=== PATIENT | male | born 1950 | race Caucasian/White ===

== ENCOUNTER → 2018-03-04 01:19 | Outpatient (CLI) | payer MEDICARE, BC, SELFPAY ==
--- NOTE | 2018-03-04 12:58 | DI.REPORT_ITS ---
SYMPTOM/DIAGNOSIS: LT HIP PAIN, M25.552, CHRONIC, ? OA LEFT HIP AND PELVIS: There is mild narrowing of the superior joint space of the hips bilaterally. The hip joints are otherwise well maintained. The sacroiliac joints and symphysis pubis appear intact. The bones are normally mineralized and unremarkable. There are post surgical changes at the L 4-5 in the lumbar spine. Clips are seen inferior to the pelvis consistent with prior vasectomy. The soft tissues are unremarkable. IMPRESSION: Mild joint space narrowing of the hips bilaterally.
== END ==
PROVIDERS: PCP Nurse Practitioner Family; Visit Provider Nurse Practitioner Family
DX: M25.552 Pain in left hip (principal); G89.29 Other chronic pain
CPT/HCPCS: 73502

== ENCOUNTER 2018-03-26 13:16 | Outpatient (RCR) | payer MEDICARE, BC, SELFPAY ==
--- NOTE | 2018-03-26 15:00 | IE_ITS ---
Date: 03/26/18 Referring: Debbie Camp NP M.D. Diagnosis: (L) hip pain P.T. Diagnosis: Difficulty walking around, difficulty changing positions. 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 He is now fully retired and spends a lot of time working in his gardens and he tries to garden an organic garden with fruit trees raspberries and blueberries. He has a hx with being full of arthritis and states that he has significant arthritis in the spine and the knees as well which he is pretty much waiting to get a knee replacement at this point. His current complaint is more of (L) hip pain which has been going on for a year which is more recently painful in the past 4 months. It seems to occur in the back of the (L) hip right of the top of the (L) back pocket and he does not describe any numbness or tingling that run down the leg. The pain can run down the (L) side of his leg on the back end surface. He has no bowel or bladder issues that coincides with his new symptoms. No unexplained weight loss, he has actually gained some weight and the pain does not wake him up at night. It is worse in standing compared to sitting. Pain Ratin/10 currently and at worse 6/10 Prior Level of Function: Unrestricted Current Level of Function: Difficulty walking, difficulty with his gardening. Previous Treatment: Nothing yet for this issue. Social: Pt lives in [place]. Comorbidities: Hx of spinal fusion in 2013, hx arthritis, ureter disorder, hernia repair, ascending aortic aneurism repair, bicuspid valve repair. Medications: Zoloft, Astatin, low dose aspirin, vitamin D3. Quality of Life: __X__ Good Standardized Measures: LEFS score: __52% Disability Rating__ OBJECTIVE: Posture: In standing, pt demonstrates a significant forward head posture, mild anterior pelvic tilt and an increased thoracic kyphosis. Gait: Mildly antalgic with a slight reduction of stance time through the (L) LE. Palpation: He is tender to palpation through the posterior surface of the (L) greater trochanter. Also in the distribution of the piriformis and mildly tender over the quadratus lumborum. SFMA top tier assessment was performed with a dysfunctional non painful pattern through cervical spine motions, UE 1 and UE 2, multisegmental flexion, dysfunctional painful patterns with arms down deep squat, SLS, multisegmental extension and multisegmental rotation. ROM: Multisegmental flexion is full and pain free, multisegmental extension of the spine limited to 50% of available motion, hip flexion 120* (B), hip IR 30* through the (L) with mild pain upon end range and 30* (R). Hip ER 45* (B), hip abduction 45* (B). Knee ROM WNL (B), ankle ROM mildly limited through dorsiflexion on the (L) and end range dorsiflexion on the (R) but pain at end range on the (R). Plantar flexion WNL. Strength: Hip flexion 4+/5 (B) mild pain upon resistance on the (L) Quads 5/5 Hamstrings 5/5 Dorsiflexion 5/5 Plantarflexion 5/5 Glute Med 4-/5 (B) Neuro: Pt intact to light touch and sensation through upper and LE dermatomes, motor control appears intact through associated myotomes and pt demonstrates appropriate proprioception and kinesthetic awareness. Special Tests: Quadrant, SLR and SLUMP negative for any symptoms of radiation or radiculopathy. Modified phabers testing mildly positive on the (L) and negative (R). Michael testing negative (B), Obers testing negative (B). Treatment: Tx today included the initial evaluation and assessment of functional abilities as well as training in a formal exercise program. Pt demonstrated verbal acknowledgement and technique demonstration. Direct treatment time: 60 minutes Total treatment time: 60 minutes ASSESSMENT: Patient is a 73-year-old male with a hx of mild health conditions effecting function, referred for PT services with the diagnosis of (L) hip pain. Patient presents with clinical signs and symptoms consistent with mechanical derangement through the (L) hip , as demonstrated by the following impairment level findings: Multisegmental instability through the (L) hip girdle as demonstrated by weakness through glute med function, mildly antalgic gait pattern and postural deficits. Impairments are contributing to the following functional limitations: Difficulty with long distance walking, difficulty with standing for long periods of time. Patient is assessed as: __X__ Low [id number] ____ Moderate [id number] ____ High 73811 complexity, based on the following: History: Hx of aortic abdominal aneurism repair, bicuspid valve repair, arthritis, fusion in the spine. Examination: Weakness through the pelvic girdle, mildly antalgic gait pattern and tenderness to palpation through the greater trochanter on the (L) side. Minor postural deficits. Presentation: X Stable Decision-Making: X Low complexity 52 % Disability based on LEFS __X__ Patient requires skilled PT intervention to remediate the above functional limitations to return to: __X__ Premorbid level of function Prognosis: __X__ Good as evidence suggest improvement of functional abilities with compliance to a detailed HEP tailored to his dx and following through with PT intervention. G-Codes : Patient's primary functional limitation is in the category of: __X__ Mobility - walking and moving around : [id number] justified by his minor disability involving walking for longer distances and with standing. Projected goal: __X__ Mobility - walking and moving around: [id number] to return to premorbid level of function considering age related deficits. STG: __2__ weeks. 1. Pt will be (I) with HEP both verbally and with ideal technique demonstration. LTG: __6__ weeks. 1. Pt able to walk up to 1 mile within 25 minutes with normalized gait mechanics. PLAN: Patient to be seen 1 x per week, for 6 weeks, adjusting frequency of visits per patient symptoms and response to treatment. Treatment to include: X Manual therapy - [id number]: Utilized for enhancing muscle extensibility and improving joint arthrokinematics. X Ultrasound/ Estim available for pain modulation as necessary. X Therapeutic exercise - [id number] tactile cues, verbal education and advanced movement correctives for establishing muscle symmetry through the core and pelvic girdle, improving LE strength and stability. Pt will be monitored for compliance to HEP and pt status will be updated accordingly, plan may be modified as symptoms dictate. Thank you for this referral. Please do not hesitate to contact me with any questions or concerns regarding this patient's plan of care. Debbie Camp NP please sign below if you are in agreement with this patients plan of care,
== END 2018-03-29 23:59 | disposition home or self-care (01) ==
LOC: PT 13:16
PROVIDERS: PCP Nurse Practitioner Family; Referring Provider Nurse Practitioner Family; Visit Provider Nurse Practitioner Family
DX: M25.552 Pain in left hip (principal); M24.852 Other specific joint derangements of left hip, not elsewhere classified
CPT/HCPCS: 97161; G8978

== ENCOUNTER 2018-04-08 08:37 | Outpatient (CLI) | payer MEDICARE, BC, SELFPAY ==
[2018-04-08 10:32] LABS: Anion Gap 8.2 mmol/L (3-11); BUN 15 mg/dL (7-18); CO2 28.8 mmol/L (21.0-32.0); Calcium 9.1 mg/dL (8.5-10.1); Chloride 105 mmol/L (98-107); Cholesterol 195 mg/dL (50-200); Glucose 90 mg/dL (70-100); HDL Cholesterol 69 mg/dL (40-60); LDL CHOLESTEROL 114 mg/dL (<100); Potassium 4.7 mmol/L (3.5-5.1); Sodium 142 mmol/L (136-145); Triglyceride 46 mg/dL (30-150)
[2018-04-09 11:40] LABS: HIV-1/2 Ag & Ab Screen Negative (NEGAT)
== END 2018-04-08 08:57 ==
PROVIDERS: PCP Nurse Practitioner Family; Visit Provider Nurse Practitioner Family
DX: Z11.4 Encounter for screening for human immunodeficiency virus [HIV] (principal); E78.5 Hyperlipidemia, unspecified; Z11.3 Encounter for screening for infections with a predominantly sexual mode of transmission
CPT/HCPCS: 36415; 80048; 80061; 83721; 87389

== ENCOUNTER 2018-04-23 01:11 | Outpatient (CLI) | payer MEDICARE, BC, SELFPAY ==
--- NOTE | 2018-04-23 07:11 | DI.US_ITS ---
SYMPTOMS/DIAGNOSIS: SCREENING FOR AAA ABDOMINAL AORTIC ULTRASOUND: Sonographic evaluation of the abdominal aorta was performed. There is no evidence of an abdominal aortic aneurysm. Maximum diameter of the abdominal aorta is seen proximally and is 2.8 cm. IMPRESSION: No evidence of an abdominal aortic aneurysm.
== END 2018-04-23 01:31 ==
PROVIDERS: PCP Nurse Practitioner Family; Visit Provider Nurse Practitioner Family
DX: Z13.6 Encounter for screening for cardiovascular disorders (principal)
CPT/HCPCS: 76706

== ENCOUNTER 2019-02-03 10:02 | Outpatient (CLI) | payer MEDICARE, BC, SELFPAY ==
[2019-02-03 11:27] LABS: TSH (W/Ref FT4) 2.42 uIU/mL (0.358-3.74)
[2019-02-03 11:43] LABS: BUN 19 mg/dL (7-18); CREATININE 0.84 mg/dL (0.70-1.30); Calcium 8.8 mg/dL (8.5-10.1); Calculated LDL 90 mg/dL; Chloride 106 mmol/L (98-107); Cholesterol 158 mg/dL (50-200); Glucose 72 mg/dL (70-100); HDL Cholesterol 54 mg/dL (40-60); Potassium 4.6 mmol/L (3.5-5.1); Sodium 142 mmol/L (136-145); Triglyceride 74 mg/dL (30-150)
== END 2019-02-03 10:22 ==
PROVIDERS: PCP Nurse Practitioner Family; Visit Provider Nurse Practitioner Family
DX: E78.5 Hyperlipidemia, unspecified (principal); G25.2 Other specified forms of tremor; Z13.1 Encounter for screening for diabetes mellitus
CPT/HCPCS: 36415; 80048; 80061; 83721; 84443

== ENCOUNTER 2019-12-31 02:31 | Outpatient (CLI) | payer MEDICARE, BC, SELFPAY ==
[2019-12-31 10:12] LABS: Anion Gap 2.7 mmol/L (3-11); BUN 22 mg/dL (7-18); CO2 31.3 mmol/L (21.0-32.0); CREATININE 0.93 mg/dL (0.70-1.30); Calcium 9.1 mg/dL (8.5-10.1); Calculated LDL 100 mg/dL (<100); Chloride 108 mmol/L (98-107); Cholesterol 172 mg/dL (<200); Glucose 94 mg/dL (74-106); HDL Cholesterol 63 mg/dL (40-60); Potassium 4.4 mmol/L (3.5-5.1); Sodium 142 mmol/L (136-145); Triglyceride 49 mg/dL (<150)
== END 2019-12-31 02:51 ==
PROVIDERS: PCP Nurse Practitioner Family; Visit Provider Nurse Practitioner Family
DX: E78.5 Hyperlipidemia, unspecified (principal); Z13.1 Encounter for screening for diabetes mellitus
CPT/HCPCS: 36415; 80048; 80061

== ENCOUNTER 2020-11-02 15:27 | Emergency (ER) | payer MEDICARE, BC, SELFPAY ==
[2020-11-02 15:49] VITALS: BP 168/95; PULSE 50; RESP 18; TEMP 36.4; O2SAT 97
--- NOTE | 2020-11-02 16:00 | DI.RAD_ITS ---
EXAM: XR RIBS RT W PA LAT CHEST CLINICAL HISTORY: Fall, Right side rib pain TECHNIQUE: 2D digital imaging was performed. COMPARISON: CR LEFT RIBS TO INCLUDE CXR from 09/05/2012 FINDINGS: The heart size is within normal limits. Sternal wires in aortic prosthesis are again noted. There a re emphysematous changes. There is mild basilar scarring. No pneumothorax is identified. No effusi on is seen. No thoracic compression fractures are seen. There are fractures of the right posterolat eral 3rd through 8th ribs. IMPRESSION: Right 3rd through 8th rib fractures. No pneumothorax. No infiltrate or effusion.
--- NOTE | 2020-11-02 16:24 | W.ED.GENAD ---
Discharge Plan Disposition Patient Disposition: HOME Condition: Stable Discharge Details Clinical Impression: Multiple fractures of ribs of right side, Contusion of right lung Primary Care Provider: Debbie Camp ED Provider: Gia Childress Home Meds and New Rx's Prescriptions: New cyclobenzaprine 10 mg tablet 10 mg PO TID PRN (Reason: muscle spasm) Qty: 10 RF: 0 oxycodone 5 mg tablet 5 mg PO BID PRN (Reason: pain) 3 Days Qty: 7 RF: 0 No Action ibuprofen 400 mg tablet 400 mg PO QID PRNRF: 0 omeprazole 20 mg capsule,delayed release(DR/EC) 20 mg PO DAILY Qty: 90 RF: 3 Hold Instructions: Home Medication placed on hold at Doctor's office diclofenac sodium [Voltaren] 1 % gel 2 - 4 g topical QID PRN (Reason: pain) Qty: 100 RF: 3 lorazepam 1 mg tablet 1 - 2 mg PO DAILY PRN (Reason: anxiety) Qty: 4 RF: 0 metronidazole [Metrogel] 60 GM gel 1 film Topical DAILY Qty: 1 RF: 3 sertraline 50 MG tablet 75 mg PO DAILY RF: 0 aspirin [Adult Low Dose Aspirin] 81 mg tablet,delayed release (DR/EC) 81 mg PO DAILY RF: 0 cholecalciferol (vitamin D3) [Vitamin D3] 50 mcg (2,000 unit) capsule 4,000 unit PO DAILY RF: 0 amoxicillin 500 mg capsule 2,000 mg PO ONCE Qty: 4 RF: 1 fluorouracil [Efudex] 5 % cream 1 applic topical DAILY RF: 0 triple cream topical RF: 0 simvastatin 20 mg tablet 20 mg PO QHS Qty: 90 RF: 3 losartan 50 mg tablet 50 mg PO DAILY RF: 0 gabapentin 300 mg capsule 300 mg PO HS Qty: 90 RF: 3 Discharge Instructions Instructions: Rib Fracture (ED), Pulmonary Contusion (ED) Additional Instructions: Cough and deep breathing is much as possible, move around as much as possible. Take pain medications as directed. Do not drive or operate heavy machinery while taking the medications. Follow up with primary care provider in 3-5 days. Return to ED sooner if any worsening shortness of breath, worsening pain not relieved by medications, feeling worse at any time, or concerns. Increase oral fluids. Referrals: Debbie Camp NP [Primary Care Provider] - Medical Decision Making Imaging protocol: XR Right ribs. Views: 2 views. COMPARISON: No relevant prior studies available. FINDINGS: Bones/joints: Contour abnormality in the right posterior 4th rib may represent acute fracture. There may be nondisplaced right 5th and 6th rib fractures. Contour abnormality in in the right 7th rib consistent with acute fracture. Soft tissues: Normal. IMPRESSION: Contour abnormality in the right posterior 4th rib may represent acute fracture. There may be nondisplaced right 5th and 6th rib fractures. Contour abnormality in in the right 7th rib consistent with acute fracture. TECHNIQUE: Imaging protocol: XR of the chest Views: 2 views. COMPARISON: No relevant prior studies available. FINDINGS: Lungs: Hyperexpanded lung apple consistent with COPD Pleural spaces: Unremarkable. No pleural effusion. No pneumothorax. Heart/Mediastinum: Cardiac valve replacement Bones/joints: Median sternotomy Right rib fractures as described above. IMPRESSION: Right rib fractures as described above. Thank you for allowing us to participate in the care of your patient. Dictated and Authenticated by: Jose Angel Kincaid MD CT ordered due to right upper quadrant abdominal pain. X-ray was counseled that patient had already had exam. 1814: CBC largely unremarkable, CMP is also within normal limits, patient reevaluation, he is complaining of pain order for Zofran and morphine place. I did discuss the x-ray results with him and pending CT results he verbalizes understanding at this time. vRad CT chest abdomen pelvis: FINDINGS: Liver: 17 mm oblong low-attenuation area in the anterior liver (series 4, image 58 ) 32 Hounsfield units.. 12 mm simple cyst in the dome of the liver . No follow-up imaging recommended . 10 mm cystic structure in the dome of the liver series 4 image 50 and 51. . No follow-up imaging recommended . Multiple small low-attenuation areas in the liver are too small to characterize Gallbladder and bile ducts: Cholecystectomy Pancreas: Normal. No ductal dilation. Spleen: 8 mm nodule in the lateral spleen 27 Hounsfield units. Adrenal glands: Normal. No mass. Kidneys and ureters: Subcentimeter low attenuation area in the right kidney is too small for characterization. 11 mm simple cyst left kidney Nonobstructing right renal calculus Stomach and bowel: Unremarkable. No obstruction. No mucosal thickening. Appendix: No evidence of appendicitis. Intraperitoneal space: Unremarkable. No free air. No significant fluid collection. Vasculature: Unremarkable. No abdominal aortic aneurysm. Lymph nodes: Unremarkable. No enlarged lymph nodes. Urinary bladder: Unremarkable as visualized. Reproductive: Unremarkable as visualized. Bones/joints: Internal fixation device at L4 and L5 Soft tissues: Unremarkable. 1904: Discussed CT results with patient he verbalized understanding. He is standing up alert and oriented and conversive. He is still complaining of some significant pain status post morphine and Zofran. I did discuss giving him a lidocaine patch and p.o. medications to go home with. Discussed return instructions. HPI General Mode of arrival: ambulatory. Date/Time Provider Initiated Documentation: 11/02/20 16:02. Limitations to Documentation: no limitations. Information obtained by: patient. HPI Narrative: 70-year-old male presents to the ER status post fall from approximately 9 foot height possibly 2 hours prior to arrival. Patient states that he was in the back of the bed of a truck on a ladder trimming a [place] when he leaned over and fell onto his right thigh. He denies any loss of consciousness. He reports feeling the wound to be knocked out of him when he fell. He was able to get himself up eventually. He is ambulatory upon arrival. States pain is worse when sitting. Increased pain with deep breathing and moving. He did take a gram of Tylenol prior to arrival. He denies any vomiting, headache, blurry vision no C-spine T-spine L-spine tenderness to palpation no crepitus no step-off. He denies any hip or leg pain from the fall. He does have a past medical history of spinal stenosis osteoarthritis of the knees, hyperlipidemia, aortic aneurysm, tumor, erectile disorder, anxiety disorder. He is alert and oriented x3 speaking in full sentences. He does have lung sounds auscultated bilateral lung apple. He also has some right upper quadrant abdominal pain with palpation. Related Data Home Medications Medication Instructions Recorded Confirmed metronidazole [Metrogel 1%] 1 film TOPICAL DAILY #1 tube 03/05/17 07/05/20 sertraline 75 mg PO DAILY tab-cap 05/30/17 07/05/20 ibuprofen 400 mg tablet 400 mg PO QID PRN 04/19/18 07/05/20 aspirin 81 mg tablet,delayed 81 mg PO DAILY 11/22/18 07/05/20 release lorazepam 1 mg tablet 1 - 2 mg PO DAILY PRN #4 tab-cap 06/09/19 07/05/20 omeprazole 20 mg capsule,delayed 20 mg PO DAILY #90 tab-cap 01/05/20 07/05/20 release cholecalciferol (vitamin D3) 50 4,000 unit PO DAILY cap 02/13/20 07/05/20 mcg (2,000 unit) capsule diclofenac sodium 1 % topical gel 2 - 4 g TOPICAL QID PRN #100 g 07/05/20 07/05/20 amoxicillin 500 mg capsule 2,000 mg PO ONCE #4 cap 07/07/20 fluorouracil 5 % topical cream 1 applic TOPICAL DAILY g 08/05/20 triple cream TOPICAL 08/05/20 simvastatin 20 mg tablet 20 mg PO QHS #90 tab-cap 08/13/20 losartan 50 mg tablet 50 mg PO DAILY 09/10/20 gabapentin 300 mg capsule 300 mg PO HS #90 tab-cap 10/15/20 cyclobenzaprine 10 mg PO TID PRN #10 tab 11/02/20 oxycodone 5 mg PO BID PRN 3 Days #7 tab 11/02/20 Previous Rx's Medication Instructions Recorded lorazepam 1 mg tablet 1 - 2 mg PO DAILY PRN #4 tab-cap 06/09/19 omeprazole 20 mg capsule,delayed 20 mg PO DAILY #90 tab-cap 01/05/20 release diclofenac sodium 1 % topical gel 2 - 4 g TOPICAL QID PRN #100 g 07/05/20 amoxicillin 500 mg capsule 2,000 mg PO ONCE #4 cap 07/07/20 simvastatin 20 mg tablet 20 mg PO QHS #90 tab-cap 08/13/20 gabapentin 300 mg capsule 300 mg PO HS #90 tab-cap 10/15/20 cyclobenzaprine 10 mg PO TID PRN #10 tab 11/02/20 oxycodone 5 mg PO BID PRN 3 Days #7 tab 11/02/20 Allergies Allergy/AdvReac Type Severity Reaction Status Date / Time ibuprofen AdvReac Mild GI upset Verified 01/05/20 08:09 General Stated Complaint: Chest/Rib GRISEL: 3 Review of Systems Narrative: Constitutional: Negative for weight loss, alert and oriented, well groomed, normal body habitus, appears comfortable. HEENT: Denies elevated fever headaches, blurry vision, nasal discharge, sore throat, trouble swallowing. Chest: Your right-sided chest wall pain. Denies palpitations, irregular rhythm, hypertension. Respiratory: Denies Shortness of breath, cough, hemoptysis. Reports pain with deep breathing. GI: Denies abdominal pain, nausea, vomiting, diarrhea, constipation. : Denies dysuria, hematuria, flank pain, rectal bleeding. Neuro: Denies dizziness, blurry vision, weakness, syncope, headache or facial numbness. Hematologic: Denies easy bruising, intolerance to heat or cold, hair loss. [facility] Medical History (Updated 11/02/20 @ 19:14 by Gia Childress) Actinic keratosis (03/20/12) Anxiety disorder, unspecified (01/31/17) Aortic aneurysm of unspecified site, without rupture (12/12/19) S/p tube grafting in 2009 Aortic stenosis (02/04/20) S/p TAVR 02/04/20 Aortic valve disorder (11/06/12) 11/2009 bioprosthetic AVR/Ascending Aorta replacement [facility] [place] Followed by Dr Ríos CT surgery. [facility] [place] rec Abx prophylaxis 01/14/20 [facility] [place] Cardiac Cath, 02/04/20-TAVR [facility] [place] Arthropathy of cervical spine (11/28/11) Cervical arthropathy RFx2 BPH (benign prostatic hyperplasia) S/p TURP BPH w/o urinary obs/LUTS (11/28/11) S/P TURP Chronic pain (05/15/14) Spinal stenosis; cervical arthropathy Essential tremor Gastroesophageal reflux disease (12/22/15) EGD 2010 [facility] [place] Generalized osteoarthritis (04/30/13) Hearing loss Hyperlipidemia (11/28/11) 03/2018 labs: 10-year ASCVD risk = ~14.2% (already on moderate intensity statin) Insomnia, unspecified (11/06/12) Nondependent alcohol abuse, 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/28/11) Primary osteoarthritis of right knee (10/26/17) [facility] 05/19/19 [facility] [place] Kenalog injection Rosacea (11/28/11) 08/05/20 [facility] Sensorineural hearing loss, bilateral (11/06/12) hearing aide Spinal stenosis (11/28/11) [facility] L4-5 laminectomy 11/2013 Dr Rascon [facility] pain clinic: median nerve branch block 2015 Temporomandibular joint disorders, unspecified (11/28/11) Ventral hernia (11/28/11) Surgical History (Updated 09/13/20 @ 11:02 by Debbie Camp NP) Cholecystectomy EGD (07/19/11) lumbar/sacral medial branch blocks (02/24/15) Dr Caputo Replacement of aortic valve (~11/2009) Bioprosthetic AVR & ascending aorta replacement at [facility] [place] S/P TAVR (transcatheter aortic valve replacement) (02/04/20) Valve in valve TAVR with 26mm ultra; [facility] SI joint injection (04/23/17) L side, Dr. Caputo Transurethral prostatectomy For BPH Family History Mother Diabetes Heart disease Father Heart disease Multiple sclerosis Sister Diabetes Social History Smoking/Tobacco Use Status: Former Tobacco Use Quit Date: 07/30/09 Smoking risk assessment performed?: Yes Alcohol Intake: former Drug use: Never Substance use type: does not use Adopted: No Caregiver/Support person: No Foster care: No Household members: spouse Number of Children: 2 Communication Needs: None Education Level: college current occupation: retired Current gender identity: male What type of physical activity do you participate in: walking Duration: 60-90 minutes/day Frequency: daily Seatbelt use: always Helmet use: Yes Drive intox or ride w/intox cmv driver: No Water heater temp set <120 deg: Yes Working smoke detector in home: Yes Fire extinguisher in home: Yes Carbon monox detector in home: Yes Firearms in home: Yes Firearms unloaded and locked: Yes Do you feel safe at home: Yes Do you feel safe in your relationship?: Yes Exam Narrative Exam Narrative: Constitutional: Alert and oriented x3. Appears stated age. Normal body habitus. Head: Normocephalic, no trauma. Eyes: Pupils PERRLA, Red reflex noted, EOM's intact. Eyelids symmetrical without lesions, discharge, or swelling. ENT: Bilateral TM's WNL, External ear normal to inspection, no mastoid TTP, swelling, or erythema, Nasal turbinates WNL, no nasal discharge. Normal dentition, Posterior pharynx WNL, no exudate. Chest: RRR, Normal S1, S2, distal pulses intact. Resp: Lungs clear to auscultation bilaterally, no wheezes, rales, or rhonchi. Chest wall: Tenderness noted to the right lateral chest wall with palpation. No step-off or crepitus noted. No anterior posterior chest wall tenderness to palpation. Musculoskeletal: Normal gait, 5/5 strength to all four extremities. No midline C-spine, T-spine, L-spine tenderness with palpation. No crepitus no step-off. Skin: No suspicious rashes or lesions. Capillary refill less than 2 sec. Neurologic: Cranial nerves II-XII intact. Alert and oriented x 3. DTR's intact. Hematologic/Lymphatic: No ecchymosis, no lymphadenopathy. Course Vital Signs Vital signs: Vital Signs Temperature 36.4 C L 11/02/20 15:49 Pulse 50 L 11/02/20 15:49 Respiratory Rate 18 11/02/20 15:49 Blood Pressure 168/95 H 11/02/20 15:49 Pulse Oximetry 97 11/02/20 15:49 Temperature 36.4 C L 11/02/20 15:49 Temperature Source Skin 11/02/20 15:49 Pulse 50 L 11/02/20 15:49 Respiratory Rate 18 11/02/20 15:49 Respiratory Effort Non-Labored 11/02/20 16:08 Respiratory Depth Normal 11/02/20 16:08 Respiratory Pattern Normal 11/02/20 16:08 Blood Pressure 168/95 H 11/02/20 15:49 Blood Pressure Position Sitting 11/02/20 15:49 Pulse Oximetry 97 11/02/20 15:49 Oxygen Delivery Method Room Air 11/02/20 15:49 Oxygen Flow Rate 0 11/02/20 15:49 Pain Level 3 11/02/20 16:08 Comment 11/02/20 15:49
--- NOTE | 2020-11-02 16:27 | DI.CT_ITS ---
EXAM: CT CHEST/ABD/PEL W CLINICAL HISTORY: Fall from 9 feet, Right side chest pain, RUQ pain. TECHNIQUE: Imaging Protocol: Axial computed tomography images with coronal and sagittal reformatted images were created and reviewed CONTRAST MATERIAL: Intravenous: Omnipaque 350 Contrast volume:100 ml Oral: no COMPARISON: US US AAA screening from 04/23/2018 CR,XR XR RIBS RT W PA LAT CHEST from 11/02/2020 CR,XR XR RIBS RT W PA LAT CHEST from 11/02/2020 FINDINGS: CHEST: Tracheobronchial tree: Patent where visualized. Mediastinum and Brandie: No dominant adenopathy or fluid collection. Pulmonary parenchyma: No consolidation or dominant measurable mass. Mild bibasilar atelectasis. Sma ll focal area of airspace density in the right upper lobe could represent a contusion. Pleura: No effusion or pneumothorax. Lymph nodes: Within normal limits. Aorta: Thoracic portion non-dilated. Heart: Mildly enlarged. No pericardial effusion. Aortic valve prosthesis. Ascending aorta measures 4 cm in diameter. No dissection. Bones: Nondisplaced fractures of the right 3rd through 8th ribs. ABDOMEN: Liver: Normal density. Several small cysts. Gallbladder and biliary tract: No status post cholecystectomy. No biliary dilatation. Pancreas: Normal density, no abnormal calcifications or inflammatory process. Spleen: Normal. Kidneys: Normal size, contour and axis. No obstructive uropathy. No masses seen. Small bilateral c ysts. Tiny nonobstructing stone mid right kidney. Adrenal glands: No masses seen. Aorta: Abdominal portion non-dilated. Lymph nodes: Within normal limits. PELVIS: Bladder: Symmetric distention, no gross wall thickening. Bowel: No obstruction or bowel wall thickening. Peritoneal cavity: No ascites, collection or mesenteric inflammatory response. Bones: Postsurgical changes with fusion hardware in place at L4-5. Degenerative disc changes. No mj mbar spine or pelvic fracture. Reproductive organs: Within normal limits. IMPRESSION: Right 3rd through 8th rib fractures. Question small area of atelectasis versus contusion in the righ t upper lobe. No acute abnormality is seen in the abdomen or pelvis. RADIATION DOSE DELIVERED: 1,376.65mGy.cm Total DLP DATA REPOSITORY: All CT scans at this facility are submitted to the National Radiology Data Registry (NRDR) Dose Index Registry (DIR) with the [employer] (ACR). RADIATION OPTIMIZATION: All CT scans at this facility use at least one of these dose optimization te chniques: automated exposure control; mA and/or kV adjustment per patient size (includes targeted exa ms where dose is matched to clinical indication); or iterative reconstruction.
--- NOTE | 2020-11-02 16:56 | DI.VRAD_ITS ---
PROCEDURE INFORMATION: Exam: XR Right Ribs Exam date and time: 11/02/2020 4:34 PM Age: 70 years old Clinical indication: Other: Fall, right side rib pain TECHNIQUE: Imaging protocol: XR Right ribs. Views: 2 views. COMPARISON: No relevant prior studies available. FINDINGS: Bones/joints: Contour abnormality in the right posterior 4th rib may represent acute fracture. There may be nondisplaced right 5th and 6th rib fractures. Contour abnormality in in the right 7th rib consistent with acute fracture. Soft tissues: Normal. IMPRESSION: Contour abnormality in the right posterior 4th rib may represent acute fracture. There may be nondisplaced right 5th and 6th rib fractures. Contour abnormality in in the right 7th rib consistent with acute fracture. PROCEDURE INFORMATION: Exam: XR Chest Exam date and time: 11/02/2020 4:34 PM Age: 70 years old Clinical indication: Other: Fall, right side rib pain TECHNIQUE: Imaging protocol: XR of the chest Views: 2 views. COMPARISON: No relevant prior studies available. FINDINGS: Lungs: Hyperexpanded lung apple consistent with COPD Pleural spaces: Unremarkable. No pleural effusion. No pneumothorax. Heart/Mediastinum: Cardiac valve replacement Bones/joints: Median sternotomy Right rib fractures as described above. IMPRESSION: Right rib fractures as described above. Dictated and Authenticated by: Jose Angel Kincaid MD. Ordering:ROXANA Nielsen MD
[2020-11-02 17:02] LABS: Abs Immature Grans 0.07 10^3/uL (0.0-0.06); Absolute Basophil Count 0.03 10^3/uL (0.0-0.2); Absolute Eosinophil Count 0.15 10^3/uL (0.0-0.7); Absolute Lymphocyte Count 0.89 10^3/uL (1.2-3.4); Absolute Monocyte Count 0.63 10^3/uL (0.1-0.8); Absolute Neutrophil Count 4.23 10^3/uL (1.2-6.7); Basophils % 0.5; Eosinophils % 2.5; HGB 16.1 g/dL (13.5-17.5); Immature Grans % 1.2; Lymphocytes % 14.8; MCH 31.6 pg (27.0-33.0); MCHC 32.9 % (32.0-36.0); MCV 96.1 fL (80-95); MPV 10.1 fL (8.0-11.0); Monocytes % 10.5; Neutrophils % 70.5; Nucleated RBC 0 %; Platelet Count 157 10^3/uL (130-400); RDW 12.8 % (11.8-14.1); RDW-SD 46.2 fL
[2020-11-02 17:16] LABS: ALT 38 U/L (16-63); AST 32 U/L (15-37); Albumin 4.4 g/dL (3.4-5.0); Alkaline Phosphatase 90 U/L (46-116); Anion Gap 7.1 mmol/L (3-11); BUN 20 mg/dL (7-18); Bilirubin, Total 0.7 mg/dL (0.2-1.0); CO2 29.9 mmol/L (21.0-32.0); CREATININE 0.9 mg/dL (0.70-1.30); Calcium 9.3 mg/dL (8.5-10.1); Chloride 103 mmol/L (98-107); Glucose 93 mg/dL (74-106); Potassium 4.2 mmol/L (3.5-5.1); Sodium 140 mmol/L (136-145); Total Protein 7.9 g/dL (6.4-8.2)
[2020-11-02] MEDS: Omnipaque 350 MG/ML 100 ML BTL IJ (17:56)
[2020-11-02] MEDS: Normal Saline - Diluent 50 ML VIAL IV (17:56)
[2020-11-02] MEDS: Ondansetron 4 MG/2 ML VIAL IVP (18:22)
--- NOTE | 2020-11-02 18:48 | DI.VRAD_ITS ---
PROCEDURE INFORMATION: Exam: CT Chest With Contrast; Diagnostic Exam date and time: 11/02/2020 5:53 PM Age: 70 years old Clinical indication: Injury or trauma; Fall; Sprain or strain TECHNIQUE: Imaging protocol: Diagnostic computed tomography of the chest with contrast. 3D rendering (Not supervised by radiologist): MIP and/or 3D reconstructed images were created by the technologist. Contrast material: OMNIPAQUE 350; Contrast volume: 100 ml; Contrast route: IV; COMPARISON: CR XR RIBS RT W PA LAT CHEST 11/02/2020 4:23 PM FINDINGS: Lungs: Mild opacities in the lower lobes may represent atelectasis or contusion . Pleural spaces: Unremarkable. No pneumothorax. No pleural effusion. Heart: Status post aortic valve replacement Aorta: Unruptured aneurysm of the ascending aorta 4 cm. Lymph nodes: Unremarkable. No enlarged lymph nodes. Bones/joints: Median sternotomy Contour abnormality right anterior 4th rib contour abnormality in the right lateral 8th rib. Findings may represent minimal fracture. Contour abnormalities in the right posterior 5th , 6th, 7th, 8th, 9th, 10th ribs consistent with mild fractures.. Soft tissues: Unremarkable. IMPRESSION: 1. Contour abnormality right anterior 4th rib contour abnormality in the right lateral 8th rib. Findings may represent minimal fracture. Contour abnormalities in the right posterior 5th , 6th, 7th, 8th, 9th, 10th ribs consistent with mild fractures.. 2. Unruptured aneurysm of the ascending aorta 4 cm. 3. Mild opacities in the lower lobes may represent atelectasis or contusion . PROCEDURE INFORMATION: Exam: CT Abdomen And Pelvis With Contrast Exam date and time: 11/02/2020 5:53 PM Age: 70 years old Clinical indication: Injury or trauma; Fall; Sprain or strain TECHNIQUE: Imaging protocol: Computed tomography of the abdomen and pelvis with contrast. 3D rendering (Not supervised by radiologist): MIP and/or 3D reconstructed images were created by the technologist. Contrast material: OMNIPAQUE 350; Contrast volume: 100 ml; Contrast route: IV; COMPARISON: CR XR RIBS RT W PA LAT CHEST 11/02/2020 4:23 PM FINDINGS: Liver: 17 mm oblong low-attenuation area in the anterior liver (series 4, image 58 ) 32 Hounsfield units.. 12 mm simple cyst in the dome of the liver . No follow-up imaging recommended . 10 mm cystic structure in the dome of the liver series 4 image 50 and 51. . No follow-up imaging recommended . Multiple small low-attenuation areas in the liver are too small to characterize Gallbladder and bile ducts: Cholecystectomy Pancreas: Normal. No ductal dilation. Spleen: 8 mm nodule in the lateral spleen 27 Hounsfield units. Adrenal glands: Normal. No mass. Kidneys and ureters: Subcentimeter low attenuation area in the right kidney is too small for characterization. 11 mm simple cyst left kidney Nonobstructing right renal calculus Stomach and bowel: Unremarkable. No obstruction. No mucosal thickening. Appendix: No evidence of appendicitis. Intraperitoneal space: Unremarkable. No free air. No significant fluid collection. Vasculature: Unremarkable. No abdominal aortic aneurysm. Lymph nodes: Unremarkable. No enlarged lymph nodes. Urinary bladder: Unremarkable as visualized. Reproductive: Unremarkable as visualized. Bones/joints: Internal fixation device at L4 and L5 Soft tissues: Unremarkable. IMPRESSION: No acute process Dictated and Authenticated by: Jose Angel Kincaid MD. Ordering:ROXANA Nielsen MD
[2020-11-02 18:58] VITALS: BP 109/67; PULSE 42; RESP 16; TEMP 36.6; O2SAT 96
[2020-11-02] MEDS: Cyclobenzaprine 10 MG TAB, 3 TABS/BTL PO (19:30)
[2020-11-02] MEDS: Cyclobenzaprine 10 MG TAB PO (19:30)
[2020-11-02] MEDS: Lidocaine 5% Patch 1 PATCH TP (19:31)
[2020-11-02] MEDS: oxyCODONE 5 MG TAB PO (19:31)
[2020-11-02 19:32] VITALS: BP 134/79; PULSE 72; RESP 18; TEMP 36.8; O2SAT 98
--- NOTE | 2020-11-02 19:44 | NUR.NOTE ---
Nursing Note: Pt was provided with an IS and was able to provided proper use.
== END 2020-11-02 19:39 | disposition home or self-care (01) ==
PROVIDERS: Emergency Provider Registered Nurse Emergency; PCP Nurse Practitioner Family
DX: S22.41XA Multiple fractures of ribs, right side, initial encounter for closed fracture (principal); S27.321A Contusion of lung, unilateral, initial encounter; W11.XXXA Fall on and from ladder, initial encounter; Y93.H2 Activity, gardening and landscaping
CPT/HCPCS: 36415; 74177; 80053; 96374; 96375; 99285; 71046; 71100; 71260; 85025; 99284; J2405; J3490

== ENCOUNTER 2021-01-10 02:39 | Outpatient (CLI) | payer MEDICARE, BC, SELFPAY ==
[2021-01-10 08:09] LABS: HCT 50.2 % (40.0-50.0); HGB 16.2 g/dL (13.5-17.5); MCHC 32.3 % (32.0-36.0); MCV 96.2 fL (80-95); MPV 9.7 fL (8.0-11.0); Platelet Count 157 10^3/uL (130-400); RBC 5.22 10^6/uL (4.36-5.78); RDW 12.3 % (11.8-14.1); WBC 5.15 10^3/uL (4.4-10.8)
[2021-01-10 09:40] LABS: ALT 27 U/L (16-63); AST 22 U/L (15-37); Alkaline Phosphatase 138 U/L (46-116); Anion Gap 7.1 mmol/L (3-11); BUN 24 mg/dL (7-18); Bilirubin, Total 0.5 mg/dL (0.2-1.0); CO2 30.9 mmol/L (21.0-32.0); CREATININE 0.9 mg/dL (0.70-1.30); Calcium 9.5 mg/dL (8.5-10.1); Calculated LDL 117 mg/dL (<100); Chloride 105 mmol/L (98-107); Cholesterol 191 mg/dL (<200); Glucose 105 mg/dL (74-106); HDL Cholesterol 57 mg/dL (40-60); Potassium 5.2 mmol/L (3.5-5.1); Sodium 143 mmol/L (136-145); Total Protein 7.2 g/dL (6.4-8.2); Triglyceride 89 mg/dL (<150)
== END 2021-01-10 02:40 | disposition home or self-care (01) ==
LOC: LBO 02:44
PROVIDERS: PCP Nurse Practitioner Family; Visit Provider Nurse Practitioner Family
DX: E78.5 Hyperlipidemia, unspecified (principal); Z79.899 Other long term (current) drug therapy; Z51.81 Encounter for therapeutic drug level monitoring
CPT/HCPCS: 36415; 80053; 80061; 85027

== ENCOUNTER 2021-01-20 12:28 | Outpatient (REF) | payer MEDICARE, BC, SELFPAY ==
[2021-01-20 14:00] LABS: Potassium 4.4 mmol/L (3.5-5.1)
== END 2021-01-20 12:29 | disposition home or self-care (01) ==
LOC: LBN 12:28
PROVIDERS: PCP Nurse Practitioner Family; Referring Provider Nurse Practitioner Family; Visit Provider Nurse Practitioner Family
DX: E87.5 Hyperkalemia (principal)
CPT/HCPCS: 84132

== ENCOUNTER 2021-06-06 09:30 | Outpatient (REF) | payer MEDICARE, BC, SELFPAY ==
[2021-06-08 15:48] LABS: Helicobacter pylori Ag, Feces Negative (Negative)
== END 2021-06-06 09:31 | disposition home or self-care (01) ==
LOC: LBN 09:30
PROVIDERS: PCP Nurse Practitioner Family; Visit Provider Nurse Practitioner Family
DX: K21.9 Gastro-esophageal reflux disease without esophagitis (principal)
CPT/HCPCS: 87338

== ENCOUNTER → 2021-10-13 10:41 | Outpatient (BNVA) | payer MEDICARE, BC, SELFPAY | PROVIDERS: PCP Nurse Practitioner Family; Referring Provider Nurse Practitioner Family; Visit Provider Student in an Organized Health Care Education/Training Program | DX: M17.11 Unilateral primary osteoarthritis, right knee (principal) | CPT/HCPCS: 99214 ==

== ENCOUNTER → 2021-11-10 10:26 | Outpatient (BNVA) | payer MEDICARE, BC, SELFPAY | PROVIDERS: PCP Nurse Practitioner Family; Referring Provider Nurse Practitioner Family | DX: M17.11 Unilateral primary osteoarthritis, right knee (principal) ==

== ENCOUNTER 2021-11-14 02:34 | Outpatient (CLI) | payer MEDICARE, BC, SELFPAY ==
[2021-11-14 09:48] LABS: HCT 50.2 % (40.0-50.0); MCH 31.9 pg (27.0-33.0); MCHC 31.9 % (32.0-36.0); MPV 10.1 fL (8.0-11.0); Platelet Count 147 10^3/uL (130-400); RBC 5.02 10^6/uL (4.36-5.78); RDW 12.5 % (11.8-14.1); RDW-SD 46.4 fL; WBC 5.33 10^3/uL (4.4-10.8)
[2021-11-14 10:41] LABS: Anion Gap 5.1 mmol/L (3-11); BUN 25 mg/dL (7-18); CO2 30.9 mmol/L (21.0-32.0); Calcium 9.3 mg/dL (8.5-10.1); Chloride 105 mmol/L (98-107); Glucose 87 mg/dL (74-106); Potassium 4.2 mmol/L (3.5-5.1); Sodium 141 mmol/L (136-145)
[2021-11-14 11:52] LABS: Source Nasal/Nares
[2021-11-14 14:13] LABS: COVID-19 PCR Negative (Negative)
== END 2021-11-14 02:35 | disposition home or self-care (01) ==
LOC: LBO 02:35
PROVIDERS: PCP Nurse Practitioner Family; Visit Provider Student in an Organized Health Care Education/Training Program
DX: M25.561 Pain in right knee (principal); M17.11 Unilateral primary osteoarthritis, right knee; Z20.822 Contact with and (suspected) exposure to COVID-19; Z01.818 Encounter for other preprocedural examination; Z01.812 Encounter for preprocedural laboratory examination
CPT/HCPCS: 36415; 80048; 85027; 87635; U0005

== ENCOUNTER 2021-11-14 02:41 | Outpatient (CLI) | payer MEDICARE, BC, SELFPAY | END 2021-11-14 02:42 | disposition home or self-care (01) | LOC: LBO 02:42 | PROVIDERS: PCP Nurse Practitioner Family; Visit Provider Student in an Organized Health Care Education/Training Program ==

== ENCOUNTER 2021-11-16 08:50 | Day surgery (SDC) | payer MEDICARE, BC, SELFPAY ==
[2021-11-16] VITALS (10 sets, daily range): BP systolic 105–145; BP diastolic 69–103; PULSE 52–67; RESP 13–21; TEMP 36.1–36.6; O2SAT 94–97; BMI 25.9
--- NOTE | 2021-11-16 07:32 | PDOC.DSDIS_ITS ---
Discharge Plan Disposition Patient Disposition: HOME Condition: Good Discharge Details Reason For Visit: Right TKA Attending Provider: Isaac Farrell Primary Care Provider: Debbie Camp Home Meds and New Rx's Prescriptions: New celecoxib [Celebrex] 200 mg capsule 200 mg PO BID Qty: 60 0RF aspirin 81 mg tablet,delayed release (DR/EC) 81 mg PO BID Qty: 60 0RF gabapentin 300 mg capsule 300 mg PO QHS Qty: 14 0RF acetaminophen 500 mg capsule 1,000 mg PO Q8H PRN PRNQty: 90 0RF oxycodone 5 mg tablet 5 mg PO Q4H PRNQty: 18 0RF Continued diclofenac sodium [Voltaren] 1 % gel 2 - 4 g topical QID PRN (Reason: pain) Qty: 100 3RF Rx Instructions: 2G for upper extremity joints; 4G for lower extremity joints acetaminophen 500 mg capsule 1,000 mg PO TID PRN0RF pantoprazole 40 mg tablet,delayed release (DR/EC) 40 mg PO DAILY Qty: 90 1RF Rx Instructions: Take 40 mg daily once daily in the morning at least 20-30 minutes before first meal of the day lorazepam 1 mg tablet 1 - 2 mg PO DAILY PRN (Reason: anxiety) Qty: 4 0RF Rx Instructions: Take 1-2 tabs about 1 hour before takeoff losartan 50 mg tablet 50 mg PO DAILY Qty: 90 3RF aspirin [Adult Low Dose Aspirin] 81 mg tablet,delayed release (DR/EC) 81 mg PO DAILY 0RF cholecalciferol (vitamin D3) [Vitamin D3] 50 mcg (2,000 unit) capsule 4,000 unit PO DAILY 0RF amoxicillin 500 mg capsule 2,000 mg PO ONCE Qty: 4 1RF Rx Instructions: prior to dental procedure triple cream topical 0RF Rx Instructions: 08/05/2019 Cream is a mixture of Ivermectin 1%, Metrodiazole 1%, Azelaic acid 15% prescribed by Derm. Apply to entire face daily for 4 weeks and then start Efudex. sertraline 50 mg tablet 50 mg PO DAILY Qty: 90 3RF gabapentin 300 mg capsule 300 mg PO TID Qty: 270 3RF simvastatin 20 mg tablet 20 mg PO QHS Qty: 90 3RF Discharge Instructions Additional Instructions: Total Knee Discharge Instructions Activity: The most important activity is to walk. You should try to take short walks a few times a day. It is important that when resting you work on keeping the knee straight. Avoid putting a pillow behind the knee as this will encourage flexion. Work on range of motion exercises as provided by Physical Therapy. If you have the [employer] bike coming, this will be your primary tool for exercise after the knee replacement. You should use it and follow the directions for the knee. Utilize the other exercises sparingly based on your symptoms. - Start outpatient physical therapy within 2 weeks. - You should wear the ALLYN hose on both legs for 2 weeks. You may remove these at night. You may also use any compression sock in place of the ALLYN hose. - Utilize [employer] to review exercises, see videos on exercises and obtain basic information pertaining to your surgery and your recovery. Dressing: Remove the Darion wrap by 2 days after your surgery and put on the ALLYN stocking given to you from the hospital. Keep the surgical dressing (underneath the DARION wrap) in place for at least one week. After the first week it may be removed and replaced with light gauze and tape or nothing. The wound and dressing may get wet after 3 days but avoid soaking the dressing or otherwise it will need to be changed. Many people prefer covering the dressing with cling wrap (saran wrap) to minimize it from getting soaked. If it gets wet, just pat dry. If it starts to peel off then it will need to be changed. Medications: - You should take Tylenol and anti-inflammatory Celebrex as your primary pain control medications. If the Celebrex is too expensive or not covered, please call the office for another alternative (Advil/Ibuprofen or Naproxen/Aleve) - You have been prescribed a stronger pain medication Oxycodone for breakthrough pain, take as needed as prescribed. - You may continue with your previously prescribed stomach acid reduction agent Pantoprozole to help reduce stomach acid and reflux. - You may continue with your previously prescribed Gabapentin to take at night for restlessness and nerve pain. - You will be taking Aspirin 81mg twice a day for DVT prevention unless instructed otherwise. - If you have constipation you should take Colace or Miralax (both [id number]). It takes most people 3-4 days to have a bowel movement. Follow-up: 2 weeks If you have any acute concerns or questions, please do not hesitate to contact the office at [phone]. You may contact Dr. Farrell with any questions after hours through the hospital at [phone] or on his cell phone at [phone]. Referrals: Isaac Farrell MD [ [facility] STAFF PHYSICIAN] - Equipment/Supplies: Walker Activity:: Activity as Tolerated Remove Dressings/Wound Care:: Do Not Remove Shower/Bathe:: 72 hours Discharge Orders Discharge Orders: Discharge Order (Routine); Ordered 11/16/21 Ordered By: Beverly Estrada DS: Diagnosis Discharge Diagnosis (1) Primary osteoarthritis of right knee: Status: Chronic
--- NOTE | 2021-11-16 09:19 | W.ANESPRE ---
General Info Date of Service Date Performed: 11/16/21 Height: 6 ft 3 in Weight: 93.894 kg Body Mass Index (BMI): 25.9 Surgical Procedure: Operation Date: 11/16/21 11:25 Proposed Procedure Side Surgeon p Knee Total Arthroplasty Cementless CR Right Isaac Farrell MD Meds Allergies and Home Medications Allergies Allergy/AdvReac Type Severity Reaction Status Date / Time ibuprofen AdvReac Mild GI upset Verified 11/16/21 09:31 Home Medication Medication Instructions Recorded aspirin 81 mg tablet,delayed 81 mg PO DAILY 11/22/18 release (Adult Low Dose Aspirin) lorazepam 1 mg tablet 1 - 2 mg PO DAILY PRN #4 tab-cap 06/09/19 cholecalciferol (vitamin D3) 50 4,000 unit PO DAILY cap 02/13/20 mcg (2,000 unit) capsule (Vitamin D3) diclofenac sodium 1 % topical gel 2 - 4 g TOPICAL QID PRN #100 g 07/05/20 (Voltaren) amoxicillin 500 mg capsule 2,000 mg PO ONCE #4 cap 07/07/20 triple cream TOPICAL 08/05/20 sertraline 50 mg tablet 50 mg PO DAILY #90 tab-cap 02/16/21 acetaminophen 500 mg capsule 1,000 mg PO TID PRN cap 06/03/21 pantoprazole 40 mg tablet,delayed 40 mg PO DAILY #90 tab-cap 06/03/21 release gabapentin 300 mg capsule 300 mg PO TID #270 tab-cap 07/01/21 losartan 50 mg tablet 50 mg PO DAILY #90 tab 07/28/21 simvastatin 20 mg tablet 20 mg PO QHS #90 tab-cap 08/05/21 acetaminophen 500 mg capsule 1,000 mg PO Q8H PRN PRN #90 cap 11/16/21 aspirin 81 mg tablet,delayed 81 mg PO BID #60 tab 11/16/21 release celecoxib 200 mg capsule (Celebrex) 200 mg PO BID #60 cap 11/16/21 gabapentin 300 mg capsule 300 mg PO QHS #14 cap 11/16/21 oxycodone 5 mg tablet 5 mg PO Q4H PRN #18 tab 11/16/21 Current Visit Medications: Current Medications Generic Name Dose Route Start Last Admin Trade Name Freq PRN Reason Stop Dose Admin Acetaminophen 1,000 mg 11/16/21 06:00 Acetaminophen 500 Mg Tab PO PREOP JUAN J Acetaminophen 1,000 mg 11/16/21 14:00 Acetaminophen 500 Mg Tab PO TID [facility] Aspirin 81 mg 11/16/21 20:00 Aspirin E.C. 81 Mg Tabec PO BID [facility] Celecoxib 400 mg 11/16/21 06:00 Celecoxib 200 Mg Cap PO PREOP JUAN J Celecoxib 200 mg 11/16/21 20:00 Celecoxib 200 Mg Cap PO BID [facility] Bupivacaine HCl 25 ml/ 0 ml 11/16/21 11:00 Ketorolac Tromethamine 15 mg/ IJ 11/21/21 10:59 Sodium Chloride 24.5 ml DIRECTED [facility] Docusate Sodium 100 mg 11/16/21 07:31 Docusate Sodium 100 Mg Cap PO BID PRN PRN Constipation Gabapentin 300 mg 11/16/21 06:00 Gabapentin 300 Mg Cap PO PREOP [facility] Gabapentin 300 mg 11/16/21 22:00 Gabapentin 300 Mg Cap PO HS [facility] Hydromorphone HCl 0.5 mg 11/16/21 07:31 Hydromorphone 2 Mg/Ml Vial IVP Q2H PRN PRN Tranexamic Acid 1,000 mg/ 60 mls @ 360 mls/hr 11/16/21 06:00 Sodium Chloride IVPB PREOP [facility] Tranexamic Acid 1,000 mg/ 60 mls @ 360 mls/hr 11/16/21 06:00 Sodium Chloride IVPB DIRECTED [facility] Ringer's Solution 1,000 mls @ 80 mls/hr 11/16/21 06:00 IV 12/15/21 23:59 INFUSION [facility] Cefazolin Sodium/Dextrose 2 gm in 50 mls @ 100 mls/hr 11/16/21 06:00 Ancef Duplex IVPB 12/15/21 23:59 PREOP [facility] Cefazolin Sodium/Dextrose 1 gm in 50 mls @ 100 mls/hr 11/16/21 17:00 Ancef Duplex IVPB 11/17/21 09:29 Q8H [facility] IV Miscellaneous Supplies 1 each 11/16/21 06:00 Iv Access IV 12/15/21 23:59 DIRECTED [facility] Ondansetron HCl 4 mg 11/16/21 07:31 Ondansetron 4 Mg/2 Ml Vial IVP Q6H PRN PRN Nausea Oxycodone HCl 0 mg 11/16/21 07:31 Oxycodone 5 Mg Tab PO Q3H PRN PRN Pain Pantoprazole Sodium 40 mg 11/17/21 07:30 Pantoprazole 40 Mg Tabcr PO DAILY@0730 JUAN J Sodium Chloride 0 ml 11/16/21 06:00 Normal Saline Flush 10 Ml Syr IV 12/15/21 23:59 PRN PRN Sodium Chloride 0 ml 11/16/21 06:00 Normal Saline 10 Ml Vial IJ 12/15/21 23:59 DIRECTED PRN Sterile Water 0 ml 11/16/21 06:00 Water,Injection,Sterile 10 Ml Vial IJ 12/15/21 23:59 DIRECTED PRN PFSH Active Problems Active Problems: Problem Status Onset Code Chronic pain of right ankle M25.571, G89.29 Essential hypertension I10 Aortic aneurysm of unspecified site, without rupture 12/12/19 I71.9 Essential tremor G25.0 Chronic left hip pain M25.552, G89.29 Ventral hernia 11/28/11 K43.9 Temporomandibular joint disorders, unspecified 11/28/11 M26.609 Spinal stenosis 11/28/11 M48.00 Sensorineural hearing loss, bilateral 11/06/12 H90.3 Rosacea 11/28/11 L71.9 Primary osteoarthritis of right knee 10/26/17 M17.11 Insomnia, unspecified 11/06/12 G47.00 Hyperlipidemia 11/28/11 E78.5 Generalized osteoarthritis 04/30/13 M15.9 Gastroesophageal reflux disease 12/22/15 K21.9 Chronic pain 05/15/14 G89.29 BPH w/o urinary obs/LUTS 11/28/11 N40.0 Arthropathy of cervical spine 11/28/11 M46.92 Aortic valve disorder 11/06/12 I35.9 Anxiety disorder, unspecified 01/31/17 F41.9 Actinic keratosis 03/20/12 L57.0 Medical History Medical History Aortic stenosis (02/04/20) S/p TAVR 02/04/20 09/02/21 F/U Dr Albright Hearing loss Multiple fractures of ribs of right side Nondependent alcohol abuse, 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 Caputo Transurethral prostatectomy For BPH Tobacco Smoking/Tobacco Use Status: Former Tobacco Use Alcohol Alcohol Intake: former Substance Use Substance use: Never Substance use type: does not use Vital Signs and Lab Results Lab Results Blood Type / Crossmatch: No Data to Display Complete Blood Count: White Blood Count 5.33 10^3/uL (4.4-10.8) 11/14/21 09:40 11/14/21 Red Blood Count 5.02 10^6/uL (4.36-5.78) 11/14/21 09:40 11/14/21 Hemoglobin 16.0 g/dL (13.5-17.5) 11/14/21 09:40 11/14/21 Hematocrit 50.2 % (40.0-50.0) H 11/14/21 09:40 11/14/21 Platelet Count 147 10^3/uL (130-400) 11/14/21 09:40 11/14/21 Complete Metabolic Panel: Sodium Level 141 mmol/L (136-145) 11/14/21 09:40 11/14/21 Potassium Level 4.2 mmol/L (3.5-5.1) 11/14/21 09:40 11/14/21 Chloride Level 105 mmol/L (98-107) 11/14/21 09:40 11/14/21 Carbon Dioxide Level 30.9 mmol/L (21.0-32.0) 11/14/21 09:40 11/14/21 Blood Urea Nitrogen 25 mg/dL (7-18) H 11/14/21 09:40 11/14/21 Creatinine 1.0 mg/dL (0.70-1.30) 11/14/21 09:40 11/14/21 Estimated GFR/1.73 m2 >= 60.00 (mL/min/1.73m2) 11/14/21 09:40 11/14/21 Calcium Level 9.3 mg/dL (8.5-10.1) 11/14/21 09:40 11/14/21 Glucose Level 87 mg/dL (74-106) 11/14/21 09:40 11/14/21 Liver Function Panel: No Data to Display Coagulation Panel: No Data to Display Cardiac Panel: No Data to Display Arterial Blood Gas: No Data to Display Venous Blood Gas: No Data to Display Pancreas Panel: No Data to Display Thyroid Panel: No Data to Display Infectious Disease: Coronavirus (COVID-19)(PCR) Negative (Negative) 11/14/21 10:00 11/14/21 Coronavirus 2019 Source Nasal/Nares 11/14/21 10:00 11/14/21 Blood Cultures: No Data to Display Toxicology Panel: No Data to Display Imaging and Studies Imaging and Studies Study information below may be from another EMR and interpreted by another provider. Please see original notes in EMR for more complete details. EKG Summary: 09/02/20: sinus mello, nonspecific ST-T wave abnormality. Echocardiogram Summary: 09/02/2021: LVEF 60%. PAS 42 mmhg, RAP 15 mmhg. trans-valvular mean gradient across bioprosthetic AV 27 mmhg, peak 44 mmhg, MICHOACANO 1.1 cm2. mild MR, mild to mod [place]. 09/09/2020: LVEF 52%, mild septal hypertrophy of LV. left atrium severe dilation. well seated bioprosthetic AV with mean gradient 25 mmhg, peak gradient 41 mmhg, valve area 1 cm2 by continuity and 1.5 cm2 by planimetry. PAS 45 mmhg. mild MR, mild TR. Anesthesia Assessment and Plan Anesthesia History Personal History: No History of Anesthesia Complications Family History: No Family History of Anesthesia Complications Exercise Tolerance Exercise Tolerance: Metabolic Equivalents>4 Pertinent Negatives Pertinent Negatives: No Symptoms of GERD (Well controlled with medication ), No Major Cardiovascular Symptoms or Complaints (See PMH/SMH) and No Major Pulmonary Symptoms or Complaints Cardiac & Pulmonary Exam Cardiac Exam: Normal S1/S2 Heart Sounds Pulmonary Exam: Clear Bilateral Breath Sounds Implantable Cardiac Device Does patient have a Pacemaker or an ICD?: No Airway Exam Known Difficult Airway: No Mallampati Class: 1 Mouth Opening: Normal (> 3cm) Thyromental Distance: Greater than 3 cm Neck Range of Motion: Full ROM Neck Circumference: Normal Teeth Condition: Normal Dentition Airway Comments: High angle narrow palate ASA Classification ASA Score: ASA 3 Emergency Case?: No NPO Status NPO Status: NPO Clears >2 hours, Solids >8 hours Anesthesia Plan Resuscitation Status: Full Code Anesthesia Technique: General Anesthesia Airway Planned: LMA Pain Management: Surgeon and patient request nerve block Monitors Used: Standard Monitors Preoperative Comments:: 71 yo male for Right TKA. Sig PMHx: Aortic stenosis (TAVR over previous AV replacement with current mean gradient 27 mmhg and MICHOACANO 1.1cm2), tube graft repair of aortic aneurysm, spinal stenosis, lumbar spine surgery, former smoker, Previous Anes: video grade 2, easy mask.
[2021-11-16] MEDS: Acetaminophen 500 MG TAB 1000 MG PO (09:47)
[2021-11-16] MEDS: Celecoxib 200 MG CAP 400 MG PO (09:48)
[2021-11-16] MEDS: Lactated Ringers 1,000 ML 80 ML IV (09:56)
--- NOTE | 2021-11-16 10:00 | W.ANESPOSTOP ---
Postoperative Evaluation Date, Time and Location Date Performed: 11/16/21 Time Performed: 10:00 Patient Location: Day Surgery Unit Vital Signs Most Recent Imported Vital Signs: Most Recent Vital Signs Temp Pulse Resp BP Pulse Ox 36.4 C L 53 L 16 128/83 97 11/16/21 09:12 11/16/21 09:12 11/16/21 09:12 11/16/21 09:12 11/16/21 09:12 Pain Score Most Recent Pain Score: Most Recent Pain Score Pain Level 0 11/16/21 09:12 Assessment Mental Status: Awake (Alert & Oriented to Patient Baseline) Airway and Respiratory Function: Patent airway with normal (patient baseline) respiratory exam Cardiovascular Function: Hemodynamically Stable Hydration Status: Adequately Hydrated Nausea & Vomiting: No Nausea or Vomiting Pain: Pain is tolerable per patient Peripheral Nerve Block: Regional nerve block not resolved at time of post operative discharge
--- NOTE | 2021-11-16 10:05 | ANES.PREOP_ITS ---
General Info Height: 6 ft 3 in Weight: 93.894 kg Body Mass Index (BMI): 25.9 Surgical Procedure: Operation Date: 11/16/21 11:25 Proposed Procedure Side Surgeon p Knee Total Arthroplasty Cementless CR Right Isaac Farrell MD Meds Allergies and Home Medications Allergies Allergy/AdvReac Type Severity Reaction Status Date / Time ibuprofen AdvReac Mild GI upset Verified 11/16/21 09:31 Home Medication Medication Instructions Recorded aspirin 81 mg tablet,delayed 81 mg PO DAILY 11/22/18 release (Adult Low Dose Aspirin) lorazepam 1 mg tablet 1 - 2 mg PO DAILY PRN #4 tab-cap 06/09/19 cholecalciferol (vitamin D3) 50 4,000 unit PO DAILY cap 02/13/20 mcg (2,000 unit) capsule (Vitamin D3) diclofenac sodium 1 % topical gel 2 - 4 g TOPICAL QID PRN #100 g 07/05/20 (Voltaren) amoxicillin 500 mg capsule 2,000 mg PO ONCE #4 cap 07/07/20 triple cream TOPICAL 08/05/20 sertraline 50 mg tablet 50 mg PO DAILY #90 tab-cap 02/16/21 acetaminophen 500 mg capsule 1,000 mg PO TID PRN cap 06/03/21 pantoprazole 40 mg tablet,delayed 40 mg PO DAILY #90 tab-cap 06/03/21 release gabapentin 300 mg capsule 300 mg PO TID #270 tab-cap 07/01/21 losartan 50 mg tablet 50 mg PO DAILY #90 tab 07/28/21 simvastatin 20 mg tablet 20 mg PO QHS #90 tab-cap 08/05/21 acetaminophen 500 mg capsule 1,000 mg PO Q8H PRN PRN #90 cap 11/16/21 aspirin 81 mg tablet,delayed 81 mg PO BID #60 tab 11/16/21 release celecoxib 200 mg capsule (Celebrex) 200 mg PO BID #60 cap 11/16/21 gabapentin 300 mg capsule 300 mg PO QHS #14 cap 11/16/21 oxycodone 5 mg tablet 5 mg PO Q4H PRN #18 tab 11/16/21 Current Visit Medications: Current Medications Generic Name Dose Route Start Last Admin Trade Name Freq PRN Reason Stop Dose Admin Acetaminophen 1,000 mg 11/16/21 06:00 11/16/21 09:47 Acetaminophen 500 Mg Tab PO 1,000 mg PREOP JUAN J Administration Acetaminophen 1,000 mg 11/16/21 14:00 Acetaminophen 500 Mg Tab PO TID JUAN J Aspirin 81 mg 11/16/21 20:00 Aspirin E.C. 81 Mg Tabec PO BID JUAN J Celecoxib 400 mg 11/16/21 06:00 11/16/21 09:48 Celecoxib 200 Mg Cap PO 400 mg PREOP JUAN J Administration Celecoxib 200 mg 11/16/21 20:00 Celecoxib 200 Mg Cap PO BID JUAN J Bupivacaine HCl 25 ml/ 0 ml 11/16/21 11:00 Ketorolac Tromethamine 15 mg/ IJ 11/21/21 10:59 Sodium Chloride 24.5 ml DIRECTED [facility] Docusate Sodium 100 mg 11/16/21 07:31 Docusate Sodium 100 Mg Cap PO BID PRN PRN Constipation Gabapentin 300 mg 11/16/21 06:00 Gabapentin 300 Mg Cap PO PREOP JUAN J Gabapentin 300 mg 11/16/21 22:00 Gabapentin 300 Mg Cap PO HS [facility] Hydromorphone HCl 0.5 mg 11/16/21 07:31 Hydromorphone 2 Mg/Ml Vial IVP Q2H PRN PRN Tranexamic Acid 1,000 mg/ 60 mls @ 360 mls/hr 11/16/21 06:00 Sodium Chloride IVPB PREOP JUAN J Tranexamic Acid 1,000 mg/ 60 mls @ 360 mls/hr 11/16/21 06:00 Sodium Chloride IVPB DIRECTED [facility] Ringer's Solution 1,000 mls @ 80 mls/hr 11/16/21 06:00 11/16/21 09:56 IV 12/15/21 23:59 80 mls/hr INFUSION JUAN J Administration Cefazolin Sodium/Dextrose 2 gm in 50 mls @ 100 mls/hr 11/16/21 06:00 Ancef Duplex IVPB 12/15/21 23:59 PREOP JUAN J Cefazolin Sodium/Dextrose 1 gm in 50 mls @ 100 mls/hr 11/16/21 17:00 Ancef Duplex IVPB 11/17/21 09:29 Q8H [facility] IV Miscellaneous Supplies 1 each 11/16/21 06:00 Iv Access IV 12/15/21 23:59 DIRECTED [facility] Ondansetron HCl 4 mg 11/16/21 07:31 Ondansetron 4 Mg/2 Ml Vial IVP Q6H PRN PRN Nausea Oxycodone HCl 0 mg 11/16/21 07:31 Oxycodone 5 Mg Tab PO Q3H PRN PRN Pain Pantoprazole Sodium 40 mg 11/17/21 07:30 Pantoprazole 40 Mg Tabcr PO DAILY@0730 JUAN J Sodium Chloride 0 ml 11/16/21 06:00 Normal Saline Flush 10 Ml Syr IV 12/15/21 23:59 PRN PRN Sodium Chloride 0 ml 11/16/21 06:00 Normal Saline 10 Ml Vial IJ 12/15/21 23:59 DIRECTED PRN Sterile Water 0 ml 11/16/21 06:00 Water,Injection,Sterile 10 Ml Vial IJ 12/15/21 23:59 DIRECTED PRN PFSH Active Problems Active Problems: Problem Status Onset Code Chronic pain of right ankle M25.571, G89.29 Essential hypertension I10 Aortic aneurysm of unspecified site, without rupture 12/12/19 I71.9 Essential tremor G25.0 Chronic left hip pain M25.552, G89.29 Ventral hernia 11/28/11 K43.9 Temporomandibular joint disorders, unspecified 11/28/11 M26.609 Spinal stenosis 11/28/11 M48.00 Sensorineural hearing loss, bilateral 11/06/12 H90.3 Rosacea 11/28/11 L71.9 Primary osteoarthritis of right knee 10/26/17 M17.11 Insomnia, unspecified 11/06/12 G47.00 Hyperlipidemia 11/28/11 E78.5 Generalized osteoarthritis 04/30/13 M15.9 Gastroesophageal reflux disease 12/22/15 K21.9 Chronic pain 05/15/14 G89.29 BPH w/o urinary obs/LUTS 11/28/11 N40.0 Arthropathy of cervical spine 11/28/11 M46.92 Aortic valve disorder 11/06/12 I35.9 Anxiety disorder, unspecified 01/31/17 F41.9 Actinic keratosis 03/20/12 L57.0 Medical History Medical History Aortic stenosis (02/04/20) S/p TAVR 02/04/20 09/02/21 F/U Dr Albright Hearing loss Multiple fractures of ribs of right side Nondependent alcohol abuse, 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 Caputo Transurethral prostatectomy For BPH Tobacco Smoking/Tobacco Use Status: Former Tobacco Use Alcohol Alcohol Intake: former Substance Use Substance use: Never Substance use type: does not use Vital Signs and Lab Results Vital Signs Most Recent Vital Signs in EMR: Most Recent Vital Signs Temp Pulse Resp BP Pulse Ox 36.4 C L 53 L 16 128/83 97 11/16/21 09:12 11/16/21 09:12 11/16/21 09:12 11/16/21 09:12 11/16/21 09:12 Lab Results Blood Type / Crossmatch: No Data to Display Complete Blood Count: White Blood Count 5.33 10^3/uL (4.4-10.8) 11/14/21 09:40 11/14/21 Red Blood Count 5.02 10^6/uL (4.36-5.78) 11/14/21 09:40 11/14/21 Hemoglobin 16.0 g/dL (13.5-17.5) 11/14/21 09:40 11/14/21 Hematocrit 50.2 % (40.0-50.0) H 11/14/21 09:40 11/14/21 Platelet Count 147 10^3/uL (130-400) 11/14/21 09:40 11/14/21 Complete Metabolic Panel: Sodium Level 141 mmol/L (136-145) 11/14/21 09:40 11/14/21 Potassium Level 4.2 mmol/L (3.5-5.1) 11/14/21 09:40 11/14/21 Chloride Level 105 mmol/L (98-107) 11/14/21 09:40 11/14/21 Carbon Dioxide Level 30.9 mmol/L (21.0-32.0) 11/14/21 09:40 11/14/21 Blood Urea Nitrogen 25 mg/dL (7-18) H 11/14/21 09:40 11/14/21 Creatinine 1.0 mg/dL (0.70-1.30) 11/14/21 09:40 11/14/21 Estimated GFR/1.73 m2 >= 60.00 (mL/min/1.73m2) 11/14/21 09:40 11/14/21 Calcium Level 9.3 mg/dL (8.5-10.1) 11/14/21 09:40 11/14/21 Glucose Level 87 mg/dL (74-106) 11/14/21 09:40 11/14/21 Liver Function Panel: No Data to Display Coagulation Panel: No Data to Display Cardiac Panel: No Data to Display Arterial Blood Gas: No Data to Display Venous Blood Gas: No Data to Display Pancreas Panel: No Data to Display Thyroid Panel: No Data to Display Infectious Disease: Coronavirus (COVID-19)(PCR) Negative (Negative) 11/14/21 10:00 11/14/21 Coronavirus 2019 Source Nasal/Nares 11/14/21 10:00 11/14/21 Blood Cultures: No Data to Display Toxicology Panel: No Data to Display Imaging and Studies Imaging and Studies Study information below may be from another EMR and interpreted by another provider. Please see original notes in EMR for more complete details. EKG Summary: 09/02/20: sinus mello, nonspecific ST-T wave abnormality. Echocardiogram Summary: 09/02/2021: LVEF 60%. PAS 42 mmhg, RAP 15 mmhg. trans- valvular mean gradient across bioprosthetic AV 27 mmhg, peak 44 mmhg, MICHOACANO 1.1 cm2. mild MR, mild to mod PA. 09/09/2020: LVEF 52%, mild septal hypertrophy of LV. left atrium severe dilation. well seated bioprosthetic AV with mean gradient 25 mmhg, peak gradient 41 mmhg, valve area 1 cm2 by continuity and 1.5 cm2 by planimetry. PAS 45 mmhg. mild MR, mild TR. Anesthesia Assessment and Plan Anesthesia History Personal History: No History of Anesthesia Complications Family History: No Family History of Anesthesia Complications Exercise Tolerance Exercise Tolerance: Metabolic Equivalents>4 Pertinent Negatives Pertinent Negatives: No Major Cardiovascular Symptoms or Complaints Implantable Cardiac Device Does patient have a Pacemaker or an ICD?: No
[2021-11-16] MEDS: ceFAZolin 2 GM/50 ML BAG IVPB (10:52)
[2021-11-16] MEDS: methylPREDNISolone ACETATE 80 MG/ML VIAL (11:04)
--- NOTE | 2021-11-16 11:09 | W.ANESNERVE ---
Nerve Block Single Injection Procedure Date and Time Date Performed: 11/16/21 Procedure Start: 10:35 Location Where Procedure Performed Procedure Location: Operating Room Procedure Stop: 10:40 Reason Performed: Postoperative Analgesia Requesting Provider: Isaac Farrell Timeout Performed Timeout Performed: Yes Monitoring Used ECG, Blood Pressure and SpO2 Sterility Sterility: Hand Hygiene, Surgical Cap, Surgical Mask, Sterile Gloves, Eye Protection and Chlorhexidine Sedation Given During Procedure Sedation Given (Indicate Dose Given): No Sedation given Patient Mental Status Patient Mental Status: Awake Nerve Block 1st Nerve Block: Laterality: Right Block Type: Adductor Canal Needle / Catheter Used: 100mm SonoPlex II Local Anesthetic Bolus (Indicate Dose Given): Lidocaine used for local infiltration of skin, Injected in 3-5ml increments after negative blood aspiration and Bupivacaine 0.25% Dose:: 15 cc Additives (Indicate Dose Given): None Ultrasound: Sterile probe cover and gel used Ultrasound Image Saved?: No Nerve Stimulator: Not Used Paresthesia: None Procedure Tolerated: No Complications and Patient tolerated well Procedure Outcome: Successful Performed By: Car Clemente
[2021-11-16] MEDS: HYDROmorphone 2 MG/ML VIAL IVP ×2 (13:01→13:25)
[2021-11-16] MEDS: Normal Saline 10 ML VIAL IJ (13:03)
[2021-11-16] MEDS: oxyCODONE 5 MG TAB PO (14:39)
--- NOTE | 2021-11-16 14:48 | W.ANESPOSTOP ---
Postoperative Evaluation Date, Time and Location Date Performed: 11/16/21 Time Performed: 14:48 Patient Location: Day Surgery Unit Vital Signs Most Recent Imported Vital Signs: Most Recent Vital Signs Temp Pulse Resp BP Pulse Ox 36.1 C L 55 L 16 105/75 94 11/16/21 14:15 11/16/21 14:15 11/16/21 14:15 11/16/21 14:15 11/16/21 14:15 Most Recent Vital Signs Temp Pulse Resp BP Pulse Ox 36.4 C L 53 L 16 128/83 97 11/16/21 09:12 11/16/21 09:12 11/16/21 09:12 11/16/21 09:12 11/16/21 09:12 Pain Score Most Recent Pain Score: Most Recent Pain Score Pain Level 3 11/16/21 14:15 Assessment Mental Status: Awake (Alert & Oriented to Patient Baseline) Airway and Respiratory Function: Patent airway with normal (patient baseline) respiratory exam Cardiovascular Function: Hemodynamically Stable Hydration Status: Adequately Hydrated Nausea & Vomiting: No Nausea or Vomiting Pain: Pt. Denies Any Pain Peripheral Nerve Block: Patient did not receive a nerve block
--- NOTE | 2021-11-16 15:05 | IN_ITS ---
Date of service: 11/16/21 Time of Service: 15:05 PT Notes Visit Reasons: Right TKA Physical Therapy Day Surgery Initial Evaluation Date: 11/16/2021 Referring Doctor: SHIVA Palacios PT Orders: PT CONSULT: S/P Ortho surgery Precautions: WBAT on right LE with AD. Patient Profile/Admitting Diagnosis: Car is a 71-year-old male with primary osteoarthritis of the right knee status post total knee arthroplasty on postoperative day 0. PMHX: Medical History? Aortic stenosis (02/04/20) S/p TAVR 02/04/20 09/02/21 F/U Dr Albright Hearing loss Multiple fractures of ribs of right side Nondependent alcohol abuse, 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/28/11) Surgical History? Cholecystectomy EGD (07/19/11) lumbar/sacral medial branch blocks (02/24/15) Dr CaputoReplacement of aortic valve (~11/2009) Bioprosthetic AVR & ascending [place] [facility] [place]P TAVR (transcatheter aortic valve replacement) (02/04/20) [facility] L side, Dr. Caputo Transurethral prostatectomy For BPH Social History/Home Situation: Lives with in a ranch style home. Independent with all aspects of ADLs prior to surgery. Equipment Owned/DME: [employer], [employer] Subjective: Agreeable to PT consult. Denies headache, chest pain, and dizziness throughout session. Reports no pain and the right knee at rest and with movement. Objective: General Observation: Supine in bed. Darion wraps to right LE. Cryocuff to right knee. TEDS to L leg. present in room duirnf assessment. Mental Status: Alert and oriented x4 Pain: 0/10 in the right knee ROM: Right Lower Extremity: Hip flexion WFL. Hip abduction WFL. Knee flexion 0 to 100 degrees. Knee extension 100 degrees to 0 degrees. Ankle dorsiflexion WFL. Ankle plantarflexion WFL. Left Lower Extremity: Hip flexion WFL. Hip abduction WFL. Knee flexion WFL. Ankle dorsiflexion WFL. Ankle plantarflexion WFL. Strength: Right Lower Extremity: Hip flexors 5/5. Hip abductors 5/5. Knee flexors 4/5. Knee extensors 4/5. Ankle dorsiflexors 5/5. Ankle plantarflexors 5/5. Left Lower Extremity:Hip flexors 5/5. Hip abductors 5/5. Knee flexors 5/5. Knee extensors 5/5. Ankle dorsiflexors 5/5. Ankle plantarflexors 5/5. Sensation: Intact as to pain and light pressure in bilateral lower extremities. Bed Mobility/Transfers: Supine to sit standby assist Sit to stand contact-guard assist Stand to sit standby assist Bed to chair standby assist Gait: Completed level surface ambulation of 150 feet using front wheeled walker with step through gait pattern requiring standby assist with report of no pain, dizziness, chest pain, and headache throughout activity. Also trialled patient with use of 4-wheeled walker for 20 feet per patient did not demonstrate safe gait pattern as walker handles were too low for his height. Patient was also trained with use of bilateral axillary crutches for 20 feet using three-point gait pattern. THERA EX: Patient performed SLR x 10, L AQ x5 seated hip flexion x5 and ankle DF/PF x 5 with good response. Balance: Static Sitting: Normal Dynamic Sitting: Normal Static Standing: Fair Dynamic Standing: Fair Special Tests: Mobility Limitations Standardized Measure [facility] AM-PAC 6 clicks Basic Mobility Inpatient Short Form: Raw Score: 23 CMS Score: 11% deficit Informed Consent/Education: Patient instructed in purpose of PT consult. Education and training on initial set of exercises that can be done at home have been completed with patient and . Reference to the use of [employer] virgil was made in order to maximize complaince and ensure accuracy of postoperative exercises. Assessment: Car requires the use of a front wheeled walker for all mobility ADL pe rformance to maximize independence and reduce fall risk. Patient has full knee extension and good quad activation on the right that allowed for safe gait pattern. Patient presents with clinical signs and symptoms consistent with current/admitting diagnoses that have resulted to mobility limitations, gait instability, generalized weakness, and impairment of motor control as demonstrated by the following impairment level findings: 1. Decreased strength to right knee major muscle groups 2. Impaired standing balance 3. Limitation of joint range of motion in left knee flexion Impairments are contributing to the following functional limitations: 1. Inability to safely ambulate without assistive device 2. Increase completion time for mobility ADL performance 3. Increased fall risk Patient is assessed as a 49223 moderate 71complexity based on the following: History: -year-old male ith impairment level findings, functional limitations, and past medical history as indicated above Examination: Demonstrable impairment in strength, balance, and mobility level with underlying impairments and functional limitations as documented above Presentation: Evolving Decision Makin moderate complexity Goals: N/A. PT evaluation and 1-2 treatment sessions only for functional mobility training using recommended AD and for HEP instruction. Plan of Care/Treatment Plan: N/A. PT evaluation and 1-2 treatment session only for functional mobility training using recommended AD and for HEP instruction. DISCHARGE RECOMMENDATIONS: [] Home with no services [] [] Home with services [specify] [X] Home with outpatient PT. Home when medically cleared by orthopedic surgeon. Will highly benefit from outpatient PT services to facilitate return t o independent community ambulation and recreational activity participation without an assistive device. [] SNF for continued rehabilitation [] [] [facility] [] [] SNF versus LTC based on ability to participate and progress [] TREATMENT CODE/TIME: 42816 x 20 minutes, [id number] x 33 minutes beginning at 15:05 PM. Thank you for the opportunity to participate in the care of this patient. Leonor Roberts PT, DPT, CLT [facility] [place], [place]
--- NOTE | 2021-11-16 16:18 | W.PM.OP ---
Date of service: 11/16/21 Time of Service: 12:20 Operative Note Operative Note DATE OF PROCEDURE: 11/16/21 PRE-OP DIAGNOSIS: Right Knee Osteoarthritis and Right Ankle Arthritis POST-OP DIAGNOSIS: same PROCEDURE: Right Total Knee Replacement and Right Intra-articular Ankle Injection SURGEON: Isaac Farrell RN PATIENT SERVICES: Beverly Estrada ANESTHESIA TYPE: General LMA/ETT Refer to Anesthesia Record ESTIMATED BLOOD LOSS: 450 PATHOLOGY: none sent TOURNIQUET TIME: 0 COMPLICATIONS: None Patient was transported to: PACU Patient's condition: stable Implants: 1. Depuy Attune Cementless Cruciate Retaining Femoral Component, Size 9 2. Depuy Attune Cementless Rotating Platform Tibial Component, Size 8 3. Depuy Attune 9x6mm CR/RP Poly 4. Depuy Attune Patellar Component, Size 41 Indications: I have seen Car in clinic for symptoms of knee arthritis, confirmed with radiographic findings. Car has exhausted nonoperative methods and was having significant limitations in daily function and desired better function and less pain. I discussed the technical details of a knee replacement. I explained the risks of the procedure to include, but not limited to, bleeding, infection, pain, stiffness, fracture, damage to nerves and vessels, damage to muscles and tendons, loosening, need for repeat procedure, blood clot and cardiopulmonary demise. Despite these risks, he elected to proceed. Findings: There was significant signs of arthritis throughout the knee involving all 3 compartments. There was significant vascularity about the knee. While there was some ooze of the knee there is also large vessels in places where they usually are not or they are much smaller. This did cause more blood loss than expected requiring some extra time to obtain adequate hemostasis. Procedure Description: Car was greeted in the preoperative holding area where the correct side was identified and marked. The consent was reviewed with the patient and signed. The history and physical was updated. All questions were answered. Preoperative medications were administered: Acetaminophen 1000mg, Celebrex 400mg, and Gabapentin 300mg. An adductor canal block was then administered by the anesthesia team in the PACU. Car was taken back to the operating room. A general anesthestic was then administered. The patient was placed into the supine position on the operating room table. A nonsterile tourniquet was placed high onto the leg but only used for cementing. Posts were placed for positioning during the procedure. All bony prominences were well padded. Prophylactic antibiotics in the form of cefazolin were administered. 1g of Tranxemic Acid was given intravenously within 30 minutes of incision. Prior to beginning case for the knee, I performed the right ankle injection. The anteromedial starting spot was identified with the foot in a plantarflexed position. The soft spot was identified and then cleaned with alcohol. The ankle joint was and easily entered with joint fluid withdrawn and the needle and then approximately 3 cc of 0.25% bupivacaine along with 80 mg of Depo-Medrol injected without difficulty. The right leg was then prepped with Chloraprep and draped in a standard fashion with impervious stockinette. A second prep with Chloraprep was performed prior to application of Iodine impregnated skin protection. A timeout to confirm correct identity, side and site, procedure, allergies, anesthesia, and medical concerns was performed. With the knee in some flexion, a midline incision was made overlying the knee. Full thickness skin flaps were raised once the extensor mechanism was encountered. These were raised medially and laterally. Any bleeding was controlled with electrocautery. Once the extensor mechanism was fully exposed, a medial parapatellar arthrotomy was performed in a flexed position. All bleeding from the arthrotomy and the geniculate arteries was coagulated. A medial subperiosteal peel was performed with electrocautery to the midcoronal plane. The fat pad was removed while keeping the patellar tendon protected. The anterior distal femur synovium was removed for later visualization. The ACL and PCL were resected and the anterior horn of the lateral meniscus was transected. The knee was then flexed with the patella everted. Large osteophytes from the tibia were removed. Large osteophytes from the femur were removed. Using a step drill, and based on preoperative templating, the femoral canal was entered. This was done with a step drill without any difficulty. The intramedullary distal femoral cut guide was inserted, set to a 5 degree valgus cut and 9 mm cut thickness. The distal femoral cut guide was then held in position and pinned. With the soft tissues protected, the distal cut was performed. This was passed over a few times to ensure a planar cut. I then turned attention to the tibia. The extramedullary guide was placed onto the leg. The distal aspect was slid medial to adjust for position of center of ankle and stay in line with shaft of the tibia. Approximately 3-5 degrees of posterior slope was kept in the proximal cutting guide. The center of the guide was aligned with the PCL. The stylus was used to assess cut thickness. The lateral side, most involved side, was set for a 4mm cut. This was then held in position and pinned into place with 2 additional pins and a cross pin for stability. The medial and lateral collateral ligaments were protected and the cut was performed. With this completed, it was assessed and noted to be of appropriate dimensions. The guide was removed. A spacer block was inserted and the knee was brought into extension. The 6mm spacer block provided full extension, without hyperextension and with stability of both the medial and lateral collateral ligaments was assessed. The pins from the femur and the tibia were then removed. The distal femur was then sized. The anterior stylus was placed onto the lateral ridge of the anterior femur. This indicated a size 9 femur. The external rotation of the guide was adjusted to 3 degrees to match the epicondylar axis, perpendicular to [place]?s line. The 4-in-1 cutting guide was the placed. The posterior medial femur cut was evaluated and appeared of good thickness. The spacer block was inserted underneath the cutting guide and stability was confirmed in 90 degrees of flexion. An clayton wing was used to confirm appropriate position of the anterior cut to avoid notching. This cutting guide was ensured to be flush on the cut surface and then pinned into place with headed pins. While protecting the soft tissues, quad tendon, and collateral ligaments, the anterior and posterior cuts were performed with a saw. The central two pins were removed and the posterior and anterior chamfers were cut next. The notch-cutting guide was placed. This was pinned to lateralize the femoral component as much as possible while keeping it flush on the cut surface. This was then pinned into position. A reciprocating saw was used to make the notch cut. A rasp smoothed the cut surfaces. The medial and lateral menisci were removed. A trial femoral component was then inserted, impacted down to the cut surfaces, and the lug holes were drilled. A provisional trial tibial component was placed and the knee was brought through range of motion. There was noted to be excellent extension and flexion. There was no significant instability. The patella was tracking without thumbs. A size 6mm polyethylene component provided the best range of motion and stability with less than 2mm gapping with medial and lateral stress and full extension without significant hyperextension. The tibial cut surface was fully exposed. The tibia was then sized as a 8. The tibia had been previously marked during trialing to correspond to the center of the tibial component to help with rotation. The trial was aligned to this rosmery, approximately rotated to the medial 1/3rd of the tibial tubercle. The trial was pinned into place. The tibia was prepared with a reamer and a keel punch and lug holes. The knee was then brought into extension and the patella was measured as 32mm. Using the patellar clamp and cut guide, this was resected to a flat surface with at least 13mm of thickness remaining. The size 41 patella fit the best. This was oriented and then clamped into position. The lugs were drilled. The trial components were removed. The final components were opened on the back table. The periosteal and capsular tissues, especially posteriorly, around the knee were then systematically injected with a periarticular cocktail consisting of 50cc 0.25% Marcaine, 30mg Ketorolac, 20cc of Exparal and 50cc of injectable saline. The knee was thoroughly irrigated with a pulse lavage and dried. Irrisept was also used to irrigate the tissues. On the back table, with the implants opened, the cement was mixed. One batch of high viscosity cement was prepared with vacuum assistance. After the cement was ready a small amount was placed on the cut surface of the patella and the patellar button was clamped into position and held. While the cement was hardening, the cementless knee components were placed. Starting with the tibial component, the tibia was subluxed anteriorly and the lug holes of the component were lined up. The tibia was then impacted with an impactor and mallet until the tibial component was in contact with the tibia. The final polyethylene component was inserted. Then, the femoral component was inserted. The lug holes were aligned and the component was impacted into position. The knee was irrigated with Surgiphor betadine solution. This was allowed to sit in the knee for 3 minutes. It was then thoroughly irrigated with saline. After the cement had finally cured, approximately 15min, the clamp was removed from the patella and the knee was taken through range of motion. The patella was tracking with a no-thumbs technique. The capsule was then reapproximated with a No. 1 Vicryl at multiple locations. The capsule was finally closed with a No. 2 Stratafix, barbed suture. The second dosing of 1g TXA was started. Deep tissues were then reapproximated with 0 Vicryl and 2-0 Vicryl. The skin was closed with a running 3-0 Monocryl in a subcuticular fashion. This was reinforced with skin glue. A Mepilex silver dressing was applied along with a [id number] DESMOND wrap. A CryoCuff was applied. Car was transferred to the hospital bed without difficulty an suffering no apparent complication. Car has a good prognosis. Physical therapy will start today and without restrictions, weight-bearing as tolerated. Aspirin 81mg BID will be used for DVT prophylaxis.
== END 2021-11-16 16:45 | disposition home or self-care (01) ==
LOC: SUR 08:50
PROVIDERS: PCP Nurse Practitioner Family; Visit Provider Student in an Organized Health Care Education/Training Program
PROC: (CPT 27447; principal; 2021-11-16 11:15)
PROC: (CPT 20605; 2021-11-16 11:15)
DX: M17.11 Unilateral primary osteoarthritis, right knee (principal); M19.071 Primary osteoarthritis, right ankle and foot; I10 Essential (primary) hypertension; E78.5 Hyperlipidemia, unspecified
CPT/HCPCS: 20605; 27447; C1776; 76942; 97162; 97530; J0690; J1040; J1100; J1885; J2001; J2250; J2370; J2405

== ENCOUNTER 2021-12-01 12:13 | Outpatient (CLI) | payer MEDICARE, BC, SELFPAY ==
--- NOTE | 2021-12-01 11:15 | DI.RAD_ITS ---
Exam(s) XR STANDING ALIGNMENT XR KNEE RT 1V EXAM: XR STANDING ALIGNMENT CLINICAL HISTORY: 1ST POST OP R TKA TECHNIQUE: COMPARISON: CR Standing alignment from 07/13/2015 CR XR KNEE RT 1V from 12/01/2021 FINDINGS: Standing alignment views of the lower extremities were obtained in AP projection along with a lateral view of the right knee. There is a total knee joint replacement position on the right. The compone nts appear well seated. There are mild degenerative changes of both hips. There are mild degenerative changes of the joints of the left knee and both ankles. IMPRESSION: RADIATION DOSE DELIVERED: Total DLP
== END 2021-12-01 12:14 | disposition home or self-care (01) ==
LOC: DIORS 12:13
PROVIDERS: PCP Nurse Practitioner Family; Referring Provider Nurse Practitioner Family; Visit Provider Student in an Organized Health Care Education/Training Program
DX: Z96.651 Presence of right artificial knee joint (principal)
CPT/HCPCS: 73560; 77073

== ENCOUNTER → 2022-01-05 10:30 | Outpatient (BNVA) | payer MEDICARE, BC, SELFPAY | PROVIDERS: PCP Nurse Practitioner Family; Referring Provider Nurse Practitioner Family; Visit Provider Student in an Organized Health Care Education/Training Program | DX: Z47.1 Aftercare following joint replacement surgery (principal); Z96.651 Presence of right artificial knee joint ==

== ENCOUNTER → 2022-02-16 09:53 | Outpatient (BNVA) | payer MEDICARE, BC, SELFPAY | PROVIDERS: PCP Nurse Practitioner Family; Referring Provider Nurse Practitioner Family; Visit Provider Student in an Organized Health Care Education/Training Program | DX: Z47.1 Aftercare following joint replacement surgery (principal); Z96.651 Presence of right artificial knee joint; M19.071 Primary osteoarthritis, right ankle and foot ==

== ENCOUNTER 2022-03-30 10:57 | Outpatient (CLI) | payer MEDICARE, BC, SELFPAY ==
--- NOTE | 2022-03-30 09:15 | DI.RAD_ITS ---
Exam(s) XR KNEE RT 2V AP,LAT EXAM: XR KNEE RT 2V AP,LAT CLINICAL HISTORY: pain. TECHNIQUE: 2D digital imaging was performed. COMPARISON: CR XR KNEE RT 1V from 12/01/2021 FINDINGS: Two views: Stable position alignment of the components of the prosthesis. No fracture or loosening evident. IMPRESSION: DATA REPOSITORY: RADIATION DOSE DELIVERED:
== END 2022-03-30 10:58 | disposition home or self-care (01) ==
LOC: DIORS 10:58
PROVIDERS: PCP Nurse Practitioner Family; Referring Provider Nurse Practitioner Family; Visit Provider Physician Assistant Surgical
DX: Z96.651 Presence of right artificial knee joint (principal); M25.561 Pain in right knee
CPT/HCPCS: 99214; 73560

== ENCOUNTER 2022-04-05 04:16 | Outpatient (CLI) | payer MEDICARE, BC, SELFPAY ==
[2022-04-05 11:00] LABS: ESR 5 mm/hr (0-20)
[2022-04-05 11:01] LABS: Abs Immature Grans 0.01 10^3/uL (0.0-0.06); Absolute Basophil Count 0.04 10^3/uL (0.0-0.2); Absolute Eosinophil Count 0.15 10^3/uL (0.0-0.7); Absolute Lymphocyte Count 1.45 10^3/uL (1.2-3.4); Absolute Monocyte Count 0.55 10^3/uL (0.1-0.8); Absolute Neutrophil Count 2.81 10^3/uL (1.2-6.7); Basophils % 0.8; HCT 45.5 % (40.0-50.0); HGB 14.7 g/dL (13.5-17.5); Immature Grans % 0.2; Lymphocytes % 28.9; MCH 29.9 pg (27.0-33.0); MCHC 32.3 % (32.0-36.0); MCV 93 fL (80-95); MPV 10.3 fL (8.0-11.0); Neutrophils % 56.1; Platelet Count 165 10^3/uL (130-400); RBC 4.91 10^6/uL (4.36-5.78); RDW 14.4 % (11.8-14.1); RDW-SD 49.2 fL; WBC 5.01 10^3/uL (4.4-10.8)
[2022-04-05 11:42] LABS: C-Reactive Protein < 0.05 mg/dL (0.0-0.3)
[2022-04-05 11:48] LABS: ALT 22 U/L (16-63); AST 19 U/L (15-37); Alkaline Phosphatase 82 U/L (46-116); Anion Gap 5.6 mmol/L (3-11); BUN 22 mg/dL (7-18); Bilirubin, Total 0.8 mg/dL (0.2-1.0); CO2 31.4 mmol/L (21.0-32.0); CREATININE 0.9 mg/dL (0.70-1.30); Calcium 9.1 mg/dL (8.5-10.1); Calculated LDL 91 mg/dL (<100); Chloride 103 mmol/L (98-107); Cholesterol 166 mg/dL (<200); Estimated GFR 91.31 (mL/min/1.73m2); Glucose 88 mg/dL (74-106); HDL Cholesterol 65 mg/dL (40-60); Potassium 4.2 mmol/L (3.5-5.1); Sodium 140 mmol/L (136-145); Total Protein 7.6 g/dL (6.4-8.2); Triglyceride 54 mg/dL (<150)
== END 2022-04-05 04:17 | disposition home or self-care (01) ==
LOC: LBO 04:16
PROVIDERS: Physician Assistant Surgical; PCP Nurse Practitioner Family; Visit Provider Student in an Organized Health Care Education/Training Program
DX: I10 Essential (primary) hypertension (principal); E78.5 Hyperlipidemia, unspecified; Z79.899 Other long term (current) drug therapy; Z96.651 Presence of right artificial knee joint; M25.561 Pain in right knee
CPT/HCPCS: 36415; 80053; 80061; 85652; 85025; 86140

== ENCOUNTER → 2022-05-25 09:03 | Outpatient (BNVA) | payer MEDICARE, BC, SELFPAY | PROVIDERS: PCP Nurse Practitioner Family; Referring Provider Nurse Practitioner Family; Visit Provider Student in an Organized Health Care Education/Training Program | DX: M19.071 Primary osteoarthritis, right ankle and foot (principal); Z96.651 Presence of right artificial knee joint; T84.84XA Pain due to internal orthopedic prosthetic devices, implants and grafts, initial encounter | CPT/HCPCS: 20605; J1030 ==

== ENCOUNTER → 2022-06-26 09:12 | Outpatient (BNVA) | payer MEDICARE, BC, SELFPAY | PROVIDERS: PCP Nurse Practitioner Family; Referring Provider Nurse Practitioner Family; Visit Provider Student in an Organized Health Care Education/Training Program | DX: T84.84XA Pain due to internal orthopedic prosthetic devices, implants and grafts, initial encounter (principal); Z96.651 Presence of right artificial knee joint; M19.071 Primary osteoarthritis, right ankle and foot | CPT/HCPCS: 99213 ==

== ENCOUNTER 2022-07-04 10:03 | Day surgery (SDC) | payer MEDICARE, BC, SELFPAY ==
[2022-07-04] VITALS (9 sets, daily range): BP systolic 117–153; BP diastolic 80–93; PULSE 42–56; RESP 10–18; TEMP 36.3–36.6; O2SAT 95–100; BMI 25.1
[2022-07-04] MEDS: Acetaminophen 500 MG TAB 1000 MG PO (10:54)
[2022-07-04] MEDS: Gabapentin 300 MG CAP PO (10:54)
[2022-07-04] MEDS: Celecoxib 200 MG CAP 400 MG PO (10:54)
--- NOTE | 2022-07-04 10:59 | W.ANESPRE ---
General Info Date of Service Date Performed: 07/04/22 Height: 6 ft 3 in Weight: 91.1 kg Body Mass Index (BMI): 25.1 Surgical Procedure: Operation Date: 07/04/22 12:10 Proposed Procedure Side Surgeon p Knee Arthroscopy Synovectomy, Popliteal Release Right Isaac Farrell MD Meds Allergies and Home Medications Allergies Allergy/AdvReac Type Severity Reaction Status Date / Time ibuprofen AdvReac Mild GI upset Verified 06/30/22 15:10 Home Medication Medication Instructions Recorded aspirin 81 mg tablet,delayed 81 mg PO DAILY 11/22/18 release (Adult Low Dose Aspirin) lorazepam 1 mg tablet 1 - 2 mg PO DAILY PRN anxiety #4 06/09/19 tab-caps cholecalciferol (vitamin D3) 50 4,000 unit PO DAILY 02/13/20 mcg (2,000 unit) capsule (Vitamin D3) diclofenac sodium 1 % topical gel 2 - 4 g topical QID PRN pain #100 07/05/20 (Voltaren) grams triple cream topical DAILY PRN 08/05/20 acetaminophen 500 mg capsule 1,000 mg PO TID PRN 06/03/21 losartan 50 mg tablet 50 mg PO DAILY #90 tabs 07/28/21 simvastatin 20 mg tablet 20 mg PO QHS #90 tab-caps 08/05/21 acetaminophen 500 mg capsule 1,000 mg PO Q8H PRN PRN #90 caps 11/16/21 pantoprazole 40 mg tablet,delayed 40 mg PO DAILY #90 tab-caps 12/07/21 release amoxicillin 500 mg capsule 2,000 mg PO ONCE #4 caps 01/16/22 sertraline 50 mg tablet See Rx Instructions .Route 05/18/22 .COMPLEX #90 tabs Current Visit Medications: Current Medications Generic Name Dose Route Start Last Admin Trade Name Freq PRN Reason Stop Dose Admin Acetaminophen 1,000 mg 07/04/22 06:00 Acetaminophen 500 Mg Tab PO 07/04/22 16:00 PREOP JUAN J Celecoxib 400 mg 07/04/22 06:00 Celecoxib 200 Mg Cap PO 07/04/22 16:00 PREOP JUAN J Gabapentin 300 mg 07/04/22 06:00 Gabapentin 300 Mg Cap PO 07/04/22 16:00 PREOP JUAN J Ringer's Solution 1,000 mls @ 80 mls/hr 07/04/22 06:00 IV 08/02/22 23:59 INFUSION JUAN J Cefazolin Sodium/Dextrose 2 gm in 50 mls @ 100 mls/hr 07/04/22 06:00 Ancef Duplex IVPB 07/04/22 16:00 PREOP JUAN J IV Miscellaneous Supplies 1 each 07/04/22 06:00 Iv Access IV 08/02/22 23:59 DIRECTED JUAN J Sodium Chloride 0 ml 07/04/22 06:00 Normal Saline Flush 10 Ml Syr IV 08/02/22 23:59 PRN PRN Sodium Chloride 0 ml 07/04/22 06:00 Normal Saline 10 Ml Vial IJ 08/02/22 23:59 DIRECTED PRN Sterile Water 0 ml 07/04/22 06:00 Water,Injection,Sterile 10 Ml Vial IJ 08/02/22 23:59 DIRECTED PRN PFSH Active Problems Active Problems: Problem Status Onset Code Painful total knee replacement, right T84.84XA, Z96.651 Arthritis of right ankle M19.071 Essential hypertension I10 Aortic aneurysm of unspecified site, without rupture 12/12/19 I71.9 Essential tremor G25.0 Chronic left hip pain M25.552, G89.29 Ventral hernia 11/28/11 K43.9 Temporomandibular joint disorders, unspecified 11/28/11 M26.609 Spinal stenosis 11/28/11 M48.00 Sensorineural hearing loss, bilateral 11/06/12 H90.3 Rosacea 11/28/11 L71.9 Insomnia, unspecified 11/06/12 G47.00 Hyperlipidemia 11/28/11 E78.5 Generalized osteoarthritis 04/30/13 M15.9 Gastroesophageal reflux disease 12/22/15 K21.9 Chronic pain 05/15/14 G89.29 BPH w/o urinary obs/LUTS 11/28/11 N40.0 Arthropathy of cervical spine 11/28/11 M46.92 Aortic valve disorder 11/06/12 I35.9 Anxiety disorder, unspecified 01/31/17 F41.9 Medical History Medical History Actinic keratosis (03/20/12) Aortic stenosis (02/04/20) S/p TAVR 02/04/20 09/02/21 F/U Dr Albright Multiple fractures of ribs of right side Nondependent alcohol abuse, 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 Caputo Transurethral prostatectomy For BPH Tobacco Smoking/Tobacco Use Status: Former Tobacco Use Alcohol Alcohol Intake: former Substance Use Substance use: Never Substance use type: does not use Vital Signs and Lab Results Vital Signs Most Recent Vital Signs in EMR: Most Recent Vital Signs Temp Pulse Resp BP Pulse Ox 36.4 C L 49 L 18 133/87 99 07/04/22 10:32 07/04/22 10:32 07/04/22 10:32 07/04/22 10:32 07/04/22 10:32 Lab Results Blood Type / Crossmatch: No Data to Display Complete Blood Count: No Data to Display Complete Metabolic Panel: No Data to Display Liver Function Panel: No Data to Display Coagulation Panel: No Data to Display Cardiac Panel: No Data to Display Arterial Blood Gas: No Data to Display Venous Blood Gas: No Data to Display Pancreas Panel: No Data to Display Thyroid Panel: No Data to Display Infectious Disease: No Data to Display Blood Cultures: No Data to Display Toxicology Panel: No Data to Display Imaging and Studies Imaging and Studies Study information below may be from another EMR and interpreted by another provider. Please see original notes in EMR for more complete details. EKG Summary: 09/02/20: sinus mello, nonspecific ST-T wave abnormality. Echocardiogram Summary: 09/02/2021: LVEF 60%. PAS 42 mmhg, RAP 15 mmhg. trans-valvular mean gradient across bioprosthetic AV 27 mmhg, peak 44 mmhg, MICHOACANO 1.1 cm2. mild MR, mild to mod [place]. 09/09/2020: LVEF 52%, mild septal hypertrophy of LV. left atrium severe dilation. well seated bioprosthetic AV with mean gradient 25 mmhg, peak gradient 41 mmhg, valve area 1 cm2 by continuity and 1.5 cm2 by planimetry. PAS 45 mmhg. mild MR, mild TR. Anesthesia Assessment and Plan Anesthesia History Personal History: No History of Anesthesia Complications Family History: No Family History of Anesthesia Complications Exercise Tolerance Exercise Tolerance: Metabolic Equivalents>4 Cardiac & Pulmonary Exam Cardiac Exam: Normal S1/S2 Heart Sounds Pulmonary Exam: Clear Bilateral Breath Sounds Implantable Cardiac Device Does patient have a Pacemaker or an ICD?: No Airway Exam Known Difficult Airway: No Mallampati Class: 1 Mouth Opening: Normal (> 3cm) Thyromental Distance: Greater than 3 cm Neck Range of Motion: Full ROM Neck Circumference: Normal Teeth Condition: Normal Dentition Airway Comments: High angle narrow palate ASA Classification ASA Score: ASA 3 Emergency Case?: No NPO Status NPO Status: NPO Clears >2 hours, Solids >8 hours Anesthesia Plan Resuscitation Status: Full Code Anesthesia Technique: General Anesthesia Airway Planned: LMA Monitors Used: Standard Monitors Preoperative Comments:: 71 yo male for right knee scope. Sig PMHx: Aortic stenosis (TAVR over previous AV replacement with current mean gradient 27 mmhg and MICHOACANO 1.1cm2), tube graft repair of aortic aneurysm, spinal stenosis, lumbar spine surgery, former smoker, HTN, anxiety, GERD (related to food). Previous Anes: - Video grade 2, easy mask. - Igel 5.
[2022-07-04] MEDS: Lactated Ringers 1,000 ML 80 ML IV (11:21)
[2022-07-04] MEDS: ceFAZolin 2 GM/50 ML BAG IVPB (12:24)
[2022-07-04] MEDS: methylPREDNISolone ACETATE 80 MG/ML VIAL (12:35)
--- NOTE | 2022-07-04 13:06 | W.PM.DSUDISC ---
Date of service: 07/04/22 Time of Service: 13:07 Discharge Plan Disposition Patient Disposition: HOME Condition: Good Discharge Details Reason For Visit: R knee arthroscopy Attending Provider: Isaac Farrell Primary Care Provider: Debbie Camp Home Meds and New Rx's Prescriptions: New acetaminophen 500 mg tablet 1,000 mg PO TID Qty: 90 0RF celecoxib 200 mg capsule 200 mg PO BID Qty: 60 0RF hydrocodone-acetaminophen 5-325 mg tablet 1 tab PO Q6H PRN (Reason: pain) Qty: 6 0RF Continued diclofenac sodium [Voltaren] 1 % gel 2 - 4 g topical QID PRN (Reason: pain) Qty: 100 3RF Rx Instructions: 2G for upper extremity joints; 4G for lower extremity joints lorazepam 1 mg tablet 1 - 2 mg PO DAILY PRN (Reason: anxiety) Qty: 4 0RF Rx Instructions: Take 1-2 tabs about 1 hour before takeoff losartan 50 mg tablet 50 mg PO DAILY Qty: 90 3RF aspirin [Adult Low Dose Aspirin] 81 mg tablet,delayed release (DR/EC) 81 mg PO DAILY cholecalciferol (vitamin D3) [Vitamin D3] 50 mcg (2,000 unit) capsule 4,000 unit PO DAILY triple cream topical DAILY PRN Label Comments: [place] Rx Instructions: 08/05/2019 Cream is a mixture of Ivermectin 1%, Metrodiazole 1%, Azelaic acid 15% prescribed by Derm. Apply to entire face daily for 4 weeks and then start Efudex. simvastatin 20 mg tablet 20 mg PO QHS Qty: 90 3RF pantoprazole 40 mg tablet,delayed release (DR/EC) 40 mg PO DAILY Qty: 90 3RF Rx Instructions: Take 40 mg daily once daily in the morning at least 30 minutes before first meal of the day amoxicillin 500 mg capsule 2,000 mg PO ONCE Qty: 4 1RF Rx Instructions: prior to dental procedure sertraline 50 mg tablet See Rx Instructions .ROUTE .COMPLEX Qty: 90 3RF Dose Instruction: TAKE 1 TABLET BY MOUTH DAILY Rx Instructions: TAKE 1 TABLET BY MOUTH DAILY Discontinued acetaminophen 500 mg capsule 1,000 mg PO TID PRN acetaminophen 500 mg capsule 1,000 mg PO Q8H PRN PRNQty: 90 0RF Discharge Instructions Stand Alone Forms: [place] Knee Arthroscopy Equipment/Supplies: Partial Weight Bearing Crutches Activity:: Activity as Tolerated Remove Dressings/Wound Care:: 72 hours Shower/Bathe:: 72 hours Diet:: As Tolerated
[2022-07-04] MEDS: EPINEPHrine 30 MG/30 ML VIAL (13:17)
[2022-07-04] MEDS: Bupivacaine 0.5% Pres-Free 30 ML VIAL (13:27)
[2022-07-04] MEDS: Ketorolac 15 MG/ML VIAL IVP (14:11)
--- NOTE | 2022-07-04 14:11 | W.ANESPOSTOP ---
Postoperative Evaluation Date, Time and Location Date Performed: 07/04/22 Time Performed: 14:11 Patient Location: Day Surgery Unit Vital Signs Most Recent Imported Vital Signs: Most Recent Vital Signs Temp Pulse Resp BP Pulse Ox 36.3 C L 49 L 13 149/88 H 99 07/04/22 14:02 07/04/22 14:02 07/04/22 14:02 07/04/22 14:02 07/04/22 14:02 Pain Score Most Recent Pain Score: Most Recent Pain Score Pain Level 0 07/04/22 14:02 Assessment Mental Status: Awake (Alert & Oriented to Patient Baseline) Airway and Respiratory Function: Patent airway with normal (patient baseline) respiratory exam Cardiovascular Function: Hemodynamically Stable Hydration Status: Adequately Hydrated Nausea & Vomiting: No Nausea or Vomiting Pain: Pain is tolerable per patient Peripheral Nerve Block: Patient did not receive a nerve block
[2022-07-04] MEDS: HYDROmorphone 2 MG/ML SYR IVP (14:14)
[2022-07-04] MEDS: Normal Saline 10 ML VIAL IJ (14:14)
[2022-07-04] MEDS: HYDROcodone 5/Acetaminophen 325 TAB PO (14:59)
--- NOTE | 2022-07-04 18:14 | ROE_ITS ---
Date of service: 07/04/22 Time of Service: 13:45 Operative Note Operative Note DATE OF PROCEDURE: 07/04/22 PRE-OP DIAGNOSIS: Pain and crepitus of right knee replacement POST-OP DIAGNOSIS: same PROCEDURE: Arthroscopic Synovectomy of 3 Compartments with release of the popliteus tendon SURGEON: Isaac Farrell ANESTHESIA TYPE: General LMA/ETT Refer to Anesthesia Record ESTIMATED BLOOD LOSS: 0 PATHOLOGY: none sent TOURNIQUET TIME: 0 COMPLICATIONS: None Patient was transported to: PACU Patient's condition: stable Indications: I have seen Car in clinic for symptoms of crepitus and pain of the knee following knee replacement surgery. Nonoperative measures were exhausted but disability due to lack of motion persisted. I discussed knee arthroscopy with synovectomy with the patient. I reviewed the risks of the procedure to include, but not limited to, bleeding, infection, pain, continued stiffness, recurrence, blood clot. Despite these risks, the patient elected to proceed. Findings: There is some typical scarring seen around the knee. There was some bands of tissue in the suprapatellar pouch and slightly medial. However, it was fairly expected. However, in the lateral gutter there was significant fraying and thickened tissue. The popliteus tendon was frayed and had no normal appearance to it. An aggressive synovectomy was performed of this area and the popliteus tendon was released. Procedure Description: Car was greeted in the preoperative holding area where the correct side was identified and marked. The consent was reviewed with the patient and signed. The history and physical was updated. All questions were answered. He was taken back to the operating room. The patient was placed into the supine position on the operating room table. All bony prominences were well padded. Prophylactic antibiotics in the form of Cefazolin were administered. The right leg was then prepped with Chloraprep and draped in a standard fashion with stockinette and extremity drape. A timeout to confirm correct identity, side and site, procedure, allergies, anesthesia, and medical concerns was performed. The leg was placed into a pneumatic leg millan, [id number]. A standard lateral portal was made at the lateral border of the patella tendon in line with the inferior pole of the patella, soft spot. The skin and deep tissue was incised sharply and the blunt trochar was inserted atraumatically. At this point had visualization of the femoral component. A superolateral portal was then established with spinal needle localization just superior and lateral to the patella. A knife was taken down through the skin and soft tissue to enter the knee joint. Starting in the superior compartment above the femoral component and anterior to the femur I released all scarring between the anterior femoral synovium and the overlying extensor mechanism. This was taken through all of any noticeable scar tissue until the superior patellar pouch was fully released and mobile. This resection was carried out mostly with electrocautery as well as shaver. Once this was released fully from lateral to medial superiorly I then continue working down the lateral gutter. There is also some synovitis se en around the patella and this was also debrided until the entire patellar button was visible. All scar tissue in the lateral gutter was released so there is normal space and movement between the capsular tissues and the edge of the femoral component and femur. This was taken down through the lateral gutter such that I was able to identify the polyethylene to its posterior corner. Here in the lateral gutter there is significant thickness of tissue was synovitis and frayed tendinous material. I was unable to appreciate a true popliteus tendon but there was frayed tendinous material in this region. An aggressive debridement was performed such that was able to visualize the posterior component of the femur as well as the posterior aspect of the tibia. Once again, all scar tissue in this area was resected so the polyethylene was easily visible and there is no interposed tissue in the back or the polyethylene was identified. I then continued to work anteriorly over to the medial side of the knee. Any remnant scar tissue from around the patella was then removed with a shaver and electrocautery. The arthroscope was brought back into the suprapatellar pouch and the leg was in full extension. The knee was thoroughly irrigated with the arthroscopic fluid on high flow and pressure. Inflow was stopped and excess fluid was removed. The leg was removed from the spider leg millan and the knee was tested to make sure there is no instability. The wounds were closed with 4-0 Nylon. 0.25% bupivacaine was injected around the portal sites and into the knee. The wounds were dressed with Xeroform, 4x4 gauze, ABD pad, Kerlix and an DESMOND wrap. A cryo- cuff was applied. The patient tolerated the procedure well and was returned to the Same Day Surgery area in a stable condition suffering no known complication..
== END 2022-07-04 16:11 | disposition home or self-care (01) ==
PROVIDERS: PCP Nurse Practitioner Family; Visit Provider Student in an Organized Health Care Education/Training Program
PROC: (CPT 29870; principal; 2022-07-04 12:00)
DX: T84.84XA Pain due to internal orthopedic prosthetic devices, implants and grafts, initial encounter (principal); M15.9 Polyosteoarthritis, unspecified; M65.861 Other synovitis and tenosynovitis, right lower leg; M23.8X1 Other internal derangements of right knee
CPT/HCPCS: 29876; J0690; J1040; J1100; J1170; J1885; J2405; J2704

== ENCOUNTER → 2022-07-17 09:02 | Outpatient (BNVA) | payer MEDICARE, BC, SELFPAY | PROVIDERS: PCP Nurse Practitioner Family; Referring Provider Nurse Practitioner Family; Visit Provider Student in an Organized Health Care Education/Training Program | DX: Z47.89 Encounter for other orthopedic aftercare (principal); Z96.651 Presence of right artificial knee joint; T84.84XA Pain due to internal orthopedic prosthetic devices, implants and grafts, initial encounter ==

== ENCOUNTER → 2022-08-17 08:13 | Outpatient (BNVA) | payer MEDICARE, BC, SELFPAY | PROVIDERS: PCP Nurse Practitioner Family; Referring Provider Nurse Practitioner Family; Visit Provider Student in an Organized Health Care Education/Training Program | DX: Z47.89 Encounter for other orthopedic aftercare (principal); T84.84XA Pain due to internal orthopedic prosthetic devices, implants and grafts, initial encounter; Z96.651 Presence of right artificial knee joint ==

== ENCOUNTER 2022-11-30 11:39 | Outpatient (CLI) | payer MEDICARE, BC, SELFPAY ==
--- NOTE | 2022-11-30 10:30 | DI.RAD_ITS ---
Exam(s) XR KNEE RT 2V AP,LAT EXAM: XR KNEE RT 2V AP,LAT CLINICAL HISTORY: ANNUAL F/U R TKA. TECHNIQUE: 2D digital imaging was performed. Two images were obtained. AP and lateral views were ob tained. COMPARISON: CR XR KNEE RT 2V AP,LAT from 03/30/2022 FINDINGS: BONES: There are stable post operative changes present. No fracture or dislocation. JOINTS: The orthopedic hardware is in good position. No evidence of hardware loosening. There is a small joint effusion. SOFT TISSUE: Stable dystrophic calcifications are seen around the patella. IMPRESSION: Stable postoperative changes. DATA REPOSITORY: RADIATION DOSE DELIVERED:
--- NOTE | 2022-11-30 11:00 | DI.RAD_ITS ---
Exam(s) XR ANKLE RT 2V EXAM: XR ANKLE RT 2V CLINICAL HISTORY: eval R ankle arthritis. TECHNIQUE: 2D digital imaging was performed of the right ankle. Two images were obtained. AP, late ral and oblique views were obtained. COMPARISON: CR XR STANDING ALIGNMENT from 12/01/2021 FINDINGS: BONES: No acute fracture is present. No bony destructive lesion is seen. JOINTS: The ankle mortise is normally aligned. There are mild degenerative changes present with spurr ing at the anterior ankle. There is also mild spurring at the talonavicular joint. SOFT TISSUE: Normal. IMPRESSION: Mild degenerative changes about the ankle and hindfoot. DATA REPOSITORY: RADIATION DOSE DELIVERED:
== END 2022-11-30 11:40 | disposition home or self-care (01) ==
LOC: DIORS 11:39
PROVIDERS: PCP Nurse Practitioner Family; Referring Provider Nurse Practitioner Family; Visit Provider Student in an Organized Health Care Education/Training Program
DX: T84.84XA Pain due to internal orthopedic prosthetic devices, implants and grafts, initial encounter (principal); Z96.651 Presence of right artificial knee joint; M19.071 Primary osteoarthritis, right ankle and foot
CPT/HCPCS: 20605; 73560; 73600; J1030

== ENCOUNTER → 2023-03-13 01:49 | Outpatient (CLI) | payer MEDICARE, BC, SELFPAY ==
--- NOTE | 2023-03-13 08:02 | DI.RAD_ITS ---
Exam(s) XR CERVICAL SPINE COMP 4-5V EXAM: XR CERVICAL SPINE COMP 4-5V CLINICAL HISTORY: ? comp fx,neck pain, m54.2. TECHNIQUE: 2D digital imaging was performed. COMPARISON: No exams were available for comparison FINDINGS: BONES: No compression fracture or visible destructive lesion. DISKS: Severe narrowing of the C 6 7 disc space with prominent endplate osteophytes projecting anteri viki. Moderate to severe narrowing of the C4-5 and C5-6 disc spaces. Facet degenerative changes are noted throughout. Severe neural foraminal narrowing bilaterally at C4-5. Severe neural foraminal n arrowing also seen on the left at C2-3 and C3-4. Moderate neural foraminal narrowing seen on the rig ht at 3 4 and C5-6. ALIGNMENT: Slight reversal of the normal cervical lordosis secondary to advanced degenerative changes . The odontoid and atlantoaxial articulations are normal. SOFT TISSUE: Normal. The lung apices are clear. IMPRESSION: Degenerative disc changes and facet degenerative changes causing bilateral neural foraminal narrowing . No evidence of compression fracture. DATA REPOSITORY: RADIATION DOSE DELIVERED:
== END ==
PROVIDERS: PCP Nurse Practitioner Family; Visit Provider Nurse Practitioner Family
DX: M99.61 Osseous and subluxation stenosis of intervertebral foramina of cervical region (principal)
CPT/HCPCS: 72050

== ENCOUNTER → 2023-03-26 11:13 | Outpatient (BNVA) | payer MEDICARE, BC, SELFPAY | PROVIDERS: PCP Nurse Practitioner Family; Referring Provider Nurse Practitioner Family; Visit Provider Student in an Organized Health Care Education/Training Program | DX: M19.071 Primary osteoarthritis, right ankle and foot (principal) | CPT/HCPCS: 20605; J1030 ==

== ENCOUNTER 2023-04-27 10:27 | Outpatient (CLI) | payer MEDICARE, BC, SELFPAY ==
[2023-04-27 07:15] LABS: Abs Immature Grans 0.03 10^3/uL (0.0-0.06); Absolute Basophil Count 0.02 10^3/uL (0.0-0.2); Absolute Eosinophil Count 0.15 10^3/uL (0.0-0.7); Absolute Lymphocyte Count 1.28 10^3/uL (1.2-3.4); Absolute Monocyte Count 0.63 10^3/uL (0.1-0.8); Absolute Neutrophil Count 3.64 10^3/uL (1.2-6.7); Basophils % 0.3; Eosinophils % 2.6; HCT 48.2 % (40.0-50.0); HGB 15.8 g/dL (13.5-17.5); Immature Grans % 0.5; Lymphocytes % 22.3; MCH 31.3 pg (27.0-33.0); MCHC 32.8 % (32.0-36.0); MCV 95 fL (80-95); MPV 9.9 fL (8.0-11.0); Neutrophils % 63.3; Platelet Count 179 10^3/uL (130-400); RBC 5.05 10^6/uL (4.36-5.78); RDW 12.7 % (11.8-14.1); RDW-SD 44.8 fL; WBC 5.75 10^3/uL (4.4-10.8)
[2023-04-27 07:51] LABS: ALT 18 U/L (16-63); AST 18 U/L (15-37); Albumin 3.9 g/dL (3.4-5.0); Alkaline Phosphatase 109 U/L (46-116); Anion Gap 5.4 mmol/L (3-11); BUN 25 mg/dL (7-18); Bilirubin, Total 0.5 mg/dL (0.2-1.0); CO2 30.6 mmol/L (21.0-32.0); Calcium 9.9 mg/dL (8.5-10.1); Calculated LDL 72 mg/dL (<100); Chloride 104 mmol/L (98-107); Cholesterol 131 mg/dL (<200); Estimated GFR 79.97 (mL/min/1.73m2); Glucose 113 mg/dL (74-106); HDL Cholesterol 52 mg/dL (40-60); Sodium 140 mmol/L (136-145); Total Protein 7.3 g/dL (6.4-8.2); Triglyceride 39 mg/dL (<150)
== END 2023-04-27 10:28 | disposition home or self-care (01) ==
LOC: LBO 10:27
PROVIDERS: PCP Nurse Practitioner Family; Visit Provider Nurse Practitioner Family
DX: I10 Essential (primary) hypertension (principal); E78.5 Hyperlipidemia, unspecified; R73.09 Other abnormal glucose; Z51.81 Encounter for therapeutic drug level monitoring
CPT/HCPCS: 36415; 80053; 80061; 85025

== ENCOUNTER 2023-12-19 10:16 | Emergency (ER) | payer MEDICARE, BC, SELFPAY ==
[2023-12-19 10:17] VITALS: BP 153/116; PULSE 62; RESP 16; TEMP 36.7; O2SAT 96
--- NOTE | 2023-12-19 10:44 | ED.GENADUL_ITS ---
Discharge Plan Disposition Patient Disposition: Home Discharge Details Clinical Impression: Acute pain of right foot Primary Care Provider: Devi Wilkes ED Provider: Giorgio Garner Home Meds and New Rx's Prescriptions: New hydrocodone-acetaminophen 5-325 mg tablet 1 tab PO Q8H PRN (Reason: pain) Qty: 14 0RF No Action amoxicillin 500 mg capsule 2,000 mg PO ONCE Qty: 4 1RF Rx Instructions: prior to dental procedure celecoxib [Celebrex] 100 mg capsule 100 mg PO BID PRN cyclobenzaprine 10 mg tablet 10 mg PO TID PRN (Reason: muscle spasm) Qty: 30 0RF tramadol 50 mg tablet 50 mg PO Q6H PRN (Reason: pain) Qty: 15 1RF Rx Instructions: Treatment agreement is for 15 pills per 28 day; DNF until 11/26/2023 lorazepam 1 mg tablet 1 - 2 mg PO DAILY PRN (Reason: anxiety) Qty: 4 0RF Rx Instructions: Take 1-2 tabs about 1 hour before takeoff aspirin [Adult Low Dose Aspirin] 81 mg tablet,delayed release (DR/EC) 81 mg PO DAILY cholecalciferol (vitamin D3) [Vitamin D3] 50 mcg (2,000 unit) capsule 4,000 unit PO DAILY triple cream topical DAILY PRN Patient Comments: Rosascea Rx Instructions: 08/05/2019 Cream is a mixture of Ivermectin 1%, Metrodiazole 1%, Azelaic acid 15% prescribed by Derm. Apply to entire face daily for 4 weeks and then start Efudex. sertraline 50 mg tablet See Rx Instructions .ROUTE .COMPLEX Qty: 90 3RF Dose Instruction: TAKE 1 TABLET BY MOUTH DAILY Rx Instructions: TAKE 1 TABLET BY MOUTH DAILY simvastatin 20 mg tablet 20 mg PO QHS Qty: 90 3RF pantoprazole 40 mg tablet,delayed release (DR/EC) See Rx Instructions .ROUTE .COMPLEX Qty: 90 3RF Dose Instruction: TAKE ONE TABLET BY MOUTH EVERY MORNING AT LEAST 30 MIN BEFORE FIRST MEAL OF THE DAY Rx Instructions: TAKE ONE TABLET BY MOUTH EVERY MORNING AT LEAST 30 MIN BEFORE FIRST MEAL OF THE DAY losartan 100 mg tablet 100 mg PO DAILY Qty: 90 3RF acetaminophen 500 mg tablet 1,000 mg PO TID Qty: 90 0RF tizanidine 2 mg tablet Patient Comments: TAKE ONE TABLET BY MOUTH EVERY 6 HOURS NEEDED Discharge Instructions Additional Instructions: Wear boot for comfort. Use crutches to ambulate. Weightbearing only as tolerated. Your x-ray today does not demonstrate an acute finding. Please follow-up with orthopedics as scheduled for reevaluation of your foot HPI General Date/Time Provider Initiated Documentation: 12/19/23 10:41 . Limitations to Documentation: no limitations . Information obtained by: patient . HPI Narrative: 73-year-old gentleman with past medical history including right knee replacement, chronic arthritis of the right ankle presents for evaluation of acute right foot pain. He reports that he has been having pain in his foot since August. He reports that the pain has been progressively worsening and has an appointment scheduled for [facility] in December for reevaluation of this foot. He reports that 2 days ago he stepped on something and rolled his foot. He felt a crunch. He has had severe pain with walking and inability to bear w eight since that time. He localizes the pain to the outside of the foot and the bottom of the foot. He states that he reviewed [employer] and feels like there is an issue with his cuboid bone. He denies any open wounds, redness, swelling or any signs of infection. He has been using crutches to help ambulate. He is not taking any pain medication for relief. Related Data Home Medications Medication Instructions Recorded Confirmed aspirin 81 mg tablet,delayed 81 mg PO DAILY 11/22/18 12/19/23 release (Adult Low Dose Aspirin) cholecalciferol (vitamin D3) 50 4,000 unit PO DAILY 02/13/20 12/19/23 mcg (2,000 unit) capsule (Vitamin D3) triple cream topical DAILY PRN 08/05/20 10/11/23 acetaminophen 500 mg tablet 1,000 mg (2 x 500 mg) PO TID #90 07/04/22 12/19/23 tabs amoxicillin 500 mg capsule 2,000 mg (4 x 500 mg) PO ONCE #4 04/27/23 12/19/23 caps celecoxib 100 mg capsule (Celebrex) 100 mg PO BID PRN 04/27/23 12/19/23 cyclobenzaprine 10 mg tablet 10 mg PO TID PRN muscle spasm #30 04/27/23 12/19/23 tab-caps sertraline 50 mg tablet See Rx Instructions .Route 05/17/23 12/19/23 .COMPLEX #90 tabs simvastatin 20 mg tablet 20 mg PO QHS #90 tab-caps 08/15/23 12/19/23 lorazepam 1 mg tablet 1 - 2 mg (1 - 2 x 1 mg) PO DAILY 10/11/23 12/19/23 PRN anxiety #4 tab-caps tramadol 50 mg tablet 50 mg PO Q6H PRN pain #15 tabs 10/11/23 12/19/23 pantoprazole 40 mg tablet,delayed See Rx Instructions .Route 11/26/23 12/19/23 release .COMPLEX #90 tabs losartan 100 mg tablet 100 mg PO DAILY #90 tabs 11/29/23 12/19/23 hydrocodone 5 mg-acetaminophen 325 1 tab PO Q8H PRN pain #14 tabs 12/19/23 mg tablet tizanidine 2 mg tablet mg 12/19/23 Previous Rx's Medication Instructions Recorded acetaminophen 500 mg tablet 1,000 mg (2 x 500 mg) PO TID #90 07/04/22 tabs amoxicillin 500 mg capsule 2,000 mg (4 x 500 mg) PO ONCE #4 04/27/23 caps cyclobenzaprine 10 mg tablet 10 mg PO TID PRN muscle spasm #30 04/27/23 tab-caps sertraline 50 mg tablet See Rx Instructions .Route 05/17/23 .COMPLEX #90 tabs simvastatin 20 mg tablet 20 mg PO QHS #90 tab-caps 08/15/23 lorazepam 1 mg tablet 1 - 2 mg (1 - 2 x 1 mg) PO DAILY 10/11/23 PRN anxiety #4 tab-caps tramadol 50 mg tablet 50 mg PO Q6H PRN pain #15 tabs 10/11/23 pantoprazole 40 mg tablet,delayed See Rx Instructions .Route 11/26/23 release .COMPLEX #90 tabs losartan 100 mg tablet 100 mg PO DAILY #90 tabs 11/29/23 hydrocodone 5 mg-acetaminophen 325 1 tab PO Q8H PRN pain #14 tabs 12/19/23 mg tablet Allergies Allergy/AdvReac Type Severity Reaction Status Date / Time No Known Allergies Allergy Unverified 12/19/23 10:25 General Stated Complaint: Orthopedic GRISEL: 4 Exam Narrative Exam Narrative: Review of Systems: All systems reviewed & are unremarkable except as noted in HPI and below Well-developed, no acute distress NCAT PERRL, normal conjunctiva RRR Unlabored respiratory effort Nondistended abdomen Right ankle without swelling, tenderness or deformity, there is tender less along the fifth metatarsal and along the base and the plantar fascia of the foot, there is no obvious swelling, bruising or deformity of the foot, neurovascularly intact with 2+ DP pulse No rashes or lesions. no focal neurologic deficits Appropriate mood and affect Course Vital Signs Vital signs: Vital Signs Temperature 36.7 C 12/19/23 10:17 Pulse 62 12/19/23 10:17 Respiratory Rate 16 12/19/23 10:17 Blood Pressure 153/116 H 12/19/23 10:17 Pulse Oximetry 96 12/19/23 10:17 Temperature 36.7 C 12/19/23 10:17 Temperature Source Temporal Artery Scan 12/19/23 10:17 Pulse 62 12/19/23 10:17 Respiratory Rate 16 12/19/23 10:17 Respiratory Effort Normal 12/19/23 10:23 Blood Pressure 153/116 H 12/19/23 10:17 Pulse Oximetry 96 12/19/23 10:17 Pain Level 8 12/19/23 10:17 Medical Decision Making Urgent evaluation of acute on chronic right foot pain. Patient reports that he is unable to bear weight on the right foot. There is minimal trauma history and the examination is fairly benign other than his pain with palpation. X-ray imaging was obtained to evaluate for acute bony etiology and this is unremarkable for any change. I did review his records at [facility] and his prior imaging of his foot and I do not see any significant changes. However given the severity of his pain, he was provided with a walking boot to use with the crutches, weightbearing as tolerated. A short course of narcotic pain medication is also been provided secondary to the severity of his pain. He has follow-up scheduled at [facility] and the x-ray imaging obtained here today has been sent to them for further review. Advised that the patient should reach out to them to discuss moving his appointment sooner or any additional advanced imaging recommendations they may have for this. Medical Records Medical records reviewed: Yes I reviewed the patient's medical records. Quality:SDOH Health Related Social Needs: No Data to Display PFSH All Active Problems Acute pain of right foot (Acute) IFG (impaired fasting glucose) (Acute) Seen on 03/2023 labs --> needs an A1c at [facility] Arthritis of right ankle (Acute) Most recent Depo-Medrol injection: 03/26/2023 Essential hypertension (Acute) Aortic aneurysm of unspecified site, without rupture (Chronic 12/12/19) S/p tube grafting in 2009 Essential tremor (Chronic) Chronic left hip pain (Chronic) Ventral hernia (Chronic 11/28/11) Temporomandibular joint disorders, unspecified (Chronic 11/28/11) Spinal stenosis (Chronic 11/28/11) [facility] L4-5 laminectomy 11/2013 Dr Rascon [facility] pain clinic: median nerve branch block 2014 Sensorineural hearing loss, bilateral (Chronic 11/06/12) hearing aide Rosacea (Chronic 11/28/11) 08/05/20 [facility] Derm Insomnia, unspecified (Chronic 11/06/12) Hyperlipidemia (Chronic 11/28/11) Generalized osteoarthritis (Chronic 04/30/13) Gastroesophageal reflux disease (Chronic 12/22/15) EGD 2010 [facility] Chronic pain (Chronic 05/15/14) Spinal stenosis; cervical arthropathy BPH w/o urinary obs/LUTS (Chronic 11/28/11) S/P TURP 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 Followed by Dr Ríos CT surgery. 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 Caputo EGD (07/19/11) Replacement of aortic valve (~11/2009) Bioprosthetic AVR & ascending aorta replacement at [facility] Family History Mother Diabetes Heart disease Father Heart disease Multiple sclerosis Sister Diabetes Social History Smoking/Tobacco Use Status: Former Tobacco Use Quit Date: 07/30/00 Smokeless tobacco user: snuff Smoking risk assessment performed?: Yes Alcohol Intake: former Drug use: Never Substance use type: does not use Adopted: No Caregiver/Support person: No Foster care: No Household members: spouse Number of Children: 2 Communication Needs: None Education Level: college current occupation: retired from [employer] Current gender identity: male What type of physical activity do you participate in: walking Duration: 60-90 minutes/day Frequency: daily Seatbelt use: always Helmet use: Yes Drive intox or ride w/intox haul truck driver: No Water heater temp set <120 deg: Yes Working smoke detector in home: Yes Fire extinguisher in home: Yes Carbon monox detector in home: Yes Firearms in home: Yes Firearms unloaded and locked: Yes Do you feel safe at home: Yes Do you feel safe in your relationship?: Yes
--- NOTE | 2023-12-19 11:10 | DI.RAD_ITS ---
Exam(s) XR FOOT RT COMPLETE EXAM: XR FOOT RT COMPLETE CLINICAL HISTORY: right foot pain. TECHNIQUE: 2D digital imaging was performed. COMPARISON: No exams were available for comparison FINDINGS: 3 views No evidence of fracture or diastasis of the Lisfranc joint. No osseous lesions. No erosions. Only mild degenerative changes.. IMPRESSION: No acute osseous findings in the right foot. DATA REPOSITORY: RADIATION DOSE DELIVERED:
== END 2023-12-19 11:38 | disposition home or self-care (01) ==
PROVIDERS: Emergency Provider Emergency Medicine; PCP Nurse Practitioner Adult Health
DX: M79.671 Pain in right foot (principal); M13.871 Other specified arthritis, right ankle and foot; Z95.2 Presence of prosthetic heart valve; Z79.82 Long term (current) use of aspirin; Z87.891 Personal history of nicotine dependence
CPT/HCPCS: 99283; 73630

== ENCOUNTER 2024-06-30 03:32 | Outpatient (CLI) | payer MEDICARE, BC, SELFPAY ==
[2024-06-30 07:25] LABS: Hemoglobin A1C 5.4 % (<5.7)
[2024-06-30 07:32] LABS: Anion Gap 5.2 mmol/L (3-11); BUN 31 mg/dL (7-18); CO2 30.8 mmol/L (21.0-32.0); Calcium 9.8 mg/dL (8.5-10.1); Calculated LDL 81 mg/dL (<100); Chloride 107 mmol/L (98-107); Cholesterol 160 mg/dL (<200); Estimated GFR 79.47 (mL/min/1.73m2); Glucose 99 mg/dL (74-106); HDL Cholesterol 65 mg/dL (40-60); Sodium 143 mmol/L (136-145); Triglyceride 73 mg/dL (<150)
[2024-06-30 17:50] LABS: PSA, Screening 25.2 ng/mL (<=6.5)
== END 2024-06-30 03:33 | disposition home or self-care (01) ==
LOC: LBO 03:33
PROVIDERS: PCP Nurse Practitioner Adult Health; Visit Provider Nurse Practitioner Adult Health
DX: R73.01 Impaired fasting glucose (principal); I10 Essential (primary) hypertension; E78.5 Hyperlipidemia, unspecified; Z12.5 Encounter for screening for malignant neoplasm of prostate; N40.0 Benign prostatic hyperplasia without lower urinary tract symptoms
CPT/HCPCS: 36415; 80048; 80061; 84153; 83036

== ENCOUNTER 2024-07-03 11:39 | Outpatient (REF) | payer MEDICARE, BC, SELFPAY ==
[2024-07-03 16:10] LABS: Bilirubin Negative (Negative); Blood Negative (Negative); Clarity Clear (Clear); Glucose Negative (Negative); Ketones Negative (Negative); Leukocyte Esterase Negative (Negative); Nitrite Negative (Negative); Urobilinogen 0.2 mg/dL (Up to 0.2); pH 5.5 (5-8)
== END 2024-07-03 11:40 | disposition home or self-care (01) ==
LOC: LBN 11:39
PROVIDERS: PCP Nurse Practitioner Adult Health; Visit Provider Nurse Practitioner Adult Health
DX: R97.20 Elevated prostate specific antigen [PSA] (principal)
CPT/HCPCS: 81003

== ENCOUNTER → 2024-07-14 14:42 | Outpatient (BNVA) | payer MEDICARE, BC, SELFPAY | PROVIDERS: PCP Nurse Practitioner Adult Health; Referring Provider Nurse Practitioner Adult Health; Visit Provider Urology | DX: N40.1 Benign prostatic hyperplasia with lower urinary tract symptoms (principal); R97.20 Elevated prostate specific antigen [PSA] | CPT/HCPCS: 99215 ==

== ENCOUNTER 2024-07-16 04:23 | Outpatient (CLI) | payer MEDICARE, BC, SELFPAY ==
[2024-07-16 22:18] LABS: PSA, Diagnostic 23.7 ng/mL (<=6.5)
== END 2024-07-16 04:24 | disposition home or self-care (01) ==
LOC: LBO 04:23
PROVIDERS: PCP Nurse Practitioner Adult Health; Visit Provider Urology
DX: R97.20 Elevated prostate specific antigen [PSA] (principal)
CPT/HCPCS: 36415; 84153

== ENCOUNTER → 2024-07-21 11:16 | Outpatient (BNVA) | payer MEDICARE, BC, SELFPAY | PROVIDERS: PCP Nurse Practitioner Adult Health; Referring Provider Nurse Practitioner Adult Health; Visit Provider Urology | DX: R97.20 Elevated prostate specific antigen [PSA] (principal) | CPT/HCPCS: 99442 ==

== ENCOUNTER → 2024-09-05 10:44 | Outpatient (BNVA) | payer MEDICARE, BC, SELFPAY | PROVIDERS: PCP Nurse Practitioner Adult Health; Referring Provider Nurse Practitioner Adult Health; Visit Provider Urology | DX: C61 Malignant neoplasm of prostate (principal); R97.20 Elevated prostate specific antigen [PSA] | CPT/HCPCS: 55700; 76872 ==

== ENCOUNTER 2024-09-05 11:04 | Outpatient (REF) | payer MEDICARE, BC, SELFPAY ==
--- NOTE | 2024-09-05 11:20 | PROST_PTH ---
PATIENT: Car Reid LOC: [facility] U#:[id number] AGE/SX: 73/M ROOM: RE09/05/[address]: David Royal MD : 1950 BED: DIS: 09/05/2024 SPEC #: [id number] RECD: 09/05/24 13:14 STATUS: MONA RE #: [id number] FIDEL: 09/05/24 11:[address]: David Royal DEPT: Surgical Specimen RECD BY: Carolyn Blackwell ENTERED: 09/05/24 13:15 SP TYPE: PROST OTHR DR: Devi Wilkes APRN Tissues: 1 - PROSTATE NEEDLE BIOPSY 2 - PROSTATE NEEDLE BIOPSY 3 - PROSTATE NEEDLE BIOPSY 4 - PROSTATE NEEDLE BIOPSY 5 - PROSTATE NEEDLE BIOPSY 6 - PROSTATE NEEDLE BIOPSY 7 - PROSTATE NEEDLE BIOPSY 8 - PROSTATE NEEDLE BIOPSY 9 - PROSTATE NEEDLE BIOPSY 10 - PROSTATE NEEDLE BIOPSY 11 - PROSTATE NEEDLE BIOPSY 12 - PROSTATE NEEDLE BIOPSY Procedures: GROSS AND MICRO LEVEL 4 Comments: [id number]
== END 2024-09-05 11:05 | disposition home or self-care (01) ==
LOC: LBN 11:04
PROVIDERS: PCP Nurse Practitioner Adult Health; Visit Provider Urology
DX: C61 Malignant neoplasm of prostate (principal)
CPT/HCPCS: 88305

== ENCOUNTER 2024-09-05 15:33 | Inpatient (IN) | payer MEDICARE, BC, SELFPAY ==
[2024-09-05] VITALS (52 sets, daily range): BP systolic 48–150; BP diastolic 30–107; PULSE 47–117; RESP 11–25; TEMP 36.5–37.3; O2SAT 92–100; BMI 23.7
--- NOTE | 2024-09-05 15:30 | DI.CT_ITS ---
Exam(s) CT ABDOMEN PELVIS CTA EXAM: CT ABDOMEN PELVIS CTA CLINICAL HISTORY: GI bleed. TECHNIQUE: Imaging Protocol: Axial CT angiography was performed with multi-slice acquisition and m ulti-planar and/or 3D reconstructions. CONTRAST MATERIAL: Intravenous: Omnipaque 350 Contrast volume:100mL Oral: No COMPARISON: CT CT CHEST/ABD/PEL W from 11/02/2020 FINDINGS: ABDOMEN AND PELVIS: Abdomen: Celiac axis/mesenteric arteries: No evidence of occlusion or significant stenosis. Renal Arteries: No evidence of occlusion or significant stenosis. Mild atherosclerotic calcification at the origin of the left renal artery. Aorta: No evidence of occlusion or significant stenosis. No aneurysm or dissection. Atherosclerotic calcification is present. Pelvis: Iliac Arteries: No evidence of occlusion or significant stenosis. Atherosclerotic calcification is p resent. Common Femoral Arteries: No evidence of occlusion or significant stenosis. Atherosclerotic calcifica tion is present. ABDOMEN: Lung bases: Unremarkable. Liver: Normal density. There are multiple cysts seen within the liver. Portal, Superior Mesenteric, and Splenic Veins: Unremarkable. Gallbladder and Biliary Tract: Status post cholecystectomy. No significant biliary ductal dilatation is present. Pancreas: Normal density, no abnormal calcifications or inflammatory process. Spleen: There is again seen a small round hypodensity in the spleen. It is stable. This may represe nt a cyst or small hemangioma. Adrenals: No masses seen. Kidneys: Normal size, contour and axis. No radiodense stones or obstructive uropathy. There are renal cysts. No follow-up is recommended. Bowel: The stomach is incompletely distended limiting evaluation. There is a large amount of stool i n the rectum. No bowel wall thickening is seen. There diverticula in the colon but no evidence of a cute diverticulitis. There is no evidence of bowel obstruction. There is fluid seen in small bowel loops which can be seen with a diarrheal illness or enteritis. No evidence of appendicitis. No find ings to suggest active gastrointestinal bleeding. Peritoneal Cavity: No ascites, collection or mesenteric inflammatory response. No free air. Lymph Nodes: Within normal limits. Bones: There are prominent a sclerotic foci seen in the lumbar spine and the left pelvis. Metastatic disease should be considered. Posterior spinal surgery at L4-L5. Multilevel degenerative changes a re present. Grade 1 spondylolisthesis of L4 on L5 is noted. Soft Tissues: Unremarkable. PELVIS: Bladder: Symmetric distention, no gross wall thickening. Reproductive Organs: There is a 1.7 cm nodular projection arising from the dome of the prostate gland into the base of the urinary bladder. Lymph Nodes: Within normal limits. Bones: Within normal limits. IMPRESSION: 1. No evidence of acute gastrointestinal bleeding on this examination. 2. Colonic diverticulosis without evidence of acute diverticulitis. 3. There is material seen in the distal colon including the rectosigmoid colon which likely reflect s tool. 4. Fluid-filled loops of small bowel which can be seen with a diarrheal illness or enteritis. 5. Sclerotic foci seen in the lumbar spine and left pelvis. Metastatic disease should be considered. Further evaluation may be obtained with a bone scan. 6. 1.7 cm nodular projection arising from the dome of the prostate gland. Follow-up as clinically ap propriate. 7. No evidence of abdominal aortic dissection or aneurysm. 8. Please see the above discussion for complete details. RADIATION DOSE DELIVERED: 1,407.47mGy.cm Total DLP DATA REPOSITORY: All CT scans at this facility are submitted to the National Radiology Data Registry (NRDR) Dose Index Registry (DIR) with the [employer] (ACR). RADIATION OPTIMIZATION: All CT scans at this facility use at least one of these dose optimization te chniques: automated exposure control; mA and/or kV adjustment per patient size (includes targeted exa ms where dose is matched to clinical indication); or iterative reconstruction.
[2024-09-05 15:46] LABS: Abs Immature Grans 0.02 10^3/uL (0.0-0.06); Absolute Basophil Count 0.04 10^3/uL (0.0-0.2); Absolute Eosinophil Count 0.08 10^3/uL (0.0-0.7); Absolute Monocyte Count 0.82 10^3/uL (0.1-0.8); Absolute Neutrophil Count 5.21 10^3/uL (1.2-6.7); Basophils % 0.5 %; HCT 43.4 % (40.0-50.0); HGB 14.1 g/dL (13.5-17.5); Immature Grans % 0.2 %; Lymphocytes % 24.5 %; MCH 31.1 pg (27.0-33.0); MCHC 32.5 % (32.0-36.0); MCV 96 fL (80-95); MPV 10.1 fL (8.0-11.0); Neutrophils % 63.8 %; Platelet Count 152 10^3/uL (130-400); RBC 4.54 10^6/uL (4.36-5.78); RDW 13.1 % (11.8-14.1); RDW-SD 46.1 fL; WBC 8.17 10^3/uL (4.4-10.8)
--- NOTE | 2024-09-05 15:46 | W.ED.GENAD ---
Discharge Plan Disposition Patient Disposition: Admit to [facility] Discharge Details Clinical Impression: Acute lower GI bleeding Admit Date/Time: 09/05/24 17:38 Admit Provider: Kameron Lopez Attending Provider: Kameron Lopez Primary Care Provider: Devi Wilkes ED Provider: Fernando Esparza Discharge Data Discharge Date/Time-TO BE ENTERED AT DEPARTURE: 09/05/24 18:34 HPI General Date/Time Provider Initiated Documentation: 09/05/24 15:35. HPI Narrative: MDM This is a pale transiently hypotensive not anticoagulated 73-year-old male with acute blood loss anemia postop day 0 status post transrectal prostate biopsy for which patient will receive 2 units of PRBCs. I was in touch with Dr. Monique for the general surgery group. She will take the patient emergently to the OR. Dr. Lopez from the hospitalist team graciously agreed to accept the patient. Patient received 80 mg of pantoprazole. His CT angiogram of his abdomen pelvis did not show any obvious IR targets and as result I do not feel he requires tertiary care transfer. He has had minimal urine output and received 1 L of IV fluids. He is to 18-gauge IVs. He has been mentating well. I updated the patient on the incidental finding on his CT scan for which the hospitalist team will help arrange outpatient follow-up: I advised Reid of the incidental finding. He is requesting assistance passing this incidental finding along to his primary care provider: Sclerotic foci seen in the lumbar spine and left pelvis. Metastatic disease should be considered. Further evaluation may be obtained with a bone scan. I updated the anesthesia team at bedside. I was in touch with Dr. Royal who will round on the patient tomorrow. Estimated blood loss in the emergency department 300 cc. No signs of aneurysmal bleed on CT scan. HPI This is 73-year-old male not anticoagulated he had transrectal prostate biopsy today. He went home and began having episodes of bright red blood per rectum. He did not pass out. He has felt lightheaded. He had some pudding after his procedure but has otherwise been n.p.o. since last night. He has a history of aortic valve disorder. He is not anticoagulated. Chart review indicates history of aortic aneurysm. Unable to obtain additional history secondary to the acuity of the patient's presentation. Exam General: Ill-appearing in no acute distress speaking in complete sentences. Head: Normocephalic, atraumatic. Eye: Extraocular eye movements intact. No conjunctival injection. No scleral icterus. Ear, nose, mouth, throat: Grossly normal inspection. Normal voice, handling secretions normally. Neck: Trachea midline. Cardiovascular: Well-perfused distal extremities. Regular rate and rhythm Respiratory: Nonlabored respiration. Gastrointestinal: Nondistended abdomen. Soft. Minimal suprapubic tenderness. Rectal: Bright red blood per rectum. No obvious internal or external hemorrhoids. No obvious fissures. Musculoskeletal: No edema. Moving all 4 extremities spontaneously. Skin: Normal for age and race, grossly normal temperature and turgor. No acute rash. Neurologic: Alert and appropriate, no apparent acute deficits. GCS 15. Psychiatric: Mood and manner are appropriate. Grooming and personal hygiene are appropriate. Related Data Home Medications ?Medication ?Instructions ?Recorded ?Confirmed aspirin 81 mg tablet,delayed 81 mg PO DAILY 11/22/18 09/05/24 release (Adult Low Dose Aspirin) cholecalciferol (vitamin D3) 50 4,000 unit PO DAILY 02/13/20 09/05/24 mcg (2,000 unit) capsule (Vitamin D3) acetaminophen 500 mg tablet 1,000 mg (2 x 500 mg) PO TID #90 07/04/22 09/05/24 tabs lorazepam 1 mg tablet 1 - 2 mg (1 - 2 x 1 mg) PO DAILY 10/11/23 09/05/24 PRN anxiety #4 tab-caps pantoprazole 40 mg tablet,delayed See Rx Instructions .Route 11/26/23 09/05/24 release .COMPLEX #90 tabs losartan 100 mg tablet 100 mg PO DAILY #90 tabs 11/29/23 09/05/24 sertraline 50 mg tablet See Rx Instructions .Route 05/22/24 09/05/24 .COMPLEX #90 tabs amoxicillin 500 mg capsule 2,000 mg (4 x 500 mg) PO ONCE #4 07/03/24 09/05/24 caps tramadol 50 mg tablet 50 mg PO Q6H PRN pain #15 tabs 07/03/24 09/05/24 amoxicillin 875 mg-potassium 1 tab PO BID #14 tabs 08/13/24 09/05/24 clavulanate 125 mg tablet prednisone 20 mg tablet 40 mg (2 x 20 mg) PO .daily in AM 08/13/24 09/05/24 #10 tabs simvastatin 20 mg tablet See Rx Instructions .Route 08/20/24 09/05/24 .COMPLEX #90 tabs Previous Rx's ?Medication ?Instructions ?Recorded acetaminophen 500 mg tablet 1,000 mg (2 x 500 mg) PO TID #90 07/04/22 tabs lorazepam 1 mg tablet 1 - 2 mg (1 - 2 x 1 mg) PO DAILY 10/11/23 PRN anxiety #4 tab-caps pantoprazole 40 mg tablet,delayed See Rx Instructions .Route 11/26/23 release .COMPLEX #90 tabs losartan 100 mg tablet 100 mg PO DAILY #90 tabs 11/29/23 sertraline 50 mg tablet See Rx Instructions .Route 05/22/24 .COMPLEX #90 tabs amoxicillin 500 mg capsule 2,000 mg (4 x 500 mg) PO ONCE #4 07/03/24 caps tramadol 50 mg tablet 50 mg PO Q6H PRN pain #15 tabs 07/03/24 amoxicillin 875 mg-potassium 1 tab PO BID #14 tabs 08/13/24 clavulanate 125 mg tablet prednisone 20 mg tablet 40 mg (2 x 20 mg) PO .daily in AM 08/13/24 #10 tabs simvastatin 20 mg tablet See Rx Instructions .Route 08/20/24 .COMPLEX #90 tabs Allergies Allergy/AdvReac Type Severity Reaction Status Date / Time No Known Allergies Allergy Verified 09/05/24 15:38 General Stated Complaint: GI Bleed GRISEL: 2 Course Vital Signs Vital signs: Vital Signs Pulse 82 09/05/24 15:34 Respiratory Rate 16 09/05/24 15:34 Blood Pressure 150/100 H 09/05/24 15:34 Pulse Oximetry 98 09/05/24 15:34 Pulse 82 09/05/24 15:34 Respiratory Rate 16 09/05/24 15:34 Blood Pressure 150/100 H 09/05/24 15:34 Blood Pressure Position Supine 09/05/24 15:34 Pulse Oximetry 98 09/05/24 15:34 Oxygen Delivery Method Room Air 09/05/24 15:34 Oxygen Flow Rate 0 09/05/24 15:34 Medical Decision Making Quality:SDOH Health Related Social Needs: No Data to Display Critical Care Time Critical Care Time Critical Care Time: Yes Total Critical Care Time: 60 Attestation: Acute lower GI bleed PFSH All Active Problems (Updated 09/05/24 @ 17:45 by Fernando Esparza MD) Acute lower GI bleeding (Acute) Radiculopathy, cervical region (Acute) 08/19/24 [facility] Elevated PSA, greater than or equal to 20 ng/ml (Acute ~06/2024) Nonunion of subtalar arthrodesis (Acute) [facility] Orthopaedics 04/15/24 IFG (impaired fasting glucose) (Acute) Seen on 03/2023 labs --> needs an A1c at NOV Arthritis of right ankle (Acute) Most recent Depo-Medrol injection: 03/26/2023 Essential hypertension (Acute) Aortic aneurysm of unspecified site, without rupture (Chronic 12/12/19) S/p tube grafting in 2009 Essential tremor (Chronic) Chronic left hip pain (Chronic) Ventral hernia (Chronic 11/28/11) Temporomandibular joint disorders, unspecified (Chronic 11/28/11) Spinal stenosis (Chronic 11/28/11) [facility] L4-5 laminectomy 11/2013 Dr Rascon [facility] pain clinic: median nerve branch block 2014 Sensorineural hearing loss, bilateral (Chronic 11/06/12) hearing aide Rosacea (Chronic 11/28/11) 08/05/20 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 Followed by Dr Ríos CT surgery. 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) Actinic keratosis (03/20/12) Surgical History History of ankle surgery (~03/17/24) [facility] Ortho 04/02/24 Arthroscopy w/ extensive debridement, subtalar joint fusion, Brostrom stabilization w/ internal brace augmentation, peroneus longus debridement, peroneus brevis tenolysis Hx of hernia repair (1999) Status post cholecystectomy (~1989) History of total right knee replacement (11/16/21) S/P TAVR (transcatheter aortic valve replacement) (02/04/20) Valve in valve TAVR with 26mm ultra; [facility] lumbar/sacral medial branch blocks (02/24/15) Dr Caputo Transurethral prostatectomy (~2000) For BPH SI joint injection (04/23/17) L side, Dr. Caputo EGD (07/19/11) Replacement of aortic valve (~11/2009) Bioprosthetic AVR & ascending aorta replacement at [facility] Family History Mother Diabetes Heart disease Father Heart disease Multiple sclerosis Sister Diabetes Social History Smoking/Tobacco Use Status: Former Tobacco Use Quit Date: 07/30/00 Smokeless tobacco user: snuff Smoking risk assessment performed?: Yes Alcohol Intake: former Drug use: Never Substance use type: does not use Adopted: No Caregiver/Support person: No Foster care: No Household members: spouse Housing: house Number of Children: 2 Communication Needs: None Education Level: college current occupation: retired Current gender identity: male What type of physical activity do you participate in: walking Duration: 60-90 minutes/day Frequency: daily Seatbelt use: always Helmet use: Yes Drive intox or ride w/intox bus driver/monitor: No Water heater temp set <120 deg: Yes Working smoke detector in home: Yes Fire extinguisher in home: Yes Carbon monox detector in home: Yes Firearms in home: Yes Firearms unloaded and locked: Yes Do you feel safe at home: Yes Do you feel safe in your relationship?: Yes
[2024-09-05 15:57] LABS: INR 1.2 (0.9-1.1); Prothrombin Time 11.6 sec (9.1-11.1)
[2024-09-05] MEDS: Omnipaque 350 MG/ML 100 ML BTL IJ (16:02)
[2024-09-05] MEDS: Normal Saline - Diluent 50 ML VIAL IJ (16:02)
[2024-09-05 16:05] LABS: ALT 19 U/L (16-63); AST 18 U/L (15-37); Albumin 3.8 g/dL (3.4-5.0); Alkaline Phosphatase 106 U/L (46-116); Anion Gap 4.3 mmol/L (3-11); BUN 24 mg/dL (7-18); Bilirubin, Total 0.98 mg/dL (0.2-1.0); CO2 32.7 mmol/L (21.0-32.0); Calcium 9.1 mg/dL (8.5-10.1); Chloride 107 mmol/L (98-107); Estimated GFR 79.47 (mL/min/1.73m2); Glucose 95 mg/dL (74-106); Potassium 3.6 mmol/L (3.5-5.1); Sodium 144 mmol/L (136-145); Total Protein 7.1 g/dL (6.4-8.2); Troponin I 16 ng/L (<or=76)
[2024-09-05] MEDS: Pantoprazole 40 MG VIAL (16:54)
[2024-09-05 17:27] LABS: HCT 37.5 % (40.0-50.0); HGB 12.2 g/dL (13.5-17.5)
[2024-09-05 17:32] LABS: Troponin I 14 ng/L (<or=76)
--- NOTE | 2024-09-05 17:48 | HPE_ITS ---
Date of service: 09/05/24 Time of Service: 17:48 Assessment and Plan Assessment and plan (1) Acute lower GI bleeding: Status: Acute Assessment and plan: - Patient presented with multiple episodes of bloody bowel movements which were also observed in the emergency department -Patient was also noted as having transient hypotension with blood pressures as low as 48/30 which improved status post 1 L bolus of normal saline and 2 units of packed red blood cells -Blood pressures improved now with systolics above 110 -Hemoglobin initially 14.1, be decreased to 12.2, will check H&H every 4 hours and give additional blood as needed for drop in hemoglobin or if additional episodes of hypotension are observed -Appreciate general surgery rapid involvement, will discuss with surgery once patient is postop -Will be n.p.o. until further recommendations from general surgery (2) S/P TAVR (transcatheter aortic valve replacement): Assessment and plan: - Valves replaced in 2019 (3) Essential hypertension: Status: Acute Assessment and plan: - Holding antihypertensive due to episode of transient hypotension (4) Essential tremor: Status: Chronic (5) Chronic pain: Status: Chronic Assessment and plan: - Continue home opiate regimen (6) Hyperlipidemia: Status: Chronic Assessment and plan: - Continue home statin (7) Elevated PSA, greater than or equal to 20 ng/ml: Status: Acute Assessment and plan: - Elevated PSA is what prompted transrectal biopsy earlier in the day -Urologist Dr. Royal is aware of the patient, appreciate his availability and will follow-up his recommendations when he is available to see the patient History of Present Illness History of Present Illness Chief Complaint: Bloody bowel movement Narrative: 73-year-old male with past medical history of bioprosthetic aortic valve placement and surgery on ascending aortic aneurysm in 2009, cardiac catheterization in December 2019, and TAVR at [facility] in January 2020, essential tremor, hyperlipidemia, hypertension, who presents with bloody bowel movements after having transrectal prostate biopsy earlier in the day. Patient states that procedure went well but shortly after getting home from his procedure he had multiple episodes of bright red blood per rectum. He did not have any episodes of dizziness or syncope but did complain of some mild lightheadedness. He also denies any nausea, vomiting, diarrhea or fevers. Of note he is not anticoagulated. In the emergency department patient was noted as appearing pale, and transiently hypotensive for which he was quickly given 2 units of packed red blood cells and had significant improvement of his blood pressures. However, he was hemoglobin was noted as being 14, but while in the emergency department he did have additional episodes of bright red blood per rectum. While in the emergency department he was given 80 mg IV Protonix, 1 L IV fluids, and had CT angio of his abdomen and pelvis that did not show any evidence of acute GI bleeding. Emergency room physician discussed case with urology, as well as general surgery who agreed to take the patient emergently to the OR. At which time emergency room physician paged hospitalist for admission for patient with an acute lower GI bleed, transient hypotension due to blood loss. PFSH All Active Problems (Updated 09/05/24 @ 17:45 by Fernando Esparza MD) Acute lower GI bleeding (Acute) Radiculopathy, cervical region (Acute) 08/19/24 [facility] Elevated PSA, greater than or equal to 20 ng/ml (Acute ~06/2024) Nonunion of subtalar arthrodesis (Acute) [facility] Orthopaedics 04/15/24 IFG (impaired fasting glucose) (Acute) Seen on 03/2023 labs --> needs an A1c at [facility] Arthritis of right ankle (Acute) Most recent Depo-Medrol injection: 03/26/2023 Essential hypertension (Acute) Aortic aneurysm of unspecified site, without rupture (Chronic 12/12/19) S/p tube grafting in 2009 Essential tremor (Chronic) Chronic left hip pain (Chronic) Ventral hernia (Chronic 11/28/11) Temporomandibular joint disorders, unspecified (Chronic 11/28/11) Spinal stenosis (Chronic 11/28/11) [facility] L4-5 laminectomy 11/2013 Dr Rascon [facility] pain clinic: median nerve branch block 2014 Sensorineural hearing loss, bilateral (Chronic 11/06/12) hearing aide Rosacea (Chronic 11/28/11) 08/05/20 [facility] D[facility] Insomnia, unspecified (Chronic 11/06/12) Hyperlipidemia (Chronic 11/28/11) Generalized osteoarthritis (Chronic 04/30/13) Gastroesophageal reflux disease (Chronic 12/22/15) EGD 2010 [facility] Chronic pain (Chronic 05/15/14) Spinal stenosis; cervical arthropathy BPH w/o urinary obs/LUTS (Chronic 11/28/11) S/P TURP 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 Followed by Dr Ríos CT surgery. [facility] rec Abx prophylaxis 01/14/20 [facility] Cardiac Cath, 02/04/20-TAVR [facility] Anxiety disorder, unspecified (Chronic 01/31/17) Long-term Sertraline (psychiatrist remotely) Medical History COVID (~06/2024) Anxiety with flying Intermittent Lorazepam RX Seborrheic keratoses Multiple fractures of ribs of right side Aortic stenosis (02/04/20) S/p TAVR 02/04/20 09/02/21 F/U Dr Albright Nondependent alcohol abuse, 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/28/11) Actinic keratosis (03/20/12) Surgical History History of ankle surgery (~03/17/24) [facility] Ortho 04/02/24 Arthroscopy w/ extensive debridement, subtalar joint fusion, Brostrom stabilization w/ internal brace augmentation, peroneus longus debridement, peroneus brevis tenolysis Hx of hernia repair (1999) Status post cholecystectomy (~1989) History of total right knee replacement (11/16/21) S/P TAVR (transcatheter aortic valve replacement) (02/04/20) Valve in valve TAVR with 26mm ultra; [facility] lumbar/sacral medial branch blocks (02/24/15) Dr Caputo Transurethral prostatectomy (~2000) For BPH SI joint injection (04/23/17) L lashon, Dr. Caputo EGD (07/19/11) Replacement of aortic valve (~11/2009) Bioprosthetic AVR & ascending aorta replacement at [facility] Family History Mother Diabetes Heart disease Father Heart disease Multiple sclerosis Sister Diabetes Social History (Reviewed 08/13/24 @ 19:34 by SUKI Lerma Smoking/Tobacco Use Status: Former Tobacco Use Quit Date: 07/30/00 Smokeless tobacco user: snuff Smoking risk assessment performed?: Yes Alcohol Intake: former Drug use: Never Substance use type: does not use Adopted: No Caregiver/Support person: No Foster care: No Household members: spouse Number of Children: 2 Communication Needs: None Education Level: college current occupation: retired Current gender identity: male What type of physical activity do you participate in: walking Duration: 60-90 minutes/day Frequency: daily Seatbelt use: always Helmet use: Yes Drive intox or ride w/intox cdl company driver: No Water heater temp set <120 deg: Yes Working smoke detector in home: Yes Fire extinguisher in home: Yes Carbon monox detector in home: Yes Firearms in home: Yes Firearms unloaded and locked: Yes Do you feel safe at home: Yes Do you feel safe in your relationship?: Yes Meds Allergies and Home Medications Allergies Allergy/AdvReac Type Severity Reaction Status Date / Time No Known Allergies Allergy Verified 09/05/24 15:38 Home Medications ?Medication ?Instructions ?Recorded ?Confirmed ?Type aspirin 81 mg tablet,delayed 81 mg PO DAILY 11/22/18 09/05/24 History release (Adult Low Dose Aspirin) cholecalciferol (vitamin D3) 50 4,000 unit PO DAILY 02/13/20 09/05/24 History mcg (2,000 unit) capsule (Vitamin D3) acetaminophen 500 mg tablet 1,000 mg (2 x 500 mg) PO TID #90 07/04/22 09/05/24 Rx tabs lorazepam 1 mg tablet 1 - 2 mg (1 - 2 x 1 mg) PO DAILY 10/11/23 09/05/24 Rx PRN anxiety #4 tab-caps pantoprazole 40 mg tablet,delayed See Rx Instructions .Route 11/26/23 09/05/24 Rx release .COMPLEX #90 tabs losartan 100 mg tablet 100 mg PO DAILY #90 tabs 11/29/23 09/05/24 Rx sertraline 50 mg tablet See Rx Instructions .Route 05/22/24 09/05/24 Rx .COMPLEX #90 tabs amoxicillin 500 mg capsule 2,000 mg (4 x 500 mg) PO ONCE #4 07/03/24 09/05/24 Rx caps tramadol 50 mg tablet 50 mg PO Q6H PRN pain #15 tabs 07/03/24 09/05/24 Rx amoxicillin 875 mg-potassium 1 tab PO BID #14 tabs 08/13/24 09/05/24 Rx clavulanate 125 mg tablet prednisone 20 mg tablet 40 mg (2 x 20 mg) PO .daily in AM 08/13/24 09/05/24 Rx #10 tabs simvastatin 20 mg tablet See Rx Instructions .Route 08/20/24 09/05/24 Rx .COMPLEX #90 tabs Results Labs 09/05/24 17:20 09/05/24 15:39 Labs: Laboratory Results - last 24 hr 09/05/24 09/05/24 09/05/24 15:39 17:07 17:20 WBC 8.17 RBC 4.54 Hgb 14.1 12.2 L Hct 43.4 37.5 L MCV 96 H MCH 31.1 MCHC 32.5 RDW 13.1 Plt Count 152 MPV 10.1 Immature Gran % 0.2 Neutrophils % 63.8 Lymphocytes % 24.5 Monocytes % 10.0 Eosinophils % 1.0 Basophils % 0.5 Nucleated RBC % 0.0 Absolute Neutrophils 5.21 Absolute Lymphocytes 2.00 Absolute Monocytes 0.82 H Absolute Eosinophils 0.08 Absolute Basophils 0.04 PT 11.6 H INR 1.2 H Sodium 144 Potassium 3.6 Chloride 107 Carbon Dioxide 32.7 H Anion Gap 4.3 BUN 24 H Creatinine 1.0 Est GFR (CKD-EPI 2020) 79.47 Glucose 95 Calcium 9.1 Total Bilirubin 0.98 AST 18 ALT 19 Alkaline Phosphatase 106 Troponin I 16 14 Total Protein 7.1 Albumin 3.8 ABO/Rh O Positive Antibody Screen NEGATIVE Crossmatch See Detail Last Vital Signs Temp 99.1 F 09/05/24 17:27 Pulse 77 09/05/24 17:27 Resp 15 09/05/24 17:27 BP 112/61 09/05/24 17:27 Pulse Ox 98 09/05/24 17:27 Time Spent Time spent with Patient: >75 minutes Time was spent: preparing to see the patient(eg.review tests), obtaining and/or reviewing separately otained hiistory, ordering medications,tests, procedures, referring, communicating with other health nonfarm animal caretaker, indepentently interpreting results, counseling the patient and care coordination
--- NOTE | 2024-09-05 18:10 | ANES.PREOP_ITS ---
General Info Date of Service Date Performed: 09/05/24 Height: 6 ft 2 in Weight: 83.915 kg Body Mass Index (BMI): 23.7 Meds Allergies and Home Medications Allergies Allergy/AdvReac Type Severity Reaction Status Date / Time No Known Allergies Allergy Verified 09/05/24 15:38 Home Medication ?Medication ?Instructions ?Recorded aspirin 81 mg tablet,delayed 81 mg PO DAILY 11/22/18 release (Adult Low Dose Aspirin) cholecalciferol (vitamin D3) 50 4,000 unit PO DAILY 02/13/20 mcg (2,000 unit) capsule (Vitamin D3) acetaminophen 500 mg tablet 1,000 mg (2 x 500 mg) PO TID #90 07/04/22 tabs lorazepam 1 mg tablet 1 - 2 mg (1 - 2 x 1 mg) PO DAILY 10/11/23 PRN anxiety #4 tab-caps pantoprazole 40 mg tablet,delayed See Rx Instructions .Route 11/26/23 release .COMPLEX #90 tabs losartan 100 mg tablet 100 mg PO DAILY #90 tabs 11/29/23 sertraline 50 mg tablet See Rx Instructions .Route 05/22/24 .COMPLEX #90 tabs amoxicillin 500 mg capsule 2,000 mg (4 x 500 mg) PO ONCE #4 07/03/24 caps tramadol 50 mg tablet 50 mg PO Q6H PRN pain #15 tabs 07/03/24 amoxicillin 875 mg-potassium 1 tab PO BID #14 tabs 08/13/24 clavulanate 125 mg tablet prednisone 20 mg tablet 40 mg (2 x 20 mg) PO .daily in AM 08/13/24 #10 tabs simvastatin 20 mg tablet See Rx Instructions .Route 08/20/24 .COMPLEX #90 tabs Current Visit Medications: Current Medications Generic Name Dose Route Start Last Admin Trade Name Freq PRN Reason Stop Dose Admin Iohexol 100 ml 09/05/24 16:15 09/05/24 16:02 Omnipaque 350 Mg/Ml 100 Ml Btl IJ 10/05/24 23:59 100 ml DIRECTED JUAN J Administration Sodium Chloride 50 ml 09/05/24 16:15 09/05/24 16:02 Normal Saline - Diluent 50 Ml Vial IJ 50 ml .FOR DI USE JUAN J Administration PFSH Active Problems Active Problems: Problem Status Onset Code Acute lower GI bleeding Acute K92.2 Radiculopathy, cervical region Acute M54.12 Elevated PSA, greater than or equal to 20 ng/ml Acute ~06/2024 R97.20 Nonunion of subtalar arthrodesis Acute M96.0 IFG (impaired fasting glucose) Acute R73.01 Painful total knee replacement, right Resolved T84.84XA, Z96.651 Arthritis of right ankle Acute M19.071 Essential hypertension Acute I10 Aortic aneurysm of unspecified site, without rupture Chronic 12/12/19 I71.9 Essential tremor Chronic G25.0 Chronic left hip pain Chronic M25.552, G89.29 Ventral hernia Chronic 11/28/11 K43.9 Temporomandibular joint disorders, unspecified Chronic 11/28/11 M26.609 Spinal stenosis Chronic 11/28/11 M48.00 Sensorineural hearing loss, bilateral Chronic 11/06/12 H90.3 Rosacea Chronic 11/28/11 L71.9 Insomnia, unspecified Chronic 11/06/12 G47.00 Hyperlipidemia Chronic 11/28/11 E78.5 Generalized osteoarthritis Chronic 04/30/13 M15.9 Gastroesophageal reflux disease Chronic 12/22/15 K21.9 Chronic pain Chronic 05/15/14 G89.29 BPH w/o urinary obs/LUTS Chronic 11/28/11 N40.0 Arthropathy of cervical spine Chronic 11/28/11 M46.92 Aortic valve disorder Chronic 11/06/12 I35.9 Anxiety disorder, unspecified Chronic 01/31/17 F41.9 Medical History Medical History COVID (~06/2024) Anxiety with flying Intermittent Lorazepam RX Seborrheic keratoses Multiple fractures of ribs of right side Aortic stenosis (02/04/20) S/p TAVR 02/04/20 09/02/21 F/U Dr Albright Nondependent alcohol abuse, 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/28/11) Actinic keratosis (03/20/12) Surgical History Surgical History History of ankle surgery (~03/17/24) [facility] Ortho 04/02/24 Arthroscopy w/ extensive debridement, subtalar joint fusion, Brostrom stabilization w/ internal brace augmentation, peroneus longus debridement, peroneus brevis tenolysis Hx of hernia repair (1999) Status post cholecystectomy (~1989) History of total right knee replacement (11/16/21) S/P TAVR (transcatheter aortic valve replacement) (02/04/20) Valve in valve TAVR with 26mm ultra; [facility] lumbar/sacral medial branch blocks (02/24/15) Dr Caputo Transurethral prostatectomy (~2000) For BPH SI joint injection (04/23/17) L side, Dr. Caputo EGD (07/19/11) Replacement of aortic valve (~11/2009) Bioprosthetic AVR & ascending aorta replacement at [facility] Tobacco Smoking/Tobacco Use Status: Former Tobacco Use Smokeless tobacco user: snuff Alcohol Alcohol Intake: former Substance Use Substance use: Never Substance use type: does not use Vital Signs and Lab Results Vital Signs Most Recent Vital Signs in EMR: Most Recent Vital Signs Temp Pulse Resp BP Pulse Ox 36.9 C 66 20 104/61 98 09/05/24 17:31 09/05/24 17:31 09/05/24 17:31 09/05/24 17:31 09/05/24 17:31 Lab Results 09/05/24 17:20 09/05/24 15:39 Blood Type / Crossmatch: 2 Antibody Screen NEGATIVE 09/05/24 Crossmatch See Detail 09/05/24 Complete Blood Count: 2 White Blood Count 8.17 10^3/uL (4.4-10.8) 09/05/24 15:39 Red Blood Count 4.54 10^6/uL (4.36-5.78) 09/05/24 15:39 Hemoglobin 12.2 g/dL (13.5-17.5) L 09/05/24 17:20 Hematocrit 37.5 % (40.0-50.0) L 09/05/24 17:20 Platelet Count 152 10^3/uL (130-400) 09/05/24 15:39 Complete Metabolic Panel: 2 Sodium 144 mmol/L (136-145) 09/05/24 15:39 Potassium 3.6 mmol/L (3.5-5.1) 09/05/24 15:39 Chloride 107 mmol/L (98-107) 09/05/24 15:39 Carbon Dioxide 32.7 mmol/L (21.0-32.0) H 09/05/24 15:39 BUN 24 mg/dL (7-18) H 09/05/24 15:39 Creatinine 1.0 mg/dL (0.70-1.30) 09/05/24 15:39 Est GFR (CKD-EPI 2020) 79.47 (mL/min/1.73m2) 09/05/24 15:39 Calcium 9.1 mg/dL (8.5-10.1) 09/05/24 15:39 Albumin 3.8 g/dL (3.4-5.0) 09/05/24 15:39 Glucose 95 mg/dL (74-106) 09/05/24 15:39 Liver Function Panel: 2 Alanine Aminotransferase (ALT/SGPT) 19 U/L (16-63) 09/05/24 15: 39 Aspartate Amino Transf (AST/SGOT) 18 U/L (15-37) 09/05/24 15:39 Coagulation Panel: 2 INR International Normalized Ratio 1.2 (0.9-1.1) H 09/05/24 15 :39 Prothrombin Time 11.6 sec (9.1-11.1) H 09/05/24 15:39 Cardiac Panel: 2 Troponin I 14 ng/L (<or=76) 09/05/24 Arterial Blood Gas: 2 No Data to Display Venous Blood Gas: 2 No Data to Display Pancreas Panel: 2 No Data to Display Thyroid Panel: 2 No Data to Display Infectious Disease: 2 No Data to Display Blood Cultures: 2 No Data to Display Toxicology Panel: 2 No Data to Display Imaging and Studies Imaging and Studies Study information below may be from another EMR and interpreted by another provider. Please see original notes in EMR for more complete details. EKG Summary: 09/02/20: sinus mello, nonspecific ST-T wave abnormality. Echocardiogram Summary: 09/02/2021: LVEF 60%. PAS 42 mmhg, RAP 15 mmhg. trans- valvular mean gradient across bioprosthetic AV 27 mmhg, peak 44 mmhg, MICHOACANO 1.1 cm2. mild MR, mild to mod SC. 09/09/2020: LVEF 52%, mild septal hypertrophy of LV. left atrium severe dilation. well seated bioprosthetic AV with mean gradient 25 mmhg, peak gradient 41 mmhg, valve area 1 cm2 by continuity and 1.5 cm2 by planimetry. PAS 45 mmhg. mild MR, mild TR. Anesthesia Assessment and Plan Anesthesia History Personal History: No History of Anesthesia Complications Family History: No Family History of Anesthesia Complications Exercise Tolerance Exercise Tolerance: Metabolic Equivalents>4 Pertinent Negatives Pertinent Negatives: No History of CVA/TIA Cardiac & Pulmonary Exam Cardiac Exam: Normal S1/S2 Heart Sounds Pulmonary Exam: Clear Bilateral Breath Sounds Implantable Cardiac Device Does patient have a Pacemaker or an ICD?: No Airway Exam Known Difficult Airway: No Mallampati Class: 1 Mouth Opening: Normal (> 3cm) Thyromental Distance: Greater than 3 cm Neck Range of Motion: Full ROM Neck Circumference: Normal Teeth Condition: Normal Dentition Airway Comments: High angle narrow palate ASA Classification ASA Score: ASA 3 Emergency Case?: Yes NPO Status NPO Status: NPO Clears >2 hours, Solids >8 hours Anesthesia Plan Resuscitation Status: Full Code Anesthesia Technique: General Anesthesia Airway Planned: Natural Airway Monitors Used: Standard Monitors Preoperative Comments:: 73 yo male for GI bleed s/p prostate biopsy (rectal this afternoon) - Ate at 1300: Patient is willing to attempt MAC with or without minimal sedation today. GETA as backup. Sig PMHx: Aortic stenosis (TAVR over previous AV replacement with current mean gradient 27 mmhg and MICHOACANO 1.1cm2), tube graft repair of aortic aneurysm, spinal stenosis, lumbar spine surgery, former smoker, HTN, anxiety, GERD (related to food). Previous Anes: - Video grade 2, easy mask. - Igel 5.
--- NOTE | 2024-09-05 18:18 | HPE_ITS ---
Date of service: 09/05/24 Time of Service: 18:28 Assessment and Plan Assessment and plan (1) Acute lower GI bleeding: Status: Acute Assessment and plan: 73-year-old male who is having acute rectal bleeding after transrectal prostate biopsy earlier today. Most likely has bleeding from biopsy site. We discussed this possibility, as well as the possibility of diverticular bleed. Patient reports he is due for colonoscopy in 2024. He thinks it has been 10 years since his last 1, which was normal. He does not recall a history of diverticular disease. We discussed the procedure in detail. We discussed the possibility of injection of epinephrine versus clipping of the bleeding vessel. He expressed understanding. His was with him. Anesthesia is in the room as well. We will go ahead and get him to the OR for flexible sigmoidoscopy as soon as possible. Thank you for the consultation. History of Present Illness History of Present Illness Chief Complaint: Rectal bleeding Narrative: Patient is a 73-year-old male who presents to the emergency room. He underwent transrectal prostate biopsy earlier today with urology. He reports he had been at home for about an hour when he had the urge to defecate. He started passing bright red blood and blood clots. After multiple episodes of hematochezia at home, he brought himself to the emergency room. He continued to have passage of bright red blood per rectum in the emergency room every 15 minutes or so. His hemoglobin was found to be normal. He then had an episode of syncope with some low blood pressures. Decision was made to transfuse. Hospitalist and general surgery were consulted. Review of Systems Narrative: Patient reports he typically has regular bowel movements. He was feeling his usual self throughout the day. He did do an enema this morning in preparation for the procedure. No reports of any difficulty urinating. [facility] All Active Problems (Updated 09/05/24 @ 17:45 by Fernando Esparza MD) Acute lower GI bleeding (Acute) Radiculopathy, cervical region (Acute) 08/19/24 Pain/Spine Ctr Elevated PSA, greater than or equal to 20 ng/ml (Acute ~06/2024) Nonunion of subtalar arthrodesis (Acute) [facility] Orthopaedics 04/15/24 IFG (impaired fasting glucose) (Acute) Seen on 03/2023 labs --> needs an A1c at [facility] Arthritis of right ankle (Acute) Most recent Depo-Medrol injection: 03/26/2023 Essential hypertension (Acute) Aortic aneurysm of unspecified site, without rupture (Chronic 12/12/19) S/p tube grafting in 2009 Essential tremor (Chronic) Chronic left hip pain (Chronic) Ventral hernia (Chronic 11/28/11) Temporomandibular joint disorders, unspecified (Chronic 11/28/11) Spinal stenosis (Chronic 11/28/11) [facility] L4-5 laminectomy 11/2013 Dr Rascon [facility] pain clinic: median nerve branch block 2014 Sensorineural hearing loss, bilateral (Chronic 11/06/12) hearing aide Rosacea (Chronic 11/28/11) 08/05/20 [facility] Derm Insomnia, unspecified (Chronic 11/06/12) Hyperlipidemia (Chronic 11/28/11) Generalized osteoarthritis (Chronic 04/30/13) Gastroesophageal reflux disease (Chronic 12/22/15) EGD 2010 [facility] Chronic pain (Chronic 05/15/14) Spinal stenosis; cervical arthropathy BPH w/o urinary obs/LUTS (Chronic 11/28/11) S/P TURP 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 Followed by Dr Ríos CT surgery. [facility] rec Abx prophylaxis 01/14/20 [facility] Cardiac Cath, 02/04/20-TAVR [facility] Anxiety disorder, unspecified (Chronic 01/31/17) Long-term Sertraline (psychiatrist remotely) Medical History COVID (~06/2024) Anxiety with flying Intermittent Lorazepam RX Seborrheic keratoses Multiple fractures of ribs of right side Aortic stenosis (02/04/20) S/p TAVR 02/04/20 09/02/21 F/U Dr Albright Nondependent alcohol abuse, 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/28/11) Actinic keratosis (03/20/12) Surgical History History of ankle surgery (~03/17/24) [facility] Ortho 04/02/24 Arthroscopy w/ extensive debridement, subtalar joint fusion, Brostrom stabilization w/ internal brace augmentation, peroneus longus debridement, peroneus brevis tenolysis Hx of hernia repair (1999) Status post cholecystectomy (~1989) History of total right knee replacement (11/16/21) S/P TAVR (transcatheter aortic valve replacement) (02/04/20) Valve in valve TAVR with 26mm ultra; [facility] lumbar/sacral medial branch blocks (02/24/15) Dr Caputo Transurethral prostatectomy (~2000) For BPH SI joint injection (04/23/17) L side, Dr. Caputo EGD (07/19/11) Replacement of aortic valve (~11/2009) Bioprosthetic AVR & ascending aorta replacement at [facility] Family History Mother Diabetes Heart disease Father Heart disease Multiple sclerosis Sister Diabetes Social History Smoking/Tobacco Use Status: Former Tobacco Use Quit Date: 07/30/00 Smokeless tobacco user: snuff Smoking risk assessment performed?: Yes Alcohol Intake: former Drug use: Never Substance use type: does not use Adopted: No Caregiver/Support person: No Foster care: No Household members: spouse Number of Children: 2 Communication Needs: None Education Level: college current occupation: retired Current gender identity: male What type of physical activity do you participate in: walking Duration: 60-90 minutes/day Frequency: daily Seatbelt use: always Helmet use: Yes Drive intox or ride w/intox four horse hitch driver: No Water heater temp set <120 deg: Yes Working smoke detector in home: Yes Fire extinguisher in home: Yes Carbon monox detector in home: Yes Firearms in home: Yes Firearms unloaded and locked: Yes Do you feel safe at home: Yes Do you feel safe in your relationship?: Yes Meds Allergies and Home Medications Allergies Allergy/AdvReac Type Severity Reaction Status Date / Time No Known Allergies Allergy Verified 09/05/24 15:38 Home Medications ?Medication ?Instructions ?Recorded ?Confirmed ?Type aspirin 81 mg tablet,delayed 81 mg PO DAILY 11/22/18 09/05/24 History release (Adult Low Dose Aspirin) cholecalciferol (vitamin D3) 50 4,000 unit PO DAILY 02/13/20 09/05/24 History mcg (2,000 unit) capsule (Vitamin D3) acetaminophen 500 mg tablet 1,000 mg (2 x 500 mg) PO TID #90 07/04/22 09/05/24 Rx tabs lorazepam 1 mg tablet 1 - 2 mg (1 - 2 x 1 mg) PO DAILY 10/11/23 09/05/24 Rx PRN anxiety #4 tab-caps pantoprazole 40 mg tablet,delayed See Rx Instructions .Route 11/26/23 09/05/24 Rx release .COMPLEX #90 tabs losartan 100 mg tablet 100 mg PO DAILY #90 tabs 11/29/23 09/05/24 Rx sertraline 50 mg tablet See Rx Instructions .Route 05/22/24 09/05/24 Rx .COMPLEX #90 tabs amoxicillin 500 mg capsule 2,000 mg (4 x 500 mg) PO ONCE #4 07/03/24 09/05/24 Rx caps tramadol 50 mg tablet 50 mg PO Q6H PRN pain #15 tabs 07/03/24 09/05/24 Rx amoxicillin 875 mg-potassium 1 tab PO BID #14 tabs 08/13/24 09/05/24 Rx clavulanate 125 mg tablet prednisone 20 mg tablet 40 mg (2 x 20 mg) PO .daily in AM 08/13/24 09/05/24 Rx #10 tabs simvastatin 20 mg tablet See Rx Instructions .Route 08/20/24 09/05/24 Rx .COMPLEX #90 tabs Exam Narrative Exam Narrative: Const General: cooperative and well groomed, a bit shaky and anxious Nutritional Appearance: average body habitus [facility] Head: normocephalic and atraumatic Ears: hearing grossly normal bilaterally Nose: external nose normal Mouth: moist mucous membranes Eyes General: appearance normal, both eyes and related structures Neck Neck: normal visual inspection, full ROM and supple Resp Effort & Inspection: normal respiratory effort and able to speak in complete sentences Cardio Rate: regular rate GI Inspection: normal to inspection Palpation: soft and nontender Neuro General: patient alert, patient oriented x3 and moves all extremities Psych Appearance: grossly normal Results Labs 09/05/24 17:20 09/05/24 15:39 Labs: Laboratory Results - last 24 hr 09/05/24 09/05/24 09/05/24 15:39 17:07 17:20 WBC 8.17 RBC 4.54 Hgb 14.1 12.2 L Hct 43.4 37.5 L MCV 96 H MCH 31.1 MCHC 32.5 RDW 13.1 Plt Count 152 MPV 10.1 Immature Gran % 0.2 Neutrophils % 63.8 Lymphocytes % 24.5 Monocytes % 10.0 Eosinophils % 1.0 Basophils % 0.5 Nucleated RBC % 0.0 Absolute Neutrophils 5.21 Absolute Lymphocytes 2.00 Absolute Monocytes 0.82 H Absolute Eosinophils 0.08 Absolute Basophils 0.04 PT 11.6 H INR 1.2 H Sodium 144 Potassium 3.6 Chloride 107 Carbon Dioxide 32.7 H Anion Gap 4.3 BUN 24 H Creatinine 1.0 Est GFR (CKD-EPI 2020) 79.47 Glucose 95 Calcium 9.1 Total Bilirubin 0.98 AST 18 ALT 19 Alkaline Phosphatase 106 Troponin I 16 14 Total Protein 7.1 Albumin 3.8 ABO/Rh O Positive Blood Type Recheck O Positive Antibody Screen NEGATIVE Crossmatch See Detail Last Vital Signs Temp 36.9 C 09/05/24 17:31 Pulse 66 09/05/24 17:31 Resp 20 09/05/24 17:31 BP 104/61 09/05/24 17:31 Pulse Ox 98 09/05/24 17:31 Time Spent Time spent with Patient: <40 minutes Time was spent: preparing to see the patient(eg.review tests) and counseling the patient
[2024-09-05] MEDS: Lactated Ringers 1,000 ML 30 ML IV (18:38)
--- NOTE | 2024-09-05 18:51 | NUR.NOTE ---
Pt arrived by ambulance for rectal bleeding. Clots with bright red blood. Pt had a biopsy of prostate today. Pt was stable. became hemodynamically unstable and required rapid transfusion with code blood. Pt went near unresponsive with b/p 43/30. Able to recover with 1800 cc NS and 2 units of blood. Pt is O+. Pt given 80 mg protonix per MD direction as well. Pt denies any significant abd pain. no emesis. Pt had approx 250 cc of blood from rectum since arrival. Pts present, all personal effects given to her. Pt wedding band, watch, hearing aids and glasses given to as well. MD updated on pt condition throughout care. Pt brought to OR, blood documentation including consent provided to OR nurse. Report given to OR team. Branden GÓMEZN, RN PNursing Note:
--- NOTE | 2024-09-05 19:27 | W.ANESPOSTOP ---
Postoperative Evaluation Date, Time and Location Date Performed: 09/05/24 Time Performed: 19:27 Patient Location: Day Surgery Unit Vital Signs Most Recent Imported Vital Signs: Most Recent Vital Signs Temp Pulse Resp BP Pulse Ox 36.9 C 65 19 112/90 96 09/05/24 17:31 09/05/24 18:26 09/05/24 18:26 09/05/24 18:26 09/05/24 18:26 Assessment Mental Status: Awake (Alert & Oriented to Patient Baseline) Airway and Respiratory Function: Patent airway with normal (patient baseline) respiratory exam Cardiovascular Function: Hemodynamically Stable Hydration Status: Adequately Hydrated Nausea & Vomiting: No Nausea or Vomiting Pain: Pt. Denies Any Pain Peripheral Nerve Block: Patient did not receive a nerve block
--- NOTE | 2024-09-05 19:50 | W.PM.OP ---
Operative Note Operative Note PRE-OP DIAGNOSIS: Rectal bleeding POST-OP DIAGNOSIS: same PROCEDURE: Flexible sigmoidoscopy to 80 cm from the anal verge. SURGEON: Britton JIMENEZ ANESTHESIA TYPE: MAC Refer to Anesthesia Record PATHOLOGY: none sent COMPLICATIONS: None Patient's condition: stable Procedure Description: After obtaining informed consent, patient was brought back to the operating room. He was turned on his left side and connected to the monitors. Timeout was performed. He was administered moderate sedation by the nurse rapid transit operator. I began by performing a digital rectal exam. This revealed some bloody stool. I inserted the colonoscope and advanced the length of the colon. He had some nomi blood mixed with stool. Is able to advance all the way up to about 80 cm from the anal verge. At this point the blood covered and lined mucosa finally cleared and I was able to see normal mucosa. I also saw some formed stool. I withdrew from this point. The mucosa was almost entirely caked with old blood and some small particles of stool. I irrigated to view the mucosa as I went and it appeared pink and viable. In the sigmoid colon he had some scattered diverticula. I did not see any large clots adherent to the wall in any place. I withdrew into the rectum. In the distal rectum I did appreciate a 3 mm round spot with clot adherent to it. I gently irrigated and the clot did not release. The clot was in the right anterior lateral area. I feel this is consistent with the transrectal biopsy site of the prostate that was performed earlier. There was no active bleeding noted anywhere. I decompressed the rectum and withdrew the scope entirely. Patient tolerated well. He was transported to the floor in stable condition. Disposition: Patient will be admitted to the hospitalist service for monitoring overnight. Date of Procedure: 09/05/24
[2024-09-05 20:57] LABS: HGB 12.2 g/dL (13.5-17.5)
[2024-09-05 23:40] LABS: HCT 39.4 % (40.0-50.0); HGB 12.9 g/dL (13.5-17.5)
[2024-09-06] VITALS (23 sets, daily range): BP systolic 87–128; BP diastolic 60–93; PULSE 48–162; RESP 11–20; TEMP 36.7–37.1; O2SAT 89–99
[2024-09-06] MEDS: Melatonin 3 MG TAB 9 MG PO (00:29)
[2024-09-06] MEDS: Normal Saline 1,000 ML 100 ML IV (00:30)
[2024-09-06 07:09] LABS: HCT 35.4 % (40.0-50.0); HGB 11.6 g/dL (13.5-17.5); MCH 30.6 pg (27.0-33.0); MCHC 32.8 % (32.0-36.0); MCV 93 fL (80-95); MPV 11.2 fL (8.0-11.0); Platelet Count 112 10^3/uL (130-400); RBC 3.79 10^6/uL (4.36-5.78); RDW 14.5 % (11.8-14.1); RDW-SD 49.7 fL; WBC 5.78 10^3/uL (4.4-10.8)
[2024-09-06 07:16] LABS: Anion Gap 4.9 mmol/L (3-11); BUN 23 mg/dL (7-18); CO2 28.1 mmol/L (21.0-32.0); CREATININE 0.8 mg/dL (0.70-1.30); Calcium 8.4 mg/dL (8.5-10.1); Chloride 112 mmol/L (98-107); Estimated GFR 93.45 (mL/min/1.73m2); Glucose 87 mg/dL (74-106); Potassium 3.8 mmol/L (3.5-5.1); Sodium 145 mmol/L (136-145)
--- NOTE | 2024-09-06 08:03 | PDOC.CMIN ---
Date of service: 09/06/24 Time of Service: 08:03 Care Management Initial Assmt Advance Directives Advance Directives: Do you have an Advance Directive: Y 09/05/24 17:59 AD On File at [facility]: Y 09/05/24 17:59 Date Asked 09/05/24 09/05/24 15:39 AD Date Reviewed 09/05/24 09/05/24 17:59 COLST On File at [facility] COLST Date Scanned Code Status Resuscitation Status Full Code Care Team Visit Care Team Role Provider Type Devi Wilkes NP Primary Care Provider NURSE PRACTITIONER Fernando Esparza MD Emergency Provider [facility] STAFF PHYSICIAN Kameron Lopez MD Admit Provider [facility] STAFF PHYSICIAN Attending Provider Social Determinants of Health Screening Social Determinants of Health last assessed: 09/06/24 Will the Patient Participate in the Screening?: Yes Do you worry about having a steady place to live?: no Problems where you live: no known problems In the past 12 months, have you had to go without electric, gas, oil or water in your home?: no Have you or anyone in your house had to go without enough food to eat?: no Has lack of transportation kept you from medical appointments or from doing things needed for daily living?: no Has anyone in your life made you feel unsafe or unsupported?: no How hard is it for you to pay for the very basics like food, housing, medical care, and heating? Would you say it is:: Not hard at all Do you want help finding or keeping work or a job?: I do not need or want help If for any reason you need help with day-to-day activities such as bathing, preparing meals, shopping, managing finances, etc., do you get the help you need?: I don?t need any help How often do you feel lonely or isolated from those around you?: Never Do you speak a language other than [place] at home?: No Does the patient want assistance with any of the above?: No PFSH All Active Problems (Updated 09/05/24 @ 17:45 by Fernando Esparza MD) Acute lower GI bleeding (Acute) Radiculopathy, cervical region (Acute) 08/19/24 [facility] Elevated PSA, greater than or equal to 20 ng/ml (Acute ~06/2024) Nonunion of subtalar arthrodesis (Acute) [facility] [place] Orthopaedics 04/15/24 IFG (impaired fasting glucose) (Acute) Seen on 03/2023 labs --> needs an A1c at [facility] Arthritis of right ankle (Acute) Most recent Depo-Medrol injection: 03/26/2023 Essential hypertension (Acute) Aortic aneurysm of unspecified site, without rupture (Chronic 12/12/19) S/p tube grafting in 2009 Essential tremor (Chronic) Chronic left hip pain (Chronic) Ventral hernia (Chronic 11/28/11) Temporomandibular joint disorders, unspecified (Chronic 11/28/11) Spinal stenosis (Chronic 11/28/11) [facility] L4-5 laminectomy 11/2013 Dr Rascon [facility] pain clinic: median nerve branch block 2014 Sensorineural hearing loss, bilateral (Chronic 11/06/12) hearing aide Rosacea (Chronic 11/28/11) 08/05/20 [facility] Derm Insomnia, unspecified (Chronic 11/06/12) Hyperlipidemia (Chronic 11/28/11) Generalized osteoarthritis (Chronic 04/30/13) Gastroesophageal reflux disease (Chronic 12/22/15) EGD 2010 [facility] Chronic pain (Chronic 05/15/14) Spinal stenosis; cervical arthropathy BPH w/o urinary obs/LUTS (Chronic 11/28/11) S/P TURP 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 Followed by Dr Ríos CT surgery. 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) Actinic keratosis (03/20/12) Surgical History History of ankle surgery (~03/17/24) [facility] [place] Ortho 04/02/24 Arthroscopy w/ extensive debridement, subtalar joint fusion, Brostrom stabilization w/ internal brace augmentation, peroneus longus debridement, peroneus brevis tenolysis Hx of hernia repair (1999) Status post cholecystectomy (~1989) History of total right knee replacement (11/16/21) S/P TAVR (transcatheter aortic valve replacement) (02/04/20) Valve in valve TAVR with 26mm ultra; [facility] [place] lumbar/sacral medial branch blocks (02/24/15) Dr Caputo Transurethral prostatectomy (~2000) For BPH SI joint injection (04/23/17) L side, Dr. Caputo EGD (07/19/11) Replacement of aortic valve (~11/2009) Bioprosthetic AVR & ascending aorta replacement at [facility] [place] Family History Mother Diabetes Heart disease Father Heart disease Multiple sclerosis Sister Diabetes Social History Smoking/Tobacco Use Status: Former Tobacco Use Quit Date: 07/30/00 Smokeless tobacco user: snuff Smoking risk assessment performed?: Yes Alcohol Intake: former Drug use: Never Substance use type: does not use Adopted: No Caregiver/Support person: No Foster care: No Household members: spouse Housing: house Number of Children: 2 Communication Needs: None Education Level: college current occupation: retired Current gender identity: male What type of physical activity do you participate in: walking Duration: 60-90 minutes/day Frequency: daily Seatbelt use: always Helmet use: Yes Drive intox or ride w/intox milk pickup driver: No Water heater temp set <120 deg: Yes Working smoke detector in home: Yes Fire extinguisher in home: Yes Carbon monox detector in home: Yes Firearms in home: Yes Firearms unloaded and locked: Yes Do you feel safe at home: Yes Do you feel safe in your relationship?: Yes
[2024-09-06] MEDS: Acetaminophen 500 MG TAB 1000 MG PO (08:32)
--- NOTE | 2024-09-06 09:50 | PGE_ITS ---
Date of Service Date of service: 09/06/24 Time of Service: 09:50 Assessment and Plan Assessment and plan (1) Acute lower GI bleeding: Status: Acute Assessment and plan: It is not unusual to have blood from the rectum following a prostate biopsy, but this amount of bleeding is quite unusual. It would be much more common to see bleeding in the periprosthetic area due to the presence of the prostatic pedicles. I have seen the periprosthetic hematomas previously, but I have never seen this degree of rectal bleeding. I certainly appreciate the excellent care from all of his other providers. There was a concern regarding a possible bony metastasis on his CT angiogram. I would not recommend working that up just yet. If his biopsies show prostate cancer, our staging preference would be a PSMA PET CT scan (not available at our facility but certainly can be arranged as an outpatient down at [facility] or [facility]) which will show if the bony lesion in question is related to a metastatic prostate cancer. Subjective Subjective Interval history since last seen: This is a 73-year-old gentleman who has an abnormal multiparameter prostate MRI and an elevated PSA. We performed ultrasound-guided biopsies of his prostate yesterday morning in the office. He was not anticoagulated and he had a standard prep which included a fleets enema and oral Levaquin. The procedure seemed uneventful, but the patient developed significant fecal urgency and blood from the rectum. He was going to return to the office for us to check him, but when he became lightheaded, he presented to the emergency department. His CT angiogram did not show any significant periprosthetic hematoma or active bleeding. His flexible colonoscopy showed blood product present all the way up to the 80 cm rosmery. There was an area in the rectum consistent with one of his biopsies (during the procedure, there were actually a total of 16 puncture sites of the rectal mucosa - 4 injection sites for local anesthetic and 12 biopsy sites) The patient tells me he now feels quite comfortable. He is not needed to have a bowel movement in over 6 hours. He does not feel lightheaded or dizzy at this point. Exam Narrative Exam Narrative: He appears comfortable His vital signs are documented elsewhere He is awake and alert Objective Last Vital Signs Temp 37.1 C 09/06/24 08:35 Pulse 54 L 09/06/24 08:31 Resp 19 09/06/24 08:31 BP 107/74 09/06/24 08:31 Pulse Ox 94 09/06/24 08:31 Laboratory Results - last 24 hr 09/05/24 09/05/24 09/05/24 15:39 17:07 17:20 WBC 8.17 RBC 4.54 Hgb 14.1 12.2 L Hct 43.4 37.5 L MCV 96 H MCH 31.1 MCHC 32.5 RDW 13.1 Plt Count 152 MPV 10.1 Immature Gran % 0.2 Neutrophils % 63.8 Lymphocytes % 24.5 Monocytes % 10.0 Eosinophils % 1.0 Basophils % 0.5 Nucleated RBC % 0.0 Absolute Neutrophils 5.21 Absolute Lymphocytes 2.00 Absolute Monocytes 0.82 H Absolute Eosinophils 0.08 Absolute Basophils 0.04 PT 11.6 H INR 1.2 H Sodium 144 Potassium 3.6 Chloride 107 Carbon Dioxide 32.7 H Anion Gap 4.3 BUN 24 H Creatinine 1.0 Est GFR (CKD-EPI 2020) 79.47 Glucose 95 Calcium 9.1 Total Bilirubin 0.98 AST 18 ALT 19 Alkaline Phosphatase 106 Troponin I 16 14 Total Protein 7.1 Albumin 3.8 ABO/Rh O Positive Blood Type Recheck O Positive Antibody Screen NEGATIVE Crossmatch See Detail 09/05/24 09/05/24 09/05/24 18:38 20:49 23:30 WBC RBC Hgb 12.2 L 12.9 L Hct 37.0 L 39.4 L MCV MCH MCHC RDW Plt Count MPV Immature Gran % Neutrophils % Lymphocytes % Monocytes % Eosinophils % Basophils % Nucleated RBC % Absolute Neutrophils Absolute Lymphocytes Absolute Monocytes Absolute Eosinophils Absolute Basophils PT INR Sodium Potassium Chloride Carbon Dioxide Anion Gap BUN Creatinine Est GFR (CKD-EPI 2020) Glucose Calcium Total Bilirubin AST ALT Alkaline Phosphatase Troponin I Cancelled Total Protein Albumin ABO/Rh Blood Type Recheck Antibody Screen Crossmatch 09/06/24 05:54 WBC 5.78 RBC 3.79 L Hgb 11.6 L Hct 35.4 L MCV 93 MCH 30.6 MCHC 32.8 RDW 14.5 H Plt Count 112 L MPV 11.2 H Immature Gran % Neutrophils % Lymphocytes % Monocytes % Eosinophils % Basophils % Nucleated RBC % Absolute Neutrophils Absolute Lymphocytes Absolute Monocytes Absolute Eosinophils Absolute Basophils PT INR Sodium 145 Potassium 3.8 Chloride 112 H Carbon Dioxide 28.1 Anion Gap 4.9 BUN 23 H Creatinine 0.8 Est GFR (CKD-EPI 2020) 93.45 Glucose 87 Calcium 8.4 L Total Bilirubin AST ALT Alkaline Phosphatase Troponin I Total Protein Albumin ABO/Rh Blood Type Recheck Antibody Screen Crossmatch Time Spent with Patient Time Spent with Patient: 25-34 minutes Time was spent: preparing to see the patient(eg.review tests) and counseling the patient
--- NOTE | 2024-09-06 11:14 | PDOC.CMDIS ---
Date of service: 09/06/24 Time of Service: 11:15 LACE Index Scoring Tool Questions: Length of Stay (in days): 1 Was the patient admitted via the E.D.?: Yes E.D. Visits: 1 Answers: Total Score: 5 Risk of Readmission: Low Risk Care Management Discharge Plan Reason for Hospitalization: Acute lower GI bleed Discharge Plan: Car is discharged home will a plan to follow up with his PCP; outpatient workup and close follow up is recommended. Car is asked to reach out to his PCP on Sunday to schedule his hospital follow up appointment. No new services are ordered prior to discharge. Car coordinated his own transportation. Patient/Family Education Needs: Review discharge instructions and plan to follow up in the community. Discuss ask me three. SDOH Health Related Social Needs: No Data to Display
--- NOTE | 2024-09-06 12:02 | DSE_ITS ---
Date of service: 09/06/24 Time of Service: 12:02 DS: Diagnosis Discharge Diagnosis (1) Acute lower GI bleeding: Status: Acute Discharge Plan Disposition Patient Disposition: Home Condition: Good Discharge Details Reason For Visit: Acute Lower GI Bleed Admit Date/Time: 09/05/24 17:38 Admit Provider: Fernando Azar Attending Provider: Fernando Azar Primary Care Provider: Devi Wilkes Hospital Course Hospital Course: 73 yo M with elevated PSA and prostate mass, h/o AAA and HTN, admited with lower GI bleed after having transrectal prostate biopsy 09/05. His hemoglobin dropped from 14.1 to 12.2, but given degree of hematochezia and hypotension as low as 48/30 at that time he was transfused 2 units RBC which stabilized the hemoglobin at 12.9 then 11.6 the following morning and 12.6 later in the same day before discharge after IV fluids were stopped. Rodo hematochezia resolved overnight and his diet was progressed. His blood pressure remained stable off IV fluids. slight gross hematuria was also note, but this was felt to be expected after prostate biopsy. Dr. Royal saw the patient and he will be following the patient to follow up on the biopsy results and treatment plan. Aspirin was resumed the following day after discharge due to known vascular disease. Sclerotic degeneration vs metastatic disease was noted in the lumbar spine on the CT. This was discussed with the patient. Dr. Royal recommended PSMA PET CT scan at [facility] if prostate biopsy c/w cancer. Home Meds and New Rx's Prescriptions: Continued tramadol 50 mg tablet 50 mg PO Q6H PRN (Reason: pain) Qty: 15 2RF Rx Instructions: Treatment agreement is for 15 pills per 28 days lorazepam 1 mg tablet 1 - 2 mg PO DAILY PRN (Reason: anxiety) Qty: 4 0RF Rx Instructions: Take 1-2 tabs about 1 hour before takeoff aspirin [Adult Low Dose Aspirin] 81 mg tablet,delayed release (DR/EC) 81 mg PO DAILY cholecalciferol (vitamin D3) [Vitamin D3] 50 mcg (2,000 unit) capsule 4,000 unit PO DAILY pantoprazole 40 mg tablet,delayed release (DR/EC) See Rx Instructions .ROUTE .COMPLEX Qty: 90 3RF Dose Instruction: TAKE ONE TABLET BY MOUTH EVERY MORNING AT LEAST 30 MIN BEFORE FIRST MEAL OF THE DAY Rx Instructions: TAKE ONE TABLET BY MOUTH EVERY MORNING AT LEAST 30 MIN BEFORE FIRST MEAL OF THE DAY losartan 100 mg tablet 100 mg PO DAILY Qty: 90 3RF sertraline 50 mg tablet See Rx Instructions .ROUTE .COMPLEX Qty: 90 3RF Dose Instruction: TAKE 1 TABLET BY MOUTH DAILY Rx Instructions: TAKE 1 TABLET BY MOUTH DAILY simvastatin 20 mg tablet See Rx Instructions .ROUTE .COMPLEX Qty: 90 3RF Dose Instruction: TAKE ONE TABLET BY MOUTH EVERY DAY AT BEDTIME Rx Instructions: TAKE ONE TABLET BY MOUTH EVERY DAY AT BEDTIME acetaminophen 500 mg tablet 1,000 mg PO TID Qty: 90 0RF Discontinued amoxicillin 500 mg capsule 2,000 mg PO ONCE Qty: 4 1RF Rx Instructions: prior to dental procedure prednisone 20 mg tablet 40 mg PO .daily in AM Qty: 10 0RF Rx Instructions: Sinusitis amoxicillin-pot clavulanate 875-125 mg tablet 1 tab PO BID Qty: 14 0RF Rx Instructions: Right maxillary sinusitis Discharge Instructions Instructions: Gastrointestinal Bleeding (DC) Additional Instructions: Return to the hospital if you have worsening bleeding again An abnormal area was noted in your lower spine. You may need another scan to make sure this is not spread of prostate cancer. Follow up with Dr. Royal as planned on the biopsy results and possible referral for the scan. You can resume your aspirin for your circulation the day after you get home. Stand Alone Forms: Nursing Discharge Form Referrals: Devi Wilkes [facility] [Primary Care Provider] - (Please call the office on Sunday to set up a hospital follow up within 7-10 days. ) Activity:: Activity as Tolerated Equipment/Supplies:: No Equipment Needed Diet:: As Tolerated Discharge Orders Discharge Orders: Discharge Order (Routine); Ordered 09/06/24 Ordered By: Fernando Azar DS: Summary Time Spent with Patient providing and/or coordinating discharge services: Greater than 30 minutes Status at Discharge Functional status at discharge: independent ambulation Overall status at discharge: patient is back to baseline Mental Status: mental status grossly normal Speech and Movement: speech and movement normal Mood: congruent mood Affect: normal affect Quality:SDOH Health Related Social Needs: No Data to Display Exam Narrative Exam Narrative: Well-developed, no acute distress RRR. 3/6 systolic murmur to neck and axilla Unlabored respiratory effort, CTAB Nondistended abdomen, soft, NT, no masses extremities warm, NT, no edema. Psych Mental Status: mental status grossly normal Speech and Movement: speech and movement normal Mood: congruent mood Affect: normal affect DS: Data Vitals/I&O Vitals and I&O: Vital Signs Temperature 36.8 C 09/06/24 10:39 Temperature Source Tympanic 09/06/24 10:39 Pulse 57 L 09/06/24 10:39 Pulse 75 09/06/24 10:30 Respiratory Rate 16 09/06/24 10:39 Respiratory Effort Normal 09/05/24 20:00 Respiratory Depth Normal 09/05/24 20:00 Respiratory Pattern Normal 09/05/24 20:00 Blood Pressure 118/90 09/06/24 10:39 Blood Pressure Mean 94 09/06/24 10:30 Blood Pressure Position Supine 09/05/24 15:34 Pulse Oximetry 99 09/06/24 10:39 Oxygen Delivery Method Room Air 09/06/24 10:39 Oxygen Flow Rate 0 09/06/24 10:39 Pain Level 6 09/06/24 08:32 Intake & Output 09/05/24 09/06/24 09/06/24 23:59 11:59 23:59 Intake Total 3345 / 3845 2250 / 2250 Output Total 250 / 250 450 / 450 Balance 3095 / 3595 1800 / 1800 Weight 83.915 kg Intake: IV 495 / 495 1525 / 1525 Oral 725 / 725 Blood Product 1050 / 1050 Rbc Leuko Reduced Unit 350 / 350 [id number] Other 1800 / 1800 Output: Urine 450 / 450 Stool 250 / 250 Other: Urine Color Dark Amairani Urine Appearance Clear Urine Odor Normal Stool Size Moderate Small Stool Characteristics Liquid Black Mucoid Bloody Bloody Emesis Description None # Bowel Movements 2 Data Completed and Pending Labs on day of discharge: Labs from last 24 hours 09/06/24 09/06/24 09/05/24 14:00 05:54 23:30 WBC 5.78 RBC 3.79 L Hgb Pending 11.6 L 12.9 L Hct Pending 35.4 L 39.4 L MCV 93 MCH 30.6 MCHC 32.8 RDW 14.5 H Plt Count 112 L MPV 11.2 H Immature Gran % Neutrophils % Lymphocytes % Monocytes % Eosinophils % Basophils % Nucleated RBC % Absolute Neutrophils Absolute Lymphocytes Absolute Monocytes Absolute Eosinophils Absolute Basophils PT INR Sodium 145 Potassium 3.8 Chloride 112 H Carbon Dioxide 28.1 Anion Gap 4.9 BUN 23 H Creatinine 0.8 Est GFR (CKD-EPI 2020) 93.45 Glucose 87 Calcium 8.4 L Total Bilirubin AST ALT Alkaline Phosphatase Troponin I Total Protein Albumin ABO/Rh Blood Type Recheck Antibody Screen Crossmatch 09/05/24 09/05/24 09/05/24 20:49 18:38 17:20 WBC RBC Hgb 12.2 L 12.2 L Hct 37.0 L 37.5 L MCV MCH MCHC RDW Plt Count MPV Immature Gran % Neutrophils % Lymphocytes % Monocytes % Eosinophils % Basophils % Nucleated RBC % Absolute Neutrophils Absolute Lymphocytes Absolute Monocytes Absolute Eosinophils Absolute Basophils PT INR Sodium Potassium Chloride Carbon Dioxide Anion Gap BUN Creatinine Est GFR (CKD-EPI 2020) Glucose Calcium Total Bilirubin AST ALT Alkaline Phosphatase Troponin I Cancelled Total Protein Albumin ABO/Rh Blood Type Recheck O Positive Antibody Screen Crossmatch 09/05/24 09/05/24 17:07 15:39 WBC 8.17 RBC 4.54 Hgb 14.1 Hct 43.4 MCV 96 H MCH 31.1 MCHC 32.5 RDW 13.1 Plt Count 152 MPV 10.1 Immature Gran % 0.2 Neutrophils % 63.8 Lymphocytes % 24.5 Monocytes % 10.0 Eosinophils % 1.0 Basophils % 0.5 Nucleated RBC % 0.0 Absolute Neutrophils 5.21 Absolute Lymphocytes 2.00 Absolute Monocytes 0.82 H Absolute Eosinophils 0.08 Absolute Basophils 0.04 PT 11.6 H INR 1.2 H Sodium 144 Potassium 3.6 Chloride 107 Carbon Dioxide 32.7 H Anion Gap 4.3 BUN 24 H Creatinine 1.0 Est GFR (CKD-EPI 2020) 79.47 Glucose 95 Calcium 9.1 Total Bilirubin 0.98 AST 18 ALT 19 Alkaline Phosphatase 106 Troponin I 14 16 Total Protein 7.1 Albumin 3.8 ABO/Rh O Positive Blood Type Recheck Antibody Screen NEGATIVE Crossmatch See Detail PFSH All Active Problems (Updated 09/05/24 @ 17:45 by Fernando Esparza MD) Acute lower GI bleeding (Acute) Radiculopathy, cervical region (Acute) 08/19/24 [facility] Elevated PSA, greater than or equal to 20 ng/ml (Acute ~06/2024) Nonunion of subtalar arthrodesis (Acute) [facility] [place]15[place]24 IFG (impaired fasting glucose) (Acute) Seen on 03/2023 labs --> needs an A1c at NOV Arthritis of right ankle (Acute) Most recent Depo-Medrol injection: 03/26/2023 Essential hypertension (Acute) Aortic aneurysm of unspecified site, without rupture (Chronic 12/12/19) S/p tube grafting in 2009 Essential tremor (Chronic) Chronic left hip pain (Chronic) Ventral hernia (Chronic 11/28/11) Temporomandibular joint disorders, unspecified (Chronic 11/28/11) Spinal stenosis (Chronic 11/28/11) [facility] [place] 11/2013 Dr Rascon [facility]: median nerve branch block 2014 Sensorineural hearing loss, bilateral (Chronic 11/06/12) hearing aide Rosacea (Chronic 11/28/11) 08/05/20 [facility] Insomnia, unspecified (Chronic 11/06/12) Hyperlipidemia (Chronic 11/28/11) Generalized osteoarthritis (Chronic 04/30/13) Gastroesophageal reflux disease (Chronic 12/22/15) EGD 2010 [facility] [place] pain (Chronic 05/15/14) Spinal stenosis; cervical arthropathy BPH w/o urinary obs/LUTS (Chronic 11/28/11) S/P TURP 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 Followed by Dr Ríos CT surgery. [facility] [place] Abx prophylaxis 01/14/20 [facility] [place], 02/04/20-TAVR [facility] Anxiety disorder, unspecified (Chronic 01/31/17) Long-term Sertraline (psychiatrist remotely) Medical History COVID (~06/2024) Anxiety with flying Intermittent Lorazepam RX Seborrheic keratoses Multiple fractures of ribs of right side Aortic stenosis (02/04/20) S/p TAVR 02/04/20 09/02/21 F/U Dr Albright Nondependent alcohol abuse, 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/28/11) Actinic keratosis (03/20/12) Surgical History History of ankle surgery (~03/17/24) [facility] 04/02/24 Arthroscopy w/ extensive debridement, subtalar joint fusion, Brostrom stabilization w/ internal brace augmentation, peroneus longus debridement, peroneus brevis tenolysis Hx of hernia repair (1999) Status post cholecystectomy (~1989) History of total right knee replacement (11/16/21) S/P TAVR (transcatheter aortic valve replacement) (02/04/20) Valve in valve TAVR with 26mm ultra; [facility] [place]/sacral medial branch blocks (02/24/15) Dr Caputo Transurethral prostatectomy (~2000) For BPH SI joint injection (04/23/17) L side, Dr. Caputo EGD (07/19/11) Replacement of aortic valve (~11/2009) Bioprosthetic AVR & ascending aorta [place] [facility] Family History Mother Diabetes Heart disease Father Heart disease Multiple sclerosis Sister Diabetes Social History Smoking/Tobacco Use Status: Former Tobacco Use Quit Date: 07/30/00 Smokeless tobacco user: snuff Smoking risk assessment performed?: Yes Alcohol Intake: former Drug use: Never Substance use type: does not use Adopted: No Caregiver/Support person: No Foster care: No Household members: spouse Housing: house Number of Children: 2 Communication Needs: None Education Level: college current occupation: retired Current gender identity: male What type of physical activity do you participate in: walking Duration: 60-90 minutes/day Frequency: daily Seatbelt use: always Helmet use: Yes Drive intox or ride w/intox truck driver salesperson: No Water heater temp set <120 deg: Yes Working smoke detector in home: Yes Fire extinguisher in home: Yes Carbon monox detector in home: Yes Firearms in home: Yes Firearms unloaded and locked: Yes Do you feel safe at home: Yes Do you feel safe in your relationship?: Yes Time Spent with Patient Time Spent with Patient: <45 minutes Time was spent: preparing to see the patient(eg.review tests), obtaining and/or reviewing separately otained hiistory, ordering medications,tests, procedures, referring, communicating with other health care transitions manager, indepentently interpreting results, counseling the patient and care coordination
[2024-09-06 14:17] LABS: HCT 39.5 % (40.0-50.0); HGB 12.6 g/dL (13.5-17.5)
== END 2024-09-06 16:35 | disposition home or self-care (01) | DRG 378 ==
LOC: ER 19:53 → ICU 19:56 → MS 09-06 10:38
PROVIDERS: Family Medicine; Surgery; Admitting Provider Family Medicine; Emergency Provider Emergency Medicine; PCP Nurse Practitioner Adult Health; Visit Provider Family Medicine
PROC: 0DJD8ZZ Inspection of Lower Intestinal Tract, Via Natural or Artificial Opening Endoscopic (ICD-10-PCS; CPT 45330; principal; 2024-09-05 18:15)
DX: K62.5 Hemorrhage of anus and rectum (principal); N13.8 Other obstructive and reflux uropathy; I10 Essential (primary) hypertension; Z95.2 Presence of prosthetic heart valve; G25.0 Essential tremor; G89.29 Other chronic pain; E78.5 Hyperlipidemia, unspecified; R97.20 Elevated prostate specific antigen [PSA]; M54.12 Radiculopathy, cervical region; R73.01 Impaired fasting glucose; H90.3 Sensorineural hearing loss, bilateral; M15.9 Polyosteoarthritis, unspecified; G47.00 Insomnia, unspecified; K21.9 Gastro-esophageal reflux disease without esophagitis; N40.1 Benign prostatic hyperplasia with lower urinary tract symptoms; F41.9 Anxiety disorder, unspecified; Z95.4 Presence of other heart-valve replacement; F10.11 Alcohol abuse, in remission; Z96.651 Presence of right artificial knee joint; I95.9 Hypotension, unspecified; R31.0 Gross hematuria
CPT/HCPCS: 45330; 00123; 36415; 36430; 55700; 76872; 80048; 80053; 85027; 86850; 86900; 86901; 86920; 96374; 99221; 99222; 99291; 74174; 84484; 85014; 85018; 85025; 85610; 99223; 99239; J2250; J2371; J2470; J3010; J3490; P9016

== ENCOUNTER → 2024-09-26 10:47 | Outpatient (BNVA) | payer MEDICARE, BC, SELFPAY | PROVIDERS: PCP Nurse Practitioner Adult Health; Referring Provider Nurse Practitioner Adult Health; Visit Provider Urology | DX: C61 Malignant neoplasm of prostate (principal) | CPT/HCPCS: 99215 ==

== ENCOUNTER 2024-12-04 01:57 | Outpatient (CLI) | payer MEDICARE, BC, SELFPAY ==
[2024-12-04 10:03] LABS: HCT 40.7 % (40.0-50.0); HGB 12.8 g/dL (13.5-17.5); Reticulocyte 0.4 % (0.5-2.4)
[2024-12-04 10:49] LABS: Ferritin 23 ng/mL (26-388)
[2024-12-04 11:01] LABS: Iron 35 ug/dL (65-175); Total Iron Binding Capacity 435 ug/dL (250-450); Transferrin Sat 8 % (20-55)
== END 2024-12-04 01:58 | disposition home or self-care (01) ==
LOC: LBO 01:57
PROVIDERS: PCP Nurse Practitioner Adult Health; Visit Provider Nurse Practitioner Adult Health
DX: D64.9 Anemia, unspecified (principal)
CPT/HCPCS: 36415; 82728; 83540; 83550; 85014; 85018; 85045

== ENCOUNTER 2025-01-18 21:09 | Emergency (ER) | payer MEDICARE, BC, SELFPAY ==
[2025-01-18] VITALS (20 sets, daily range): BP systolic 113–138; BP diastolic 72–96; PULSE 75–94; RESP 13–31; TEMP 35.8; O2SAT 78–97
--- NOTE | 2025-01-18 21:15 | RT.EKG_ITS ---
APPROVED REPORT Exam: Resting ECG Reason for Exam: Abd pain, N/V Patient Location: E HR:80 bpm ECG Measurements Heart Rate 80 AXIS TX [id number] P [id number] QRSd 103 QRS 14 QT 384 T 196 QTc 443 Conclusion Incomplete analysis due to missing data in precordial lead(s) Atrial fibrillation...? atrial activity Ventricular bigeminy...bigeminy string>4 w/ V complexes Repol abnrm suggests ischemia, diffuse leads...ST-T neg, ant/lat/inf
--- NOTE | 2025-01-18 21:34 | ED.GENADUL_ITS ---
Discharge Plan Disposition Patient Disposition: Admit to [facility] Condition: Stable Discharge Details Clinical Impression: Intractable back pain, Abdominal pain Primary Care Provider: Devi Wilkes ED Provider: Gia Childress Home Meds and New Rx's Prescriptions: No Action lorazepam 1 mg tablet 1 - 2 mg PO DAILY PRN (Reason: anxiety) Qty: 4 0RF Rx Instructions: Take 1-2 tabs about 1 hour before takeoff pantoprazole 40 mg tablet,delayed release (DR/EC) See Rx Instructions .ROUTE .COMPLEX Qty: 90 3RF Dose Instruction: TAKE ONE TABLET BY MOUTH EVERY MORNING AT LEAST 30 MIN BEFORE FIRST MEAL OF THE DAY Rx Instructions: TAKE ONE TABLET BY MOUTH EVERY MORNING AT LEAST 30 MIN BEFORE FIRST MEAL OF THE DAY amlodipine 5 mg tablet 5 mg PO DAILY Qty: 90 3RF Rx Instructions: For BP goal <140/90 tramadol 50 mg tablet 50 mg PO Q6H PRN (Reason: pain) Qty: 15 2RF Rx Instructions: Treatment agreement is for 15 pills per 28 days aspirin [Adult Low Dose Aspirin] 81 mg tablet,delayed release (DR/EC) 81 mg PO DAILY cholecalciferol (vitamin D3) [Vitamin D3] 50 mcg (2,000 unit) capsule 4,000 unit PO DAILY sertraline 50 mg tablet See Rx Instructions .ROUTE .COMPLEX Qty: 90 3RF Dose Instruction: TAKE 1 TABLET BY MOUTH DAILY Rx Instructions: TAKE 1 TABLET BY MOUTH DAILY simvastatin 20 mg tablet See Rx Instructions .ROUTE .COMPLEX Qty: 90 3RF Dose Instruction: TAKE ONE TABLET BY MOUTH EVERY DAY AT BEDTIME Rx Instructions: TAKE ONE TABLET BY MOUTH EVERY DAY AT BEDTIME losartan 100 mg tablet 100 mg PO DAILY Qty: 90 1RF Lupron Depot 7.5 mg syringe kit 7.5 mg IM Q4W ferrous sulfate 325 mg (65 mg iron) tablet 325 mg PO DAILY acetaminophen 500 mg tablet 1,000 mg PO TID Qty: 90 0RF HPI General Mode of arrival: wheelchair . Date/Time Provider Initiated Documentation: 01/18/25 21:23 . Limitations to Documentation: no limitations . Information obtained by: patient, family, RN notes reviewed and old records reviewed . HPI Narrative: 74-year-old male with a history of prostate cancer presents to the ER with a chief complaint lower back pain and nausea vomiting which began approximately an hour prior to arrival. He also endorses chills but no documented fever. He reports that he has been having some generalized stomach discomfort since Sunday. He did have a hormone injection on Sunday which he has had every 4 weeks this was his third injection for the prostate cancer. Had a PET scan on November 13 at [facility]. He denies any chest pain shortness of breath. He is complaining of lower back pain. His other past medical history includes aortic stenosis, anxiety tubular adenoma hernia repair cholecystectomy transurethral prostatectomy aortic valve replacement, anemia, diverticulosis, aortic aneurysm with graft repair in 2009, spinal stenosis. Related Data Home Medications ?Medication ?Instructions ?Recorded ?Confirmed aspirin 81 mg tablet,delayed 81 mg PO DAILY 11/22/18 0 01/18/25 release (Adult Low Dose Aspirin) cholecalciferol (vitamin D3) 50 4,000 unit PO DAILY 01/18/25 mcg (2,000 unit) capsule (Vitamin D3) acetaminophen 500 mg tablet 1,000 mg (2 x 500 mg) PO T ID #90 07/04/22 01/18/25 tabs sertraline 50 mg tablet See Rx Instructions .Route 1 01/18/25 .COMPLEX #90 tabs simvastatin 20 mg tablet See Rx Instructions .Route 0 08/20/24 01/18/25 .COMPLEX #90 tabs lorazepam 1 mg tablet 1 - 2 mg (1 - 2 x 1 mg) PO D AILY 09/18/24 01/18/25 PRN anxiety #4 tab-caps pantoprazole 40 mg tablet,delayed See Rx Instructions .Route 09/18/24 01/18/25 release .COMPLEX #90 tabs losartan 100 mg tablet 100 mg PO DAILY #90 tabs 01/18/25 leuprolide 7.5 mg intramuscular 7.5 mg IM Q4W 11/27/24 01/18/25 syringe kit (Lupron Depot) ferrous sulfate 325 mg (65 mg 325 mg PO DAILY 12/16/24 01/18/25 iron) tablet amlodipine 5 mg tablet 5 mg PO DAILY #90 tabs 12/1701/18/25 tramadol 50 mg tablet 50 mg PO Q6H PRN pain #15 ta bs 12/17/24 01/18/25 Previous Rx's ?Medication ?Instructions ?Recorded acetaminophen 500 mg tablet 1,000 mg (2 x 500 mg) PO T ID #90 07/04/22 tabs sertraline 50 mg tablet See Rx Instructions .Route 1 .COMPLEX #90 tabs simvastatin 20 mg tablet See Rx Instructions .Route 0 08/20/24 .COMPLEX #90 tabs lorazepam 1 mg tablet 1 - 2 mg (1 - 2 x 1 mg) PO D AILY 09/18/24 PRN anxiety #4 tab-caps pantoprazole 40 mg tablet,delayed See Rx Instructions .Route 09/18/24 release .COMPLEX #90 tabs losartan 100 mg tablet 100 mg PO DAILY #90 tabs amlodipine 5 mg tablet 5 mg PO DAILY #90 tabs 12/17 tramadol 50 mg tablet 50 mg PO Q6H PRN pain #15 ta bs 12/17/24 Allergies Allergy/AdvReac Type Severity Reaction Status Date / Time No Known Allergies Allergy Verified 01/18/25 21:19 General Stated Complaint: Abd Prob GRISEL: 3 Review of Systems All systems reviewed & are unremarkable except as noted in HPI and below Constitutional Constitutional: Reports as per HPI, Reports chills and Reports lethargy Gastrointestinal Gastrointestinal: Reports abdominal pain, Reports nausea and Reports vomiting Musculoskeletal Musculoskeletal: Reports back pain and Reports stiffness Exam Narrative Exam Narrative: Constitutional: Alert and oriented x3. Appears stated age. Thin body habitus. Appears pale. Appears chronically ill. Head: Normocephalic, no trauma. Eyes: Pupils PERRL, Red reflex noted, EOM's intact. Eyelids symmetrical without lesions, discharge, or swelling. ENT: Bilateral TM's WNL, External ear normal to inspection, no mastoid TTP, swelling, or erythema, Nasal turbinates WNL, no nasal discharge. Normal dentition, Posterior pharynx WNL, no exudate. Chest: RRR, Normal S1, S2, distal pulses intact. Vertical healed scar midsternal. Resp: Lungs clear to auscultation bilaterally, no wheezes, rales, or rhonchi. Abdomen: Soft, non-distended, no tenderness with palpation all 4 quadrants. Musculoskeletal:Unable to assess gait, Moves all 4 extremities without difficulty. Skin: No suspicious rashes or lesions. Capillary refill less than 2 sec. Neurologic: Cranial nerves II-XII intact. Alert and oriented x 3. Motor: No deficits noted. Sensory: Intact bilaterally all 4 extremities. Hematologic/Lymphatic: No ecchymosis, no lymphadenopathy. Course Vital Signs Vital signs: Vital Signs Temperature 35.8 C L 01/18/25 21:13 Pulse 80 01/18/25 21:13 Respiratory Rate 20 01/18/25 21:13 Blood Pressure 132/89 01/18/25 21:13 Pulse Oximetry 91 L 01/18/25 21:13 Temperature 35.8 C L 01/18/25 21:28 Temperature Source Oral 01/18/25 21:28 Pulse 80 01/18/25 21:28 Respiratory Rate 20 01/18/25 21:28 Blood Pressure 132/89 01/18/25 21:28 Pulse Oximetry 91 L 01/18/25 21:28 Oxygen Delivery Method Room Air 01/18/25 21: Oxygen Flow Rate 0 01/18/25 21: Pain Level 10 01/18/25 21:28 Lab/Test Results Lab/Test Results: 01/18/25 21:30 Blood Blood Culture - Pending 01/18/25 21:30 Blood Blood Culture - Pending Medical Decision Making 74-year-old male with a history of prostate cancer presents to the ER with a chief complaint lower back pain and nausea vomiting which began approximately an hour prior to arrival. He also endorses chills but no documented fever. He reports that he has been having some generalized stomach discomfort since Sunday. He did have a hormone injection on Sunday which he has had every 4 weeks this was his third injection for the prostate cancer. Had a PET scan on November 13 at [facility]. He denies any chest pain shortness of breath. He is complaining of lower back pain. His other past medical history includes aortic stenosis, anxiety tubular adenoma hernia repair cholecystectomy transurethral prostatectomy aortic valve replacement, anemia, diverticulosis, aortic aneurysm with graft repair in 2009, spinal stenosis. Extensive workup ordered including CBC CMP serial troponins, UA, blood cultures EKG and a lactate. Patient complaining of headache and lower back pain was given 2 mg of morphine and 4 of Zofran. Approached by the staff counselor and states that he is still in excruciating pain. 50 mics of fentanyl ordered. EKG was reviewed by Dr. Mccarthy and myself ER attending, no old EKG available for review, there is some significant ST depressions noted and PVCs. Will contact [facility] to obtain old EKG. Patient is not complaining of any chest pain at this time. Patient returned from CT and received an additional 50mcg Fentanyl, informed by staff counselor that patient de-satted to 77% on RA and had shallow breaths, placed on 4L NC and roused, He is breathing much better now and placed on 2L NC and is satting 96%. CTA shows no acute abnormality no dissection or aortic rupture. Please see official report. No vertebral compression or acute fracture in the L-spine. Repeat EKG ordered, awaiting serial troponin. 2336: Will consult with hospitalist for admission for intractable Lower back pain and to trend troponins . UA still pending. Hospitalist paged. 2337: Repeat 1 hour troponin 22. 0004: Spoke with Dr. Meraz regarding patient case and details, he agrees to come and evaluate patient in ED. This text was generated using [employer] dictation system, please disregard any oddities of phrase or misspellings. Medical Records Medical records reviewed: Yes I reviewed the patient's medical records. Imaging Data Radiologic Study: Imaging: CT Scan Radiologist's impression: FINDINGS: VASCULATURE: Pulmonary arteries: Normal. No pulmonary emboli. Aorta: Moderate atherosclerotic calcification throughout the aorta. No aneurysm or dissection. No periaortic fluid or other findings of aortic rupture. Celiac trunk and mesenteric arteries: No occlusion or significant stenosis. Renal arteries: No occlusion or significant stenosis. Right iliac arteries: No occlusion or significant stenosis. Left iliac arteries: No occlusion or significant stenosis. CHEST: Lungs: Unremarkable. No consolidation. No masses Pleural spaces: Unremarkable. No pneumothorax. No pleural effusion. Heart: Unremarkable. No cardiomegaly. No pericardial effusion. ABDOMEN AND PELVIS: Liver: Multiple scattered cysts throughout the liver appear stable. Liver is otherwise unremarkable. Gallbladder and biliary ducts: Gallbladder is surgically absent. No significant biliary ductal dilation. Pancreas: Unremarkable. No mass. No ductal dilation. Spleen: Unremarkable. No splenomegaly. Adrenal glands: Unremarkable. No mass. Kidneys and ureters: Unremarkable. No solid mass. No hydronephrosis. Stomach and bowel: Unremarkable. No obstruction. No mucosal thickening. Appendix: No evidence of appendicitis. Intraperitoneal space: Unremarkable. No free air. No significant fluid collection. Urinary bladder: Unremarkable. No mass. Reproductive: Brachytherapy pellets noted in the prostate gland. Lymph nodes: Unremarkable. No enlarged lymph nodes. Bones/joints: Moderate dextroscoliosis of the lumbar spine. Moderate to severe degenerative disc changes and facet arthropathy throughout the lower spine. Grade 1 anterolisthesis of L4. Orthopedic hardware produces posterior fusion of L4 and L5. No vertebral body compression or acute fracture. Soft tissues: Unremarkable. IMPRESSION: No acute abnormality. Specifically, no evidence of aortic rupture or dissection. Stable chronic findings as noted. Thank you for allowing us to participate in the care of your patient. Dictated and Authenticated by: Sergo Irizarry MD 01/18/2025 11:21 PM Eastern Time ([place] & [place]) Lab Data Lab results reviewed: Yes I reviewed the patient's lab results. Labs: 01/18/25 22:15 Blood Blood Culture - Pending 01/18/25 21:37 Blood Blood Culture - Pending Laboratory Tests Range/Units 01/18/25 01/18/25 21:37 23:00 WBC (4.4-10.8) 10^3/uL 10.24 RBC (4.36-5.78) 10^6/uL 4.88 Hgb (13.5-17.5) g/dL 13.9 Hct (40.0-50.0) % 42.7 MCV (80-95) fL 88 MCH (27.0-33.0) pg 28.5 MCHC (32.0-36.0) % 32.6 RDW (11.8-14.1) % 16.9 H Plt Count (130-400) 10^3/uL 154 MPV (8.0-11.0) fL 10.2 Immature Gran % % 0.3 Neutrophils % % 92.1 Lymphocytes % % 4.9 Monocytes % % 2.1 Eosinophils % % 0.2 Basophils % % 0.4 Nucleated RBC % (0.0-0.3) % 0.0 Absolute Neutrophils (1.2-6.7) 10^3/uL 9.43 H Absolute Lymphocytes (1.2-3.4) 10^3/uL 0.50 L Absolute Monocytes (0.1-0.8) 10^3/uL 0.22 Absolute Eosinophils (0.0-0.7) 10^3/uL 0.02 Absolute Basophils (0.0-0.2) 10^3/uL 0.04 VBG Lactate (<or=2.0) mmol/L 2.0 Sodium (136-145) mmol/L 141 Potassium (3.5-5.1) mmol/L 3.4 L Chloride (98-107) mmol/L 103 Carbon Dioxide (21.0-32.0) mmol/L 26.3 Anion Gap (3-11) mmol/L 11.7 H BUN (7-18) mg/dL 22 H Creatinine (0.70-1.30) mg/dL 0.9 Est GFR (CKD-EPI 2020) (mL/min/1.73m2) 89.62 Glucose (74-106) mg/dL 129 H Calcium (8.5-10.1) mg/dL 9.5 Magnesium (1.8-2.4) mg/dL 1.8 Total Bilirubin (0.2-1.0) mg/dL 0.9 AST (15-37) U/L 27 ALT (16-63) U/L 26 Alkaline Phosphatase (46-116) U/L 132 H Troponin I (<or=76) ng/L 19 22 Total Protein (6.4-8.2) g/dL 7.8 Albumin (3.4-5.0) g/dL 4.4 Lipase (<78) U/L 37 PFSH All Active Problems (Updated 01/19/25 @ 00:20 by Gia Childress NP) Abdominal pain (Acute) Intractable back pain (Acute) Anemia (Chronic ~08/2024) Iron def with low retic count Diverticulosis of sigmoid colon (Acute ~10/2024) Cervicalgia (Acute) [facility] note 10/28/24. Cervical spondylosis (Acute) [facility] C[facility] Pain and SPine note 10/28/24 Premature ventricular contraction (Acute ~10/17/24) [facility] Cardio 10/21/24 Prostate cancer (Chronic) 11/21/24 [facility] Rad/Onc Radiculopathy, cervical region (Acute) 08/19/24 Pain/Spine Ctr Nonunion of subtalar arthrodesis (Acute) [facility] Orthopaedics 04/15/24 IFG (impaired fasting glucose) (Acute) Seen on 03/2023 labs --> needs an A1c at NOV Arthritis of right ankle (Acute) Most recent Depo-Medrol injection: 03/26/2023 Essential hypertension (Acute) Aortic aneurysm of unspecified site, without rupture (Chronic 12/12/19) S/p tube grafting in 2009 Essential tremor (Chronic) Chronic left hip pain (Chronic) Ventral hernia (Chronic 11/28/11) Temporomandibular joint disorders, unspecified (Chronic 11/28/11) Spinal stenosis (Chronic 11/28/11) [facility] L4-5 laminectomy 11/2013 Dr Rascon [facility] pain clinic: median nerve branch block 2014 Sensorineural hearing loss, bilateral (Chronic 11/06/12) hearing aide Rosacea (Chronic 11/28/11) 08/05/20 [facility] Derm Insomnia, unspecified (Chronic 11/06/12) Hyperlipidemia (Chronic 11/28/11) Generalized osteoarthritis (Chronic 04/30/13) Gastroesophageal reflux disease (Chronic 12/22/15) EGD 2010 [facility] Chronic pain (Chronic 05/15/14) Spinal stenosis; cervical arthropathy BPH w/o urinary obs/LUTS (Chronic 11/28/11) S/P TURP 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 Followed by Dr Ríos CT surgery. 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) Actinic keratosis (03/20/12) Surgical History H/O colonoscopy (10/31/24) [facility] [place]-w/polypectomy tubular adenoma History of ankle surgery (~03/17/24) [facility] Ortho 04/02/24 Arthroscopy w/ extensive debridement, subtalar joint fusion, Brostrom stabilization w/ internal brace augmentation, peroneus longus debridement, peroneus brevis tenolysis Hx of hernia repair (1999) Status post cholecystectomy (~1989) History of total right knee replacement (11/16/21) lumbar/sacral medial branch blocks (02/24/15) Dr Caputo Transurethral prostatectomy (~2000) For BPH SI joint injection (04/23/17) L side, Dr. Caputo EGD (07/19/11) Replacement of aortic valve (~11/2009) Bioprosthetic AVR & ascending aorta replacement at [facility] Family History Mother Diabetes Heart disease Father Heart disease Multiple sclerosis Sister Diabetes Social History Smoking/Tobacco Use Status: Former Tobacco Use Quit Date: 07/30/00 Smokeless tobacco user: snuff Smoking risk assessment performed?: Yes Alcohol Intake: former Drug use: Never Substance use type: does not use Adopted: No Caregiver/Support person: No Foster care: No Household members: spouse Housing: house Number of Children: 2 Communication Needs: None Education Level: college current occupation: retired Current gender identity: male What type of physical activity do you participate in: walking Duration: 60-90 minutes/day Frequency: daily Seatbelt use: always Helmet use: Yes Drive intox or ride w/intox 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
[2025-01-18] MEDS: Ondansetron 4 MG/2 ML VIAL IVP (21:35)
[2025-01-18] MEDS: MORPHine 10 MG/ML VIAL 2 MG IVP (21:36)
--- NOTE | 2025-01-18 21:45 | DI.CT_ITS ---
Exam(s) CT THORAX ABD/PEL CTA EXAM: CT THORAX ABD/PEL CTA CLINICAL HISTORY: Back pain, vomiting, hx aneurysm repair. TECHNIQUE: Imaging Protocol: Axial CT angiography was performed with multi- slice acquisition and multi-planar and/or 3D reconstructions. Computer aided detection (CAD) was utilized. CONTRAST MATERIAL: Intravenous: Omnipaque 350 Contrast volume:100 ml Intravenous: Omnipaque 350 Contrast volume: 80 ml COMPARISON: CT CT ABDOMEN PELVIS CTA from 09/05/2024 FINDINGS: CHEST: Pulmonary Arteries: Mildly prominent. No evidence of filling defects to suggest pulmonary emboli. Tracheobronchial tree: No bronchiectasis or mucus plugging. Mediastinum and Brandie: No dominant adenopathy or fluid collection. Pulmonary parenchyma: Dependent changes. No consolidation or dominant measurable mass. Pleura: No effusion. No pneumothorax. Heart: The heart is mildly dilated. Mild coronary artery calcifications are seen. Aorta: TAVR. Prior ascending aortic aneurysm repair. Thoracic aorta non- dilated. Bones: Unremarkable for age. Tubes, Catheters, and Lines: None. Soft tissues: Unremarkable. ABDOMEN and PELVIS: Liver: Normal size. Normal density. Multiple small cysts. No suspicious measurable mass. Portal, Superior Mesenteric, and Splenic Veins: Unremarkable. Gallbladder and Biliary Tract: Cholecystectomy. No biliary dilatation. Pancreas: Normal density, no abnormal calcifications or inflammatory process. Spleen: Normal. Adrenals: No masses seen. Kidneys: Normal size, contour and axis. No radiodense stones. No obstructive uropathy. No masses seen. Vasculature: Abdominal aorta non-dilated. Mild atherosclerotic changes. Mild narrowing at origin of celiac axis. Bowel: No obstruction or bowel wall thickening. Appendix is unremarkable. Diverticulosis. No evidence of diverticulitis. Moderate to increased stool. Peritoneal Cavity: No ascites, collection or mesenteric inflammatory response. Lymph Nodes: Within normal limits. Soft Tissues: Unremarkable fluid in right inguinal canal. Bladder: Over distended. no gross wall thickening. Reproductive Organs: Metallic seeds in prostate. Bones: Postsurgical and degenerative changes in the spine. IMPRESSION: 1. No evidence of pulmonary embolism or aortic dissection. 2. No acute abdominal or pelvic process. The preliminary [facility] report was reviewed. RADIATION DOSE DELIVERED: 1,312.56mGy.cm Total DLP 1,312.56mGy.cm Total DLP DATA REPOSITORY: All CT scans at this facility are submitted to the National Radiology Data Registry (NRDR) Dose Index Registry (DIR) with the [employer] (A[employer]). RADIATION OPTIMIZATION: All CT scans at this facility use at least one of these dose optimization techniques: automated exposure control; mA and/or kV adjustment per patient size (includes targeted exams where dose is matched to clinical indication); or iterative reconstruction.
[2025-01-18 21:49] LABS: Abs Immature Grans 0.03 10^3/uL (0.0-0.06); Absolute Basophil Count 0.04 10^3/uL (0.0-0.2); Absolute Eosinophil Count 0.02 10^3/uL (0.0-0.7); Absolute Monocyte Count 0.22 10^3/uL (0.1-0.8); Absolute Neutrophil Count 9.43 10^3/uL (1.2-6.7); Basophils % 0.4 %; Eosinophils % 0.2 %; HCT 42.7 % (40.0-50.0); HGB 13.9 g/dL (13.5-17.5); Immature Grans % 0.3 %; Lymphocytes % 4.9 %; MCH 28.5 pg (27.0-33.0); MCHC 32.6 % (32.0-36.0); MCV 88 fL (80-95); MPV 10.2 fL (8.0-11.0); Monocytes % 2.1 %; Neutrophils % 92.1 %; Platelet Count 154 10^3/uL (130-400); RBC 4.88 10^6/uL (4.36-5.78); RDW 16.9 % (11.8-14.1); WBC 10.24 10^3/uL (4.4-10.8)
[2025-01-18] MEDS: fentaNYL 100 MCG/2 ML VIAL 50 MCG IVP ×2 (21:53→22:51)
[2025-01-18 22:08] LABS: ALT 26 U/L (16-63); AST 27 U/L (15-37); Albumin 4.4 g/dL (3.4-5.0); Alkaline Phosphatase 132 U/L (46-116); Anion Gap 11.7 mmol/L (3-11); BUN 22 mg/dL (7-18); Bilirubin, Total 0.9 mg/dL (0.2-1.0); CO2 26.3 mmol/L (21.0-32.0); CREATININE 0.9 mg/dL (0.70-1.30); Calcium 9.5 mg/dL (8.5-10.1); Chloride 103 mmol/L (98-107); Estimated GFR 89.62 (mL/min/1.73m2); Glucose 129 mg/dL (74-106); Lipase 37 U/L (<78); Magnesium 1.8 mg/dL (1.8-2.4); Potassium 3.4 mmol/L (3.5-5.1); Sodium 141 mmol/L (136-145); Total Protein 7.8 g/dL (6.4-8.2); Troponin I 19 ng/L (<or=76)
[2025-01-18] MEDS: Omnipaque 350 MG/ML 100 ML BTL IJ (22:27)
[2025-01-18] MEDS: Normal Saline Flush 10 ML SYR IVP (22:27)
[2025-01-18] MEDS: Normal Saline - Diluent 50 ML VIAL IJ (22:32)
[2025-01-18] MEDS: Lidocaine 5% Patch 1 PATCH TP (22:51)
--- NOTE | 2025-01-18 23:15 | RT.EKG_ITS ---
APPROVED REPORT Exam: Resting ECG Reason for Exam: Repeat Patient Location: E HR:89 bpm ECG Measurements Heart Rate 89 AXIS PA 199 P -5 QRSd 116 QRS -31 QT 376 T 126 QTc 459 Conclusion Sinus rhythm...normal P axis, V-rate 60- 99 LVH with secondary repolarization abnormality...multi-LVH criteria, abnrm ST-T Inferior/Lateral ST - T wave changes less pronounced compared to 01/18/25 at 21:31
--- NOTE | 2025-01-18 23:22 | DI.[facility]_ITS ---
PROCEDURE INFORMATION: Exam: CTA Chest With Contrast CTA Abdomen and Pelvis With Contrast Exam date and time: 01/18/2025 10:24 PM Age: 74 years old Clinical indication: Other: Back pain, vomiting, HX aneurysm repair TECHNIQUE: Imaging protocol: Computed tomographic angiography of the chest with contrast. Exam focused on the arteries. Computed tomographic angiography of the abdomen and pelvis with contrast. Exam focused on the arteries. 3D rendering (Not supervised by radiologist): MIP and/or 3D reconstructed images were created by the technologist. Contrast material: 350; Contrast volume: 80 ml; Contrast route: INTRAVENOUS (IV); COMPARISON: CT CHEST/ABD/PEL W 11/02/2020 5:05 PM FINDINGS: VASCULATURE: Pulmonary arteries: Normal. No pulmonary emboli. Aorta: Moderate atherosclerotic calcification throughout the aorta. No aneurysm or dissection. No periaortic fluid or other findings of aortic rupture. Celiac trunk and mesenteric arteries: No occlusion or significant stenosis. Renal arteries: No occlusion or significant stenosis. Right iliac arteries: No occlusion or significant stenosis. Left iliac arteries: No occlusion or significant stenosis. CHEST: Lungs: Unremarkable. No consolidation. No masses. Pleural spaces: Unremarkable. No pneumothorax. No pleural effusion. Heart: Unremarkable. No cardiomegaly. No pericardial effusion. ABDOMEN AND PELVIS: Liver: Multiple scattered cysts throughout the liver appear stable. Liver is otherwise unremarkable. Gallbladder and biliary ducts: Gallbladder is surgically absent. No significant biliary ductal dilation. Pancreas: Unremarkable. No mass. No ductal dilation. Spleen: Unremarkable. No splenomegaly. Adrenal glands: Unremarkable. No mass. Kidneys and ureters: Unremarkable. No solid mass. No hydronephrosis. Stomach and bowel: Unremarkable. No obstruction. No mucosal thickening. Appendix: No evidence of appendicitis. Intraperitoneal space: Unremarkable. No free air. No significant fluid collection. Urinary bladder: Unremarkable. No mass. Reproductive: Brachytherapy pellets noted in the prostate gland. Lymph nodes: Unremarkable. No enlarged lymph nodes. Bones/joints: Moderate dextroscoliosis of the lumbar spine. Moderate to severe degenerative disc changes and facet arthropathy throughout the lower spine. Grade 1 anterolisthesis of L4. Orthopedic hardware produces posterior fusion of L4 and L5. No vertebral body compression or acute fracture. Soft tissues: Unremarkable. IMPRESSION: No acute abnormality. Specifically, no evidence of aortic rupture or dissection. Stable chronic findings as noted. Dictated and Authenticated by: Sergo Irizarry MD. Orderin Fior Nielsen MD
[2025-01-18 23:36] LABS: Troponin I 22 ng/L (<or=76)
[2025-01-18 23:56] LABS: Bilirubin Negative (Negative); Blood Trace-intact (Negative); Clarity Clear (Clear); Glucose Negative (Negative); Ketones 15 mg/dL (Negative); Leukocyte Esterase Negative (Negative); Nitrite Negative (Negative); pH 8.5 (5-8)
[2025-01-19] VITALS (17 sets, daily range): BP systolic 94–110; BP diastolic 59–92; PULSE 51–100; RESP 15–25; O2SAT 92–96
[2025-01-19 00:05] LABS: Bacteria Rare HPF (Negative); C & S Indicated? No; Casts Negative LPF (Negative); Crystals Negative HPF (Negative); Epithelial Cells Negative HPF (Negative); Mucus Negative (Negative); RBC 0-2 HPF (0-2); WBC 0-2 HPF (0-5)
[2025-01-19] MEDS: Normal Saline 500 ML IV (00:19)
--- NOTE | 2025-01-19 00:23 | W.PM.HP.N ---
Date of service: 01/19/25 Time of Service: 00:23 [facility] All Active Problems (Updated 01/19/25 @ 00:20 by Gia Childress NP) Abdominal pain (Acute) Intractable back pain (Acute) Anemia (Chronic ~08/2024) Iron def with low retic count Diverticulosis of sigmoid colon (Acute ~10/2024) Cervicalgia (Acute) [facility] note 10/28/24. Cervical spondylosis (Acute) [facility] Ctr Pain and SPine note 10/28/24 Premature ventricular contraction (Acute ~10/17/24) [facility] Cardio 10/21/24 Prostate cancer (Chronic) 11/21/24 [facility] Rad/Onc Radiculopathy, cervical region (Acute) 08/19/24 Pain/Spine Ctr Nonunion of subtalar arthrodesis (Acute) [facility] Orthopaedics 04/15/24 IFG (impaired fasting glucose) (Acute) Seen on 03/2023 labs --> needs an A1c at NOV Arthritis of right ankle (Acute) Most recent Depo-Medrol injection: 03/26/2023 Essential hypertension (Acute) Aortic aneurysm of unspecified site, without rupture (Chronic 12/12/19) S/p tube grafting in 2009 Essential tremor (Chronic) Chronic left hip pain (Chronic) Ventral hernia (Chronic 11/28/11) Temporomandibular joint disorders, unspecified (Chronic 11/28/11) Spinal stenosis (Chronic 11/28/11) [facility] L4-5 laminectomy 11/2013 Dr Rascon [facility] pain clinic: median nerve branch block 2014 Sensorineural hearing loss, bilateral (Chronic 11/06/12) hearing aide Rosacea (Chronic 11/28/11) 08/05/20 [facility] Derm Insomnia, unspecified (Chronic 11/06/12) Hyperlipidemia (Chronic 11/28/11) Generalized osteoarthritis (Chronic 04/30/13) Gastroesophageal reflux disease (Chronic 12/22/15) EGD 2010 [facility] Chronic pain (Chronic 05/15/14) Spinal stenosis; cervical arthropathy BPH w/o urinary obs/LUTS (Chronic 11/28/11) S/P TURP 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 Followed by Dr Ríos CT surgery. 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) Actinic keratosis (03/20/12) Surgical History H/O colonoscopy (10/31/24[place] [facility] [place] tubular adenoma History of ankle surgery (~03/17/24) [facility] Ortho 04/02/24 Arthroscopy w/ extensive debridement, subtalar joint fusion, Brostrom stabilization w/ internal brace augmentation, peroneus longus debridement, peroneus brevis tenolysis Hx of hernia repair (1999) Status post cholecystectomy (~1989) History of total right knee replacement (11/16/21) lumbar/sacral medial branch blocks (02/24/15) Dr Caputo Transurethral prostatectomy (~2000) For BPH SI joint injection (04/23/17) L side, Dr. Caputo EGD (07/19/11) Replacement of aortic valve (~11/2009) Bioprosthetic AVR & ascending aorta replacement at [facility] Family History Mother Diabetes Heart disease Father Heart disease Multiple sclerosis Sister Diabetes Social History Smoking/Tobacco Use Status: Former Tobacco Use Quit Date: 07/30/00 Smokeless tobacco user: snuff Smoking risk assessment performed?: Yes Alcohol Intake: former Drug use: Never Substance use type: does not use Adopted: No Caregiver/Support person: No Foster care: No Household members: spouse Housing: house Number of Children: 2 Communication Needs: None Education Level: college current occupation: retired Current gender identity: male What type of physical activity do you participate in: walking Duration: 60-90 minutes/day Frequency: daily Seatbelt use: always Helmet use: Yes Drive intox or ride w/intox regional driver: No Water heater temp set <120 deg: Yes Working smoke detector in home: Yes Fire extinguisher in home: Yes Carbon monox detector in home: Yes Firearms in home: Yes Firearms unloaded and locked: Yes Do you feel safe at home: Yes Do you feel safe in your relationship?: Yes Meds Allergies and Home Medications Allergies Allergy/AdvReac Type Severity Reaction Status Date / Time No Known Allergies Allergy Verified 01/18/25 21:19 Home Medications ?Medication ?Instructions ?Recorded ?Confirmed ?Type aspirin 81 mg tablet,delayed 81 mg PO DAILY 11/22/18 01/18/25 History release (Adult Low Dose Aspirin) cholecalciferol (vitamin D3) 50 4,000 unit PO DAILY 02/13/20 01/18/25 History mcg (2,000 unit) capsule (Vitamin D3) acetaminophen 500 mg tablet 1,000 mg (2 x 500 mg) PO TID #90 07/04/22 01/18/25 Rx tabs sertraline 50 mg tablet See Rx Instructions .Route 05/22/24 01/18/25 Rx .COMPLEX #90 tabs simvastatin 20 mg tablet See Rx Instructions .Route 08/20/24 01/18/25 Rx .COMPLEX #90 tabs lorazepam 1 mg tablet 1 - 2 mg (1 - 2 x 1 mg) PO DAILY 09/18/24 01/18/25 Rx PRN anxiety #4 tab-caps pantoprazole 40 mg tablet,delayed See Rx Instructions .Route 09/18/24 01/18/25 Rx release .COMPLEX #90 tabs losartan 100 mg tablet 100 mg PO DAILY #90 tabs 11/17/24 01/18/25 Rx leuprolide 7.5 mg intramuscular 7.5 mg IM Q4W 11/27/24 01/18/25 History syringe kit (Lupron Depot) ferrous sulfate 325 mg (65 mg 325 mg PO DAILY 12/16/24 01/18/25 History iron) tablet amlodipine 5 mg tablet 5 mg PO DAILY #90 tabs 12/17/24 01/18/25 Rx tramadol 50 mg tablet 50 mg PO Q6H PRN pain #15 tabs 12/17/24 01/18/25 Rx Results Imaging Imaging Studies: Exam: CTA Chest With Contrast CTA Abdomen and Pelvis With Contrast Exam date and time: 01/18/2025 10:24 PM Age: 74 years old Clinical indication: Other: Back pain, vomiting, HX aneurysm repair COMPARISON: CT CHEST/ABD/PEL W 11/02/2020 5:05 PM FINDINGS: VASCULATURE: Pulmonary arteries: Normal. No pulmonary emboli. Aorta: Moderate atherosclerotic calcification throughout the aorta. No aneurysm or dissection. No periaortic fluid or other findings of aortic rupture. Celiac trunk and mesenteric arteries: No occlusion or significant stenosis. Renal arteries: No occlusion or significant stenosis. Right iliac arteries: No occlusion or significant stenosis. Left iliac arteries: No occlusion or significant stenosis. CHEST: Lungs: Unremarkable. No consolidation. No masses. Pleural spaces: Unremarkable. No pneumothorax. No pleural effusion. Heart: Unremarkable. No cardiomegaly. No pericardial effusion. ABDOMEN AND PELVIS: Liver: Multiple scattered cysts throughout the liver appear stable. Liver is otherwise unremarkable. Gallbladder and biliary ducts: Gallbladder is surgically absent. No significant biliary ductal dilation. Pancreas: Unremarkable. No mass. No ductal dilation. Spleen: Unremarkable. No splenomegaly. Adrenal glands: Unremarkable. No mass. Kidneys and ureters: Unremarkable. No solid mass. No hydronephrosis. Stomach and bowel: Unremarkable. No obstruction. No mucosal thickening. Appendix: No evidence of appendicitis. Intraperitoneal space: Unremarkable. No free air. No significant fluid collection. Urinary bladder: Unremarkable. No mass. Reproductive: Brachytherapy pellets noted in the prostate gland. Lymph nodes: Unremarkable. No enlarged lymph nodes. Bones/joints: Moderate dextroscoliosis of the lumbar spine. Moderate to severe degenerative disc changes and facet arthropathy throughout the lower spine. Grade 1 anterolisthesis of L4. Orthopedic hardware produces posterior fusion of L4 and L5. No vertebral body compression or acute fracture. Soft tissues: Unremarkable. IMPRESSION: No acute abnormality. Specifically, no evidence of aortic rupture or dissection. Stable chronic findings as noted. Labs 01/18/25 21:37 01/18/25 21:37 Labs: Laboratory Results - last 24 hr 01/18/25 01/18/25 01/18/25 21:37 23:00 23:51 WBC 10.24 RBC 4.88 Hgb 13.9 Hct 42.7 MCV 88 MCH 28.5 MCHC 32.6 RDW 16.9 H Plt Count 154 MPV 10.2 Immature Gran % 0.3 Neutrophils % 92.1 Lymphocytes % 4.9 Monocytes % 2.1 Eosinophils % 0.2 Basophils % 0.4 Nucleated RBC % 0.0 Absolute Neutrophils 9.43 H Absolute Lymphocytes 0.50 L Absolute Monocytes 0.22 Absolute Eosinophils 0.02 Absolute Basophils 0.04 VBG Lactate 2.0 Sodium 141 Potassium 3.4 L Chloride 103 Carbon Dioxide 26.3 Anion Gap 11.7 H BUN 22 H Creatinine 0.9 Est GFR (CKD-EPI 2020) 89.62 Glucose 129 H Calcium 9.5 Magnesium 1.8 Total Bilirubin 0.9 AST 27 ALT 26 Alkaline Phosphatase 132 H Troponin I 19 22 Total Protein 7.8 Albumin 4.4 Lipase 37 Urine Color Yellow Urine Clarity Clear Urine pH 8.5 H Ur Specific [place] 1.020 Urine Protein Negative Urine Ketones 15 H Urine Blood Trace-intact H Urine Nitrite Negative Urine Bilirubin Negative Urine Urobilinogen 1.0 H Ur Leukocyte Esterase Negative Urine RBC 0-2 Urine WBC 0-2 Ur Epithelial Cells Negative Urine Crystals Negative Urine Bacteria Rare Urine Casts Negative Urine Mucus Negative Ur Culture Indicated? No Urine Glucose Negative Last Vital Signs Temp 35.8 C L 01/18/25 21:28 Pulse 91 H 01/18/25 23:20 Resp 18 01/18/25 23:20 BP 138/96 H 01/18/25 23:16 Pulse Ox 97 01/18/25 23:20
[2025-01-19 01:14] LABS: Troponin I 31 ng/L (<or=76)
--- NOTE | 2025-01-19 01:26 | ED.PROG_ITS ---
Date of service: 01/19/25 Time of Service: 01:26 Medical Decision Making Patient had been signed out to me pending evaluation by hospitalist for consideration of admission. Patient had presented to ED with abdominal pain and vomiting that he felt was likely related to his Lupron injection. There is also complaining of back pain this may have been due to lying on the stretcher and being uncomfortable as he has history of back problems. His workup overall was completely unrevealing. CTA of the chest/abdomen/pelvis with no acute findings. Laboratory studies overall reassuring. His EKG did have ST changes inferiorly and laterally but may be rate related as second EKG was improved and at a slower rate. Troponins x 3 have been normal at 19, 22, 31. Patient is feeling much better. He has been evaluated by the hospitalist and wishes to go home given that he is feeling much improved with a reassuring workup. He will be discharged to follow-up with his providers. Return precautions given. Discussed with LINDEN Childress and Dr. Coroan. please see their notes for details. Lab Data Lab results reviewed: Yes I reviewed the patient's lab results. ECG Data Attestation: I personally reviewed and interpreted this ECG (s) as follows: Prior ECG tracings: available for review Interpretation: see EKG/MDM Discharge Plan Disposition Patient Disposition: Home Condition: Stable Discharge Details Clinical Impression: Abdominal pain, Vomiting, Back pain Primary Care Provider: Devi Wilkes ED Provider: Gia Childress Home Meds and New Rx's Prescriptions: Continued lorazepam 1 mg tablet 1 - 2 mg PO DAILY PRN (Reason: anxiety) Qty: 4 0RF Rx Instructions: Take 1-2 tabs about 1 hour before takeoff pantoprazole 40 mg tablet,delayed release (/EC) See Rx Instructions .ROUTE .COMPLEX Qty: 90 3RF Dose Instruction: TAKE ONE TABLET BY MOUTH EVERY MORNING AT LEAST 30 MIN BEFORE FIRST MEAL OF THE DAY Rx Instructions: TAKE ONE TABLET BY MOUTH EVERY MORNING AT LEAST 30 MIN BEFORE FIRST MEAL OF THE DAY amlodipine 5 mg tablet 5 mg PO DAILY Qty: 90 3RF Rx Instructions: For BP goal <140/90 tramadol 50 mg tablet 50 mg PO Q6H PRN (Reason: pain) Qty: 15 2RF Rx Instructions: Treatment agreement is for 15 pills per 28 days aspirin [Adult Low Dose Aspirin] 81 mg tablet,delayed release (DR/EC) 81 mg PO DAILY cholecalciferol (vitamin D3) [Vitamin D3] 50 mcg (2,000 unit) capsule 4,000 unit PO DAILY sertraline 50 mg tablet See Rx Instructions .ROUTE .COMPLEX Qty: 90 3RF Dose Instruction: TAKE 1 TABLET BY MOUTH DAILY Rx Instructions: TAKE 1 TABLET BY MOUTH DAILY simvastatin 20 mg tablet See Rx Instructions .ROUTE .COMPLEX Qty: 90 3RF Dose Instruction: TAKE ONE TABLET BY MOUTH EVERY DAY AT BEDTIME Rx Instructions: TAKE ONE TABLET BY MOUTH EVERY DAY AT BEDTIME losartan 100 mg tablet 100 mg PO DAILY Qty: 90 1RF Lupron Depot 7.5 mg syringe kit 7.5 mg IM Q4W ferrous sulfate 325 mg (65 mg iron) tablet 325 mg PO DAILY acetaminophen 500 mg tablet 1,000 mg PO TID Qty: 90 0RF Discharge Instructions Instructions: Abdominal Pain, Adult ED Additional Instructions: You were seen in the ED for abdominal pain and vomiting as well as low back pain. Overall your workup was unremarkable including imaging of your chest, abdomen, pelvis by CT scan. You were seen by the hospitalist as well as ED providers. You are feeling much improved and given unremarkable workup will be discharged home to follow-up with your PCP as well as your naturopathic oncology provider this week. You should return to ED for any recurrent or worsening pain, persistent vomiting, syncope, chest pain, shortness of breath, other concerns. Referrals: Devi Wilkes NP [Primary Care Provider, Medicine]
--- NOTE | 2025-01-19 01:39 | W.MEDCONSULT ---
Date of service: 01/19/25 Time of Service: 01:39 Assessment and Plan Assessment and plan (1) Abdominal pain: Start date: 01/18/25 Status: Acute Assessment and plan: This is 74-year-old gentleman who presented with acute severe abdominal pain which he attributes to eating the wrong food the day of presentation. He also was having increased back pain after lying on CT scanner 5 days prior to this presentation. His back pain was worsened with his abdominal pain and symptoms with IV morphine and then 2 doses of IV fentanyl given causing some sedation. The patient did have some slight hypoxemia when sedated and this recovered prior to him being seen by myself. The patient was not on oxygen at the time I saw him and he wanted to go home with his abdominal symptoms resolved. He attributed to the male that he had being too fatty with a history of cholecystectomy. The ED physician will discharge home patient will return to the ED if recurrent symptoms or change in status. He is a full code. (2) Vomiting: Start date: 01/18/25 Status: Acute Assessment and plan: Associated with acute abdominal symptoms now resolved. Imaging was unrevealing. Patient did not have any evidence of acute infection. Continue symptomatic care and modified diet to low-fat diet. (3) Back pain: Start date: 01/18/25 Status: Acute Assessment and plan: Patient has chronic back pain on tramadol every other day usually at night. No drug screen was performed and VPMS is consistent with patient's history of medication use. Patient will continue chronic pain treatment for same. (4) Spinal stenosis: Status: Chronic Assessment and plan: With severe chronic pain exacerbated recently with lying on the hard table for CT scan 5 days prior to presentation. Gentle exercises and continue pain management. (5) Chronic pain: Status: Chronic Assessment and plan: Continue current pain management with PCP. Patient does not appear to be high risk for misuse. He has good insight. (6) Prostate cancer: Status: Chronic Assessment and plan: Status post x-ray therapy and now on Lupron injections. Continue follow-up with oncology. (7) Anxiety with flying: Assessment and plan: Patient gets 2 tablets of Ativan as needed for anxiety associated with flying. He is not on this medication chronically. (8) Aortic stenosis: Assessment and plan: Status post TAVR 02/04/2020. (9) Anxiety disorder, unspecified: Status: Chronic Assessment and plan: Patient is on antidepressants which should be continued. (10) Essential hypertension: Status: Chronic Assessment and plan: This appears stable with patient to continue outpatient medical therapy. (11) Aortic aneurysm of unspecified site, without rupture: Status: Chronic Assessment and plan: No AAA on CTA abdomen. Follow-up with vascular surgery [place] [facility] as scheduled. History of Present Illness History of Present Illness Chief Complaint: Lower back pain for 5 days with acute abdominal pain, nausea and vomiting Narrative: This is a 74-year-old gentleman with prostate cancer on Lupron injections now for a couple of months having his last injection last week on Sunday. He had had a CT scan performed prior to that injection on Sunday 5 days ago. He had to stay on the CT scanner for more than an hour and this exacerbated his chronic back pain. He is chronically on narcotics for back pain and has severe degenerative disc disease. Usually takes tramadol every other day as needed for his chronic back pain having been on oxycodone in the distant past and the patient stated that he does not take tramadol daily. He also has Ativan for use when he has increased situational anxiety such as flying. VPMS review is consistent with this history. In the ED the patient evaluation was reassuring for no acute UTI by urinalysis and no acute abdominal process by imaging. The patient thinks that he ate the wrong food having had his gallbladder removed and his acute abdominal symptoms were severe but now resolved. He did receive IV morphine and 2 doses of IV fentanyl because of severe back pain exacerbated by his abdominal symptoms. At the time I saw the patient he was back to baseline with his chronic back pain and his abdominal symptoms had resolved. He did have some chills but no fever measured during his ED stay. He had no elevated WBC and his troponins were negative. He had no chest pain or EKG changes. The patient is comfortable returning home to his usual pain management at the time I saw him. He was accompanied by his who also was comfortable returning home with a note that they should return if symptoms recurred. The patient did think that this was secondary to his diet the day of presentation having no gallbladder and eating too heavy. There is no indication for further evaluation and urine drug screen was not performed with patient not being high risk for misuse of his medications. Patient is a full code. Review of Systems Narrative: 13 point review of systems otherwise unrevealing or stable. PFSH All Active Problems (Updated 01/24/25 @ 08:31 by Car Corona) MSSA bacteremia (Acute) Thrombocytopenia (Chronic) Discharge planning issues (Acute) DVT prophylaxis (Acute) Severe sepsis (Acute) Acute UTI (Acute) Acute lactic acidosis (Acute) Gram-positive cocci bacteremia (Acute) Back pain (Acute) Vomiting (Acute) Abdominal pain (Acute) Anemia (Chronic ~08/2024) Iron def with low retic count Diverticulosis of sigmoid colon (Acute ~10/2024) Cervicalgia (Acute) [facility] note 10/28/24. Cervical spondylosis (Acute) [facility] C[facility] Pain and SPine note 10/28/24 Premature ventricular contraction (Acute ~10/17/24) [facility] Cardio 10/21/24 Prostate cancer (Chronic) 11/21/24 [facility] Rad/Onc Radiculopathy, cervical region (Acute) 08/19/24 Pain/Spine Ctr Nonunion of subtalar arthrodesis (Acute) [facility] Orthopaedics 04/15/24 IFG (impaired fasting glucose) (Acute) Seen on 03/2023 labs --> needs an A1c at [facility] Arthritis of right ankle (Acute) Most recent Depo-Medrol injection: 03/26/2023 Essential hypertension (Chronic) Aortic aneurysm of unspecified site, without rupture (Chronic 12/12/19) S/p tube grafting in 2009 Essential tremor (Chronic) Chronic left hip pain (Chronic) Ventral hernia (Chronic 11/28/11) Temporomandibular joint disorders, unspecified (Chronic 11/28/11) Spinal stenosis (Chronic 11/28/11) [facility] L4-5 laminectomy 11/2013 Dr Rascon [facility] pain clinic: median nerve branch block 2014 Sensorineural hearing loss, bilateral (Chronic 11/06/12) hearing aide Rosacea (Chronic 11/28/11) 08/05/20 [facility] Derm Insomnia, unspecified (Chronic 11/06/12) Hyperlipidemia (Chronic 11/28/11) Generalized osteoarthritis (Chronic 04/30/13) Gastroesophageal reflux disease (Chronic 12/22/15) EGD 2010 [facility] Chronic pain (Chronic 05/15/14) Spinal stenosis; cervical arthropathy BPH w/o urinary obs/LUTS (Chronic 11/28/11) S/P TURP 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 Followed by Dr Ríos CT surgery. [facility] rec Abx prophylaxis 01/14/20 [facility] Cardiac Cath, 02/04/20-TAVR [facility] Anxiety disorder, unspecified (Chronic 01/31/17) Long-term Sertraline (psychiatrist remotely) Medical History Elevated PSA, greater than or equal to 20 ng/ml (~06/2024) Tubular adenoma COVID (~06/2024) Anxiety with flying Intermittent Lorazepam RX Seborrheic keratoses Multiple fractures of ribs of right side Aortic stenosis (02/04/20) S/p TAVR 02/04/20 09/02/21 F/U Dr Albright Nondependent alcohol abuse, 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/28/11) Actinic keratosis (03/20/12) Surgical History H/O colonoscopy (10/31/24[place] [facility] tubular adenoma History of ankle surgery (~03/17/24) [facility] Ortho 04/02/24 Arthroscopy w/ extensive debridement, subtalar joint fusion, Brostrom stabilization w/ internal brace augmentation, peroneus longus debridement, peroneus brevis tenolysis Hx of hernia repair (1999) Status post cholecystectomy (~1989) History of total right knee replacement (11/16/21) lumbar/sacral medial branch blocks (02/24/15) Dr Caputo Transurethral prostatectomy (~2000) For BPH SI joint injection (04/23/17) L side, Dr. Caputo EGD (07/19/11) Replacement of aortic valve (~11/2009) Bioprosthetic AVR & ascending aorta replacement at [facility] Family History Mother Diabetes Heart disease Father Heart disease Multiple sclerosis Sister Diabetes Social History Smoking/Tobacco Use Status: Former Tobacco Use Quit Date: 01/01/01 Smokeless tobacco user: snuff Smoking risk assessment performed?: Yes Alcohol Intake: former Drug use: Never Substance use type: does not use Adopted: No Caregiver/Support person: No Foster care: No Household members: spouse Housing: house Number of Children: 2 Communication Needs: None Education Level: college current occupation: retired Current gender identity: male What type of physical activity do you participate in: walking Duration: 60-90 minutes/day Frequency: daily Seatbelt use: always Helmet use: Yes Drive intox or ride w/intox 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 HEENT: Normocephalic, eyes with pupils equal and reactive to light symmetrically, extraocular movement intact and sclera anicteric. Neck: Supple without JVD. Back: Decreased range of motion with loss of lordotic curve, tenderness to palpation over his lower spine with no point tenderness and generalized discomfort with movement. No CVA tenderness. Lungs: Bronchovesicular breath sound diffusely and clear to auscultation. Heart: Regular rate and rhythm with 3/6 crescendo systolic murmur left femoral border. No gallops or rubs.. Well-healed sternal scar over mid chest. Abdomen: Obese contour, soft to palpation with no focalizing guarding or rebound. Nontender to palpation. No palpable hepatosplenomegaly. Bowel sounds positive all quadrants. Genitalia/rectal: Exam deferred. Extremities: Without pitting edema, no clubbing or cyanosis. Arthritic changes over large joints. Fair capillary refill. Skin: Rough texture, pale, warm and dry. Actinic changes over sun exposed skin areas. Neuro: Cranial nerves II through XII gross intact, no focalized motor deficits. Psych: Normal affect and mood. No abnormal thought processes. Remote and recent memory intact. Results Last Vital Signs Temp 35.8 C L 01/18/25 21:28 Pulse 91 H 01/18/25 23:20 Resp 18 01/18/25 23:20 BP 138/96 H 01/18/25 23:16 Pulse Ox 97 01/18/25 23:20 Labs 01/18/25 21:37 01/18/25 21:37 Labs: Laboratory Results - last 24 hr 01/18/25 01/18/25 01/18/25 21:37 23:00 23:51 WBC 10.24 RBC 4.88 Hgb 13.9 Hct 42.7 MCV 88 MCH 28.5 MCHC 32.6 RDW 16.9 H Plt Count 154 MPV 10.2 Immature Gran % 0.3 Neutrophils % 92.1 Lymphocytes % 4.9 Monocytes % 2.1 Eosinophils % 0.2 Basophils % 0.4 Nucleated RBC % 0.0 Absolute Neutrophils 9.43 H Absolute Lymphocytes 0.50 L Absolute Monocytes 0.22 Absolute Eosinophils 0.02 Absolute Basophils 0.04 VBG Lactate 2.0 Sodium 141 Potassium 3.4 L Chloride 103 Carbon Dioxide 26.3 Anion Gap 11.7 H BUN 22 H Creatinine 0.9 Est GFR (CKD-EPI 2020) 89.62 Glucose 129 H Calcium 9.5 Magnesium 1.8 Total Bilirubin 0.9 AST 27 ALT 26 Alkaline Phosphatase 132 H Troponin I 19 22 Total Protein 7.8 Albumin 4.4 Lipase 37 Urine Color Yellow Urine Clarity Clear Urine pH 8.5 H Ur Specific [place] 1.020 Urine Protein Negative Urine Ketones 15 H Urine Blood Trace-intact H Urine Nitrite Negative Urine Bilirubin Negative Urine Urobilinogen 1.0 H Ur Leukocyte Esterase Negative Urine RBC 0-2 Urine WBC 0-2 Ur Epithelial Cells Negative Urine Crystals Negative Urine Bacteria Rare Urine Casts Negative Urine Mucus Negative Ur Culture Indicated? No Urine Glucose Negative 01/19/25 00:40 WBC RBC Hgb Hct MCV MCH MCHC RDW Plt Count MPV Immature Gran % Neutrophils % Lymphocytes % Monocytes % Eosinophils % Basophils % Nucleated RBC % Absolute Neutrophils Absolute Lymphocytes Absolute Monocytes Absolute Eosinophils Absolute Basophils VBG Lactate Sodium Potassium Chloride Carbon Dioxide Anion Gap BUN Creatinine Est GFR (CKD-EPI 2020) Glucose Calcium Magnesium Total Bilirubin AST ALT Alkaline Phosphatase Troponin I 31 Total Protein Albumin Lipase Urine Color Urine Clarity Urine pH Ur Specific [place] Urine Protein Urine Ketones Urine Blood Urine Nitrite Urine Bilirubin Urine Urobilinogen Ur Leukocyte Esterase Urine RBC Urine WBC Ur Epithelial Cells Urine Crystals Urine Bacteria Urine Casts Urine Mucus Ur Culture Indicated? Urine Glucose Imaging Imaging Studies: Exam: CTA Chest With Contrast CTA Abdomen and Pelvis With Contrast Exam date and time: 01/18/2025 10:24 PM Age: 74 years old Clinical indication: Other: Back pain, vomiting, HX aneurysm repair COMPARISON: CT CHEST/ABD/PEL W 11/02/2020 5:05 PM FINDINGS: VASCULATURE: Pulmonary arteries: Normal. No pulmonary emboli. Aorta: Moderate atherosclerotic calcification throughout the aorta. No aneurysm or dissection. No periaortic fluid or other findings of aortic rupture. Celiac trunk and mesenteric arteries: No occlusion or significant stenosis. Renal arteries: No occlusion or significant stenosis. Right iliac arteries: No occlusion or significant stenosis. Left iliac arteries: No occlusion or significant stenosis. CHEST: Lungs: Unremarkable. No consolidation. No masses. Pleural spaces: Unremarkable. No pneumothorax. No pleural effusion. Heart: Unremarkable. No cardiomegaly. No pericardial effusion. ABDOMEN AND PELVIS: Liver: Multiple scattered cysts throughout the liver appear stable. Liver is otherwise unremarkable. Gallbladder and biliary ducts: Gallbladder is surgically absent. No significant biliary ductal dilation. Pancreas: Unremarkable. No mass. No ductal dilation. Spleen: Unremarkable. No splenomegaly. Adrenal glands: Unremarkable. No mass. Kidneys and ureters: Unremarkable. No solid mass. No hydronephrosis. Stomach and bowel: Unremarkable. No obstruction. No mucosal thickening. Appendix: No evidence of appendicitis. Intraperitoneal space: Unremarkable. No free air. No significant fluid collection. Urinary bladder: Unremarkable. No mass. Reproductive: Brachytherapy pellets noted in the prostate gland. Lymph nodes: Unremarkable. No enlarged lymph nodes. Bones/joints: Moderate dextroscoliosis of the lumbar spine. Moderate to severe degenerative disc changes and facet arthropathy throughout the lower spine. Grade 1 anterolisthesis of L4. Orthopedic hardware produces posterior fusion of L4 and L5. No vertebral body compression or acute fracture. Soft tissues: Unremarkable. IMPRESSION: No acute abnormality. Specifically, no evidence of aortic rupture or dissection. Stable chronic findings as noted.
--- NOTE | 2025-01-19 08:39 | NUR.NOTE ---
Accessed Pt chart to see if antibiotics were prescribed. They were not. Specimen document given to Provider as there was a positive culture.
--- NOTE | 2025-01-19 08:44 | W.ED.FU ---
Date of service: 01/19/25 Time of Service: 08:44 Follow Up Plan: Blood culture results this morning of gram positive cocci in clusters, patient was seen yesterday for some abdominal pain, nausea, intractable back pain was presented for admission and evaluated by hospitalist but wished to be discharged home. I did leave messages at the patient's home and cell phone at [phone] asking him to return calls- needs to return to ED for IV antibiotics for Bacteremia.
== END 2025-01-19 01:50 | disposition home or self-care (01) ==
PROVIDERS: Emergency Provider Registered Nurse Emergency; PCP Nurse Practitioner Adult Health
DX: M54.50 Low back pain, unspecified (principal); R11.2 Nausea with vomiting, unspecified; R10.84 Generalized abdominal pain; I10 Essential (primary) hypertension; E78.5 Hyperlipidemia, unspecified; Z79.82 Long term (current) use of aspirin; Z87.891 Personal history of nicotine dependence
CPT/HCPCS: 00123; 36415; 71275; 80053; 83690; 87040; 87077; 93005; 96361; 96374; 96375; 96376; 99283; 99285; 74174; 81003; 81015; 83605; 83735; 84484; 85025; 87186; 93010; J2270; J2405; J3010; J3490

== ENCOUNTER 2025-01-19 12:29 | Inpatient (IN) | payer MEDICARE, BC, SELFPAY ==
[2025-01-19 12:30] VITALS: BP 103/67; PULSE 73; RESP 20; TEMP 36.3; O2SAT 96
--- NOTE | 2025-01-19 12:39 | W.ED.GENAD ---
Discharge Plan Disposition Patient Disposition: Admit to [facility] Discharge Details Clinical Impression: Gram-positive cocci bacteremia, Acute lactic acidosis, Acute UTI Admit Date/Time: 01/19/25 13:54 Admit Provider: Isaac Farrell Attending Provider: Isaac Farrell Primary Care Provider: Devi Wilkes ED Provider: Fernando Esparza Discharge Data Discharge Date/Time-TO BE ENTERED AT DEPARTURE: 01/19/25 16:07 HPI General Date/Time Provider Initiated Documentation: 01/19/25 12:35. HPI Narrative: MDM This is an overall well-appearing afebrile and not tachycardic but borderline hypotensive 74-year-old male with blood cultures from yesterday evening positive for gram-positive cocci for which patient will receive empiric cefepime and vancomycin along with hospitalization. No pain out of proportion to suggest necrotizing soft tissue infection. Soft nontender abdomen and reassuring CT scan from last night so I am not suspicious for intra-abdominal infection. No cough nor shortness of breath the patient had a CT scan last night making my suspicion low for pneumonia.No dysuria or frequency so my suspicion is low for UTI. Nonetheless we will obtain urinalysis. Will order lactate and 2 sets of new blood cultures. Patient's lactate returned at 3.1 mmol/L. Will order 500 cc of crystalloid. Patient tolerated p.o. so we will also provide oral fluids. Patient has not recently been on chemotherapy to suggest increased risk for neutropenic fever. I considered meningitis however patient reports history of chronic headaches and improving headache status post acetaminophen. Given gram-positive cocci bacteremia and no altered mental status or nuchal rigidity will defer lumbar puncture. In the absence of abdominal or rectal pain I am not suspicious for prostatitis. 1:40 PM Basic metabolic panel shows mild anion gap but normal bicarbonate??not consistent with DKA. Mild bump in renal function since last night. CBC with no significant leukocytosis. No anemia. Mild thrombocytopenia. 2 PM Patient found to have an acute UTI. No flank pain to suggest ureterolithiasis. I was in touch with Dr. Azar graciously agreed to accept the patient for hospitalization. HPI This is a male with a history of prostate issues presenting with abdominal pain, headache, and back pain. History provided by the patient. The patient experienced a sudden onset of abdominal pain on 01/18/2025 around 6:00 PM, rated as 10 on a scale of 10, accompanied by vomiting. The vomiting was primarily due to dry heaves due to an empty stomach. He reports no fevers but has been experiencing hot flashes and occasional night sweats. He reports no dysuria, cough, or sore throat. He has not undergone chemotherapy for his prostate condition but has received radiation therapy. He has a history of chronic headaches and neck pain. He was administered morphine and fentanyl around midnight on 01/18/2025, which provided some relief. On 01/19/2025, he felt well overall, except for a persistent headache. He managed the headache with Tylenol and an ice pack applied to his neck and shoulder, which provided relief. He was called to return to the emergency department in the setting of positive blood cultures growing gram-positive cocci. Exam General: Well-appearing in no acute distress speaking in complete sentences. Head: Normocephalic, atraumatic. Eye: Extraocular eye movements intact. No conjunctival injection. No scleral icterus. Ear, nose, mouth, throat: Grossly normal inspection. Normal voice, handling secretions normally. Neck: Trachea midline. No nuchal rigidity. Cardiovascular: Well-perfused distal extremities. Regular rate. Respiratory: Nonlabored respiration. Clear lungs. Gastrointestinal: Nondistended abdomen. Soft. Nontender. Musculoskeletal: No edema. Moving all 4 extremities spontaneously. Skin: Normal for age and race, grossly normal temperature and turgor. No acute rash. Neurologic: Alert and appropriate, no apparent acute deficits. GCS 15. Psychiatric: Mood and manner are appropriate. Grooming and personal hygiene are appropriate. Related Data Home Medications ?Medication ?Instructions ?Recorded ?Confirmed aspirin 81 mg tablet,delayed 81 mg PO DAILY 11/22/18 01/19/25 release (Adult Low Dose Aspirin) cholecalciferol (vitamin D3) 50 4,000 unit PO DAILY 02/13/20 01/19/25 mcg (2,000 unit) capsule (Vitamin D3) acetaminophen 500 mg tablet 1,000 mg (2 x 500 mg) PO TID #90 07/04/22 01/19/25 tabs sertraline 50 mg tablet See Rx Instructions .Route 05/22/24 01/19/25 .COMPLEX #90 tabs simvastatin 20 mg tablet See Rx Instructions .Route 08/20/24 01/19/25 .COMPLEX #90 tabs lorazepam 1 mg tablet 1 - 2 mg (1 - 2 x 1 mg) PO DAILY 09/18/24 01/19/25 PRN anxiety #4 tab-caps pantoprazole 40 mg tablet,delayed See Rx Instructions .Route 09/18/24 01/19/25 release .COMPLEX #90 tabs losartan 100 mg tablet 100 mg PO DAILY #90 tabs 11/17/24 01/19/25 leuprolide 7.5 mg intramuscular 7.5 mg IM Q4W 11/27/24 01/19/25 syringe kit (Lupron Depot) ferrous sulfate 325 mg (65 mg 325 mg PO DAILY 12/16/24 01/19/25 iron) tablet amlodipine 5 mg tablet 5 mg PO DAILY #90 tabs 12/17/24 01/19/25 tramadol 50 mg tablet 50 mg PO Q6H PRN pain #15 tabs 12/17/24 01/19/25 Previous Rx's ?Medication ?Instructions ?Recorded acetaminophen 500 mg tablet 1,000 mg (2 x 500 mg) PO TID #90 07/04/22 tabs sertraline 50 mg tablet See Rx Instructions .Route 05/22/24 .COMPLEX #90 tabs simvastatin 20 mg tablet See Rx Instructions .Route 08/20/24 .COMPLEX #90 tabs lorazepam 1 mg tablet 1 - 2 mg (1 - 2 x 1 mg) PO DAILY 09/18/24 PRN anxiety #4 tab-caps pantoprazole 40 mg tablet,delayed See Rx Instructions .Route 09/18/24 release .COMPLEX #90 tabs losartan 100 mg tablet 100 mg PO DAILY #90 tabs 11/17/24 amlodipine 5 mg tablet 5 mg PO DAILY #90 tabs 12/17/24 tramadol 50 mg tablet 50 mg PO Q6H PRN pain #15 tabs 12/17/24 Allergies Allergy/AdvReac Type Severity Reaction Status Date / Time No Known Allergies Allergy Verified 01/18/25 21:19 General Stated Complaint: Recheck GRISEL: 3 Course Vital Signs Vital signs: Vital Signs Temperature 36.3 C L 01/19/25 12:30 Pulse 73 01/19/25 12:30 Respiratory Rate 20 01/19/25 12:30 Blood Pressure 103/67 01/19/25 12:30 Pulse Oximetry 96 01/19/25 12:30 Temperature 36.3 C L 01/19/25 12:30 Temperature Source Oral 01/19/25 12:30 Pulse 73 01/19/25 12:30 Respiratory Rate 20 01/19/25 12:30 Blood Pressure 103/67 01/19/25 12:30 Blood Pressure Position Sitting 01/19/25 12:30 Pulse Oximetry 96 01/19/25 12:30 Oxygen Delivery Method Room Air 01/19/25 12:30 Oxygen Flow Rate 0 01/19/25 12:30 Pain Level 0 01/19/25 12:30 PFSH All Active Problems (Updated 01/19/25 @ 14:01 by Fernando Esparza MD) Acute UTI (Acute) Acute lactic acidosis (Acute) Gram-positive cocci bacteremia (Acute) Back pain (Acute) Vomiting (Acute) Abdominal pain (Acute) Anemia (Chronic ~08/2024) Iron def with low retic count Diverticulosis of sigmoid colon (Acute ~10/2024) Cervicalgia (Acute) [facility] note 10/28/24. Cervical spondylosis (Acute) [facility] Ctr Pain and SPine note 10/28/24 Premature ventricular contraction (Acute ~10/17/24) [facility] Cardio 10/21/24 Prostate cancer (Chronic) 11/21/24 [facility] Rad/Onc Radiculopathy, cervical region (Acute) 08/19/24 Pain/Spine Ctr Nonunion of subtalar arthrodesis (Acute) [facility] Orthopaedics 04/15/24 IFG (impaired fasting glucose) (Acute) Seen on 03/2023 labs --> needs an A1c at NOV Arthritis of right ankle (Acute) Most recent Depo-Medrol injection: 03/26/2023 Essential hypertension (Acute) Aortic aneurysm of unspecified site, without rupture (Chronic 12/12/19) S/p tube grafting in 2009 Essential tremor (Chronic) Chronic left hip pain (Chronic) Ventral hernia (Chronic 11/28/11) Temporomandibular joint disorders, unspecified (Chronic 11/28/11) Spinal stenosis (Chronic 11/28/11) [facility] L4-5 laminectomy 11/2013 Dr Rascon [facility] pain clinic: median nerve branch block 2014 Sensorineural hearing loss, bilateral (Chronic 11/06/12) hearing aide Rosacea (Chronic 11/28/11) 08/05/20 [facility] Derm Insomnia, unspecified (Chronic 11/06/12) Hyperlipidemia (Chronic 11/28/11) Generalized osteoarthritis (Chronic 04/30/13) Gastroesophageal reflux disease (Chronic 12/22/15) EGD 2010 [facility] Chronic pain (Chronic 05/15/14) Spinal stenosis; cervical arthropathy BPH w/o urinary obs/LUTS (Chronic 11/28/11) S/P TURP 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 Followed by Dr Ríos CT surgery. [facility] rec Abx prophylaxis 01/14/20 [facility] Cardiac Cath, 02/04/20-TAVR [facility] Anxiety disorder, unspecified (Chronic 01/31/17) Long-term Sertraline (psychiatrist remotely) Medical History Elevated PSA, greater than or equal to 20 ng/ml (~06/2024) Tubular adenoma COVID (~06/2024) Anxiety with flying Intermittent Lorazepam RX Seborrheic keratoses Multiple fractures of ribs of right side Aortic stenosis (02/04/20) S/p TAVR 02/04/20 09/02/21 F/U Dr Albright Nondependent alcohol abuse, 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/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) Actinic keratosis (03/20/12) Surgical History H/O colonoscopy (10/31/24) [facility] [place]-w/polypectomy tubular adenoma History of ankle surgery (~03/17/24) [facility] Ortho 04/02/24 Arthroscopy w/ extensive debridement, subtalar joint fusion, Brostrom stabilization w/ internal brace augmentation, peroneus longus debridement, peroneus brevis tenolysis Hx of hernia repair (1999) Status post cholecystectomy (~1989) History of total right knee replacement (11/16/21) lumbar/sacral medial branch blocks (02/24/15) Dr Caputo Transurethral prostatectomy (~2000) For BPH SI joint injection (04/23/17) L side, Dr. Caputo EGD (07/19/11) Replacement of aortic valve (~11/2009) Bioprosthetic AVR & ascending aorta replacement at [facility] Family History Mother Diabetes Heart disease Father Heart disease Multiple sclerosis Sister Diabetes Social History Smoking/Tobacco Use Status: Former Tobacco Use Quit Date: 07/30/00 Smokeless tobacco user: snuff Smoking risk assessment performed?: Yes Alcohol Intake: former Drug use: Never Substance use type: does not use Adopted: No Caregiver/Support person: No Foster care: No Household members: spouse Housing: house Number of Children: 2 Communication Needs: None Education Level: college current occupation: retired Current gender identity: male What type of physical activity do you participate in: walking Duration: 60-90 minutes/day Frequency: daily Seatbelt use: always Helmet use: Yes Drive intox or ride w/intox motor vehicle escort driver: No Water heater temp set <120 deg: Yes Working smoke detector in home: Yes Fire extinguisher in home: Yes Carbon monox detector in home: Yes Firearms in home: Yes Firearms unloaded and locked: Yes Do you feel safe at home: Yes Do you feel safe in your relationship?: Yes
[2025-01-19] MEDS: Normal Saline 500 ML 1000 ML IV (13:01)
[2025-01-19 13:04] LABS: Abs Immature Grans 0.18 10^3/uL (0.0-0.06); HCT 43.9 % (40.0-50.0); HGB 14.0 g/dL (13.5-17.5); Immature Grans % 1.1 %; MCH 28.5 pg (27.0-33.0); MCHC 31.9 % (32.0-36.0); MCV 89 fL (80-95); MPV 10.3 fL (8.0-11.0); Platelet Count 126 10^3/uL (130-400); RBC 4.92 10^6/uL (4.36-5.78); RDW 17.7 % (11.8-14.1); RDW-SD 57.9 fL; WBC 16.51 10^3/uL (4.4-10.8)
[2025-01-19] MEDS: CEFEPIME 2 GM in Normal Saline 100 ML IVPB ×2 (13:05→23:05)
[2025-01-19 13:20] LABS: Anion Gap 12.0 mmol/L (3-11); BUN 29 mg/dL (7-18); CO2 26.0 mmol/L (21.0-32.0); Calcium 9.2 mg/dL (8.5-10.1); Chloride 100 mmol/L (98-107); Estimated GFR 63.46 (mL/min/1.73m2); Glucose 110 mg/dL (74-106); Potassium 3.9 mmol/L (3.5-5.1); Sodium 138 mmol/L (136-145)
[2025-01-19 13:51] LABS: Glucose Negative (Negative)
[2025-01-19] MEDS: VANCOMYCIN/WATER (PEG) 1.75 GM/350 ML BAG IVPB (13:58)
[2025-01-19 13:59] VITALS: BP 122/66; PULSE 67; RESP 18; O2SAT 96
[2025-01-19 14:23] LABS: RBC 0-2 HPF (0-2); WBC 0-2 HPF (0-5)
[2025-01-19 14:26] LABS: C & S Indicated? No
[2025-01-19 14:46] VITALS: BP 124/76; PULSE 82; RESP 18; O2SAT 96
[2025-01-19] MEDS: MORPHine 4 MG/ML SYR IVP (15:00)
[2025-01-19] MEDS: Enoxaparin 40 MG/0.4 ML SYR SC (15:00)
[2025-01-19] MEDS: Ondansetron 4 MG/2 ML VIAL IVP (15:01)
[2025-01-19] MEDS: Lactated Ringers 1,000 ML 1000 ML IV (15:01)
[2025-01-19 16:28] VITALS: BP 92/60; PULSE 72; RESP 18; TEMP 38.3; O2SAT 94
--- NOTE | 2025-01-19 17:41 | W.PC.ACHO ---
Registration Status: ADM IN Primary Language: Preferred Language: Maltese ED Information & Data Chief Complaint Recheck 01/19/25 12:39 Triage Note Pt was seen yesterday. 01/19/25 12:30 Reports was advised to come back to the ED d/t positive blood cultures. A/OX4, reports feeling a bit tired due to being up many hours last night here in the ED, but otherwise ok. Medical / Surgical History (Last Reviewed 01/18/25 @ 21:37 by Gia Childress NP) Elevated PSA, greater than or equal to 20 ng/ml (~06/2024) Tubular adenoma COVID (~06/2024) Anxiety with flying Seborrheic keratoses Multiple fractures of ribs of right side Aortic stenosis (02/04/20) Nondependent alcohol abuse, 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/28/11) Actinic keratosis (03/20/12) (Last Reviewed 01/18/25 @ 21:37 by Gia Childress NP) H/O colonoscopy (10/31/24) History of ankle surgery (~03/17/24) Hx of hernia repair (1999) Status post cholecystectomy (~1989) History of total right knee replacement (11/16/21) lumbar/sacral medial branch blocks (02/24/15) Transurethral prostatectomy (~2000) SI joint injection (04/23/17) EGD (07/19/11) Replacement of aortic valve (~11/2009) Most Recent Vital Signs Temperature 100.9 F H 01/19/25 16:28 Temperature Source Temporal Artery Scan 01/19/25 16:28 Pulse 72 01/19/25 16:28 Pulse Rhythm Regular 01/19/25 16:28 Respiratory Rate 18 01/19/25 16:28 Respiratory Effort Normal, Non-Labored 01/19/25 16:28 Respiratory Depth Normal 01/19/25 16:28 Respiratory Pattern Normal 01/19/25 16:28 Blood Pressure 92/60 L 01/19/25 16:28 Blood Pressure Mean 70 01/19/25 16:28 Blood Pressure Position Sitting 01/19/25 12:30 Pulse Oximetry 94 01/19/25 16:28 Oxygen Delivery Method Room Air 01/19/25 16:28 Oxygen Flow Rate 0 01/19/25 16:28 Pain Level 8 01/19/25 16:28 Allergies No Known Allergies Allergy (Verified 01/18/25 21:19) Active Medications Generic Name Dose Route Start Last Admin Trade Name Timq PRN Reason Stop Dose Admin Enoxaparin Sodium 40 mg 01/19/25 14:00 01/19/25 15:00 Enoxaparin 40 Mg/0.4 Ml Syr SC 40 mg Q24H JUAN J Administration Vancomycin/PEG/NADA/Lysine/Water 1.75 gm in 350 mls @ 175 mls/hr 01/19/25 13:15 01/19/25 13:58 Vancocin Injection IVPB 175 mls/hr ONCE JUAN J Administration IV IV Catheter Type [Left Peripheral IV Antecubital] IV Catheter Gauge [Left 20 Antecubital] Diet Orders Category Date Time Status Regular/Normal [DIET] Nutrition 01/19/25 Dinner Active Diagnostics 01/19/25 01/19/25 Range/Units 13:40 12:50 WBC 16.51 H (4.4-10.8) 10^3/uL RBC 4.92 (4.36-5.78) 10^6/uL Hgb 14.0 (13.5-17.5) g/dL Hct 43.9 (40.0-50.0) % MCV 89 (80-95) fL MCH 28.5 (27.0-33.0) pg MCHC 31.9 L (32.0-36.0) % RDW 17.7 H (11.8-14.1) % Plt Count 126 L (130-400) 10^3/uL MPV 10.3 (8.0-11.0) fL Immature Gran % 1.1 % Neutrophils % 96.0 % Lymphocytes % 1.6 % Monocytes % 1.0 % Eosinophils % 0.0 % Basophils % 0.3 % Nucleated RBC % 0.0 (0.0-0.3) % Absolute Neutrophils 15.85 H (1.2-6.7) 10^3/uL Absolute Lymphocytes 0.26 L (1.2-3.4) 10^3/uL Absolute Monocytes 0.17 (0.1-0.8) 10^3/uL Absolute Eosinophils 0.00 (0.0-0.7) 10^3/uL Absolute Basophils 0.05 (0.0-0.2) 10^3/uL VBG Lactate 3.1 H* (<or=2.0) mmol/L Sodium 138 (136-145) mmol/L Potassium 3.9 (3.5-5.1) mmol/L Chloride 100 (98-107) mmol/L Carbon Dioxide 26.0 (21.0-32.0) mmol/L Anion Gap 12.0 H (3-11) mmol/L BUN 29 H (7-18) mg/dL Creatinine 1.2 (0.70-1.30) mg/dL Est GFR (CKD-EPI 2020) 63.46 (mL/min/1.73m2) Glucose 110 H (74-106) mg/dL Calcium 9.2 (8.5-10.1) mg/dL Urine Color Yellow (Yellow) Urine Clarity Clear (Clear) Urine pH 5.5 (5-8) Ur Specific [place] >= 1.030 H (1.005-1.025) Urine Protein 100 H (Neg-Trace) mg/dL Urine Ketones Negative (Negative) mg/dL Urine Blood Trace-intact H (Negative) Urine Nitrite Positive H (Negative) Urine Bilirubin Small H (Negative) Urine Urobilinogen 1.0 H (Up to 0.2) mg/dL Ur Leukocyte Esterase Negative (Negative) Urine RBC 0-2 (0-2) HPF Urine WBC 0-2 (0-5) HPF Ur Epithelial Cells Negative (Negative) HPF Urine Crystals Negative (Negative) HPF Urine Bacteria Few (Negative) HPF Urine Casts 0-2 Hyaline (Negative) LPF Urine Mucus Moderate (Negative) Ur Culture Indicated? No Urine Glucose Negative (Negative) mg/dL 01/19/25 13:04 Blood Culture - Pending Blood 01/19/25 12:50 Blood Culture - Pending Blood Intake and Output - 24 Hour Total 01/19/25 12:29 thru 01/19/25 16:28 Weight 190 lb Falls Risk Assessment History of Falls Previous History 01/19/25 16:28 Contributing Factors No Factors 01/19/25 16:28 Ambulatory Aids Independent 01/19/25 16:28 Tubes/Lines None 01/19/25 16:28 Gait Evaluation No gait disturbance 01/19/25 16:28 Cognition No cognitive impairment 01/19/25 16:28 Fall Total Score 15 01/19/25 16:28 Level of Risk Standard/Low Risk 01/19/25 16:28 Problems (Last Reviewed 01/18/25 @ 21:37 by Gia Childress NP) Acute UTI (Acute) Acute lactic acidosis (Acute) Gram-positive cocci bacteremia (Acute) v v v v v v v v v Sending and/or Receiving Nurses: Please use comment section below to note any information pertinent to the patient hand-off not included above. Information / Comments: Report received from: ALEC Baez
--- NOTE | 2025-01-19 17:44 | W.PM.HP.N ---
Date of service: 01/28/25 Time of Service: 17:44 Assessment and Plan Assessment and plan (1) Gram-positive cocci bacteremia: Status: Acute Assessment and plan: Unclear source. Negative CT C/A/P. Urine not c/w UTI, not symptoms of prostatitis With abnormal valve, must consider endocarditis, get echo Get CRP in case we need to follow for response to therapy (2) Severe sepsis: Status: Acute Assessment and plan: Met criteria with elevated RR, WBC on presentation with elevated lactate. Given a liter of fluid, follow lactate/CBC Clinical appearance reassuring. (3) Aortic valve disorder: Status: Chronic Assessment and plan: No clinical signs CHF. Repeat echo as above. Even if TTE negative, if staph may need GOKUL. (4) Prostate cancer: Status: Chronic Assessment and plan: On Lupron therapy, no recent biospsy or radiation. (5) Chronic pain: Status: Chronic Assessment and plan: chronic tramadol. With being in hospital pain may be worse, oxycodone prn. (6) DVT prophylaxis: Status: Acute Assessment and plan: enoxaparin (7) Discharge planning issues: Status: Acute Assessment and plan: I would like to see culture results to guide therapy before discharge. History of Present Illness History of Present Illness Chief Complaint: body pain, positive blood culture Narrative: 73-year-old male with past medical history of chronic multifactorial MSK pain including cervical and lumbar spinal disease, bioprosthetic aortic valve placement and surgery on ascending aortic aneurysm in 2009, and TAVR in 2020, essential tremor, hyperlipidemia, hypertension and prostate cancer on androgen deprivation who initially presented 01/18 with acute worsening of his low back, shoulder, neck pain and headache associated with nausea and chills. Admission was considered but he was discharged home after CTA C/A/P non-revealing and pain imrpoved with IV fentanyl. He was called today when blood cultures returned GPC. Today he still has some neck pain and back pain and mild headache. He does not have any pain with urination or other urine changes. No fevers currently. He has been eating and drinking. No chest pain or shortness or breath. He has not had recent invasive procedures. Had Lupron shot last week, dye for PET/CT at last week as well. He has chronic joint pains in ankles, hips, back, neck, shoulders, but has not noted focal redness or swelling. His PACHECO is left sided at his jaw to moravian, which is typical for him. He has had no stool changes or diarrhea. His nausea from last night has resolved. Review of Systems All systems reviewed & are unremarkable except as noted in HPI and below PFSH All Active Problems (Updated 01/19/25 @ 18:49 by Fernando Azar) Discharge planning issues (Acute) DVT prophylaxis (Acute) Severe sepsis (Acute) Acute UTI (Acute) Acute lactic acidosis (Acute) Gram-positive cocci bacteremia (Acute) Back pain (Acute) Vomiting (Acute) Abdominal pain (Acute) Anemia (Chronic ~08/2024) Iron def with low retic count Diverticulosis of sigmoid colon (Acute ~10/2024) Cervicalgia (Acute) [facility] note 10/28/24. Cervical spondylosis (Acute) [facility] Ctr Pain and SPine note 10/28/24 Premature ventricular contraction (Acute ~10/17/24) [facility] Cardio 10/21/24 Prostate cancer (Chronic) 11/21/24 [facility] Rad/Onc Radiculopathy, cervical region (Acute) 08/19/24 Pain/Spine Ctr Nonunion of subtalar arthrodesis (Acute) [facility] Orthopaedics 04/15/24 IFG (impaired fasting glucose) (Acute) Seen on 03/2023 labs --> needs an A1c at NOV Arthritis of right ankle (Acute) Most recent Depo-Medrol injection: 03/26/2023 Essential hypertension (Acute) Aortic aneurysm of unspecified site, without rupture (Chronic 12/12/19) S/p tube grafting in 2009 Essential tremor (Chronic) Chronic left hip pain (Chronic) Ventral hernia (Chronic 11/28/11) Temporomandibular joint disorders, unspecified (Chronic 11/28/11) Spinal stenosis (Chronic 11/28/11) [facility] L4-5 laminectomy 11/2013 Dr Rascon [facility] pain clinic: median nerve branch block 2014 Sensorineural hearing loss, bilateral (Chronic 11/06/12) hearing aide Rosacea (Chronic 11/28/11) 08/05/20 [facility] Derm Insomnia, unspecified (Chronic 11/06/12) Hyperlipidemia (Chronic 11/28/11) Generalized osteoarthritis (Chronic 04/30/13) Gastroesophageal reflux disease (Chronic 12/22/15) EGD 2010 [facility] Chronic pain (Chronic 05/15/14) Spinal stenosis; cervical arthropathy BPH w/o urinary obs/LUTS (Chronic 11/28/11) S/P TURP Arthropathy of cervical spine (Chronic 11/28/11) Cervical arthropathy RFx2 Aortic valve disorder (Chronic 11/06/12) 11/2009 bioprosthetic AVR/Ascending Aorta replacement [facility]. Followed by Dr Ríos CT surgery. [facility] rec Abx prophylaxis 01/14/20 [facility] Cardiac Cath, 02/04/20-TAVR [facility] Anxiety disorder, unspecified (Chronic 01/31/17) Long-term Sertraline (psychiatrist remotely) Medical History Tubular adenoma COVID (~06/2024) Elevated PSA, greater than or equal to 20 ng/ml (~06/2024) Anxiety with flying Intermittent Lorazepam RX Seborrheic keratoses Multiple fractures of ribs of right side Aortic stenosis (02/04/20) S/p TAVR 02/04/20 09/02/21 F/U Dr Albright Nondependent alcohol abuse, 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/28/11) Actinic keratosis (03/20/12) Surgical History H/O colonoscopy (10/31/24) [facility] tubular adenoma History of ankle surgery (~03/17/24) [facility] Ortho 04/02/24 Arthroscopy w/ extensive debridement, subtalar joint fusion, Brostrom stabilization w/ internal brace augmentation, peroneus longus debridement, peroneus brevis tenolysis Hx of hernia repair (1999) Status post cholecystectomy (~1989) History of total right knee replacement (11/16/21) lumbar/sacral medial branch blocks (02/24/15) Dr Caputo Transurethral prostatectomy (~2000) For BPH SI joint injection (04/23/17) L side, Dr. Caputo EGD (07/19/11) Replacement of aortic valve (~11/2009) Bioprosthetic AVR & ascending aorta replacement at [facility] Family History Mother Diabetes Heart disease Father Heart disease Multiple sclerosis Sister Diabetes Social History (Updated 01/19/25 @ 18:44 by Fernando Azar) Smoking/Tobacco Use Status: Former Tobacco Use Quit Date: 07/30/00 Smokeless tobacco user: snuff Smoking risk assessment performed?: Yes Alcohol Intake: former Drug use: Never Substance use type: does not use Adopted: No Caregiver/Support person: No Foster care: No Household members: spouse Housing: house Number of Children: 2 Communication Needs: None Education Level: college current occupation: retired Current gender identity: male What type of physical activity do you participate in: walking Duration: 60-90 minutes/day Frequency: daily Seatbelt use: always Helmet use: Yes Drive intox or ride w/intox carry all driver: No Water heater temp set <120 deg: Yes Working smoke detector in home: Yes Fire extinguisher in home: Yes Carbon monox detector in home: Yes Firearms in home: Yes Firearms unloaded and locked: Yes Do you feel safe at home: Yes Do you feel safe in your relationship?: Yes Additional Social history: Retired, lives with in [facility] Allergies and Home Medications Allergies Allergy/AdvReac Type Severity Reaction Status Date / Time No Known Allergies Allergy Verified 01/18/25 21:19 Home Medications ?Medication ?Instructions ?Recorded ?Confirmed ?Type aspirin 81 mg tablet,delayed 81 mg PO DAILY 11/22/18 01/19/25 History release (Adult Low Dose Aspirin) cholecalciferol (vitamin D3) 50 4,000 unit PO DAILY 02/13/20 01/19/25 History mcg (2,000 unit) capsule (Vitamin D3) acetaminophen 500 mg tablet 1,000 mg (2 x 500 mg) PO TID #90 07/04/22 01/19/25 Rx tabs sertraline 50 mg tablet See Rx Instructions .Route 05/22/24 01/19/25 Rx .COMPLEX #90 tabs simvastatin 20 mg tablet See Rx Instructions .Route 08/20/24 01/19/25 Rx .COMPLEX #90 tabs lorazepam 1 mg tablet 1 - 2 mg (1 - 2 x 1 mg) PO DAILY 09/18/24 01/19/25 Rx PRN anxiety #4 tab-caps pantoprazole 40 mg tablet,delayed See Rx Instructions .Route 09/18/24 01/19/25 Rx release .COMPLEX #90 tabs losartan 100 mg tablet 100 mg PO DAILY #90 tabs 04/21/25 06/23/25 Rx leuprolide 7.5 mg intramuscular 7.5 mg IM Q4W 11/27/24 01/19/25 History syringe kit (Lupron Depot) ferrous sulfate 325 mg (65 mg 325 mg PO DAILY 12/16/24 01/19/25 History iron) tablet amlodipine 5 mg tablet 5 mg PO DAILY #90 tabs 12/17/24 01/19/25 Rx tramadol 50 mg tablet 50 mg PO Q6H PRN pain #15 tabs 12/17/24 01/19/25 Rx Exam Narrative Exam Narrative: GEN: Alert and oriented x 4, pleasant and cooperative, gives linear history. No acute distress at rest. HEENT: Head atraumatic. Conjunctiva clear, no icterus. PEERL, EOMI. no rhinorrhea. MMM, OP benign. Neck is supple with no masses or lymphadenopathy, trachea midline. Limited rotation with pain, but states this is chronic. LUNGS: CTAB with normal effort CV: RRR with 2/6 systolic murmur audible throughout. No gallops, or rubs. ABD: active bowel sounds, soft, nontender and nondistended. No masses. EXT: no cyanosis, clubbing, or edema MSK: No joint redness or swelling. No spinal point tenderness. NEURO: CN 2-12 grossly intact. Normal movement of 4 extremities. Normal speech and coordination. No tremor SKIN: No rashes or open wounds. PSYCH: normal mood and affect Results Imaging Abdomen CT scan report/results: report reviewed CT scan - chest: report reviewed CT scan - pelvis: report reviewed Imaging Studies: CTA chest/abd/pelvis 01/18: . No evidence of pulmonary embolism or aortic dissection. 2. No acute abdominal or pelvic process. Labs 01/19/25 12:50 01/19/25 12:50 Labs: Laboratory Results - last 24 hr 01/19/25 01/19/25 12:50 13:40 WBC 16.51 H RBC 4.92 Hgb 14.0 Hct 43.9 MCV 89 MCH 28.5 MCHC 31.9 L RDW 17.7 H Plt Count 126 L MPV 10.3 Immature Gran % 1.1 Neutrophils % 96.0 Lymphocytes % 1.6 Monocytes % 1.0 Eosinophils % 0.0 Basophils % 0.3 Nucleated RBC % 0.0 Absolute Neutrophils 15.85 H Absolute Lymphocytes 0.26 L Absolute Monocytes 0.17 Absolute Eosinophils 0.00 Absolute Basophils 0.05 VBG Lactate 3.1 H* Sodium 138 Potassium 3.9 Chloride 100 Carbon Dioxide 26.0 Anion Gap 12.0 H BUN 29 H Creatinine 1.2 Est GFR (CKD-EPI 2020) 63.46 Glucose 110 H Calcium 9.2 Urine Color Yellow Urine Clarity Clear Urine pH 5.5 Ur Specific [place] >= 1.030 H Urine Protein 100 H Urine Ketones Negative Urine Blood Trace-intact H Urine Nitrite Positive H Urine Bilirubin Small H Urine Urobilinogen 1.0 H Ur Leukocyte Esterase Negative Urine RBC 0-2 Urine WBC 0-2 Ur Epithelial Cells Negative Urine Crystals Negative Urine Bacteria Few Urine Casts 0-2 Hyaline Urine Mucus Moderate Ur Culture Indicated? No Urine Glucose Negative Last Vital Signs Temp 38.3 C H 01/19/25 16:28 Pulse 72 01/19/25 16:28 Resp 18 01/19/25 16:28 BP 92/60 L 01/19/25 16:28 Pulse Ox 94 01/19/25 16:28 Time Spent Time spent with Patient: 55-74 minutes Time was spent: preparing to see the patient(eg.review tests), obtaining and/or reviewing separately otained hiistory, ordering medications,tests, procedures, referring, communicating with other health life care planner, indepentently interpreting results, counseling the patient and care coordination
[2025-01-19] MEDS: Acetaminophen 325 MG TAB PO (19:20)
[2025-01-19] MEDS: oxyCODONE 5 MG TAB PO ×2 (19:20→23:31)
[2025-01-19] MEDS: Simvastatin 20 MG TAB PO (19:21)
[2025-01-19 19:52] VITALS: BP 94/65; PULSE 59; RESP 19; TEMP 36.5; O2SAT 93
[2025-01-19 23:26] VITALS: BP 95/69; PULSE 58; RESP 18; TEMP 36.2; O2SAT 94
[2025-01-19] MEDS: LORazepam 1 MG TAB PO (23:31)
[2025-01-20 04:11] VITALS: BP 100/64; PULSE 62; RESP 18; TEMP 36.2; O2SAT 94
[2025-01-20] MEDS: oxyCODONE 5 MG TAB PO ×4 (04:46→21:00)
[2025-01-20] MEDS: Acetaminophen 325 MG TAB PO ×4 (04:47→20:59)
[2025-01-20] MEDS: CEFEPIME 2 GM in Normal Saline 100 ML IVPB ×3 (05:24→21:01)
[2025-01-20 06:54] LABS: Abs Immature Grans 0.12 10^3/uL (0.0-0.06); HCT 36.0 % (40.0-50.0); HGB 11.5 g/dL (13.5-17.5); Immature Grans % 0.9 %; MCH 28.7 pg (27.0-33.0); MCHC 31.9 % (32.0-36.0); MCV 90 fL (80-95); MPV 11.1 fL (8.0-11.0); RBC 4.01 10^6/uL (4.36-5.78); RDW 17.8 % (11.8-14.1); RDW-SD 58.8 fL; WBC 13.49 10^3/uL (4.4-10.8)
[2025-01-20 07:09] LABS: ALT 23 U/L (16-63); AST 29 U/L (15-37); Albumin 2.9 g/dL (3.4-5.0); Alkaline Phosphatase 70 U/L (46-116); Anion Gap 7.5 mmol/L (3-11); BUN 34 mg/dL (7-18); Bilirubin, Total 0.9 mg/dL (0.2-1.0); C-Reactive Protein 19.52 mg/dL (<or=0.5); CO2 26.5 mmol/L (21.0-32.0); Calcium 8.3 mg/dL (8.5-10.1); Chloride 101 mmol/L (98-107); Estimated GFR 70.44 (mL/min/1.73m2); Glucose 95 mg/dL (74-106); Magnesium 1.9 mg/dL (1.8-2.4); Potassium 3.8 mmol/L (3.5-5.1); Sodium 135 mmol/L (136-145); Total Protein 6.1 g/dL (6.4-8.2)
[2025-01-20 07:28] LABS: Platelet Count 87 10^3/uL (130-400)
[2025-01-20 07:30] VITALS: BP 104/62; PULSE 63; RESP 18; TEMP 36.8; O2SAT 96
[2025-01-20] MEDS: Aspirin E.C. 81 MG TABEC PO (08:06)
[2025-01-20] MEDS: Sertraline 50 MG TAB PO (08:06)
[2025-01-20] MEDS: Losartan 50 MG TAB 100 MG PO (08:06)
[2025-01-20] MEDS: Pantoprazole 40 MG TABCR PO (08:06)
[2025-01-20] MEDS: Cholecalciferol (Vitamin D3) 1,000 UNIT TAB 2000 UNITS PO (08:06)
[2025-01-20] MEDS: amLODIPine 5 MG TAB PO (08:07)
[2025-01-20 08:56] LABS: Vancomycin, Random 6.4 ug/mL
--- NOTE | 2025-01-20 09:42 | PDOC.CMIN ---
Date of service: 01/20/25 Time of Service: 09:43 Care Management Initial Assmt Initial Assessment Reason for Hospitalization: Gram positive bacteremia, Severe Sepsis Functional Status/Living Situation Patient Presentation: Car was lying in his bed and visiting with his , who was in the room, when CM arrived. He presented to the ED with a chief complaint of lower back pain, nausea, and vomiting. Car lives in a single family home, in [place]. He reports that in his home, he has a handicap equip bathroom and entrance; He has stairs to the basement but none to enter his home. Car states, he has a daughter that lives locally and one living in [place]. At baseline, Car is independent with ADL's, including driving. He has worked with [facility] for outpatient PT, in the past; He states, he has had mixed experiences with them, so does not wish to further participate in PT. In addition, he states, he is a patient at the [facility], for his neck and back pain, he is unsure of the provider he sees. CM will continue to follow. 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 ) Instrumental Activities of Daily Living (ADLs): Independent Medications Medication Management: No Issues/Barriers identified Advance Directives Advance Directives: Do you have an Advance Directive: Y 09/05/24, 17:59 AD On File at [facility]: Y 09/05/24, 17:59 Date Asked 09/05/24 09/05/24, 15:39 AD Date Reviewed 01/18/25 01/18/25, 21:12 COLST On File at [facility] COLST Date Scanned Code Status Resuscitation Status Full Code Portal Pt does not currently have a portal and education provided: Yes Insurance Coverage/Financial Issues Insurance: Medicare Part A & B - [id number] /[facility] - [id number] Care Team Visit Care Team Role Provider Type Devi Wilkes NP Primary Care Provider NURSE PRACTITIONER Fernando Esparza MD Emergency Provider [facility] STAFF PHYSICIAN Fernando Azar Admit Provider [facility] STAFF PHYSICIAN Attending Provider Discharge Potential Discharge Needs: PCP F/U Appt Anticipated Barriers to Discharge: Medical Status Patient/Family Education Needs: Review discharge instructions, discuss Ask Me Three Transportation: Private vehicle Plan: Anticipate, Car will be discharged home, once medically cleared. He will follow up with his community providers and continue per his plan of care. Car will transport via private vehicle by family. CM will continue to follow. Social Determinants of Health Screening Social Determinants of health last assessed in clinic: 01/20/25 Will the Patient Participate in the Screening?: Yes Do you worry about having a steady place to live?: no Problems where you live: no known problems In the past 12 months, have you had to go without electric, gas, oil or water in your home?: no 1. Within the past 12 months, we worried whether our food would run out before we got money to buy more.: Never true 2. Within the past 12 months, the food we bought just didn't last and we didn't have money to get more.: Never true Has lack of transportation kept you from medical appointments or from doing things needed for daily living?: no Has anyone in your life made you feel unsafe or unsupported?: no How hard is it for you to pay for the very basics like food, housing, medical care, and heating? Would you say it is:: Not hard at all Do you want help finding or keeping work or a job?: I do not need or want help If for any reason you need help with day-to-day activities such as bathing, preparing meals, shopping, managing finances, etc., do you get the help you need?: I don?t need any help How often do you feel lonely or isolated from those around you?: Never Do you speak a language other than Maltese at home?: No Does the patient want assistance with any of the above?: No PFSH All Active Problems (Updated 01/19/25 @ 18:49 by Fernando Azar) Discharge planning issues (Acute) DVT prophylaxis (Acute) Severe sepsis (Acute) Acute UTI (Acute) Acute lactic acidosis (Acute) Gram-positive cocci bacteremia (Acute) Back pain (Acute) Vomiting (Acute) Abdominal pain (Acute) Anemia (Chronic ~08/2024) Iron def with low retic count Diverticulosis of sigmoid colon (Acute ~10/2024) Cervicalgia (Acute) [facility] note 10/28/24. Cervical spondylosis (Acute) [facility] C[facility] Pain and SPine note 10/28/24 Premature ventricular contraction (Acute ~10/17/24) [facility] Cardio 10/21/24 Prostate cancer (Chronic) 11/21/24 [facility] Rad/Onc Radiculopathy, cervical region (Acute) 08/19/24 Pain/Spine Ctr Nonunion of subtalar arthrodesis (Acute) [facility] Orthopaedics 04/15/24 IFG (impaired fasting glucose) (Acute) Seen on 03/2023 labs --> needs an A1c at NOV Arthritis of right ankle (Acute) Most recent Depo-Medrol injection: 03/26/2023 Essential hypertension (Acute) Aortic aneurysm of unspecified site, without rupture (Chronic 12/12/19) S/p tube grafting in 2009 Essential tremor (Chronic) Chronic left hip pain (Chronic) Ventral hernia (Chronic 11/28/11) Temporomandibular joint disorders, unspecified (Chronic 11/28/11) Spinal stenosis (Chronic 11/28/11) [facility] L4-5 laminectomy 11/2013 Dr Rascon [facility] pain clinic: median nerve branch block 2014 Sensorineural hearing loss, bilateral (Chronic 11/06/12) hearing aide Rosacea (Chronic 11/28/11) 08/05/20 [facility] Derm Insomnia, unspecified (Chronic 11/06/12) Hyperlipidemia (Chronic 11/28/11) Generalized osteoarthritis (Chronic 04/30/13) Gastroesophageal reflux disease (Chronic 12/22/15) EGD 2010 [facility] Chronic pain (Chronic 05/15/14) Spinal stenosis; cervical arthropathy BPH w/o urinary obs/LUTS (Chronic 11/28/11) S/P TURP Arthropathy of cervical spine (Chronic 11/28/11) Cervical arthropathy RFx2 Aortic valve disorder (Chronic 11/06/12) 11/2009 bioprosthetic AVR/Ascending Aorta replacement [facility]. Followed by Dr Ríos CT surgery. [facility] rec Abx prophylaxis 01/14/20 [facility] Cardiac Cath, 02/04/20-TAVR [facility] Anxiety disorder, unspecified (Chronic 01/31/17) Long-term Sertraline (psychiatrist remotely) Medical History Tubular adenoma COVID (~06/2024) Elevated PSA, greater than or equal to 20 ng/ml (~06/2024) Anxiety with flying Intermittent Lorazepam RX Seborrheic keratoses Multiple fractures of ribs of right side Aortic stenosis (02/04/20) S/p TAVR 02/04/20 09/02/21 F/U Dr Albright Nondependent alcohol abuse, 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/28/11) Actinic keratosis (03/20/12) Surgical History H/O colonoscopy (10/31/24) [facility] [place]polypectomy tubular adenoma History of ankle surgery (~03/17/24) [facility] Ortho 04/02/24 Arthroscopy w/ extensive debridement, subtalar joint fusion, Brostrom stabilization w/ internal brace augmentation, peroneus longus debridement, peroneus brevis tenolysis Hx of hernia repair (1999) Status post cholecystectomy (~1989) History of total right knee replacement (11/16/21) lumbar/sacral medial branch blocks (02/24/15) Dr Caputo Transurethral prostatectomy (~2000) For BPH SI joint injection (04/23/17) L side, Dr. Caputo EGD (07/19/11) Replacement of aortic valve (~11/2009) Bioprosthetic AVR & ascending aorta replacement at [facility] Family History Mother Diabetes Heart disease Father Heart disease Multiple sclerosis Sister Diabetes Social History (Updated 01/19/25 @ 18:44 by Fernando Azar) Smoking/Tobacco Use Status: Former Tobacco Use Quit Date: 07/30/00 Smokeless tobacco user: snuff Smoking risk assessment performed?: Yes Alcohol Intake: former Drug use: Never Substance use type: does not use Adopted: No Caregiver/Support person: No Foster care: No Household members: spouse Housing: house Number of Children: 2 Communication Needs: None Education Level: college current occupation: retired Current gender identity: male What type of physical activity do you participate in: walking Duration: 60-90 minutes/day Frequency: daily Seatbelt use: always Helmet use: Yes Drive intox or ride w/intox pizza delivery driver: No Water heater temp set <120 deg: Yes Working smoke detector in home: Yes Fire extinguisher in home: Yes Carbon monox detector in home: Yes Firearms in home: Yes Firearms unloaded and locked: Yes Do you feel safe at home: Yes Do you feel safe in your relationship?: Yes Additional Social history: Retired, lives with in [facility] Readmission Within the Past 30 Days Yes or No: No
[2025-01-20] MEDS: VANCOMYCIN/WATER (PEG) 1.5 GM/300 ML BAG IVPB (10:20)
[2025-01-20 12:16] VITALS: BP 106/61; PULSE 63; RESP 18; TEMP 36.6; O2SAT 94
--- NOTE | 2025-01-20 12:40 | PGE_ITS ---
Date of Service Date of service: 01/20/25 Time of Service: 12:41 Assessment and Plan Assessment and plan (1) Gram-positive cocci bacteremia: Status: Acute Assessment and plan: Unclear source. Negative CT C/A/P. Blood is growing Staph Aureus. Repeat cultures 01/19 also positive, repeat daily until negative. Will need intermediate project manager therapy. Narrow abx when sensitivities back Urine not c/w UTI, not symptoms of prostatitis With abnormal valve, must consider endocarditis, TTE negative for vegetations Get CRP 19.5, can follow for response to therapy (2) Severe sepsis: Status: Acute Assessment and plan: Met criteria with elevated RR, WBC on presentation with elevated lactate. Given a liter of fluid, follow lactate/CBC Clinical appearance reassuring, WBC imrpoving, lactate normalized. (3) Aortic valve disorder: Status: Chronic Assessment and plan: No clinical signs CHF. Repeat echo as above. Even if TTE negative, he my need GOKUL but not emergent (4) Prostate cancer: Status: Chronic Assessment and plan: On Lupron therapy, no recent biospsy or radiation. (5) Chronic pain: Status: Chronic Assessment and plan: chronic tramadol. With being sick and in hospital pain worse, oxycodone prn. (6) DVT prophylaxis: Status: Acute Assessment and plan: enoxaparin (7) Discharge planning issues: Status: Acute Assessment and plan: Will need negative cultures, plan for prolonged IV antibiotics as outpatient before considering discharge, at least another 48-72 hours. Subjective Subjective Patient reports: no new complaints, tolerating a regular diet and voiding w/o difficulty; denies diarrhea, nausea, vomiting, shortness of breath or fever Interval history since last seen: Headache has largely resolved. Neck and back still hurt, not as bad as at initial presentation, but a little more than chronic. Exam Narrative Exam Narrative: GEN: Alert and oriented. No acute distress at rest. LUNGS: CTAB with normal effort CV: RRR with 2/6 systolic murmur audible throughout, radiates to neck. No gallops, or rubs. ABD: active bowel sounds, soft, nontender and nondistended. No masses. EXT: no cyanosis, clubbing, or edema MSK: No joint redness or swelling. SKIN: No rashes or open wounds. Objective Last Vital Signs Temp 36.6 C 01/20/25 12:16 Pulse 63 01/20/25 12:16 Resp 18 01/20/25 12:16 BP 106/61 01/20/25 12:16 Pulse Ox 94 01/20/25 12:16 Laboratory Results - last 24 hr 01/19/25 01/19/25 01/20/25 12:50 13:40 06:30 WBC 16.51 H 13.49 H RBC 4.92 4.01 L Hgb 14.0 11.5 L D Hct 43.9 36.0 L MCV 89 90 MCH 28.5 28.7 MCHC 31.9 L 31.9 L RDW 17.7 H 17.8 H Plt Count 126 L 87 L MPV 10.3 11.1 H Immature Gran % 1.1 0.9 Neutrophils % 96.0 90.2 Lymphocytes % 1.6 3.6 Monocytes % 1.0 5.0 Eosinophils % 0.0 0.1 Basophils % 0.3 0.2 Nucleated RBC % 0.0 0.0 Absolute Neutrophils 15.85 H 12.17 H Absolute Lymphocytes 0.26 L 0.49 L Absolute Monocytes 0.17 0.67 Absolute Eosinophils 0.00 0.01 Absolute Basophils 0.05 0.03 VBG Lactate 3.1 H* 1.2 Sodium 138 135 L Potassium 3.9 3.8 Chloride 100 101 Carbon Dioxide 26.0 26.5 Anion Gap 12.0 H 7.5 BUN 29 H 34 H Creatinine 1.2 1.1 Est GFR (CKD-EPI 2020) 63.46 70.44 Glucose 110 H 95 Calcium 9.2 8.3 L Magnesium 1.9 Total Bilirubin 0.9 AST 29 ALT 23 Alkaline Phosphatase 70 C-Reactive Protein 19.52 H Total Protein 6.1 L Albumin 2.9 L Urine Color Yellow Urine Clarity Clear Urine pH 5.5 Ur Specific [place] >= 1.030 H Urine Protein 100 H Urine Ketones Negative Urine Blood Trace-intact H Urine Nitrite Positive H Urine Bilirubin Small H Urine Urobilinogen 1.0 H Ur Leukocyte Esterase Negative Urine RBC 0-2 Urine WBC 0-2 Ur Epithelial Cells Negative Urine Crystals Negative Urine Bacteria Few Urine Casts 0-2 Hyaline Urine Mucus Moderate Ur Culture Indicated? No Urine Glucose Negative Random Vancomycin 6.4 Objective Narrative Objective Narrative: Mild concentric left ventricular hypertrophy. Ejection fraction is 60%. Wall motion is normal Normal right ventricular size and function Both atria are severely dilated There is a bioprosthetic aortic valve. Peak gradient is 61, mean 37 mmHg. Calculated aortic valve area is 1.3 cm??. There is no aortic regurgitation Normal mitral valve with mild regurgitation Normal tricuspid valve with mild to moderate regurgitation. Estimated right ventricular systolic pressure is 36 mmHg No valvular vegetations are identified Time Spent with Patient Time Spent with Patient: 35-49 minutes Time was spent: preparing to see the patient(eg.review tests), obtaining and/or reviewing separately otained hiistory, ordering medications,tests, procedures, referring, communicating with other health home health care social worker, indepentently interpreting results, counseling the patient and care coordination
[2025-01-20] MEDS: Enoxaparin 40 MG/0.4 ML SYR SC (14:09)
[2025-01-20 14:58] VITALS: BP 110/67; PULSE 61; RESP 18; TEMP 36.9; O2SAT 93
--- NOTE | 2025-01-20 16:20 | PHA.REVIEW2 ---
Pharmacy Admission Review Admission Clinical Review Admission Pharmacy Review: Discharge planning issues (Acute) DVT prophylaxis (Acute) Severe sepsis (Acute) Acute UTI (Acute) Acute lactic acidosis (Acute) Gram-positive cocci bacteremia (Acute) No Known Allergies Allergy (Verified 01/18/25 21:19) Resuscitation Status Full Code Height 6 ft 2 in Weight 86.7 kg Pharmacy Admission Review Renal Dosing Renal Dosing: BUN 34 mg/dL (7-18) H 01/20/25 06:30 Creatinine 1.1 mg/dL (0.70-1.30) 01/20/25 06:30 Medications needing adjustments: Reviewed (CrCl 72 mL/min) List of meds needing interventions: Current medications are okay Anticoagulation Anticoagulation: Hgb 11.5 g/dL (13.5-17.5) L D 01/20/25 06:30 Hct 36.0 % (40.0-50.0) L 01/20/25 06:30 Plt Count 87 10^3/uL (130-400) L 01/20/25 06:30 Creatinine 1.1 mg/dL (0.70-1.30) 01/20/25 06:30 DVT Prophylaxis: Reviewed (Hgb decreased from 14, PLT count decreased from 126) Medications: Enoxaparin (40mg daily) Opiate Usage Evaluate Pain Scale/Pains Meds: Reviewed (oxycodone 5mg q4h PRN - 20mg/24hrs) Scheduled Bowel Reg ordered if on Opiates?: No Relevant Labs Relevant Labs: Sodium 135 mmol/L (136-145) L 01/20/25 06:30 Potassium 3.8 mmol/L (3.5-5.1) 01/20/25 06:30 Chloride 101 mmol/L (98-107) 01/20/25 06:30 Magnesium 1.9 mg/dL (1.8-2.4) 01/20/25 06:30 C-Reactive Protein 19.52 mg/dL (<or=0.5) H 01/20/25 06:30 Electrolytes, C-Reactive P, ESR: Reviewed Cardiac Review BP, HR, EF%: Reviewed (HR and BP WNL) List meds needing interventions: Has orders for amlodipine 5mg daily and losartan 100mg daily QTc Review QTc: Reviewed (459 from 01/18/25) IV to PO Switch IV Medications: Reviewed (cefepime and vancomycin) Home Meds Home Med List reviewed: Reviewed Relevent Home Meds Not ordered & why?: ferrous sulfate, Lupron (monthly injection) Current Meds Current Medication Order Review: Reviewed Pharmacy Antibiotic Review Relevant Labs: Relevant Labs 01/20/25 06:30 C-Reactive Protein 19.52 H WBC 13.49 10^3/uL (4.4-10.8) H 01/20/25 06:30 Temperature 36.9 C Temperature 36.6 C Temperature 36.8 C Microbiology 01/19/25 13:04 Blood Culture - Preliminary Blood Staphylococcus aureus 01/19/25 12:50 Blood Culture - Preliminary Blood Staphylococcus aureus Pharmacy Antibiotic Activity: C/S review and Reviewed, no change Comments: Patient is on cefepime and vancomycin, day 1, for gram positive bacteremia/severe sepsis. Current vancomycin dose is 1500mg q24h with predicted AUC of 446. Repeat level if any significant changes in renal function or prolonged treatment. WBC decreased from 16.51 and repeat blood cultures pending.
--- NOTE | 2025-01-20 16:28 | DI.US_ITS ---
APPROVED REPORT EXAM: Comprehensive 2D, Doppler, and color-flow Echocardiogram Patient Location: In-Patient Room/Bed: 218 Hvac Engineer: Abigail Varela RDCS (AE) Indications: GC bacteremia, s/p TAVR Other Information Study Quality: Adequate Conclusion Mild concentric left ventricular hypertrophy. Ejection fraction is 60%. Wall motion is normal Normal right ventricular size and function Both atria are severely dilated There is a bioprosthetic aortic valve. Peak gradient is 61, mean 37 mmHg. Calculated aortic valve area is 1.3 cm??. There is no aortic regurgitation Normal mitral valve with mild regurgitation Normal tricuspid valve with mild to moderate regurgitation. Estimated right ventricular systolic pressure is 36 mmHg No valvular vegetations are identified Wall motion Left Ventricle The left ventricle is normal size. The left ventricular systolic function is normal. The left ventricular ejection fraction is within the normal range. Mild concentric left ventricular hypertrophy. There is normal LV segmental wall motion. There is no ventricular septal defect visualized. LVEF is 60%. Right Ventricle Right ventricle is mildly dilated. The right ventricular systolic function is normal. Atria Left atrium is severely dilated. Right atrium is severely dilated. Atrial septal aneurysm is present. Aortic Valve Peak aortic valve gradient is 60.61mmHg. Highest mean aortic valve gradient is 37.38mmHg. Calculated [place]O by the continuity equation is 1.3_cm2. No aortic regurgitation is present. There is no aortic valvular vegetation. TAVR aortic valve. Mitral Valve The mitral valve is normal in structure. Mild mitral regurgitation. There is no evidence of mitral valve vegetations. Tricuspid Valve The tricuspid valve is normal in structure. Mild to moderate tricuspid regurgitation. The RVSP is 36.1_ mmHg. There is no tricuspid valve vegetations. Pulmonic Valve The pulmonary valve is normal in structure. There is no pulmonic valvular stenosis. Trace pulmonic regurgitation. There is no pulmonic valve vegetations. Great Vessels Aortic root is mildly dilated. The ascending aorta is normal in size. Aortic arch is normal in caliber. IVC is normal in size and collapses >50% with inspiration. Pericardium There is no pericardial effusion. 2D Dimensions IVSD d PLAX 1.30 cm M: 0.6-1.2 Ao Root d 3.90 cm M: 3.1 - 3.7 LVPW d PLAX 1.30 cm M: 0.6 - 1.2 Ao Asc Diam d 3.09 cm M: 2.6 - 3.4 LVID d PLAX 4.84 cm M: 4.2 - 5.8 LVDs 3.30 cm M: 2.5 - 4.0 LV EF Teichholz 60.7 % FS 32.51 % LV EDV (Teich) 109.6 mL LV ESV (Teich) 43.0 mL M-Mode TAPSE 2.37 cm (M/F) >1.7 Auto EF LV EDV A4C 128.8 mL LV EDV A2C 172.6 mL LV EDV BP 151.7 mL LV ESV A4C 47.6 mL LV ESV A2C 73.4 mL LV ESV BP 59.1 mL LVEF(%) A4C 63.0 % LVEF(%) A2C 57.5 % LVEF(%) BP 61.0 % LV SV A4C 81.2 ml LV SV A2C 99.2 ml LV SV BP 92.6 ml LV CO A4C 4.5 L/min LV CO A2C 5.4 L/min LV CO BP 4.9 L/min HR A4C 54.88 BPM HR A2C 54.71 BPM LV EDV Index (BP) LA Volume LA Length A4C 6.2 cm LA Length A2C 6.3 cm LA Area A4C s 31.23 cm2 LA Area A2C s 29.06 cm2 LA Vol A4C A-L 133.16 mL LA Vol A2C A-L 114.13 mL LA Vol Biplane A-L 123.9 mL LA Vol/BSA A4C A-L LA Vol/BSA A2C A-L LA Vol/BSA BP A-L 58.2 mL/m2 LA Vol A4C MOD 121.4 mL LA Vol A2C MOD 110.8 mL LA Vol BP MOD 115.3 mL RA Volume RA Area A4C 27.0 cm2 RA ESV A4C (A-L) 110.8mL RA Vol/BSA A4C A-L RA Length A4C 5.6 cm RA ESV A4C (MOD) 105.2mL LV Diastology MV E' medial 0.086 (>0.07 m/s) MV E Vmax 0.81 (0.4-1.3 m/s) MV E/E' MED 9.35 (<14) MV A Vmax 0.70 (0.4-1.3 m/s) MV E' lateral 0.086 (>0.1 m/s) E/A Ratio 1.2 MV E/E' LAT 9.35 (<14) MV E' Average 0.086 m/s MV E/E'(average) 9.35 Aortic Valve AoV Vmax 3.89 m/s LVOT Vmax 1.68 m/s AoV Peak Grad 60.6 mmHg LVOT Peak Grad 11.3 mmHg AoV Area (Vmax) 1.33 cm2 LVOT VTI 0.404 m AoV VTI 0.802 m LVOT Mean Grad 8.2 mmHg AoV Mean [place]. 2.93 m/s LVOT SV 124.42 mL AoV Mean Grad 37.4 mmHg LVOT Diam s 1.95 cm AoV Area (VTI) 1.55 cm2 AV Regurg Peak Gr. 60.61 mmHg Velocity Ratio 0.43 Mitral Valve MV DT 172 (160-240 msec) MV Vmax TIPS 0.74 m/s MV Mean Grad 1.1 (<2mmHg) MV VTI 0.300 m Pulmonary Valve PV Vmax 1.07 (0.5-1.5 m/s) RVOT Vmax 0.72 m/s PV Peak Grad 4.7 mmHg RVOT Peak Gr. 2.1 mmHg PV Mean [place] 0.79 m/s RVOT VTI 0.141 m PV Mean Grad 2.7 mmHg RVOT Mean Gr. 1.1 mmHg Tricuspid Valve RA Pressure 3.00 mmHg TR Vmax 2.87 m/s TV S' 0.09 m/s TR Peak Grad 33.0 mmHg RVSP (TR) 36.1 mmHg
--- NOTE | 2025-01-20 16:38 | CHAPLAIN ---
Car was sitting up in bed when I visited this morning. He and his Graciela were very pleasant. Car said his arthritis in his neck is bothering him worse now than the symptoms he came into the ED for. He'll be staying over tonight according to Graciela while they wait for test results. I explained my role and offered support.
[2025-01-20 20:09] VITALS: BP 97/70; PULSE 63; RESP 18; TEMP 36.1; O2SAT 94
[2025-01-20] MEDS: Simvastatin 20 MG TAB PO (20:59)
[2025-01-20] MEDS: Normal Saline Flush 10 ML SYR IVP (21:00)
[2025-01-20 21:20] VITALS: BP 98/76; PULSE 62
[2025-01-21 03:40] VITALS: BP 96/62; PULSE 61; RESP 18; TEMP 37; O2SAT 96
[2025-01-21] MEDS: CEFEPIME 2 GM in Normal Saline 100 ML IVPB ×2 (05:48→13:55)
[2025-01-21] MEDS: Acetaminophen 325 MG TAB PO ×4 (05:55→20:43)
[2025-01-21] MEDS: oxyCODONE 5 MG TAB PO ×4 (05:55→20:42)
[2025-01-21 07:51] VITALS: BP 94/71; PULSE 60; RESP 16; TEMP 36.2; O2SAT 95
[2025-01-21] MEDS: Aspirin E.C. 81 MG TABEC PO (07:58)
[2025-01-21] MEDS: Cholecalciferol (Vitamin D3) 1,000 UNIT TAB 2000 UNITS PO (07:59)
[2025-01-21] MEDS: Sertraline 50 MG TAB PO (07:59)
[2025-01-21] MEDS: Losartan 50 MG TAB 100 MG PO (07:59)
[2025-01-21] MEDS: Pantoprazole 40 MG TABCR PO (07:59)
[2025-01-21] MEDS: VANCOMYCIN/WATER (PEG) 1.5 GM/300 ML BAG IVPB (10:33)
[2025-01-21 11:12] VITALS: BP 91/64; PULSE 71; RESP 16; TEMP 36.2; O2SAT 96
--- NOTE | 2025-01-21 11:36 | CMPROGNOTE_ITS ---
Date of service: 01/21/25 Time of Service: 12:02 Care Management Progress Note Progress Note Text Progress Note Text: Car was sitting in the chair, and visiting with his , when CM arrived. An ID consult is taking place for medication recommendations; found gram-positive cocci bacteremia. CM briefly discussed options for IV antibiotic therapy. If Car was to need penitentiary antibiotics, his preference is to come to the infusion center, if possible. Car states, he is feeling better today. CM will continue to follow. Discharge Potential Discharge Needs: Imaging/labs (Remain until negative cultures ) and PCP F/U Appt Anticipated Barriers to Discharge: Medical Status Patient/Family Education Needs: Review discharge instructions, discuss Ask Me Three Transportation: Private vehicle Plan: Anticipate, Car will be discharged home, once medically cleared. He may need penitentiary antibiotics, if he does, he would prefer to come to infusion vs home antibiotics, if this is possible. He will follow up with his community providers and continue per his plan of care. Car will transport via private vehicle by family. CM will continue to follow. Social Determinants of Health Screening Social Determinants of health last assessed in clinic: 01/21/25 Will the Patient Participate in the Screening?: Yes Do you worry about having a steady place to live?: no Problems where you live: no known problems In the past 12 months, have you had to go without electric, gas, oil or water in your home?: no 1. Within the past 12 months, we worried whether our food would run out before we got money to buy more.: Never true 2. Within the past 12 months, the food we bought just didn't last and we didn't have money to get more.: Never true Has lack of transportation kept you from medical appointments or from doing things needed for daily living?: no Has anyone in your life made you feel unsafe or unsupported?: no How hard is it for you to pay for the very basics like food, housing, medical care, and heating? Would you say it is:: Not hard at all Do you want help finding or keeping work or a job?: I do not need or want help If for any reason you need help with day-to-day activities such as bathing, preparing meals, shopping, managing finances, etc., do you get the help you need?: I don?t need any help How often do you feel lonely or isolated from those around you?: Never Do you speak a language other than Polish at home?: No Does the patient want assistance with any of the above?: No
[2025-01-21] MEDS: Enoxaparin 40 MG/0.4 ML SYR SC (13:56)
[2025-01-21 15:45] VITALS: BP 95/68; PULSE 74; RESP 16; TEMP 36.5; O2SAT 97
[2025-01-21] MEDS: LORazepam 1 MG TAB PO (16:36)
--- NOTE | 2025-01-21 18:34 | PGE_ITS ---
Date of Service Date of service: 01/21/25 Time of Service: 18:34 Assessment and Plan Assessment and plan (1) Gram-positive cocci bacteremia: Status: Acute Assessment and plan: Unclear source. Negative CT C/A/P. Blood is growing MSSA. Repeat cultures 01/19, also positive, repeat daily until negative. Will need 4-6 weeks of therapy. Urine not c/w UTI, not symptoms of prostatitis With abnormal valve, must consider endocarditis, TTE negative for vegetations, but should get GOKUL CRP 19.5, can follow for response to therapy Reveiwed general recommendations with ID, recommending MRI of any painful areas, especially with hardware. Get cervical and lumbar. Call for plan for GOKUL (2) Severe sepsis: Status: Acute Assessment and plan: Met criteria with elevated RR, WBC on presentation with elevated lactate. Given a liter of fluid on admission. Clinical appearance reassuring, WBC imrpoving, lactate normalized (3) Aortic valve disorder: Status: Chronic Assessment and plan: No clinical signs CHF. Repeat echo as above. EKG benign. Even if TTE negative, he needs GOKUL but not emergent (4) Prostate cancer: Status: Chronic Assessment and plan: On Lupron therapy, no recent biospsy or radiation. (5) Chronic pain: Status: Chronic Assessment and plan: chronic tramadol. With being sick and in hospital pain worse, oxycodone prn. (6) Anemia: Status: Chronic Assessment and plan: Drop in the past 2 days. No bili to suggest hemolysis, follow. (7) DVT prophylaxis: Status: Acute Assessment and plan: SCDs (8) Thrombocytopenia: Status: Chronic Assessment and plan: Progressing. Stop enoxaparin. SCDs for DVT prophylaxis. Repeat bili for hemolysis. (9) Discharge planning issues: Status: Acute Assessment and plan: Will need negative cultures, plan for 4-6 IV antibiotics as outpatient before considering discharge, at least another 48-72 hours. Per ID cefazolin or nafcillin preferred, so will need multiple doses/day. Will likely need home infusion. Exam Narrative Exam Narrative: GEN: Alert and oriented. No acute distress at rest. LUNGS: CTAB with normal effort CV: RRR with 2/6 systolic murmur audible throughout, radiates to neck. No gallops, or rubs. ABD: active bowel sounds, soft, nontender and nondistended. No masses. EXT: no cyanosis, clubbing, or edema. MSK: No joint redness or swelling. tender in mid cervical spine. not tender in lumbar. no pain with ROM knees and ankles, no redness or heat SKIN: No rashes or open wounds. Objective Last Vital Signs Temp 36.5 C 01/21/25 15:45 Pulse 74 01/21/25 15:45 Resp 16 01/21/25 15:45 BP 95/68 L 01/21/25 15:45 Pulse Ox 97 01/21/25 15:45 Time Spent with Patient Time Spent with Patient: >50 minutes Time was spent: preparing to see the patient(eg.review tests), obtaining and/or reviewing separately otained hiistory, ordering medications,tests, procedures, referring, communicating with other health clinical manager home care, indepentently interpreting results, counseling the patient and care coordination
[2025-01-21] MEDS: Simvastatin 20 MG TAB PO (20:41)
[2025-01-21] MEDS: Normal Saline Flush 10 ML SYR IVP (20:42)
[2025-01-21] MEDS: ceFAZolin 2 GM/50 ML BAG IVPB (20:42)
[2025-01-21 21:46] VITALS: BP 117/72; PULSE 56; RESP 19; TEMP 36.8; O2SAT 94
[2025-01-21 23:05] VITALS: BP 120/65; PULSE 55; RESP 19; TEMP 36.9; O2SAT 94
[2025-01-22 03:07] VITALS: BP 118/65; PULSE 56; RESP 19; TEMP 37.8; O2SAT 96
[2025-01-22] MEDS: ceFAZolin 2 GM/50 ML BAG IVPB ×3 (04:24→20:25)
[2025-01-22] MEDS: Normal Saline Flush 10 ML SYR IVP ×4 (04:24→13:22)
--- NOTE | 2025-01-22 07:00 | DI.MRI_ITS ---
Exam(s) MR LUMBAR SPINE WO/W EXAM: MR LUMBAR SPINE WO/W CLINICAL HISTORY: MSSA bacteremia, low back pain with remote surgery TECHNIQUE: Multiplanar multisequence MRI of the Lumbar Spine was performed. CONTRAST MATERIAL: IV Contrast: 17 mL of Dotarem contrast administered. COMPARISON: CR XR FOOT RT COMPLETE from 12/19/[address] ABDOMEN PELVIS CTA from 09/05/[address] THORAX ABD/PEL CTA from 01/18/2025 FINDINGS: The exam is mildly limited by motion. Bones: The last intervertebral disc space is designated the L5/S1 level for the numbering purpose of this examination. The vertebral body heights are well maintained. Posterior fusion hardware is present at L4-5. This creates mild artifact. Mild degenerative scoliosis. No abnormal enhancement in the bones or discs. Cord: The conus tip ends at the T12 level. It is of normal size and signal intensity. No abnormal enhancement of the cord or dura. T12-L1: No disc herniations or bulges are present. L1-2: No asymmetric loss of disc height, eccentric toward the right with there is severe disc space narrowing and prominent endplate osteophytes. No central canal stenosis. Severe right neural foraminal narrowing. L2-3: The disc height is maintained. Mild diffuse disc bulging. Mild ligamentous hypertrophy and facet degenerative changes. There is moderate central canal stenosis as well as mild bilateral neural foraminal narrowing. L3-4: Loss of disc height eccentric toward the left. Facet degenerative changes and ligamentous hypertrophy combine with disc osteophytes to produce moderate central canal stenosis. There is severe left neural foraminal narrowing. There is a left-sided facet joint cyst which also extends into the c entral canal, contributing to central canal stenosis at the L4 level. L4-5: Posterior fusion hardware. Diffuse loss of disc height. No significant disc bulging or central canal stenosis. Neural foraminal suboptimally visualized due to artifact. L5-S1: No disc herniations or bulges are present small osteophytes eccentric toward the right. Mild right neural foraminal narrowing. Soft tissues: The visualized SI joints and sacrum are well maintained. Postsurgical changes in the posterior soft tissues. No evidence of abscess. There is no evidence of suspicious enhancement. IMPRESSION: No evidence of abnormal postcontrast enhancement. Postsurgical and degenerative changes as above. DATA REPOSITORY:
--- NOTE | 2025-01-22 07:00 | DI.MRI_ITS ---
Exam(s) MR CERVICAL SPINE WO/W EXAM: MR CERVICAL SPINE WO/W CLINICAL HISTORY: MSSA bacteremia, neck pain TECHNIQUE: Multiplanar multisequence MRI of the cervical spine was performed before and after intravenous contrast. 17 mL Dotarem IV. COMPARISON: CR XR CERVICAL SPINE COMP 4-5V from 03/13/2023 FINDINGS: Axial pre contrast images are limited by motion artifact. BONES: Vertebral body heights are maintained. Alignment is normal. Bone marrow signal intensity is within normal limits. No abnormal enhancement within the marrow or discs.. CERVICAL CORD: Craniovertebral junction is unremarkable. The cervical cord is normal size and signal intensity. No abnormal enhancement of the dura. SOFT TISSUES: Unremarkable. No abnormal enhancement. C2-3: No disc herniation or bulge is identified. No evidence of neural foraminal narrowing. No significant central canal stenosis. C3-4: The disc height is maintained. There are endplate osteophytes projecting posteriorly, eccentric toward the left. Are also facet degenerative changes which are eccentric toward the left. There is effacement of the anterior CSF space mild apparent impingement on the cord. There is severe left neural foraminal narrowing. C4-5: There is moderate loss of disc height. There are endplate osteophytes projecting posteriorly, eccentric toward the right. There are prominent facet degenerative changes and severe bilateral neural foraminal narrowing. There is also mild central canal stenosis.. C5-6: Severe loss of disc height. Minimal osteophytes. Facet degenerative changes, greater on the right side. No significant central canal stenosis. Right neural foraminal narrowing.. C6-7: Severe loss of disc height. Prominent osteophytes projecting mainly anteriorly. There is some effacement of the anterior CSF space but no impingement on the cord. There is bilateral neural foraminal narrowing, right greater than left.. C7-T1: No disc herniation or bulge is identified. No evidence of neural foraminal narrowing. No significant central canal stenosis. IMPRESSION: No evidence of abnormal enhancement. Advanced degenerative changes causing central canal stenosis at C3-4 and C4-5 as well as bilateral neural foraminal narrowing at multiple levels. DATA REPOSITORY:
[2025-01-22 07:16] VITALS: BP 120/74; PULSE 62; RESP 16; TEMP 36; O2SAT 95
[2025-01-22 07:31] LABS: Abs Immature Grans 0.04 10^3/uL (0.0-0.06); HCT 36.9 % (40.0-50.0); HGB 12.0 g/dL (13.5-17.5); Immature Grans % 0.5 %; MCH 28.8 pg (27.0-33.0); MCHC 32.5 % (32.0-36.0); MCV 89 fL (80-95); MPV 11.1 fL (8.0-11.0); RBC 4.16 10^6/uL (4.36-5.78); RDW 17.2 % (11.8-14.1); RDW-SD 55.8 fL; WBC 7.79 10^3/uL (4.4-10.8)
[2025-01-22 08:07] LABS: ALT 17 U/L (16-63); AST 22 U/L (15-37); Albumin 2.7 g/dL (3.4-5.0); Alkaline Phosphatase 77 U/L (46-116); Anion Gap 5.3 mmol/L (3-11); BUN 19 mg/dL (7-18); Bilirubin, Total 0.4 mg/dL (0.2-1.0); CO2 27.7 mmol/L (21.0-32.0); Calcium 8.6 mg/dL (8.5-10.1); Chloride 105 mmol/L (98-107); Estimated GFR 101.30 (mL/min/1.73m2); Glucose 97 mg/dL (74-106); Potassium 3.8 mmol/L (3.5-5.1); Sodium 138 mmol/L (136-145); Total Protein 6.1 g/dL (6.4-8.2)
[2025-01-22 08:08] LABS: Platelet Count 98 10^3/uL (130-400)
[2025-01-22] MEDS: Acetaminophen 325 MG TAB PO (08:09)
[2025-01-22] MEDS: Cholecalciferol (Vitamin D3) 1,000 UNIT TAB 2000 UNITS PO (08:10)
[2025-01-22] MEDS: amLODIPine 5 MG TAB PO (08:10)
[2025-01-22] MEDS: Pantoprazole 40 MG TABCR PO (08:10)
[2025-01-22] MEDS: Losartan 50 MG TAB 100 MG PO (08:10)
[2025-01-22] MEDS: Aspirin E.C. 81 MG TABEC PO (08:10)
[2025-01-22] MEDS: oxyCODONE 5 MG TAB PO ×2 (08:10→20:34)
[2025-01-22] MEDS: Sertraline 50 MG TAB PO (08:11)
[2025-01-22 08:13] LABS: RBC Morphology Normal
--- NOTE | 2025-01-22 10:05 | CMPROGNOTE_ITS ---
Date of service: 01/22/25 Time of Service: 13:48 Care Management Progress Note Progress Note Text Progress Note Text: Car was sitting in his chair and visiting with his , when CM arrived. Per report, Car will repeated cultures daily, until negative. Per report, he will likely need 4-6 weeks of therapy, possibly needing more than one antibiotic. Car is agreeable to home IV antibiotics. Once the necessiary medication is indicated, CM will coordinate the IV therapy. CM will continue to follow. Discharge Potential Discharge Needs: PCP F/U Appt and Other ([facility] antibiotics) Anticipated Barriers to Discharge: Medical Status Patient/Family Education Needs: Review discharge instructions, discuss Ask Me Three Transportation: Private vehicle Plan: Anticipate, Car will be discharged home, once medically cleared. He may need terminal press operator antibiotics, if he does, home antibiotics will be coordinated by CM. He will follow up with his community providers and continue per his plan of care. Car will transport via private vehicle by family. CM will continue to follow. Social Determinants of Health Screening Social Determinants of health last assessed in clinic: 01/22/25 Will the Patient Participate in the Screening?: Yes Do you worry about having a steady place to live?: no Problems where you live: no known problems In the past 12 months, have you had to go without electric, gas, oil or water in your home?: no 1. Within the past 12 months, we worried whether our food would run out before we got money to buy more.: Never true 2. Within the past 12 months, the food we bought just didn't last and we didn't have money to get more.: Never true Has lack of transportation kept you from medical appointments or from doing things needed for daily living?: no Has anyone in your life made you feel unsafe or unsupported?: no How hard is it for you to pay for the very basics like food, housing, medical care, and heating? Would you say it is:: Not hard at all Do you want help finding or keeping work or a job?: I do not need or want help If for any reason you need help with day-to-day activities such as bathing, preparing meals, shopping, managing finances, etc., do you get the help you need?: I don?t need any help How often do you feel lonely or isolated from those around you?: Never Do you speak a language other than Hebrew at home?: No Does the patient want assistance with any of the above?: No Anticipated HH Services Anticipated HH Services at Discharge [facility] Needed, RN.
[2025-01-22] MEDS: MORPHine 2 MG/ML SYR IVP (10:30)
[2025-01-22] MEDS: LORazepam 1 MG TAB PO (10:30)
--- NOTE | 2025-01-22 11:32 | PGE_ITS ---
Date of Service Date of service: 01/22/25 Time of Service: 11:32 Assessment and Plan Assessment and plan (1) MSSA bacteremia: Status: Acute Assessment and plan: Unclear source. Negative CT C/A/P on admission. Urine not c/w UTI, not symptoms of prostatitis With abnormal valve, must consider endocarditis, TTE negative for vegetations, but should get GOKUL He also has graft of ascending aortic aneurysm. Repeat cultures 01/19, also positive, repeat daily until negative for 2 days at least. Day 4 IV Abx, narrowed 01/21 to cefazolin from cefepime and vancomycin given on admission. CRP 19.5, may be useful to follow for response to therapy Reviewed general recommendations with ID 01/22, recommending MRI of any painful areas, especially with hardware. Agree with GOKUL, MARY CARMEN preferred. Getting cervical and lumbar MRI w/wo 01/22 Called , seding info to try to schedule down/back GOKUL Per ID if valve involvement would add ertepenem to cefazolin. (2) Aortic valve disorder: Status: Chronic Assessment and plan: No clinical signs CHF. Repeat echo as above. EKGs on presentation benign. Needs GOKUL as above (3) Prostate cancer: Status: Chronic Assessment and plan: On Lupron therapy, no recent biospsy or radiation. Radiation pending for January, need to communicate plan with oncology once disposition made, will likely need to be postponed. (4) Chronic pain: Status: Chronic Assessment and plan: chronic tramadol. With being sick and in hospital pain worse, oxycodone prn. (5) Anemia: Status: Chronic Assessment and plan: Dropped from admission, but then stabilized. No bili to suggest hemolysis, follow. (6) Thrombocytopenia: Status: Chronic Assessment and plan: Drop since admission, but stabilized. Stopped enoxaparin. SCDs for DVT prophylaxis while not up walking. (7) Discharge planning issues: Status: Acute Assessment and plan: Will need negative cultures, plan for 4-6 IV antibiotics as outpatient before considering discharge, at least another 48-72 hours inpatient. Per ID cefazolin or nafcillin preferred, so will need multiple doses/day. Will need home infusion to go home. Subjective Subjective Patient reports: no new complaints, tolerating a regular diet and voiding w/o difficulty; denies diarrhea, nausea, vomiting, shortness of breath or fever Interval history since last seen: 24hr Events: Case reviewed with ID Getting MRI cervical and lumbar spine today Enoxaparin stopped due to drop in platelets He feels about the same. Neck still a little more stiff then his normal baselines, also chronic low back pain, bad at times, which he thinks could just be being here and moving less. no bleeding Exam Narrative Exam Narrative: GEN: Alert and oriented. No acute distress at rest. LUNGS: CTAB with normal effort CV: RRR with 2/6 systolic murmur audible throughout, radiates to neck. No gallops, or rubs. EXT: no cyanosis, clubbing, or edema. MSK: No joint redness or swelling. (previosly noted tenderness in mid cervical spine, not reexamined today) SKIN: No rashes or open wounds. Objective Last Vital Signs Temp 36.0 C L 01/22/25 07:16 Pulse 62 01/22/25 07:16 Resp 16 01/22/25 07:16 BP 120/74 01/22/25 07:16 Pulse Ox 95 01/22/25 07:16 Laboratory Results - last 24 hr 01/22/25 07:07 WBC 7.79 RBC 4.16 L Hgb 12.0 L Hct 36.9 L MCV 89 MCH 28.8 MCHC 32.5 RDW 17.2 H Plt Count 98 L MPV 11.1 H Immature Gran % 0.5 Neutrophils % 76.5 Lymphocytes % 11.6 Monocytes % 10.1 Eosinophils % 0.9 Basophils % 0.4 Nucleated RBC % 0.0 Absolute Neutrophils 5.96 Absolute Lymphocytes 0.90 L Absolute Monocytes 0.79 Absolute Eosinophils 0.07 Absolute Basophils 0.03 RBC Morphology Normal Sodium 138 Potassium 3.8 Chloride 105 Carbon Dioxide 27.7 Anion Gap 5.3 BUN 19 H Creatinine 0.6 L Est GFR (CKD-EPI 2020) 101.30 Glucose 97 Calcium 8.6 Total Bilirubin 0.4 AST 22 ALT 17 Alkaline Phosphatase 77 Total Protein 6.1 L Albumin 2.7 L Time Spent with Patient Time Spent with Patient: 35-49 minutes Time was spent: preparing to see the patient(eg.review tests), obtaining and/or reviewing separately otained hiistory, ordering medications,tests, procedures, referring, communicating with other health healthcare administrative assistant, indepentently interpreting results, counseling the patient and care coordination
[2025-01-22] MEDS: Gadoterate meglumine 20 ML SYRINGE 17 ML IVP (12:14)
[2025-01-22 15:15] VITALS: BP 117/72; PULSE 80; RESP 16; TEMP 36.2; O2SAT 95
[2025-01-22 20:13] VITALS: BP 100/80; PULSE 65; RESP 18; TEMP 36.5; O2SAT 95
[2025-01-22] MEDS: Simvastatin 20 MG TAB PO (20:25)
[2025-01-23] VITALS (7 sets, daily range): BP systolic 106–129; BP diastolic 62–87; PULSE 54–75; RESP 16–20; TEMP 35.7–38.7; O2SAT 93–97
[2025-01-23] MEDS: ceFAZolin 2 GM/50 ML BAG IVPB ×3 (03:46→20:35)
[2025-01-23] MEDS: Pantoprazole 40 MG TABCR PO (08:42)
[2025-01-23] MEDS: amLODIPine 5 MG TAB PO (08:43)
[2025-01-23] MEDS: Cholecalciferol (Vitamin D3) 1,000 UNIT TAB 2000 UNITS PO (08:43)
[2025-01-23] MEDS: Aspirin E.C. 81 MG TABEC PO (08:43)
[2025-01-23] MEDS: Sertraline 50 MG TAB PO (08:44)
[2025-01-23] MEDS: Acetaminophen 325 MG TAB PO ×3 (09:04→23:29)
[2025-01-23] MEDS: Losartan 50 MG TAB 100 MG PO (09:05)
[2025-01-23] MEDS: oxyCODONE 5 MG TAB PO ×2 (09:05→14:15)
[2025-01-23] MEDS: Normal Saline Flush 10 ML SYR IVP ×3 (09:06→20:35)
--- NOTE | 2025-01-23 09:24 | W.PM.PROGNOT ---
Date of Service Date of service: 01/23/25 Time of Service: 09:24 Assessment and Plan Assessment and plan (1) MSSA bacteremia: Status: Acute Assessment and plan: -Unclear source; Negative CT C/A/P on admission. -Urine not c/w UTI, not symptoms of prostatitis -MRI cervical and lumbar spine negative -With abnormal valve, must consider endocarditis, TTE negative for vegetations; discussed with [facility] ID: -rec TTE, scheduled for Saturday 01/27 [id number] -continue cefazolin -if GOKUL positive for endocarditis add ertepenem -Repeat cultures 01/19, also positive -cultures from 01/21 and 01/22 remain negative (2) Aortic valve disorder: Status: Chronic Assessment and plan: -No clinical signs CHF 0obtaining GOKUL as noted above (3) Prostate cancer: Status: Chronic Assessment and plan: -On Lupron therapy, no recent biospsy or radiation. -Radiation pending for January, need to communicate plan with oncology once disposition made, will likely need to be postponed. (4) Chronic pain: Status: Chronic Assessment and plan: -chronic tramadol. -oxycodone prn while hospitalized (5) Anemia: Status: Chronic Assessment and plan: -Dropped from admission, but then stabilized. -No bili to suggest hemolysis, follow. (6) Thrombocytopenia: Status: Chronic Assessment and plan: -Drop since admission, but stabilized. -Stopped enoxaparin. -SCDs for DVT prophylaxis while not up walking. Subjective Subjective Interval history since last seen: Patient states that he is doing well today. He understands the plan to continue current antibiotic regimen until his GOKUL on Sunday which will be final determination of antibiotics and duration. Exam Narrative Exam Narrative: well appearing older gentleman laying in bed in no acute distress, AOx4, heart RRR, lungs CTAB, abdomen soft, non-tender, non-distended Objective Last Vital Signs Temp 97.0 F L 01/23/25 07:26 Pulse 61 01/23/25 07:26 Resp 16 01/23/25 07:26 BP 129/87 01/23/25 07:26 Pulse Ox 93 01/23/25 07:26 Time Spent with Patient Time Spent with Patient: >50 minutes Time was spent: preparing to see the patient(eg.review tests), obtaining and/or reviewing separately otained hiistory, ordering medications,tests, procedures, referring, communicating with other health nursing care attendant, indepentently interpreting results, counseling the patient and care coordination
--- NOTE | 2025-01-23 11:20 | PDOC.CMPRO ---
Date of service: 01/23/25 Time of Service: 14:23 Care Management Progress Note Progress Note Text Progress Note Text: Car was sitting in his chair, when CM arrived. He states, he is feeling discouraged that he will be here until Sunday; Meaning, he likely wont be able to see his daughter, who is visiting from [place]. Car continues to have positive blood cultures. He has a [facility] down and back scheduled for Sunday which will determine what antibiotic he will need and the length of IV therapy. CM will continue to follow. Discharge Potential Discharge Needs: Consult Consult Services Needed: Other ([facility] ID), PCP F/U Appt and Other (terminal operator antibiotics) Anticipated Barriers to Discharge: Medical Status Patient/Family Education Needs: Review discharge instructions, discuss Ask Me Three Transportation: Private vehicle Plan: Anticipate, Car will be discharged home, once medically cleared. He may need watermelon inspector antibiotics, if he does, home antibiotics will be coordinated by CM. He will go to [facility] for a down and back on Sunday. He will follow up with his community providers and continue per his plan of care. Car will transport via private vehicle by family. CM will continue to follow. Social Determinants of Health Screening Social Determinants of health last assessed in clinic: 01/23/25 Will the Patient Participate in the Screening?: Yes Do you worry about having a steady place to live?: no Problems where you live: no known problems In the past 12 months, have you had to go without electric, gas, oil or water in your home?: no 1. Within the past 12 months, we worried whether our food would run out before we got money to buy more.: Never true 2. Within the past 12 months, the food we bought just didn't last and we didn't have money to get more.: Never true Has lack of transportation kept you from medical appointments or from doing things needed for daily living?: no Has anyone in your life made you feel unsafe or unsupported?: no How hard is it for you to pay for the very basics like food, housing, medical care, and heating? Would you say it is:: Not hard at all Do you want help finding or keeping work or a job?: I do not need or want help If for any reason you need help with day-to-day activities such as bathing, preparing meals, shopping, managing finances, etc., do you get the help you need?: I don?t need any help How often do you feel lonely or isolated from those around you?: Never Do you speak a language other than Armenian at home?: No Does the patient want assistance with any of the above?: No
--- NOTE | 2025-01-23 11:52 | CHAPLAIN ---
Car and his were in the family waiting room for a change of scenery when I visited. Car is here until January 28 when he'll be going to [facility] for tests. He said depending on the results, he'll either be going home from [facility] or returning here for treatments. His daughter and her boyfriend are in the area visiting from [place] and Car is disappointed that he's not getting to spend more time with them. He said he feels good, which makes it more frustrating to be stuck here. He may ask to go outside.
--- NOTE | 2025-01-23 11:58 | NUR.NOTE ---
Nursing Note: Reviewed documentation by Archie Tejada, student [employer] OFFIC[employer]. Agree with her findings.
[2025-01-23] MEDS: Simvastatin 20 MG TAB PO (20:36)
[2025-01-24 03:05] VITALS: BP 125/62; PULSE 59; RESP 18; TEMP 36.4; O2SAT 95
[2025-01-24] MEDS: ceFAZolin 2 GM/50 ML BAG IVPB ×3 (03:57→19:55)
[2025-01-24] MEDS: Normal Saline Flush 10 ML SYR IVP ×3 (03:58→19:56)
[2025-01-24 08:01] VITALS: BP 123/93; PULSE 57; RESP 15; TEMP 37; O2SAT 95
[2025-01-24] MEDS: Acetaminophen 325 MG TAB PO ×2 (10:07→15:34)
[2025-01-24] MEDS: oxyCODONE 5 MG TAB PO ×2 (10:08→15:34)
[2025-01-24] MEDS: Cholecalciferol (Vitamin D3) 1,000 UNIT TAB 2000 UNITS PO (10:08)
[2025-01-24] MEDS: Sertraline 50 MG TAB PO (10:08)
[2025-01-24] MEDS: amLODIPine 5 MG TAB PO (10:08)
[2025-01-24] MEDS: Aspirin E.C. 81 MG TABEC PO (10:08)
[2025-01-24] MEDS: Losartan 50 MG TAB 100 MG PO (10:08)
[2025-01-24] MEDS: Pantoprazole 40 MG TABCR PO (10:08)
--- NOTE | 2025-01-24 11:44 | PGE_ITS ---
Date of Service Date of service: 01/24/25 Time of Service: 11:50 Assessment and Plan Assessment and plan (1) MSSA bacteremia: Status: Acute Assessment and plan: -Unclear source; Negative CT C/A/P on admission. -Urine not c/w UTI, not symptoms of prostatitis -MRI cervical and lumbar spine negative -With abnormal valve, must consider endocarditis, TTE negative for vegetations; discussed with [facility] ID: -rec TTE, scheduled for Saturday 01/27 [id number] -continue cefazolin -if GOKUL positive for endocarditis add ertepenem -Repeat cultures 01/19, also positive -cultures from 01/21 and 01/22 remain negative (2) Aortic valve disorder: Status: Chronic Assessment and plan: -No clinical signs CHF 0obtaining GOKUL as noted above (3) Prostate cancer: Status: Chronic Assessment and plan: -On Lupron therapy, no recent biospsy or radiation. -Radiation pending for January, need to communicate plan with oncology once disposition made, will likely need to be postponed. (4) Chronic pain: Status: Chronic Assessment and plan: -chronic tramadol. -oxycodone prn while hospitalized (5) Anemia: Status: Chronic Assessment and plan: -Dropped from admission, but then stabilized. -No bili to suggest hemolysis, follow. (6) Thrombocytopenia: Status: Chronic Assessment and plan: -Drop since admission, but stabilized. -Stopped enoxaparin. -SCDs for DVT prophylaxis while not up walking. Subjective Subjective Interval history since last seen: Patient states he is doing well and has no complaints or concerns at this time. Exam Narrative Exam Narrative: well appearing older gentleman laying in bed in no acute distress, AOx4, heart RRR, lungs CTAB, abdomen soft, non-tender, non-distended Objective Last Vital Signs Temp 98.6 F 01/24/25 08:01 Pulse 57 L 01/24/25 08:01 Resp 15 01/24/25 08:01 BP 123/93 H 01/24/25 08:01 Pulse Ox 95 01/24/25 08:01 Time Spent with Patient Time Spent with Patient: >50 minutes Time was spent: preparing to see the patient(eg.review tests), obtaining and/or reviewing separately otained hiistory, ordering medications,tests, procedures, referring, communicating with other health rn progressive care, indepentently interpreting results, counseling the patient and care coordination
[2025-01-24 13:31] VITALS: BP 125/76; PULSE 55; RESP 15; TEMP 36.2; O2SAT 93
[2025-01-24 19:48] VITALS: BP 116/84; PULSE 60; RESP 20; TEMP 37; O2SAT 96
[2025-01-24] MEDS: Simvastatin 20 MG TAB PO (19:55)
[2025-01-25 03:35] VITALS: BP 116/90; PULSE 75; RESP 20; TEMP 37.8; O2SAT 96
[2025-01-25] MEDS: ceFAZolin 2 GM/50 ML BAG IVPB ×3 (04:33→20:12)
[2025-01-25] MEDS: Normal Saline Flush 10 ML SYR IVP (04:34)
[2025-01-25] MEDS: Acetaminophen 325 MG TAB PO ×2 (07:08→20:43)
[2025-01-25] MEDS: Pantoprazole 40 MG TABCR PO (07:08)
[2025-01-25 07:41] VITALS: BP 118/77; PULSE 61; RESP 16; TEMP 37.2; O2SAT 97
[2025-01-25] MEDS: Sertraline 50 MG TAB PO (08:40)
[2025-01-25] MEDS: amLODIPine 5 MG TAB PO (08:40)
[2025-01-25] MEDS: Cholecalciferol (Vitamin D3) 1,000 UNIT TAB 2000 UNITS PO (08:40)
[2025-01-25] MEDS: Losartan 50 MG TAB 100 MG PO (08:40)
[2025-01-25] MEDS: oxyCODONE 5 MG TAB PO (08:50)
[2025-01-25] MEDS: Aspirin E.C. 81 MG TABEC PO (08:54)
--- NOTE | 2025-01-25 12:23 | PGE_ITS ---
Date of Service Date of service: 01/25/25 Time of Service: 12:23 Assessment and Plan Assessment and plan (1) MSSA bacteremia: Status: Acute Assessment and plan: -Unclear source; Negative CT C/A/P on admission. -Urine not c/w UTI, not symptoms of prostatitis -MRI cervical and lumbar spine negative -With abnormal valve, must consider endocarditis, TTE negative for vegetations; discussed with [facility] [place] ID: -rec TTE, scheduled for Saturday 01/27 [id number] -continue cefazolin -if GOKUL positive for endocarditis add ertepenem -Repeat cultures 01/19, also positive -cultures from 01/21 and 01/22 remain negative (2) Aortic valve disorder: Status: Chronic Assessment and plan: -No clinical signs CHF 0obtaining GOKUL as noted above (3) Prostate cancer: Status: Chronic Assessment and plan: -On Lupron therapy, no recent biospsy or radiation. -Radiation pending for January, need to communicate plan with oncology once disposition made, will likely need to be postponed. (4) Chronic pain: Status: Chronic Assessment and plan: -chronic tramadol. -oxycodone prn while hospitalized (5) Anemia: Status: Chronic Assessment and plan: -Dropped from admission, but then stabilized. -No bili to suggest hemolysis, follow. (6) Thrombocytopenia: Status: Chronic Assessment and plan: -Drop since admission, but stabilized. -Stopped enoxaparin. -SCDs for DVT prophylaxis while not up walking. Subjective Subjective Interval history since last seen: Patient states he is doing well and has no complaints or concerns at this time. Exam Narrative Exam Narrative: well appearing older gentleman laying in bed in no acute distress, AOx4, heart RRR, lungs CTAB, abdomen soft, non-tender, non-distended Objective Last Vital Signs Temp 99.0 F 01/25/25 07:41 Pulse 61 01/25/25 07:41 Resp 16 01/25/25 07:41 BP 118/77 01/25/25 07:41 Pulse Ox 97 01/25/25 07:41 Time Spent with Patient Time Spent with Patient: >50 minutes Time was spent: preparing to see the patient(eg.review tests), obtaining and/or reviewing separately otained hiistory, ordering medications,tests, procedures, referring, communicating with other health career and guidance counselor, indepentently interpreting results, counseling the patient and care coordination
[2025-01-25 16:32] VITALS: BP 114/96; PULSE 87; RESP 18; TEMP 37.8; O2SAT 96
[2025-01-25] MEDS: Simvastatin 20 MG TAB PO (20:11)
[2025-01-25 20:18] VITALS: BP 104/62; PULSE 90; RESP 16; TEMP 38.1; O2SAT 96
[2025-01-26] MEDS: ceFAZolin 2 GM/50 ML BAG IVPB ×3 (04:01→21:12)
[2025-01-26 04:40] VITALS: BP 106/66; PULSE 57; RESP 18; TEMP 36.1
[2025-01-26 07:40] VITALS: BP 123/84; PULSE 60; TEMP 36.8; O2SAT 98
[2025-01-26] MEDS: Aspirin E.C. 81 MG TABEC PO (08:01)
[2025-01-26] MEDS: amLODIPine 5 MG TAB PO (08:01)
[2025-01-26] MEDS: Cholecalciferol (Vitamin D3) 1,000 UNIT TAB 2000 UNITS PO (08:02)
[2025-01-26] MEDS: Sertraline 50 MG TAB PO (08:02)
[2025-01-26] MEDS: Pantoprazole 40 MG TABCR PO (08:02)
[2025-01-26] MEDS: Losartan 50 MG TAB 100 MG PO (08:02)
[2025-01-26] MEDS: oxyCODONE 5 MG TAB PO ×2 (08:02→21:14)
--- NOTE | 2025-01-26 09:04 | PDOC.CMPRO ---
Date of service: 01/26/25 Time of Service: 09:04 Care Management Progress Note Progress Note Text Progress Note Text: Car was sitting in his chair, when CM arrived. CM reviewed the anticipated timeline surrounding his assisted antibiotics at home, and has initiated establishing the patient with the supply [employer]. He will go to [facility] in the morning, and is having a PICC placed, elijah. CM will continue to follow. Discharge Potential Discharge Needs: Consult ([facility] ID), PCP F/U Appt and Other ([facility] Antibiotics ) Anticipated Barriers to Discharge: Medical Status Patient/Family Education Needs: Review discharge instructions, discuss Ask Me Three Transportation: Private vehicle Plan: Anticipate, Car will be discharged home with new HH RN, once medically cleared. He may need assisted antibiotics, if he does, home antibiotics will be coordinated by CM. He will go to [facility] for a down and back on Sunday (01/27/25). He will follow up with his community providers and continue per his plan of care. Car will transport via private vehicle by family. CM will continue to follow. Social Determinants of Health Screening Social Determinants of health last assessed in clinic: 01/26/25 Will the Patient Participate in the Screening?: Yes Do you worry about having a steady place to live?: no Problems where you live: no known problems In the past 12 months, have you had to go without electric, gas, oil or water in your home?: no 1. Within the past 12 months, we worried whether our food would run out before we got money to buy more.: Never true 2. Within the past 12 months, the food we bought just didn't last and we didn't have money to get more.: Never true Has lack of transportation kept you from medical appointments or from doing things needed for daily living?: no Has anyone in your life made you feel unsafe or unsupported?: no How hard is it for you to pay for the very basics like food, housing, medical care, and heating? Would you say it is:: Not hard at all Do you want help finding or keeping work or a job?: I do not need or want help If for any reason you need help with day-to-day activities such as bathing, preparing meals, shopping, managing finances, etc., do you get the help you need?: I don?t need any help How often do you feel lonely or isolated from those around you?: Never Do you speak a language other than Mauritanian at home?: No Does the patient want assistance with any of the above?: No Anticipated HH Services Anticipated HH Services at Discharge [facility] Needed, RN.
--- NOTE | 2025-01-26 10:19 | W.PM.PROGNOT ---
Date of Service Date of service: 01/26/25 Time of Service: 10:19 Assessment and Plan Assessment and plan (1) MSSA bacteremia: Status: Acute Assessment and plan: -Unclear source; Negative CT C/A/P on admission. -Urine not c/w UTI, not symptoms of prostatitis -MRI cervical and lumbar spine negative -With abnormal valve, must consider endocarditis, TTE negative for vegetations; discussed with [facility] ID: -rec TTE, scheduled for Saturday 01/27 [id number] -continue cefazolin -if GOKUL positive for endocarditis add ertepenem -Repeat cultures 01/19, also positive -cultures from 01/21 and 01/22 remain negative (2) Aortic valve disorder: Status: Chronic Assessment and plan: -No clinical signs CHF -obtaining GOKUL as noted above (3) Prostate cancer: Status: Chronic Assessment and plan: -On Lupron therapy, no recent biospsy or radiation. -Radiation pending for January, need to communicate plan with oncology once disposition made, will likely need to be postponed. (4) Chronic pain: Status: Chronic Assessment and plan: -chronic tramadol. -oxycodone prn while hospitalized (5) Anemia: Status: Chronic Assessment and plan: -Dropped from admission, but then stabilized. -No bili to suggest hemolysis, follow. (6) Thrombocytopenia: Status: Chronic Assessment and plan: -Drop since admission, but stabilized. -Stopped enoxaparin. -SCDs for DVT prophylaxis while not up walking. Subjective Subjective Interval history since last seen: Patient states that he is doing well is looking forward to his GOKUL tomorrow. Otherwise he has no other complaints or concerns at this time. Exam Narrative Exam Narrative: well appearing older gentleman laying in bed in no acute distress, AOx4, heart RRR, lungs CTAB, abdomen soft, non-tender, non-distended Objective Last Vital Signs Temp 98.2 F 01/26/25 07:40 Pulse 60 01/26/25 07:40 Resp 18 01/26/25 04:40 BP 123/84 01/26/25 07:40 Pulse Ox 98 01/26/25 07:40 Time Spent with Patient Time Spent with Patient: >50 minutes Time was spent: preparing to see the patient(eg.review tests), obtaining and/or reviewing separately otained hiistory, ordering medications,tests, procedures, referring, communicating with other health rn progressive care unit, indepentently interpreting results, counseling the patient and care coordination
[2025-01-26 11:17] VITALS: BP 107/72; PULSE 75; RESP 18; TEMP 37.2; O2SAT 95
--- NOTE | 2025-01-26 19:48 | DI.RAD_ITS ---
Exam(s) XR PORTABLE CHEST AP POST LINE EXAM: XR PORTABLE CHEST AP POST LINE CLINICAL HISTORY: R PICC line insertion TECHNIQUE: 2D digital imaging was performed. COMPARISON: CR,XR XR RIBS RT W PA LAT CHEST from 11/02/[address] THORAX ABD/PEL CTA from 01/18/2025 FINDINGS: A PICC line has been inserted via the right arm.. The tip lies in the lower SVC. LUNGS: Clear. No pleural abnormality seen. HEART: Enlarged. TAVR. AORTA: Normal diameter. Tortuous. BONES: Unremark sternal wires. Soft tissues: Unremarkable. IMPRESSION: Cardiomegaly. No acute findings. Status post PICC line placement. The preliminary [facility] report was reviewed. DATA REPOSITORY: RADIATION DOSE DELIVERED:
--- NOTE | 2025-01-26 20:34 | DI.VRAD_ITS ---
PROCEDURE INFORMATION: Exam: XR Chest Exam date and time: 01/26/2025 8:02 PM Age: 74 years old Clinical indication: Device placement; Prior surgery; Surgery date: 6+ months; Surgery type: Aortic valve replacement; Picc line placement TECHNIQUE: Imaging protocol: Radiologic exam of the chest. Views: 1 view. COMPARISON: CT THORAX ABD/PEL CTA 01/18/2025 10:24 PM FINDINGS: Tubes, catheters and devices: Right upper extremity PICC in good position with the tip in the superior vena cava. Lungs: Unremarkable. No consolidation. Pleural spaces: Unremarkable. No pleural effusion. No pneumothorax. Heart/Mediastinum: Cardiac silhouette is mildly enlarged. Bones/joints: Sternotomy wires and prosthetic aortic valve remain in place. IMPRESSION: 1. Appropriate position of right upper extremity PICC. 2. Mild cardiomegaly Dictated and Authenticated by: Sergo Irizarry MD. Orderin Nissa King MD
[2025-01-26 20:49] VITALS: BP 104/55; PULSE 80; RESP 20; TEMP 38.3; O2SAT 95
[2025-01-26] MEDS: Normal Saline Flush 10 ML SYR IVP (21:12)
[2025-01-26] MEDS: Simvastatin 20 MG TAB PO (21:13)
[2025-01-26] MEDS: Acetaminophen 325 MG TAB PO (21:13)
[2025-01-26 23:04] VITALS: BP 93/64; PULSE 65; RESP 16; TEMP 36.9; O2SAT 94
[2025-01-27 03:27] VITALS: BP 105/71; PULSE 60; RESP 14; TEMP 36; O2SAT 95
[2025-01-27] MEDS: ceFAZolin 2 GM/50 ML BAG IVPB ×3 (04:13→20:31)
[2025-01-27] MEDS: Normal Saline Flush 10 ML SYR IVP ×2 (04:14→20:32)
[2025-01-27] MEDS: oxyCODONE 5 MG TAB PO ×3 (06:11→20:33)
[2025-01-27] MEDS: Acetaminophen 325 MG TAB PO ×3 (06:12→20:33)
--- NOTE | 2025-01-27 09:19 | NUR.NOTE ---
Nursing Note: pt is off the floor since 7 am
--- NOTE | 2025-01-27 10:39 | W.PM.PROGNOT ---
Date of Service Date of service: 01/27/25 Time of Service: 10:39 Assessment and Plan Assessment and plan (1) MSSA bacteremia: Status: Acute Assessment and plan: -Unclear source; Negative CT C/A/P on admission. -Urine not c/w UTI, not symptoms of prostatitis -MRI cervical and lumbar spine negative -With abnormal valve, must consider endocarditis, TTE negative for vegetations; discussed with [facility] ID: -TTE done, awaiting official report -continue cefazolin -if GOKUL positive for endocarditis add ertepenem -Repeat cultures 01/19, also positive -cultures from 01/21 and 01/22 remain negative (2) Aortic valve disorder: Status: Chronic Assessment and plan: -No clinical signs CHF -obtaining GOKUL as noted above (3) Prostate cancer: Status: Chronic Assessment and plan: -On Lupron therapy, no recent biospsy or radiation. -Radiation pending for January, need to communicate plan with oncology once disposition made, will likely need to be postponed. (4) Chronic pain: Status: Chronic Assessment and plan: -chronic tramadol. -oxycodone prn while hospitalized (5) Anemia: Status: Chronic Assessment and plan: -Dropped from admission, but then stabilized. -No bili to suggest hemolysis, follow. (6) Thrombocytopenia: Status: Chronic Assessment and plan: -Drop since admission, but stabilized. -Stopped enoxaparin. -SCDs for DVT prophylaxis while not up walking. Objective Last Vital Signs Temp 96.8 F L 01/27/25 03:27 Pulse 60 01/27/25 03:27 Resp 14 01/27/25 03:27 BP 105/71 01/27/25 03:27 Pulse Ox 95 01/27/25 03:27 Time Spent with Patient Time Spent with Patient: >50 minutes Time was spent: preparing to see the patient(eg.review tests), obtaining and/or reviewing separately otained hiistory, ordering medications,tests, procedures, referring, communicating with other health ambulatory care coordinator, indepentently interpreting results, counseling the patient and care coordination
--- NOTE | 2025-01-27 11:13 | PDOC.CMPRO ---
Date of service: 01/27/25 Time of Service: 11:16 Care Management Progress Note Progress Note Text Progress Note Text: Car went to [facility] today to meet with Infectious Disease for a GOKUL. He states, he is followed by Cardiothoracic surgeon - Terry Cristobal at [facility] [place]; Car requests that CM fax his D/C information to their office. At this time, the GOKUL has not been resulted. CM will coordinate the HH IV therapy, once instructed on decided antibiotic by the provider. Per [facility], the necessairy antibiotic can be over night shipped to Car's home; It is anticipated Car will discharge on . Discharge Potential Discharge Needs: PCP F/U Appt and Other ([employer] Antibiotics) Anticipated Barriers to Discharge: Other (Home IV Therapy ) Patient/Family Education Needs: Review discharge instructions, discuss Ask Me Three Transportation: Private vehicle Plan: Anticipate, Car will be discharged home with new HH RN, once medically cleared. He may need [facility], if he does, home antibiotics will be coordinated by CM. He will go to [facility] for a down and back on Sunday (01/27/25). He will follow up with his community providers and continue per his plan of care. Car will transport via private vehicle by family. CM will continue to follow. Social Determinants of Health Screening Social Determinants of health last assessed in clinic: 01/27/25 Will the Patient Participate in the Screening?: Yes Do you worry about having a steady place to live?: no Problems where you live: no known problems In the past 12 months, have you had to go without electric, gas, oil or water in your home?: no 1. Within the past 12 months, we worried whether our food would run out before we got money to buy more.: Never true 2. Within the past 12 months, the food we bought just didn't last and we didn't have money to get more.: Never true Has lack of transportation kept you from medical appointments or from doing things needed for daily living?: no Has anyone in your life made you feel unsafe or unsupported?: no How hard is it for you to pay for the very basics like food, housing, medical care, and heating? Would you say it is:: Not hard at all Do you want help finding or keeping work or a job?: I do not need or want help If for any reason you need help with day-to-day activities such as bathing, preparing meals, shopping, managing finances, etc., do you get the help you need?: I don?t need any help How often do you feel lonely or isolated from those around you?: Never Do you speak a language other than Turkish at home?: No Does the patient want assistance with any of the above?: No
[2025-01-27 13:38] VITALS: BP 126/93; PULSE 70; RESP 16; TEMP 36; O2SAT 98
[2025-01-27] MEDS: Simvastatin 20 MG TAB PO (20:32)
[2025-01-27 23:40] VITALS: BP 84/61; PULSE 71; RESP 17; TEMP 36.9; O2SAT 94
[2025-01-27 23:52] VITALS: BP 86/52
[2025-01-28 00:03] VITALS: BP 72/44
[2025-01-28] MEDS: Normal Saline Flush 10 ML SYR IVP ×2 (00:18→03:40)
[2025-01-28] MEDS: Normal Saline 1,000 ML 1000 ML IV (00:18)
[2025-01-28 01:30] VITALS: BP 100/72
[2025-01-28] MEDS: ceFAZolin 2 GM/50 ML BAG IVPB ×2 (03:41→12:01)
[2025-01-28 03:49] VITALS: BP 109/72; PULSE 67; RESP 19; TEMP 36.9; O2SAT 92
[2025-01-28 07:36] VITALS: BP 117/76; PULSE 65; RESP 12; TEMP 36.4; O2SAT 97
[2025-01-28] MEDS: Sertraline 50 MG TAB PO (07:38)
[2025-01-28] MEDS: Cholecalciferol (Vitamin D3) 1,000 UNIT TAB 2000 UNITS PO (07:38)
[2025-01-28] MEDS: Acetaminophen 325 MG TAB PO (07:38)
[2025-01-28] MEDS: Pantoprazole 40 MG TABCR PO (07:39)
[2025-01-28] MEDS: oxyCODONE 5 MG TAB PO (07:39)
[2025-01-28] MEDS: Aspirin E.C. 81 MG TABEC PO (07:39)
--- NOTE | 2025-01-28 09:15 | PDOC.CMPRO ---
Date of service: 01/28/25 Time of Service: 15:16 Care Management Progress Note Progress Note Text Progress Note Text: Car was discharged from inpatient status and is now swing bed level 1 status. CM contacted [facility] and requested they mail the Cefazolin; It will be at his home by the end of day . Per HH, they will take him as a same day admission on Sunday, for for 13:00 dose, and teach his . CM has called [facility] and they will fax a new order form to . Per provider, he and the family and have decided 0500, 1300, 2100 for dose timing, CM communicated this to home health and [facility] pharmacy. Car expressed understanding of the need for him to be back at the hospital for his schudule medication doses. He will sign in and out at the [facility] nursing station. CM will continue to follow. Discharge Potential Discharge Needs: PCP F/U Appt and Other ([facility] Antibiotics ) Anticipated Barriers to Discharge: Other (Home IV Therapy ) Patient/Family Education Needs: Review discharge instructions, discuss Ask Me Three Transportation: Private vehicle Plan: Anticipate, Car will be discharged home with new RN, once medically cleared. He needs intermediate antibiotics, which have been coordinate by CM through [facility]. He went to [facility] for a down and back on Sunday (01/27/25). He will follow up with his community providers and continue per his plan of care. Car will transport via private vehicle by family. agreed to do a same day admission Sunday, to do a medication administation and teaching for his 13:00 does. His status is now SB1 and he will come in to the hospital for his medication doses. CM will continue to follow. Social Determinants of Health Screening Social Determinants of health last assessed in clinic: 01/28/25 Will the Patient Participate in the Screening?: Yes Do you worry about having a steady place to live?: no Problems where you live: no known problems In the past 12 months, have you had to go without electric, gas, oil or water in your home?: no 1. Within the past 12 months, we worried whether our food would run out before we got money to buy more.: Never true 2. Within the past 12 months, the food we bought just didn't last and we didn't have money to get more.: Never true Has lack of transportation kept you from medical appointments or from doing things needed for daily living?: no Has anyone in your life made you feel unsafe or unsupported?: no How hard is it for you to pay for the very basics like food, housing, medical care, and heating? Would you say it is:: Not hard at all Do you want help finding or keeping work or a job?: I do not need or want help If for any reason you need help with day-to-day activities such as bathing, preparing meals, shopping, managing finances, etc., do you get the help you need?: I don?t need any help How often do you feel lonely or isolated from those around you?: Never Do you speak a language other than Slovak at home?: No Does the patient want assistance with any of the above?: No Anticipated HH Services Anticipated HH Services at Discharge [facility] Needed, RN.
[2025-01-28 09:25] VITALS: BP 122/79; PULSE 70
[2025-01-28 11:02] VITALS: BP 114/71; PULSE 60; RESP 18; TEMP 36.9; O2SAT 98
--- NOTE | 2025-01-28 17:45 | W.PM.DS.N ---
Date of service: 01/28/25 Time of Service: 17:46 DS: Diagnosis Discharge Diagnosis (1) MSSA bacteremia: Status: Acute (2) Aortic valve disorder: Status: Chronic (3) Prostate cancer: Status: Chronic (4) Chronic pain: Status: Chronic (5) Anemia: Status: Chronic (6) Thrombocytopenia: Status: Chronic Discharge Plan Disposition Condition: Stable Discharge Details Reason For Visit: Gram positive bacteremia, Severe sepsis Admit Date/Time: 01/19/25 13:54 Admit Provider: Fernando Azar Attending Provider: Fernando Azar Primary Care Provider: Devi Wilkes Hospital Course Hospital Course: 73-year-old male with past medical history of chronic multifactorial MSK pain including cervical and lumbar spinal disease, bioprosthetic aortic valve placement and surgery on ascending aortic aneurysm in 2009, and TAVR in 2019, essential tremor, hyperlipidemia, hypertension and prostate cancer on androgen deprivation who initially presented 01/18 with acute worsening of his low back, shoulder, neck pain and headache associated with nausea and chills. Admission was considered but he was discharged home after CTA C/A/P non-revealing and pain imrpoved with IV fentanyl. He was not given antibiotics at that visit. He was called back and admitted 01/19 when blood cultures returned GPC. He looked well clinically, but met sepsis criteria with elevated WBC, RR, and lactate. He was started on vancomycin and cefepime. His lactate normalized. TTE was normal 01/20. The blood grew MSSA and his antibiotics were narrowed to cefazolin after discussion with ID. They recommended MRI of areas of pain, especially areas with implanted hardware. MRI w w/o at cervical and lumbar spine did no show signs of infection. Cultures remained positive 01/19 and 01/20 but were negative 01/21 and 01/22. PICC line was placed 01/26. On 01/27 he went down to [facility] for a GOKUL which was negative for vegetation or other signs of infection. Thrombocytopenia and mild anemia were noted, which appeared to be new. There was no bleeding noted. Enoxaparin was stopped and mechanical DVT prophylaxis was used. He is being discharged to swing bed status until home cefazolin infusion 2g IV q8h for 6 weeks, through March 02 2025. Home Meds and New Rx's Prescriptions: New oxycodone 5 mg Tablet 5 mg PO Q4H PRN PRNQty: 0 0RF cefazolin in dextrose (iso-os) 2 gram/50 mL Piggyback 100 ml IV Q8H 35 Days Continued lorazepam 1 mg tablet 1 - 2 mg PO DAILY PRN (Reason: anxiety) Qty: 4 0RF Rx Instructions: Take 1-2 tabs about 1 hour before takeoff pantoprazole 40 mg tablet,delayed release (DR/EC) See Rx Instructions .ROUTE .COMPLEX Qty: 90 3RF Dose Instruction: TAKE ONE TABLET BY MOUTH EVERY MORNING AT LEAST 30 MIN BEFORE FIRST MEAL OF THE DAY Rx Instructions: TAKE ONE TABLET BY MOUTH EVERY MORNING AT LEAST 30 MIN BEFORE FIRST MEAL OF THE DAY amlodipine 5 mg tablet 5 mg PO DAILY Qty: 90 3RF Rx Instructions: For BP goal <140/90 tramadol 50 mg tablet 50 mg PO Q6H PRN (Reason: pain) Qty: 15 2RF Rx Instructions: Treatment agreement is for 15 pills per 28 days aspirin [Adult Low Dose Aspirin] 81 mg tablet,delayed release (DR/EC) 81 mg PO DAILY cholecalciferol (vitamin D3) [Vitamin D3] 50 mcg (2,000 unit) capsule 4,000 unit PO DAILY sertraline 50 mg tablet See Rx Instructions .ROUTE .COMPLEX Qty: 90 3RF Dose Instruction: TAKE 1 TABLET BY MOUTH DAILY Rx Instructions: TAKE 1 TABLET BY MOUTH DAILY simvastatin 20 mg tablet See Rx Instructions .ROUTE .COMPLEX Qty: 90 3RF Dose Instruction: TAKE ONE TABLET BY MOUTH EVERY DAY AT BEDTIME Rx Instructions: TAKE ONE TABLET BY MOUTH EVERY DAY AT BEDTIME losartan 100 mg tablet 100 mg PO DAILY Qty: 90 1RF Lupron Depot 7.5 mg syringe kit 7.5 mg IM Q4W ferrous sulfate 325 mg (65 mg iron) tablet 325 mg PO DAILY acetaminophen 500 mg tablet 1,000 mg PO TID Qty: 90 0RF Discharge Instructions Activity:: Activity as Tolerated Equipment/Supplies:: No Equipment Needed Diet:: As Tolerated DS: Summary Time Spent with Patient providing and/or coordinating discharge services: Greater than 30 minutes Status at Discharge Functional status at discharge: independent ambulation Overall status at discharge: patient is progressing back to baseline Mental Status: mental status grossly normal Speech and Movement: speech and movement normal Mood: congruent mood Affect: normal affect Exam Narrative Exam Narrative: GEN: Alert and oriented. No acute distress at rest. LUNGS: CTAB with normal effort CV: RRR with 2/6 systolic murmur audible throughout, radiates to neck. No gallops, or rubs. EXT: no cyanosis, clubbing, or edema. MSK: No joint redness or swelling. SKIN: No rashes or open wounds. Psych Mental Status: mental status grossly normal Speech and Movement: speech and movement normal Mood: congruent mood Affect: normal affect DS: Data Vitals/I&O Vitals and I&O: Vital Signs Temperature 36.9 C 01/28/25 11:02 Temperature Source Tympanic 01/28/25 11:02 Pulse 60 01/28/25 11:02 Pulse Rhythm Regular 01/19/25 16:28 Respiratory Rate 18 01/28/25 11:02 Respiratory Effort Normal, Non-Labored 01/19/25 16:28 Respiratory Depth Normal 01/19/25 16:28 Respiratory Pattern Normal 01/19/25 16:28 Blood Pressure 114/71 01/28/25 11:02 Blood Pressure Mean 85 01/28/25 11:02 Blood Pressure Position Sitting 01/19/25 12:30 Pulse Oximetry 98 01/28/25 11:02 Oxygen Delivery Method Room Air 01/28/25 11:02 Oxygen Flow Rate 0 01/28/25 11:02 Pain Level 5 01/28/25 10:40 Comment rn notified 01/26/25 11:17 Intake & Output 01/27/25 01/28/25 01/28/25 23:59 11:59 23:59 Intake Total 60 / 150 1100 / 1100 Balance 60 / 150 1100 / 1100 Intake: IV 60 / 150 1100 / 1100 Other: Urine Color Yellow Yellow Urine Appearance Clear Clear Urine Odor None None Comment Pt voids independently per pt - independent Stool Size Moderate Stool Characteristics Soft Formed Data Completed and Pending Labs on day of discharge: Preliminary micro results at discharge 01/25/25 21:41 Blood Blood Culture - Preliminary NO GROWTH 48 HOURS 01/25/25 21:35 Blood Blood Culture - Preliminary NO GROWTH 48 HOURS PFSH All Active Problems (Updated 01/24/25 @ 08:31 by Car Corona) MSSA bacteremia (Acute) Thrombocytopenia (Chronic) Discharge planning issues (Acute) DVT prophylaxis (Acute) Severe sepsis (Acute) Acute UTI (Acute) Acute lactic acidosis (Acute) Gram-positive cocci bacteremia (Acute) Back pain (Acute) Vomiting (Acute) Abdominal pain (Acute) Anemia (Chronic ~08/2024) Iron def with low retic count Diverticulosis of sigmoid colon (Acute ~10/2024) Cervicalgia (Acute) [facility] note 10/28/24. Cervical spondylosis (Acute) [facility] Ctr Pain and SPine note 10/28/24 Premature ventricular contraction (Acute ~10/17/24) [facility] Cardio 10/21/24 Prostate cancer (Chronic) 11/21/24 [facility] Rad/Onc Radiculopathy, cervical region (Acute) 08/19/24 Pain/Spine Ctr Nonunion of subtalar arthrodesis (Acute) [facility] Orthopaedics 04/15/24 IFG (impaired fasting glucose) (Acute) Seen on 03/2023 labs --> [facility] Arthritis of right ankle (Acute) Most recent Depo-Medrol injection: 03/26/2023 Essential hypertension (Chronic) Aortic aneurysm of unspecified site, without rupture (Chronic 12/12/19) S/p tube grafting in 2009 Essential tremor (Chronic) Chronic left hip pain (Chronic) Ventral hernia (Chronic 11/28/11) Temporomandibular joint disorders, unspecified (Chronic 11/28/11) Spinal stenosis (Chronic 11/28/11) [facility] L4-5 laminectomy 11/[address] [facility] pain clinic: median nerve branch block 2014 Sensorineural hearing loss, bilateral (Chronic 11/06/12) hearing aide Rosacea (Chronic 11/28/11) 08/05/20 [facility] Derm Insomnia, unspecified (Chronic 11/06/12) Hyperlipidemia (Chronic 11/28/11) Generalized osteoarthritis (Chronic 04/30/13) Gastroesophageal reflux disease (Chronic 12/22/15) EGD 2010 [facility] Chronic pain (Chronic 05/15/14) Spinal stenosis; cervical arthropathy BPH w/o urinary obs/LUTS (Chronic 11/28/11) S/P TURP 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 Followed by Dr Ríos CT surgery. [facility] rec Abx prophylaxis 01/14/20 [facility] Cardiac Cath, 7/8/20-TAVR [facility] Anxiety disorder, unspecified (Chronic 01/31/17) Long-term Sertraline (psychiatrist remotely) Medical History Elevated PSA, greater than or equal to 20 ng/ml (~06/2024) Tubular adenoma COVID (~06/2024) Anxiety with flying Intermittent Lorazepam RX Seborrheic keratoses Multiple fractures of ribs of right side Aortic stenosis (02/04/20) S/p TAVR 02/04/20 09/02/21 F/U Dr Albright Nondependent alcohol abuse, 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/28/11) Actinic keratosis (03/20/12) Surgical History H/O colonoscopy (10/31/24) [facility]-w/polypectomy tubular adenoma History of ankle surgery (~03/17/24) [facility] Ortho 04/02/24 Arthroscopy w/ extensive debridement, subtalar joint fusion, Brostrom stabilization w/ internal brace augmentation, peroneus longus debridement, peroneus brevis tenolysis Hx of hernia repair (1999) Status post cholecystectomy (~1989) History of total right knee replacement (11/16/21) lumbar/sacral medial branch blocks (02/24/15) Dr Caputo Transurethral prostatectomy (~2000) For BPH SI joint injection (04/23/17) L side, Dr. Caputo EGD (07/19/11) Replacement of aortic valve (~11/2009) Bioprosthetic AVR & ascending aorta replacement at [facility] Family History Mother Diabetes Heart disease Father Heart disease Multiple sclerosis Sister Diabetes Social History Smoking/Tobacco Use Status: Former Tobacco Use Quit Date: 07/30/00 Smokeless tobacco user: snuff Smoking risk assessment performed?: Yes Alcohol Intake: former Drug use: Never Substance use type: does not use Adopted: No Caregiver/Support person: No Foster care: No Household members: spouse Housing: house Number of Children: 2 Communication Needs: None Education Level: college current occupation: retired Current gender identity: male What type of physical activity do you participate in: walking Duration: 60-90 minutes/day Frequency: daily Seatbelt use: always Helmet use: Yes Drive intox or ride w/intox local company hazmat driver: No Water heater temp set <120 deg: Yes Working smoke detector in home: Yes Fire extinguisher in home: Yes Carbon monox detector in home: Yes Firearms in home: Yes Firearms unloaded and locked: Yes Do you feel safe at home: Yes Do you feel safe in your relationship?: Yes Additional Social history: Retired, lives with in [facility] Time Spent with Patient Time Spent with Patient: <45 minutes Time was spent: preparing to see the patient(eg.review tests), obtaining and/or reviewing separately otained hiistory, ordering medications,tests, procedures, referring, communicating with other health managed care provider, indepentently interpreting results, counseling the patient and care coordination
== END 2025-01-28 16:35 | disposition swing bed (61) | DRG 872 ==
LOC: ER 12:56 → MS 16:34
PROVIDERS: Admitting Provider Family Medicine; Emergency Provider Emergency Medicine; PCP Nurse Practitioner Adult Health; Responsible Provider Family Medicine; Visit Provider Family Medicine
DX: R65.20 Severe sepsis without septic shock; C61 Malignant neoplasm of prostate; G89.29 Other chronic pain; A41.01 Sepsis due to Methicillin susceptible Staphylococcus aureus; E87.21 Acute metabolic acidosis; G25.0 Essential tremor; I35.8 Other nonrheumatic aortic valve disorders; E78.5 Hyperlipidemia, unspecified; I10 Essential (primary) hypertension; D50.9 Iron deficiency anemia, unspecified; M47.22 Other spondylosis with radiculopathy, cervical region; M48.061 Spinal stenosis, lumbar region without neurogenic claudication; K57.30 Diverticulosis of large intestine without perforation or abscess without bleeding; I49.3 Ventricular premature depolarization; R73.01 Impaired fasting glucose; H90.3 Sensorineural hearing loss, bilateral; G47.00 Insomnia, unspecified; K21.9 Gastro-esophageal reflux disease without esophagitis; F41.9 Anxiety disorder, unspecified; D69.6 Thrombocytopenia, unspecified; Z95.828 Presence of other vascular implants and grafts; Z95.3 Presence of xenogenic heart valve; Z96.651 Presence of right artificial knee joint; Z87.891 Personal history of nicotine dependence
CPT/HCPCS: 36573; 00123; 36415; 71045; 72158; 80048; 80053; 87040; 93306; 96361; 96365; 96366; 96367; 96372; 96375; 99285; J1650; 72156; 80202; 81003; 81015; 83605; 83735; 84484; 85025; 86140; 99222; 99232; 99233; 99239; A0425; A0428; J0690; J0692; J2270; J2405; J3372

== ENCOUNTER 2025-01-28 18:40 | Inpatient (IN) | payer MEDICARE, BC, SELFPAY ==
--- NOTE | 2025-01-28 17:43 | HPE_ITS ---
Date of service: 01/28/25 Time of Service: 17:43 Assessment and Plan Assessment and plan (1) MSSA bacteremia: Status: Acute Assessment and plan: -Unclear source; Negative CT C/A/P on admission. -Urine not c/w UTI, not symptoms of prostatitis -MRI cervical and lumbar spine negative -With abnormal valve, must consider endocarditis. discussed with [facility] ID. -TTE and GOKUL negative -continue cefazolin for total of 6 weeks - Will keep swing status until he is able to get home infusion without missing doses - Okay to leave hospital between doses for mental health (2) Aortic valve disorder: Status: Chronic Assessment and plan: -No clinical signs CHF -obtaining GOKUL as noted above (3) Prostate cancer: Status: Chronic Assessment and plan: -On Lupron therapy, no recent biospsy or radiation. -Radiation pending for January, need to communicate plan with oncology once disposition made, will likely need to be postponed. (4) Chronic pain: Status: Chronic Assessment and plan: -chronic tramadol. -continue oxycodone prn while hospitalized (5) Anemia: Status: Chronic Assessment and plan: -Dropped from initial admission, but then stabilized. (6) Thrombocytopenia: Status: Chronic Assessment and plan: -Drop since admission, but stabilized. -No heparin, he is ambulatory History of Present Illness History of Present Illness Chief Complaint: blood infection Narrative: 73-year-old male with past medical history of chronic multifactorial MSK pain including cervical and lumbar spinal disease, bioprosthetic aortic valve placement and surgery on ascending aortic aneurysm in 2009, and TAVR in 2020, essential tremor, hyperlipidemia, hypertension and prostate cancer on androgen deprivation who initially presented 01/18 with acute worsening of his low back, shoulder, neck pain and headache associated with nausea and chills. Admission was considered but he was discharged home after CTA C/A/P non-revealing and pain imrpoved with IV fentanyl. He was not given antibiotics at that visit. He was called back and admitted 01/19 when blood cultures returned GPC. He looked well clinically, but met sepsis criteria with elevated WBC, RR, and lactate. He was started on vancomycin and cefepime. His lactate normalized. TTE was normal 01/20. The blood grew MSSA and his antibiotics were narrowed to cefazolin after disc ussion with ID. They recommended MRI of areas of pain, especially areas with implanted hardware. MRI w w/o at cervical and lumbar spine did no show signs of infection. Cultures remained positive 01/19 and 01/20 but were negative 01/21 and 01/22. PICC line was placed 01/26. On 01/27 he went down to [facility] for a GOKUL which was negative for vegetation or other signs of infection. Thrombocytopenia and mild anemia were noted, which appeared to be new. There was no bleeding noted. Enoxaparin was stopped and mechanical DVT prophylaxis was used. He is being discharged to swing bed status until home cefazolin infusion 2g IV q8h for 6 weeks, through March 02 2025. Review of Systems All systems reviewed & are unremarkable except as noted in HPI and below PFSH All Active Problems MSSA bacteremia (Acute) Thrombocytopenia (Chronic) Discharge planning issues (Acute) DVT prophylaxis (Acute) Severe sepsis (Acute) Acute UTI (Acute) Acute lactic acidosis (Acute) Gram-positive cocci bacteremia (Acute) Back pain (Acute) Vomiting (Acute) Abdominal pain (Acute) Anemia (Chronic ~08/2024) Iron def with low retic count Diverticulosis of sigmoid colon (Acute ~10/2024) Cervicalgia (Acute) [facility] note 10/28/24. Cervical spondylosis (Acute) [facility] Ctr Pain and SPine note 10/28/24 Premature ventricular contraction (Acute ~10/17/24) [facility] Cardio 10/21/24 Prostate cancer (Chronic) 11/21/24 [facility] Rad/Onc Radiculopathy, cervical region (Acute) 08/19/24 Pain/Spine Ctr Nonunion of subtalar arthrodesis (Acute) [facility] Orthopaedics 04/15/24 IFG (impaired fasting glucose) (Acute) Seen on 03/2023 labs --> needs an A1c at [facility] Arthritis of right ankle (Acute) Most recent Depo-Medrol injection: 03/26/2023 Essential hypertension (Chronic) Aortic aneurysm of unspecified site, without rupture (Chronic 12/12/19) S/p tube grafting in 2009 Essential tremor (Chronic) Chronic left hip pain (Chronic) Ventral hernia (Chronic 11/28/11) Temporomandibular joint disorders, unspecified (Chronic 11/28/11) Spinal stenosis (Chronic 11/28/11) [facility] L4-5 laminectomy 11/2013 Dr Rascon [facility] pain clinic: median nerve branch block 2014 Sensorineural hearing loss, bilateral (Chronic 11/06/12) hearing aide Rosacea (Chronic 11/28/11) 08/05/20 [facility] Derm Insomnia, unspecified (Chronic 11/06/12) Hyperlipidemia (Chronic 11/28/11) Generalized osteoarthritis (Chronic 04/30/13) Gastroesophageal reflux disease (Chronic 12/22/15) EGD 2010 [facility] Chronic pain (Chronic 05/15/14) Spinal stenosis; cervical arthropathy BPH w/o urinary obs/LUTS (Chronic 11/28/11) S/P TURP 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 Followed by Dr Ríos CT surgery. [facility] rec Abx prophylaxis 01/14/20 [facility] Cardiac Cath, 02/04/20-TAVR [facility] Anxiety disorder, unspecified (Chronic 01/31/17) Long-term Sertraline (psychiatrist remotely) Medical History Tubular adenoma COVID (~06/2024) Elevated PSA, greater than or equal to 20 ng/ml (~06/2024) Anxiety with flying Intermittent Lorazepam RX Seborrheic keratoses Multiple fractures of ribs of right side Aortic stenosis (02/04/20) S/p TAVR 02/04/20 09/02/21 F/U Dr Albright Nondependent alcohol abuse, 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/28/11) Actinic keratosis (03/20/12) Surgical History H/O colonoscopy (10/31/24) [facility] [place]-w/polypectomy tubular adenoma History of ankle surgery (~03/17/24) [facility] Ortho 04/02/24 Arthroscopy w/ extensive debridement, subtalar joint fusion, Brostrom stabilization w/ internal brace augmentation, peroneus longus debridement, peroneus brevis tenolysis Hx of hernia repair (1999) Status post cholecystectomy (~1989) History of total right knee replacement (11/16/21) lumbar/sacral medial branch blocks (02/24/15) Dr Caputo Transurethral prostatectomy (~2000) For BPH SI joint injection (04/23/17) L side, Dr. Caputo EGD (07/19/11) Replacement of aortic valve (~11/2009) Bioprosthetic AVR & ascending aorta replacement at [facility] Family History Mother Diabetes Heart disease Father Heart disease Multiple sclerosis Sister Diabetes Social History Smoking/Tobacco Use Status: Former Tobacco Use Quit Date: 07/30/00 Smokeless tobacco user: snuff Smoking risk assessment performed?: Yes Alcohol Intake: former Drug use: Never Substance use type: does not use Adopted: No Caregiver/Support person: No Foster care: No Household members: spouse Housing: house Number of Children: 2 Communication Needs: None Education Level: college current occupation: retired Current gender identity: male What type of physical activity do you participate in: walking Duration: 60-90 minutes/day Frequency: daily Seatbelt use: always Helmet use: Yes Drive intox or ride w/intox commercial collections driver: No Water heater temp set <120 deg: Yes Working smoke detector in home: Yes Fire extinguisher in home: Yes Carbon monox detector in home: Yes Firearms in home: Yes Firearms unloaded and locked: Yes Do you feel safe at home: Yes Do you feel safe in your relationship?: Yes Additional Social history: Retired, lives with in [facility] Allergies and Home Medications Allergies Allergy/AdvReac Type Severity Reaction Status Date / Time No Known Allergies Allergy Verified 01/18/25 21:19 Home Medications ?Medication ?Instructions ?Recorded ?Confirmed ?Type aspirin 81 mg tablet,delayed 81 mg PO DAILY 11/22/18 0 01/19/25 History release (Adult Low Dose Aspirin) cholecalciferol (vitamin D3) 50 4,000 unit PO DAILY 01/19/25 History mcg (2,000 unit) capsule (Vitamin D3) acetaminophen 500 mg tablet 1,000 mg (2 x 500 mg) PO T ID #90 07/04/22 01/19/25 Rx tabs sertraline 50 mg tablet See Rx Instructions .Route 1 01/19/25 Rx .COMPLEX #90 tabs simvastatin 20 mg tablet See Rx Instructions .Route 0 08/20/24 01/19/25 Rx .COMPLEX #90 tabs lorazepam 1 mg tablet 1 - 2 mg (1 - 2 x 1 mg) PO D AILY 09/18/24 01/19/25 Rx PRN anxiety #4 tab-caps pantoprazole 40 mg tablet,delayed See Rx Instructions .Route 09/18/24 01/19/25 Rx release .COMPLEX #90 tabs losartan 100 mg tablet 100 mg PO DAILY #90 tabs 01/19/25 Rx leuprolide 7.5 mg intramuscular 7.5 mg IM Q4W 11/27/24 01/19/25 History syringe kit (Lupron Depot) ferrous sulfate 325 mg (65 mg 325 mg PO DAILY 12/16/24 01/19/25 History iron) tablet amlodipine 5 mg tablet 5 mg PO DAILY #90 tabs 12/1701/19/25 Rx tramadol 50 mg tablet 50 mg PO Q6H PRN pain #15 ta bs 12/17/24 01/19/25 Rx cefazolin 2 gram/50 mL in dextrose 100 ml IV Q8H 5 wee ks 01/28/25 Rx (iso-osmotic) intravenous piggyback oxycodone 5 mg tablet 5 mg PO Q4H PRN PRN #0 tabs 01/28/25 Rx Exam Narrative Exam Narrative: GEN: Alert and oriented. No acute distress at rest. LUNGS: CTAB with normal effort CV: RRR with 2/6 systolic murmur audible throughout, radiates to neck. No gallops, or rubs. EXT: no cyanosis, clubbing, or edema. MSK: No joint redness or swelling. SKIN: No rashes or open wounds. Time Spent Time spent with Patient: 40-54 minutes Time was spent: preparing to see the patient(eg.review tests), obtaining and/or reviewing separately otained hiistory, ordering medications,tests, procedures, referring, communicating with other health resident care manager, indepentently interpreting results, counseling the patient and care coordination
--- NOTE | 2025-01-28 18:41 | PDOC.CMACT ---
Date of service: 01/28/25 Time of Service: 18:41 Care Management Activity Note Activity Note Text Activity Note Text: Individual needs for life enrichment during prolonged hospitalization. Enjoys spending time in family room, staying active by walking around, and in signing out between medication doses to visit home.
--- NOTE | 2025-01-28 18:44 | CMPROGNOTE_ITS ---
Date of service: 01/28/25 Time of Service: 18:48 Care Management Progress Note Progress Note Text Progress Note Text: Car is now swing bed level 1 status. Per [facility], Cefazolin arriving the end of day . Per HH, they will take him as a same day admission on Sunday, for for 13:00 dose, and teach his . CM has called [facility] and they will fax a new order form to . Per provider, he and the family and have decided 0500, 1300, 2100 for dose timing, CM communicated this to home health and [facility] pharmacy. Car expressed understanding of the need for him to be back at the hospital for his schedule medication doses. He will sign in and out at the [facility] nursing station. CM will continue to follow. Discharge Potential Discharge Needs: PCP F/U Appt and Other (long filler cigar roller machine abx) Anticipated Barriers to Discharge: Other (Home IV therapy) Patient/Family Education Needs: Review discharge instructions, discuss Ask Me Three Transportation: Private vehicle Plan: Anticipate, Car will be discharged home with new RN, pending on the initiation of home IV therapy. He needs detention antibiotics, which have been coordinate by CM through [facility]. He will follow up with his community providers and continue per his plan of care. Car will transport via private vehicle by family. agreed to do a same day admission Sunday, to do a medication administation and teaching for his 13:00 does. His status is now SB1 and he will come in to the hospital for his medication doses. CM will continue to follow. Social Determinants of Health Screening Will the Patient Participate in the Screening?: Unable to obtain
--- NOTE | 2025-01-28 18:48 | CM.SBPSYCH ---
Date of service: 01/28/25 Time of Service: 18:49 SB Psychosocial/Act. [facility] Hospital Admission Admission Date: 01/19/25 Admission From:: Med Surg [facility] Diagnosis:: Gram positive bacteremia, severe sepsis Swing Bed Admission Swing Bed Admit Date:: 01/28/25 Swing Bed Level of Care: Level 1/SNF Social Supports PREVIOUS FUNCTIONAL STATUS/SOCIAL/FAMILY SUPPORTS:: Car lives in [place] with his Graciela. 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 Car has 2 adult daughters, one living in [place]. Car is independent at baseline, including driving. Prior to Admission Living Arrangements/Environment Prior to Admission:: Prior to admission, Car was in his single family home, in [place]. Education Highest Grade Completed:: Bachelor/college level Work History Employment Status:: Retired Voacation:: [employer] - Case management : No 's Spouse: No Benefits Financial: Social Security Advance Directives for Healthcare Advance Directives for Healthcare: Advance Directives Advance Directive Agent: Graciela [place] Interests Other Activities:: Staying active in the home, traveling to see adult children. Present Functional Status Physical Abilities:: Ambulates independently Cognitive:: oriented to person, place, and time. Communication:: Expresses needs & ideas clearly and appropriately Sensory Systems: reports no issues with sensory systems Behavior:: Appropriate, at this time Admission Data Reason for Swing Bed Admission:: long term care pharmacist IV antibiotics Discharge Plan:: Anticipate, Car will be discharged home Sunday01/30/25 with new [facility] RN, pending on the initiation of home IV therapy. He needs detention antibiotics, which have been coordinate by CM through [facility]. He will follow up with his community providers and continue per his plan of care. Car will transport via private vehicle by family. HH agreed to do a same day admission Sunday, to do a medication administration and teaching for his 13:00 does. His status is now SB1 and he will come in to the hospital for his medication doses. CM will continue to follow. 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 He will discharge home s/p to the arrival of his medication from [facility], and the initiation of home health. Pharmacy Care Coordinator: Argentina Barrera Date Assessment was completed:: 01/28/25
[2025-01-28] MEDS: Acetaminophen 500 MG TAB 1000 MG PO (20:56)
[2025-01-28] MEDS: ceFAZolin 2 GM/50 ML BAG IVPB (20:58)
[2025-01-28] MEDS: Normal Saline Flush 10 ML SYR IVP (21:03)
[2025-01-28] MEDS: Simvastatin 20 MG TAB PO (22:03)
[2025-01-29 04:52] VITALS: BP 127/84; PULSE 58; RESP 18; TEMP 36.1; O2SAT 99
[2025-01-29] MEDS: Normal Saline Flush 10 ML SYR IVP ×3 (05:06→20:47)
[2025-01-29] MEDS: ceFAZolin 2 GM/50 ML BAG IVPB ×3 (05:07→20:47)
--- NOTE | 2025-01-29 07:13 | NUR.NOTE ---
Nursing Note: Pt is not present in the hospital, he went home last night and is planning to return sometime today for IV ABX.
[2025-01-29] MEDS: Acetaminophen 500 MG TAB 1000 MG PO (12:58)
--- NOTE | 2025-01-29 14:31 | NUR.NOTE ---
Nursing Note: Pt arrived early for his ABX administration early and was grateful to be offered this opportunity to use swing bed policy to go home in between infusions.
[2025-01-29 20:43] VITALS: BP 129/90; PULSE 69; RESP 22; TEMP 37.1; O2SAT 97
[2025-01-29] MEDS: Simvastatin 20 MG TAB PO (20:46)
[2025-01-30 04:59] VITALS: BP 123/93; PULSE 64; RESP 18; TEMP 36.1; O2SAT 7
[2025-01-30] MEDS: ceFAZolin 2 GM/50 ML BAG IVPB (05:02)
[2025-01-30] MEDS: Normal Saline Flush 10 ML SYR IVP (05:02)
--- NOTE | 2025-01-30 13:39 | NUR.NOTE ---
Nursing Note:Called patient at home phone number to inquire if they were returning to the medsur unit today in time for their 1400 antibiotic treatment. I spoke with the of the patient. When she answered the phone and I asked to speak with the patient Car Reid, the said the Home Health Nurse was speaking with the patient at this time. She confirmed that the antibiotic had been received at the home yesterday 01/29/25 and that the nurse was prepared to administer the antibiotic at this time (12:30, 01/30/25). At the conclusion of this call, the provider Dr. Azar was immediately informed. That update is documented under provider notification. The Charge Nurse Sabrina Holliday was then also informed. Destiny Girard LPN
--- NOTE | 2025-01-30 14:42 | DSE_ITS ---
Date of service: 01/30/25 Time of Service: 14:46 DS: Diagnosis Discharge Diagnosis (1) MSSA bacteremia: Status: Acute (2) Aortic valve disorder: Status: Chronic (3) Prostate cancer: Status: Chronic (4) Chronic pain: Status: Chronic (5) Anemia: Status: Chronic (6) Thrombocytopenia: Status: Chronic Discharge Plan Disposition Patient Disposition: Home W/Home Health Services Condition: Good Discharge Details Reason For Visit: Swingbed Admit Date/Time: 01/28/25 18:40 Admit Provider: Fernando Azar Attending Provider: Fernando Azar Primary Care Provider: Devi Wilkes Hospital Course Hospital Course: 73-year-old male with past medical history of chronic multifactorial MSK pain including cervical and lumbar spinal disease, bioprosthetic aortic valve placement and surgery on ascending aortic aneurysm in 2009, and TAVR in 2019, essential tremor, hyperlipidemia, hypertension and prostate cancer on androgen deprivation who initially presented 01/18 with acute worsening of his low back, shoulder, neck pain and headache associated with nausea and chills. Admission was considered but he was discharged home after CTA C/A/P non-revealing and pain imrpoved with IV fentanyl. He was not given antibiotics at that visit. He was called back and admitted 01/19 when blood cultures returned GPC. He looked well clinically, but met sepsis criteria with elevated WBC, RR, and lactate. He was started on vancomycin and cefepime. His lactate normalized. TTE was normal 01/20. The blood grew MSSA and his antibiotics were narrowed to cefazolin after discussion with ID. They recommended MRI of areas of pain, especially areas with implanted hardware. MRI w w/o at cervical and lumbar spine did no show signs of infection. Cultures remained positive 01/19 and 01/20 but were negative 01/21 and 01/22. PICC line was placed 01/26. On 01/27 he went down to [facility] for a GOKUL which was negative for vegetation or other signs of infection. Thrombocytopenia and mild anemia were noted, which appeared to be new. There was no bleeding noted. Enoxaparin was stopped and mechanical DVT prophylaxis was used. He was discharged to swing bed status 01/28 until home IV antibiotics available. On 01/30 he was fully discharged and will continue cefazolin infusion 2g IV q8h for 6 weeks with home health, through March 02 2025. Recommendations for Follow Up Recommended tests to be ordered by follow up provider: cbc, BMP 1 week, also as per home infusion orders Home Meds and New Rx's Prescriptions: New cefazolin in dextrose (iso-os) 2 gram/50 mL Piggyback 50 ml IVPB Q8H Qty: 0 0RF Continued lorazepam 1 mg tablet 1 - 2 mg PO DAILY PRN (Reason: anxiety) Qty: 4 0RF Rx Instructions: Take 1-2 tabs about 1 hour before takeoff pantoprazole 40 mg tablet,delayed release (DR/EC) See Rx Instructions .ROUTE .COMPLEX Qty: 90 3RF Dose Instruction: TAKE ONE TABLET BY MOUTH EVERY MORNING AT LEAST 30 MIN BEFORE FIRST MEAL OF THE DAY Rx Instructions: TAKE ONE TABLET BY MOUTH EVERY MORNING AT LEAST 30 MIN BEFORE FIRST MEAL OF THE DAY amlodipine 5 mg tablet 5 mg PO DAILY Qty: 90 3RF Rx Instructions: For BP goal <140/90 tramadol 50 mg tablet 50 mg PO Q6H PRN (Reason: pain) Qty: 15 2RF Rx Instructions: Treatment agreement is for 15 pills per 28 days aspirin [Adult Low Dose Aspirin] 81 mg tablet,delayed release (DR/EC) 81 mg PO DAILY cholecalciferol (vitamin D3) [Vitamin D3] 50 mcg (2,000 unit) capsule 4,000 unit PO DAILY sertraline 50 mg tablet See Rx Instructions .ROUTE .COMPLEX Qty: 90 3RF Dose Instruction: TAKE 1 TABLET BY MOUTH DAILY Rx Instructions: TAKE 1 TABLET BY MOUTH DAILY simvastatin 20 mg tablet See Rx Instructions .ROUTE .COMPLEX Qty: 90 3RF Dose Instruction: TAKE ONE TABLET BY MOUTH EVERY DAY AT BEDTIME Rx Instructions: TAKE ONE TABLET BY MOUTH EVERY DAY AT BEDTIME losartan 100 mg tablet 100 mg PO DAILY Qty: 90 1RF Lupron Depot 7.5 mg syringe kit 7.5 mg IM Q4W ferrous sulfate 325 mg (65 mg iron) tablet 325 mg PO DAILY acetaminophen 500 mg tablet 1,000 mg PO TID Qty: 90 0RF Discontinued oxycodone 5 mg Tablet 5 mg PO Q4H PRN PRNQty: 0 0RF cefazolin in dextrose (iso-os) 2 gram/50 mL Piggyback 100 ml IV Q8H 35 Days Discharge Instructions Instructions: Sepsis, Adult (DC) Additional Instructions: finish the IV antibiotic every 8 hours through March 02 Follow up with Oncology about plan for prostate cancer Activity:: Activity as Tolerated Equipment/Supplies:: No Equipment Needed Diet:: As Tolerated Discharge Orders Discharge Orders: Discharge Order (Routine); Ordered 01/30/25 Ordered By: Fernando Azar DS: Summary Time Spent with Patient providing and/or coordinating discharge services: Less than 30 minutes Status at Discharge Functional status at discharge: independent ambulation Overall status at discharge: patient is progressing back to baseline Mental Status: mental status grossly normal Speech and Movement: speech and movement normal Mood: congruent mood Affect: normal affect Exam Narrative Exam Narrative: alert and oriented, NAD. normal respiratory effort no cyanosis or edema Psych Mental Status: mental status grossly normal Speech and Movement: speech and movement normal Mood: congruent mood Affect: normal affect DS: Data Vitals/I&O Vitals and I&O: Vital Signs Temperature 36.1 C L 01/30/25 04:59 Temperature Source Temporal Artery Scan 01/30/25 04:59 Pulse 64 01/30/25 04:59 Respiratory Rate 18 01/30/25 04:59 Blood Pressure 123/93 H 01/30/25 04:59 Blood Pressure Mean 103 01/30/25 04:59 Pulse Oximetry 7 L 01/30/25 04:59 Oxygen Delivery Method Room Air 01/30/25 04:59 Oxygen Flow Rate 0 01/30/25 04:59 Pain Level 7 01/29/25 20:43 Intake & Output 01/29/25 01/30/25 01/30/25 23:59 11:59 23:59 Intake Total 150 / 200 50 / 50 Balance 150 / 200 50 / 50 Intake: IV 150 / 200 50 / 50 PFSH All Active Problems (Updated 01/29/25 @ 00:03 by KO LEVIN) MSSA bacteremia (Acute) Thrombocytopenia (Chronic) Discharge planning issues (Acute) DVT prophylaxis (Acute) Back pain (Acute) Vomiting (Acute) Abdominal pain (Acute) Anemia (Chronic ~08/2024) Iron def with low retic count Diverticulosis of sigmoid colon (Acute ~10/2024) Cervicalgia (Acute) [facility] [place] 10/28/24. Cervical spondylosis (Acute) [facility] [place] [facility] SP[facility] note 10/28/24 Premature ventricular contraction (Acute ~10/17/24) [facility] [place] 10/21/24 Prostate cancer (Chronic) 11/21/24 [facility] Rad/Onc Radiculopathy, cervical region (Acute) 08/19/24 Pain/Spine Ctr Nonunion of subtalar arthrodesis (Acute) [facility] [place] 04/15/24 IFG (impaired fasting glucose) (Acute) Seen on 03/2023 labs --> needs an A1c at NOV Arthritis of right ankle (Acute) Most recent Depo-Medrol injection: 03/26/2023 Essential hypertension (Chronic) Aortic aneurysm of unspecified site, without rupture (Chronic 12/12/19) S/p tube grafting in 2009 Essential tremor (Chronic) Chronic left hip pain (Chronic) Ventral hernia (Chronic 11/28/11) Temporomandibular joint disorders, unspecified (Chronic 11/28/11) Spinal stenosis (Chronic 11/28/11) [facility] [place] L4-5 laminectomy 11/2013 Dr Rascon [facility] pain clinic: median nerve branch block 2014 Sensorineural hearing loss, bilateral (Chronic 11/06/12) hearing aide Rosacea (Chronic 11/28/11) 08/05/20 [facility] Insomnia, unspecified (Chronic 11/06/12) Hyperlipidemia (Chronic 11/28/11) Generalized osteoarthritis (Chronic 04/30/13) Gastroesophageal reflux disease (Chronic 12/22/15) EGD 2010 [facility] [place] Chronic pain (Chronic 05/15/14) Spinal stenosis; cervical arthropathy BPH w/o urinary obs/LUTS (Chronic 11/28/11) S/P TURP Arthropathy of cervical spine (Chronic 11/28/11) Cervical arthropathy RFx2 Aortic valve disorder (Chronic 11/06/12) 11/2009 bioprosthetic AVR/Ascending Aorta replacement [facility] [place]. Followed by Dr Ríos CT surgery. [facility] [place] rec Abx prophylaxis 01/14/20 [facility] [place] Cardiac Cath, 02/04/20-TAVR [facility] [place] Anxiety disorder, unspecified (Chronic 01/31/17) Long-term Sertraline (psychiatrist remotely) Medical History Tubular adenoma COVID (~06/2024) Elevated PSA, greater than or equal to 20 ng/ml (~06/2024) Anxiety with flying Intermittent Lorazepam RX Seborrheic keratoses Multiple fractures of ribs of right side Aortic stenosis (02/04/20) S/p TAVR 02/04/20 09/02/21 F/U Dr Albright Nondependent alcohol abuse, 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/28/11) Actinic keratosis (03/20/12) Surgical History [place]oscopy [place]10/31/24[place] [facility] [place] History of ankle surgery (~03/17/24) [facility] [place]o 04/02/24 Arthroscopy w/ extensive debridement, subtalar joint fusion, Brostrom stabilization w/ internal brace augmentation, peroneus longus debridement, peroneus brevis tenolysis Hx of hernia repair (1999) Status post cholecystectomy (~1989) History of total right knee replacement (11/16/21) lumbar/sacral medial branch blocks (02/24/15) Dr Caputo Transurethral prostatectomy (~2000) For BPH SI joint injection (04/23/17) L side, Dr. Caputo EGD (07/19/11) Replacement of aortic valve (~11/2009) Bioprosthetic AVR & ascending aorta replacement [place] [facility] [place] Family History Mother Diabetes Heart disease Father Heart disease Multiple sclerosis Sister Diabetes Social History Smoking/Tobacco Use Status: Former Tobacco Use Quit Date: 07/30/00 Smokeless tobacco user: snuff Smoking risk assessment performed?: Yes Alcohol Intake: former Drug use: Never Substance use type: does not use Adopted: No Caregiver/Support person: No Foster care: No Household members: spouse Housing: house Number of Children: 2 Communication Needs: None Education Level: college current occupation: retired Current gender identity: male What type of physical activity do you participate in: walking Duration: 60-90 minutes/day Frequency: daily Seatbelt use: always Helmet use: Yes Drive intox or ride w/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
== END 2025-01-30 14:51 | disposition home health service (06) | DRG 872 ==
PROVIDERS: Admitting Provider Family Medicine; PCP Nurse Practitioner Adult Health; Responsible Provider Family Medicine; Visit Provider Family Medicine
DX: A41.9 Sepsis, unspecified organism (principal); B95.61 Methicillin susceptible Staphylococcus aureus infection as the cause of diseases classified elsewhere; I35.9 Nonrheumatic aortic valve disorder, unspecified; C61 Malignant neoplasm of prostate; G89.29 Other chronic pain; Z95.3 Presence of xenogenic heart valve; G25.0 Essential tremor; E78.5 Hyperlipidemia, unspecified; I10 Essential (primary) hypertension; I35.8 Other nonrheumatic aortic valve disorders; D69.6 Thrombocytopenia, unspecified; D50.9 Iron deficiency anemia, unspecified; I49.3 Ventricular premature depolarization; M47.22 Other spondylosis with radiculopathy, cervical region; R73.01 Impaired fasting glucose; H90.3 Sensorineural hearing loss, bilateral; G47.00 Insomnia, unspecified; K21.9 Gastro-esophageal reflux disease without esophagitis; F41.9 Anxiety disorder, unspecified
CPT/HCPCS: 00123; 99305; 99315; J0690

== ENCOUNTER 2025-02-02 15:00 | Outpatient (REF) | payer MEDICARE, BC, SELFPAY ==
[2025-02-02 15:30] LABS: Abs Immature Grans 0.06 10^3/uL (0.0-0.06); HCT 36.3 % (40.0-50.0); HGB 11.6 g/dL (13.5-17.5); Immature Grans % 0.5 %; MCH 28.6 pg (27.0-33.0); MCHC 32.0 % (32.0-36.0); MCV 90 fL (80-95); MPV 10.3 fL (8.0-11.0); Platelet Count 280 10^3/uL (130-400); RBC 4.05 10^6/uL (4.36-5.78); RDW 16.9 % (11.8-14.1); RDW-SD 55.5 fL; WBC 11.18 10^3/uL (4.4-10.8)
== END 2025-02-02 15:01 | disposition home or self-care (01) ==
LOC: LBN 15:00
PROVIDERS: PCP Nurse Practitioner Adult Health; Visit Provider Nurse Practitioner Adult Health
DX: R78.81 Bacteremia (principal)
CPT/HCPCS: 85025